=== PATIENT | male | born 1950 | race Caucasian/White ===

== ENCOUNTER 2020-08-15 11:15 | Inpatient (IN) | payer MEDICARE ==
[2020-08-15 12:15] LABS: Eosinophils % (A) 0 %; HCT 40.8 % (39.0-53.0); HGB 14.5 gm/dL (13.0-17.5); Lymphocytes % (A) 14 %; MCH 33.3 pg (25.0-35.0); MCHC 35.7 g/dL (31.0-37.0); MCV 93.4 fL (80.0-100.0); Mean Platelet Volume 8.7; Monocytes % (A) 6 %; Neutrophils % (A) 79 %; Platelet Count 117 k/uL (150-450); RBC 4.37 m/uL (4.30-5.90); RDW 11.5 % (11.5-15.5); WBC 2.6 k/uL (3.8-10.6)
[2020-08-15 12:16] LABS: Basophils % (A) 0 %; Lymphocytes # (A) 0.4 k/uL (1.0-4.8); Monocytes # (A) 0.2 k/uL (0-1.0)
[2020-08-15 12:26] LABS: Potassium 3.1 mmol/L (3.5-5.1)
--- NOTE | 2020-08-15 12:26 | XR ---
EXAMINATION TYPE: XR chest 1V portable DATE OF EXAM: 08/15/2020 COMPARISON: NONE HISTORY: Covid, shortness breath, cough TECHNIQUE: Single frontal view of the chest is obtained. FINDINGS: Some patchy airspace disease suspected on the right. Cardiac mediastinal silhouette within normal limits. Calcified granuloma suspected right lower lobe. No pneumothorax or pleural effusion. IMPRESSION: Correlate for pneumonia, probable old granulomatous disease.
[2020-08-15] MEDS ORDERED: SODIUM CHLORIDE 0.9% 1,000 ML IV STA (12:27)
[2020-08-15 12:29] LABS: ALT 37 U/L (4-49); AST 63 U/L (17-59); African American GFR (CKD) >90 (>60 ml/min/1.73 sqM); Albumin 3.3 g/dL (3.5-5.0); Alkaline Phosphatase 74 U/L (38-126); Anion Gap 9 mmol/L; Blood Urea Nitrogen 18 mg/dL (9-20); C Reactive Protein 7.1 mg/dL (<1.0); Calcium 7.7 mg/dL (8.4-10.2); Carbon Dioxide 23 mmol/L (22-30); Chloride 106 mmol/L (98-107); Glucose 127 mg/dL (74-99); LDH 1283 U/L (313-618); Non-African American GFR(CKD) >90 (>60 ml/min/1.73 sqM); Sodium 138 mmol/L (137-145); Total Bilirubin 0.8 mg/dL (0.2-1.3); Total Protein 6.6 g/dL (6.3-8.2)
[2020-08-15 12:30] LABS: Partial Thromboplastin Time 26.9 sec (22.0-30.0); Prothrombin Time 10.3 sec (9.0-12.0)
[2020-08-15 12:50] LABS: D-Dimer 0.95 mg/L FEU (<0.60)
--- NOTE | 2020-08-15 13:20 | ED ---
SOB HPI - General Chief Complaint: Shortness of Breath Stated Complaint: Covid+, SOB Time Seen by Provider: 08/15/20 11:28 Source: patient Mode of arrival: ambulatory Limitations: no limitations - History of Present Illness Initial Comments: Patient is a 70-year-old male presenting to the emergency department with complaints of increasing shortness of breath over the past few days. Patient was diagnosed foot Covid on 08/09/2020. His symptoms started about 8 days ago. He's been having cough, shortness of breath, fatigue as well as some diarrhea. He is having low appetite, has been trying to drink some water. Mild nausea no vomiting. He denies history of asthma but does have history of chronic bronchitis, granulomatosis disease. Patient does admit to some intermittent fevers over the past few days. Tylenol does take this away. He has no further complaints at this time. Upon arrival to the ER, he is afebrile, 86% on room air, rest of vitals normal. - Related Data Home Medications Medication Instructions Recorded Confirmed Multivitamins, Thera [Multivitamin 1 tab PO DAILY 08/15/20 08/15/20 (formulary)] Allergies Allergy/AdvReac Type Severity Reaction Status Date / Time Penicillins Allergy Swelling Verified 08/15/20 12:15 codeine AdvReac Nausea & Verified 08/15/20 12:15 Vomiting Review of Systems ROS Statement: Those systems with pertinent positive or pertinent negative responses have been documented in the HPI. ROS Other: All systems not noted in ROS Statement are negative. Past Medical History Additional Past Medical History / Comment(s): covid + History of Any Multi-Drug Resistant Organisms: None Reported Past Surgical History: Joint Replacement Additional Past Surgical History / Comment(s): rt knee Past Psychological History: No Psychological Hx Reported Smoking Status: Never smoker Past Alcohol Use History: Rare Past Drug Use History: None Reported General Exam - General Exam Comments Initial Comments: GENERAL: Patient is well-developed and well-nourished. Patient is nontoxic and in no acute distress. HEAD: Atraumatic, normocephalic. EYES: Pupils equal round and reactive to light, extraocular movements intact, sclera anicteric, conjunctiva are normal. Eyelids were unremarkable. ENT: TMs normal, nares patent, oropharynx clear without exudates. Moist mucous membranes. NECK: Normal range of motion, supple without lymphadenopathy or JVD. LUNGS: Unlabored respirations. Breath sounds clear to auscultation bilaterally and equal. No wheezes rales or rhonchi. HEART: Regular rate and rhythm without murmurs, rubs or gallops. ABDOMEN: Soft, nontender, normoactive bowel sounds. No guarding, no rebound. No masses appreciated. : Deferred MUSCULOSKELETAL: Normal extremities with adequate strength and normal range of motion, no pitting or edema. No clubbing or cyanosis. NEUROLOGICAL: Patient is alert and oriented x 3. Motor and sensory are also intact. Cranial nerves II through XII grossly intact. Symmetrical smile. Normal speech, normal gait. PSYCH: Normal mood, normal affect. SKIN: Warm, Dry, normal turgor, no rashes or lesions noted. Limitations: no limitations Course Vital Signs 08/15/20 08/15/20 11:19 11:58 Temperature 97.9 F Pulse Rate 80 75 Respiratory 22 20 Rate Blood Pressure 113/76 125/72 O2 Sat by Pulse 86 L 95 Oximetry Medical Decision Making - Medical Decision Making Patient is a 70-year-old male with history of chronic bronchitis, presenting with Covid, increased shortness of breath over the past few days. He's been having symptoms for 8 days, tested positive last week. He did arrive to the ER at 86% on room air. Labs show a white count of 2.6, dimer slightly elevated at 0.95, potassium is low at 3.1, lactic acid is normal at 1.1. Chest x-ray shows pneumonia, probable old granulomatous disease which he is aware of. Patient is currently on 3 L oxygen, O2 has remained around 94-95%. Patient will be admitted for covert pneumonia, hypoxia. We'll consult pulmonology. Patient accepted by Dr. Rosenberg, Case discussed with Dr. Lantigua. - Lab Data Result diagrams: 08/15/20 11:39 08/15/20 11:39 Lab Results 08/15/20 08/15/20 08/15/20 Range/Units 11:39 11:39 11:39 WBC 2.6 L (3.8-10.6) k/uL RBC 4.37 (4.30-5.90) m/uL Hgb 14.5 (13.0-17.5) gm/dL Hct 40.8 (39.0-53.0) % MCV 93.4 (80.0-100.0) fL MCH 33.3 (25.0-35.0) pg MCHC 35.7 (31.0-37.0) g/dL RDW 11.5 (11.5-15.5) % Plt Count 117 L (150-450) k/uL MPV 8.7 Neutrophils % 79 % Lymphocytes % 14 % Monocytes % 6 % Eosinophils % 0 % Basophils % 0 % Neutrophils # 2.0 (1.3-7.7) k/uL Lymphocytes # 0.4 L (1.0-4.8) k/uL Monocytes # 0.2 (0-1.0) k/uL Eosinophils # 0.0 (0-0.7) k/uL Basophils # 0.0 (0-0.2) k/uL PT 10.3 (9.0-12.0) sec INR 1.0 (<1.2) APTT 26.9 (22.0-30.0) sec D-Dimer 0.95 H (<0.60) mg/L FEU Sodium 138 (137-145) mmol/L Potassium 3.1 L (3.5-5.1) mmol/L Chloride 106 (98-107) mmol/L Carbon Dioxide 23 (22-30) mmol/L Anion Gap 9 mmol/L BUN 18 (9-20) mg/dL Creatinine 0.74 (0.66-1.25) mg/dL Est GFR (CKD-EPI)AfAm >90 (>60 ml/min/1.73 sqM) Est GFR (CKD-EPI)NonAf >90 (>60 ml/min/1.73 sqM) Glucose 127 H (74-99) mg/dL Plasma Lactic Acid Vivek (0.7-2.0) mmol/L Calcium 7.7 L (8.4-10.2) mg/dL Magnesium 2.0 (1.6-2.3) mg/dL Total Bilirubin 0.8 (0.2-1.3) mg/dL AST 63 H (17-59) U/L ALT 37 (4-49) U/L Alkaline Phosphatase 74 (38-126) U/L Lactate Dehydrogenase 1283 H (313-618) U/L C-Reactive Protein 7.1 H (<1.0) mg/dL Total Protein 6.6 (6.3-8.2) g/dL Albumin 3.3 L (3.5-5.0) g/dL 08/15/20 Range/Units 11:39 WBC (3.8-10.6) k/uL RBC (4.30-5.90) m/uL Hgb (13.0-17.5) gm/dL Hct (39.0-53.0) % MCV (80.0-100.0) fL MCH (25.0-35.0) pg MCHC (31.0-37.0) g/dL RDW (11.5-15.5) % Plt Count (150-450) k/uL MPV Neutrophils % % Lymphocytes % % Monocytes % % Eosinophils % % Basophils % % Neutrophils # (1.3-7.7) k/uL Lymphocytes # (1.0-4.8) k/uL Monocytes # (0-1.0) k/uL Eosinophils # (0-0.7) k/uL Basophils # (0-0.2) k/uL PT (9.0-12.0) sec INR (<1.2) APTT (22.0-30.0) sec D-Dimer (<0.60) mg/L FEU Sodium (137-145) mmol/L Potassium (3.5-5.1) mmol/L Chloride (98-107) mmol/L Carbon Dioxide (22-30) mmol/L Anion Gap mmol/L BUN (9-20) mg/dL Creatinine (0.66-1.25) mg/dL Est GFR (CKD-EPI)AfAm (>60 ml/min/1.73 sqM) Est GFR (CKD-EPI)NonAf (>60 ml/min/1.73 sqM) Glucose (74-99) mg/dL Plasma Lactic Acid Vivek 1.1 (0.7-2.0) mmol/L Calcium (8.4-10.2) mg/dL Magnesium (1.6-2.3) mg/dL Total Bilirubin (0.2-1.3) mg/dL AST (17-59) U/L ALT (4-49) U/L Alkaline Phosphatase (38-126) U/L Lactate Dehydrogenase (313-618) U/L C-Reactive Protein (<1.0) mg/dL Total Protein (6.3-8.2) g/dL Albumin (3.5-5.0) g/dL - EKG Data EKG Comments: Normal sinus rhythm, nonspecific intraventricular block, no signs of acute ischemia. Ventricular rate 72, P on arrival 184, QT 424. Disposition Clinical Impression: Pneumonia due to COVID-19 virus, Hypoxia Disposition: ADMITTED IP TO THIS HOSP Condition: Stable Is patient prescribed a controlled substance at d/c from ED?: No Referrals: Nonstaff,Physician [Primary Care Provider] - 1-2 days Decision Date: 08/15/20 Decision Time: 14:02
[2020-08-15] MEDS ORDERED: NALOXONE 0.4 MG/ML 1 ML VIAL IV PRN (13:57)
[2020-08-15] MEDS ORDERED: REMDESIVIR 200 MG in SODIUM CHLORIDE 0.9% 250 ML IVPB ONE (14:43)
[2020-08-15] MEDS ORDERED: BENZONATATE 100 MG CAP PO PRN (14:45)
--- NOTE | 2020-08-15 14:55 | P.HPIM ---
History of Present Illness H&P Date: 08/15/20 Chief Complaint: Shortness of breath This is a 70-year-old male with past medical history significant for underlying asthma that presented to the emergency room with worsening shortness of breath, nausea, and poor appetite. Patient said that his symptoms started originally last Saturday where he was not feeling very well and on Saturday he went to a local [facility] and underwent a rapid COVID-19 test that resulted positive on Saturday08/09/2020. Since then, patient said that her symptoms has been getting progressively worse. He is getting more short of breath and having cough that is generally nonproductive. For the last couple of days he was feeling more nauseated and had 2 episodes of diarrhea. This morning, his daughter checked his oxygen saturation at home using a finger pulse ox machine and was found to be 85% on room air. She then decided to bring him to the emergency room. In the ER, oxygen level improved quickly with 3 L of oxygen via nasal cannula. Chest x-ray showed scattered patchy airspace disease. Patient will be admitted to the hospital for further management. Review of Systems Review of system: 14 points review of systems were obtained and were negative except to what were mentioned in the HPI. Past Medical History Additional Past Medical History / Comment(s): covid + History of Any Multi-Drug Resistant Organisms: None Reported Past Surgical History: Joint Replacement Additional Past Surgical History / Comment(s): rt knee Past Psychological History: No Psychological Hx Reported Smoking Status: Never smoker Past Alcohol Use History: Rare Past Drug Use History: None Reported Medications and Allergies Home Medications Medication Instructions Recorded Confirmed Type Multivitamins, Thera [Multivitamin 1 tab PO DAILY 08/15/20 08/15/20 History (formulary)] Allergies Allergy/AdvReac Type Severity Reaction Status Date / Time Penicillins Allergy Swelling Verified 08/15/20 12:15 codeine AdvReac Nausea & Verified 08/15/20 12:15 Vomiting Physical Exam Vitals: Vital Signs Temp Pulse Resp BP Pulse Ox 08/15/20 11:58 75 20 125/72 95 08/15/20 11:19 97.9 F 80 22 113/76 86 L Intake and Output 08/14/20 08/15/20 08/15/20 22:59 06:59 14:59 Other: Weight 107.048 kg General: The patient is awake and alert, in no distress Eye: there is normal conjunctiva bilaterally. Neck: The neck is supple, there is no JVD. Cardiovascular: Normal S1-S2, no S3-S4, no murmurs. Respiratory: Lungs clear to auscultation bilaterally Gastrointestinal: Abdomen is soft, nontender Musculoskeletal: There is no pedal edema. Neurological:. Speech is normal. Skin: Skin is warm and dry Results CBC & Chem 7: 08/15/20 11:39 08/15/20 11:39 Labs: Abnormal Lab Results - Last 24 Hours (Table) 08/15/20 08/15/20 08/15/20 Range/Units 11:39 11:39 11:39 WBC 2.6 L (3.8-10.6) k/uL Plt Count 117 L (150-450) k/uL Lymphocytes # 0.4 L (1.0-4.8) k/uL D-Dimer 0.95 H (<0.60) mg/L FEU Potassium 3.1 L (3.5-5.1) mmol/L Glucose 127 H (74-99) mg/dL Calcium 7.7 L (8.4-10.2) mg/dL AST 63 H (17-59) U/L Lactate Dehydrogenase 1283 H (313-618) U/L C-Reactive Protein 7.1 H (<1.0) mg/dL Albumin 3.3 L (3.5-5.0) g/dL Assessment and Plan Assessment: This is a 70-year-old male with past medical history noted below who presented to the emergency room with worsening shortness of breath. Patient was evaluated in the ER and will be admitted to the hospital for further management of his me dical problems noted below. 1. COVID-19 pneumonia, patient symptoms started 9 days ago. He definitely qualify for Remdisivir. I will consult pulmonology for further evaluation. Start Decadron 6 mg IV daily day #1. Continue vitamin C, vitamin D, zinc, and melatonin 2. Underlying asthma with no evidence of exacerbation. Albuterol inhaler ordered every 6 hours 3. DVT prophylaxis with subcu Lovenox 4. CODE STATUS, patient is full code Today, I reviewed his medication list and lab work results including inflammatory markers. I would add [place] toenail to his lab work. Continue Mucinex twice daily and Tessalon Perles as needed. Incentive spirometer at bedside.
[2020-08-15] MEDS ORDERED: POTASSIUM CHLORIDE ER 20 MEQ TAB.ER PO STA (14:56)
[2020-08-15] MEDS: ACETAMINOPHEN TAB 325 MG TAB PO PRN (15:22)
[2020-08-15] MEDS: ASCORBIC ACID 500 MG TAB PO SCH (15:23)
[2020-08-15] MEDS: DEXAMETHASONE SOD PHOSPHATE 10 MG/ML 1 ML VIAL IV SCH (15:23)
[2020-08-15] MEDS: guaiFENesin 600 MG TABLET.ER PO SCH (15:24)
[2020-08-15] MEDS: SODIUM CHLORIDE 0.9% 1,000 ML IV SCH (15:25)
[2020-08-15] MEDS: ENOXAPARIN 40 MG/0.4 ML SYRINGE SQ SCH (15:25)
[2020-08-15] MEDS: ALBUTEROL HFA INHALER INHALATION SCH ×2 (16:51→20:27)
[2020-08-15] MEDS: IBUPROFEN 400 MG TAB PO PRN (17:38)
[2020-08-15] MEDS: MELATONIN 5 MG TABLET PO SCH (22:04)
[2020-08-16] MEDS: SODIUM CHLORIDE 0.9% 1,000 ML IV SCH (05:34)
[2020-08-16] MEDS: ALBUTEROL HFA INHALER INHALATION SCH ×4 (08:04→20:31)
[2020-08-16] MEDS: CHOLECALCIFEROL 25 MCG (1000 IU) TABLET PO SCH (08:16)
[2020-08-16] MEDS: ASCORBIC ACID 500 MG TAB PO SCH (08:16)
[2020-08-16] MEDS: guaiFENesin 600 MG TABLET.ER PO SCH ×2 (08:16→20:55)
[2020-08-16] MEDS: ENOXAPARIN 40 MG/0.4 ML SYRINGE SQ SCH (08:16)
[2020-08-16] MEDS: DEXAMETHASONE SOD PHOSPHATE 10 MG/ML 1 ML VIAL IV SCH (08:16)
[2020-08-16] MEDS: ZINC SULFATE 220 MG CAP PO SCH (08:16)
--- NOTE | 2020-08-16 10:45 | P.PN ---
Subjective Progress Note Date: 08/16/20 Patient is doing fairly well today. Shortness of breath is improving but is not back to baseline yet. He still requiring 2-3 L of oxygen. No acute events overnight reported by nursing staff. Objective - Vital Signs Vital signs: Vital Signs Temp 99 F 08/16/20 09:56 Pulse 76 08/16/20 09:56 Resp 19 08/16/20 09:56 BP 127/67 08/16/20 09:56 Pulse Ox 94 L 08/16/20 09:56 Intake & Output 08/15/20 08/16/20 08/16/20 18:59 06:59 18:59 Output Total 550 Balance -550 Weight 107.048 kg 107.048 kg Output: Urine 550 Other: Voiding Method Toilet - Exam General: The patient is awake and alert, in no distress Eye: there is normal conjunctiva bilaterally. Neck: The neck is supple, there is no JVD. Cardiovascular: Normal S1-S2, no S3-S4, no murmurs. Respiratory: Lungs clear to auscultation bilaterally Gastrointestinal: Abdomen is soft, nontender Musculoskeletal: There is no pedal edema. Neurological:. Speech is normal. Skin: Skin is warm and dry - Labs CBC & Chem 7: 08/15/20 11:39 08/15/20 11:39 Labs: Abnormal Lab Results - Last 24 Hours (Table) 08/15/20 08/15/20 08/15/20 Range/Units 11:39 11:39 11:39 WBC 2.6 L (3.8-10.6) k/uL Plt Count 117 L (150-450) k/uL Lymphocytes # 0.4 L (1.0-4.8) k/uL D-Dimer 0.95 H (<0.60) mg/L FEU Potassium 3.1 L (3.5-5.1) mmol/L Glucose 127 H (74-99) mg/dL Calcium 7.7 L (8.4-10.2) mg/dL AST 63 H (17-59) U/L Lactate Dehydrogenase 1283 H (313-618) U/L C-Reactive Protein 7.1 H (<1.0) mg/dL Albumin 3.3 L (3.5-5.0) g/dL Procalcitonin (0.02-0.09) ng/mL SARS-CoV-2 (PCR) (Not Detectd) 08/15/20 08/15/20 Range/Units 11:39 11:48 WBC (3.8-10.6) k/uL Plt Count (150-450) k/uL Lymphocytes # (1.0-4.8) k/uL D-Dimer (<0.60) mg/L FEU Potassium (3.5-5.1) mmol/L Glucose (74-99) mg/dL Calcium (8.4-10.2) mg/dL AST (17-59) U/L Lactate Dehydrogenase (313-618) U/L C-Reactive Protein (<1.0) mg/dL Albumin (3.5-5.0) g/dL Procalcitonin 0.10 H (0.02-0.09) ng/mL SARS-CoV-2 (PCR) Detected A (Not Detectd) Assessment and Plan Assessment: This is a 70-year-old male with past medical history noted below who presented to the emergency room with worsening shortness of breath. Patient was evaluated in the ER and will be admitted to the hospital for further management of his medical problems noted below. 1. COVID-19 pneumonia, patient symptoms started 9 days ago. I ordered Remdes ivir first dose yesterday the pharmacy called me saying that the guidelines has changed and now the window since onset of symptoms is 7 days instead of 10. I consulted pulmonology for further evaluation. Started Decadron 6 mg IV daily day #2. Continue vitamin C, vitamin D, zinc, and melatonin. Incentive spirometer at bedside. Mucinex and Tessalon Perles as needed. 2. Acute hypoxic respiratory failure currently on 3 L of oxygen via nasal cannula 3. Underlying asthma with no evidence of exacerbation. Albuterol inhaler ordered every 6 hours 4. DVT prophylaxis with subcu Lovenox 5. CODE STATUS, patient is full code Today, I reviewed his medication list and lab work results including inflammatory markers. Continue current management. Appreciate hadoop consultant's recommendations.
--- NOTE | 2020-08-16 13:35 | P.CNPUL ---
History of Present Illness Consult date: 08/16/20 Reason for consult: dyspnea, cough, hypoxemia, abnormal CXR/CT Chief complaint: COVID-19 pneumonia History of present illness: 70-year-old white male patient who presented to the hospital on 08/15/2020 with complaints of 10 day history of loss of taste, cough, shortness of breath, fever. Patient and his have been staying with her daughter who tested positive for COVID, patient had an outpatient test for COVID-19 on 08/09/2020 and was found to be positive. Last few days he's been having increased shortness of breath, cough. Past medical history is noncontributory, other than osteoarthritis with previous history of joint replacement surgery in the right knee, patient is lifetime nonsmoker, does have history of chronic bronchial asthma, not on any maintenance inhalers on a regular basis. Chest x-ray in the emergency department shows some patchy airspace disease on the right, calcified granuloma in the right lower lobe, no pneumothorax or pleural effusion. His repeat COVID-19 PCR in the emergency room was positive, RSV and influenza screen were negative. His admission blood work showed neutropenia, and lymphopenia, white blood cell count was 2.6, and leukocyte count was 0.4, d-dimer was 0.95, p otassium is 3.1, rest of the electrolytes and renal profile were unremarkable, lactic acid was 1.1, AST was 63, ALT and alk phos were within normal limits, LDH was 1283, CRP was 7.1, pro calcitonin level was negative at 0.10. Patient was satting 86% on room air, currently requiring 4 L of supplemental oxygen with a pulse ox of 91-94%, he is afebrile. Lung sounds reveal diffuse coarse crackles at bilateral bases. Patient was started on Decadron this milligram daily, and prophylactic Lovenox. he is outside the window for Remdesivir Review of Systems All systems: negative Constitutional: Denies chills, Denies fever Eyes: denies blurred vision, denies pain Ears, nose, mouth and throat: Denies headache, Denies sore throat Cardiovascular: Denies chest pain, Denies shortness of breath Respiratory: Reports cough, Reports dyspnea Gastrointestinal: Denies abdominal pain, Denies diarrhea, Denies nausea, Denies vomiting Musculoskeletal: Denies myalgias Integumentary: Denies pruritus, Denies rash Neurological: Denies numbness, Denies weakness Psychiatric: Denies anxiety, Denies depression Endocrine: Denies fatigue, Denies weight change Past Medical History Additional Past Medical History / Comment(s): covid + History of Any Multi-Drug Resistant Organisms: None Reported Past Surgical History: Back Surgery, Joint Replacement Additional Past Surgical History / Comment(s): rt knee Past Anesthesia/Blood Transfusion Reactions: No Reported Reaction Past Psychological History: No Psychological Hx Reported Smoking Status: Never smoker Past Alcohol Use History: Rare Past Drug Use History: None Reported - Past Family History Father History Unknown: Yes Medications and Allergies Home Medications Medication Instructions Recorded Confirmed Type Multivitamins, Thera [Multivitamin 1 tab PO DAILY 08/15/20 08/15/20 History (formulary)] Allergies Allergy/AdvReac Type Severity Reaction Status Date / Time Penicillins Allergy Swelling Verified 08/15/20 12:15 codeine AdvReac Nausea & Verified 08/15/20 12:15 Vomiting Physical Exam Vitals: Vital Signs Temp Pulse Pulse Resp BP BP Pulse Ox 08/16/20 09:56 99 F 76 19 127/67 94 L 08/16/20 06:23 98.6 F 69 18 144/82 91 L 08/16/20 02:11 98.0 F 66 18 117/67 90 L 08/15/20 22:05 17 08/15/20 21:20 97.9 F 84 19 116/68 92 L 08/15/20 19:59 98.6 F 75 18 118/63 94 L 08/15/20 17:38 100.4 F H 82 22 122/62 94 L 08/15/20 15:29 99.6 F 71 20 108/79 92 L Intake and Output 08/15/20 08/16/20 08/16/20 22:59 06:59 14:59 Intake Total 600 Output Total 550 Balance -550 600 Intake: Intake, IV Titration 600 Amount Sodium Chloride 0.9% 1, 600 000 ml @ 75 mls/hr IV . [id number] [facility] Rx#:[id number] Output: Urine 550 Other: Voiding Method Toilet Weight 107.048 kg GENERAL EXAM: Alert, very pleasant, 62-year-old white male, currently on 4 L of oxygen with pulse ox between 91-94% comfortable in no apparent distress. HEAD: Normocephalic/atraumatic. EYES: Normal reaction of pupils, equal size. Conjunctiva pink, sclera white. NOSE: Clear with pink turbinates. THROAT: No erythema or exudates. NECK: No masses, no JVD, no thyroid enlargement, no adenopathy. CHEST: No chest wall deformity. Symmetrical expansion. LUNGS: Equal air entry with coarse bibasilar crackles CVS: Regular rate and rhythm, normal S1 and S2, no gallops, no murmurs, no rubs ABDOMEN: Soft, nontender. No hepatosplenomegaly, normal bowel sounds, no guarding or rigidity. EXTREMITIES: No clubbing, no edema, no cyanosis, 2+ pulses and upper and lower extremities. MUSCULOSKELETAL: Muscle strength and tone normal. SPINE: No scoliosis or deformity SKIN: No rashes CENTRAL NERVOUS SYSTEM: Alert and oriented -3. No focal deficits, tone is normal in all 4 extremities. PSYCHIATRIC: Alert and oriented -3. Appropriate affect. Intact judgment and insight. Results - Laboratory Findings CBC and BMP: 08/15/20 11:39 08/15/20 11:39 PT/INR, D-dimer PT 10.3 sec (9.0-12.0) 08/15/20 11:39 INR 1.0 (<1.2) 08/15/20 11:39 D-Dimer 0.95 mg/L FEU (<0.60) H 08/15/20 11:39 Abnormal lab findings: Abnormal Labs 08/15/20 08/15/20 08/15/20 11:39 11:39 11:39 WBC 2.6 L Plt Count 117 L Lymphocytes # 0.4 L D-Dimer 0.95 H Potassium 3.1 L Glucose 127 H Calcium 7.7 L AST 63 H Lactate Dehydrogenase 1283 H C-Reactive Protein 7.1 H Albumin 3.3 L Procalcitonin SARS-CoV-2 (PCR) 08/15/20 08/15/20 11:39 11:48 WBC Plt Count Lymphocytes # D-Dimer Potassium Glucose Calcium AST Lactate Dehydrogenase C-Reactive Protein Albumin Procalcitonin 0.10 H SARS-CoV-2 (PCR) Detected A - Diagnostic Findings Chest x-ray: report reviewed, image reviewed Additional studies: EKG reviewed Assessment and Plan Plan: Assessment: #1. Acute hypoxic respiratory failure related to acute COVID-19 pneumonia, with onset of symptoms 10 days prior to presentation, patient had outpatient positive COVID-19 test on 08/09/2020, outside the window for Remdesivir #2. Increased d-dimer and inflammatory markers related to the above #3. Neutropenia, pro-calcitonin was negative, doubt bacterial infection #4. Lifetime nonsmoker #5. History of chronic bronchial asthma, mild intermittent, inactive at this time Plan: Continue Decadron Continue prophylactic anticoagulation Continue vitamins Outside the window for Remdesivir We'll follow clinical course and make further recommendations I performed a history & physical examination of the patient and discussed their management with my nurse practitioner, Magdalena Negrete. I reviewed the nurse practitioner's note and agree with the documented findings and plan of care. Lung sounds are positive for diminished breath sounds. The findings and the impression was discussed with the patient. I attest to the documentation by the nurse practitioner. Time with Patient: Greater than 30
[2020-08-16] MEDS: IBUPROFEN 400 MG TAB PO PRN (14:26)
[2020-08-16 16:53] LABS: HCT 39.7 % (39.6-50.0); HGB 13.8 g/dL (13.0-17.0); MCH 32.5 pg (27.0-32.0); MCHC 34.8 g/dL (32.0-37.0); MCV 93.4 fL (80.0-97.0); Mean Platelet Volume 11.5 fL (9.5-12.2); Platelet Count 140 X 10*3/uL (140-440); RBC 4.25 X 10*6/uL (4.40-5.60); RDW 11.9 % (11.5-14.5); WBC 2.98 X 10*3/uL (4.50-10.00)
[2020-08-16 17:45] LABS: Basophils # (A) 0 X 10*3/uL (0.00-0.10); Basophils % (A) 0 %; Eosinophils # (A) 0 X 10*3/uL (0.04-0.35); Eosinophils % (A) 0 %; Lymphocytes # (A) 0.37 X 10*3/uL (0.90-5.00); Lymphocytes % (A) 12.4 %; Monocytes # (A) 0.18 X 10*3/uL (0.20-1.00); Neutrophils # (A) 2.41 X 10*3/uL (1.80-7.70); Neutrophils % (A) 80.9 %
[2020-08-16 17:48] LABS: African American GFR (CKD) 112.4 (60.0-200.0); Anion Gap 10.8 mmol/L (4.00-12.00); BUN/Creat Ratio 17.14 Ratio (12.00-20.00); Calcium 7.6 mg/dL (8.7-10.3); Carbon Dioxide 20.2 mmol/L (21.6-31.8); Potassium 3.3 mmol/L (3.5-5.5)
[2020-08-16] MEDS: POTASSIUM CHLORIDE ER 20 MEQ TAB.ER PO SCH ×3 (19:25→23:05)
[2020-08-16] MEDS: MELATONIN 5 MG TABLET PO SCH (20:54)
[2020-08-17] MEDS: POTASSIUM CHLORIDE ER 20 MEQ TAB.ER PO SCH (00:05)
[2020-08-17] MEDS: IBUPROFEN 400 MG TAB PO PRN ×2 (01:26→20:13)
--- NOTE | 2020-08-17 07:29 | XR ---
EXAMINATION TYPE: XR chest 1V portable DATE OF EXAM: 08/17/2020 HISTORY: Shortness of breath. COMPARISON: 08/15/2020 TECHNIQUE: Single view of the chest is submitted. FINDINGS: Demonstrated are scattered senescent parenchymal change. Patchy airspace disease right lung bases quite subtle. Remote granulomatous disease noted with calcif ied granulomas identified. The heart is stable. Hilar and mediastinal structures are within normal limits. Degenerative changes are seen of the dorsal spine. IMPRESSION: 1. Stable chest.
[2020-08-17] MEDS: ALBUTEROL HFA INHALER INHALATION SCH ×4 (08:47→21:26)
[2020-08-17] MEDS: ASCORBIC ACID 500 MG TAB PO SCH (08:57)
[2020-08-17] MEDS: ZINC SULFATE 220 MG CAP PO SCH (08:57)
[2020-08-17] MEDS: guaiFENesin 600 MG TABLET.ER PO SCH ×2 (08:57→20:13)
[2020-08-17] MEDS: ENOXAPARIN 40 MG/0.4 ML SYRINGE SQ SCH (08:57)
[2020-08-17] MEDS: DEXAMETHASONE SOD PHOSPHATE 10 MG/ML 1 ML VIAL IV SCH (08:57)
[2020-08-17] MEDS: CHOLECALCIFEROL 25 MCG (1000 IU) TABLET PO SCH (08:57)
[2020-08-17 10:06] LABS: C Reactive Protein 3.6 mg/dL (0.0-0.8)
--- NOTE | 2020-08-17 12:58 | P.PN ---
Subjective Progress Note Date: 08/17/20 Patient reports feeling short of breath today. His oxygen requirement increased overnight and he is currently on 5 L of oxygen via nasal cannula. Objective - Vital Signs Vital signs: Vital Signs Temp 98.4 F 08/17/20 10:00 Pulse 74 08/17/20 10:00 Resp 18 08/17/20 10:00 BP 138/74 08/17/20 10:00 Pulse Ox 91 L 08/17/20 10:00 Intake & Output 08/16/20 08/17/20 08/17/20 18:59 06:59 18:59 Intake Total 600 Output Total 800 Balance 600 -800 Intake: Intake, IV Titration 600 Amount Sodium Chloride 0.9% 1, 600 000 ml @ 75 mls/hr IV . [id number] [facility] Rx#:[id number] Output: Urine 800 Other: Voiding Method Toilet # Bowel Movements 1 - Exam General: The patient is awake and alert, in no distress Eye: there is normal conjunctiva bilaterally. Neck: The neck is supple, there is no JVD. Cardiovascular: Normal S1-S2, no S3-S4, no murmurs. Respiratory: Lungs clear to auscultation bilaterally Gastrointestinal: Abdomen is soft, nontender Musculoskeletal: There is no pedal edema. Neurological:. Speech is normal. Skin: Skin is warm and dry - Labs CBC & Chem 7: 08/16/20 07:08 08/17/20 01:04 Labs: Abnormal Lab Results - Last 24 Hours (Table) 08/16/20 08/16/20 08/17/20 Range/Units 07:08 07:08 06:27 WBC 2.98 L (4.50-10.00) X 10*3/uL RBC 4.25 L (4.40-5.60) X 10*6/uL MCH 32.5 H (27.0-32.0) pg Lymphocytes # 0.37 L (0.90-5.00) X 10*3/uL Monocytes # 0.18 L (0.20-1.00) X 10*3/uL Eosinophils # 0 L (0.04-0.35) X 10*3/uL Potassium 3.3 L (3.5-5.5) mmol/L Chloride 110 H (96-109) mmol/L Carbon Dioxide 20.2 L (21.6-31.8) mmol/L Glucose 144 H (70-110) mg/dL Calcium 7.6 L (8.7-10.3) mg/dL Lactate Dehydrogenase 609 H (120-246) U/L C-Reactive Protein 3.6 H (0.0-0.8) mg/dL Assessment and Plan Assessment: This is a 70-year-old male with past medical history noted below who presented to the emergency room with worsening shortness of breath. Patient was evaluated in the ER and will be admitted to the hospital for further management of his medical problems noted below. 1. COVID-19 pneumonia, seen and evaluated by pulmonology. Not a candidate for Remdesivir. Started Decadron 6 mg IV daily day #3. Continue vitamin C, vitamin D, zinc, and melatonin. Incentive spirometer at bedside. Mucinex and Tessalon Perles as needed. 2. Acute hypoxic respiratory failure currently on 5 L of oxygen via nasal cannula 3. Underlying asthma with no evidence of exacerbation. Albuterol inhaler ordered every 6 hours 4. DVT prophylaxis with subcu Lovenox 5. CODE STATUS, patient is full code Today, I reviewed his medication list and lab work results including inflammatory markers. Continue current management. Appreciate decorator consultant's recommendations.
--- NOTE | 2020-08-17 15:22 | P.PN ---
Subjective Progress Note Date: 08/17/20 Principal diagnosis: COVID-19 pneumonia 70-year-old white male patient who presented to the hospital on 08/15/2020 with complaints of 10 day history of loss of taste, cough, shortness of breath, fever. Patient and his have been staying with her daughter who tested positive for COVID, patient had an outpatient test for COVID-19 on 08/09/2020 and was found to be positive. Last few days he's been having increased shortness of breath, cough. Past medical history is noncontributory, other than osteoarthritis with previous history of joint replacement surgery in the right knee, patient is lifetime nonsmoker, does have history of chronic bronchial asthma, not on any maintenance inhalers on a regular basis. Chest x-ray in the emergency department shows some patchy airspace disease on the right, calcified granuloma in the right lower lobe, no pneumothorax or pleural effusion. His repeat COVID-19 PCR in the emergency room was positive, RSV and influenza screen were negative. His admission blood work showed neutropenia, and lymphopenia, white blood cell count was 2.6, and leukocyte count was 0.4, d-dimer was 0.95, potassium is 3.1, rest of the electrolytes and renal profile were unremarkable, lactic acid was 1.1, AST was 63, ALT and alk phos were within normal limits, LDH was 1283, CRP was 7.1, pro calcitonin level was negative at 0.10. Patient was satting 86% on room air, currently requiring 4 L of supplemental oxygen with a pulse ox of 91-94%, he is afebrile. Lung sounds reveal diffuse coarse crackles at bilateral bases. Patient was started on Decadron this milligram daily, and prophylactic Lovenox. he is outside the window for Remdesivir On 08/17/2020 patient seen in follow-up on medical surgical floor, he is resting in bed, appears to be in no acute distress, he still on 5 L of oxygen has pulse ox of 90-91%, he is afebrile, hemodynamically stable, he states when he walks to the bathroom he gets very lightheaded and dizzy and sometimes feel like he is going to pass out. He does get short of breath, he was instructed to call for help when ambulating to the bathroom. Sounds reveal diffuse crackles bilaterally, today's follow-up chest x-ray showing patchy airspace disease lung bases. He is trying to work on incentive spirometer. Today's labs have been reviewed, his d-dimer today is 0.55, inflammatory markers are improving, and his LDH is 609, and CRP is 3.6. An patient remains on Decadron 6 mg daily, and prophylactic dose Lovenox in addition to vitamins Objective - Vital Signs Vital signs: Vital Signs Temp 98.4 F 08/17/20 14:00 Pulse 73 08/17/20 14:00 Resp 20 08/17/20 14:00 BP 139/73 08/17/20 14:00 Pulse Ox 90 L 08/17/20 14:00 Intake & Output 08/16/20 08/17/20 08/17/20 18:59 06:59 18:59 Intake Total 600 Output Total 800 Balance 600 -800 Intake: Intake, IV Titration 600 Amount Sodium Chloride 0.9% 1, 600 000 ml @ 75 mls/hr IV . [id number] [facility] Rx#:[id number] Output: Urine 800 Other: Voiding Method Toilet # Voids 3 # Bowel Movements 1 - Exam GENERAL EXAM: Alert, very pleasant, 62-year-old white male, currently on 5 L of oxygen with pulse ox between 90-91% comfortable in no apparent distress. HEAD: Normocephalic/atraumatic. EYES: Normal reaction of pupils, equal size. Conjunctiva pink, sclera white. NOSE: Clear with pink turbinates. THROAT: No erythema or exudates. NECK: No masses, no JVD, no thyroid enlargement, no adenopathy. CHEST: No chest wall deformity. Symmetrical expansion. LUNGS: Equal air entry with coarse bibasilar crackles CVS: Regular rate and rhythm, normal S1 and S2, no gallops, no murmurs, no rubs ABDOMEN: Soft, nontender. No hepatosplenomegaly, normal bowel sounds, no guarding or rigidity. EXTREMITIES: No clubbing, no edema, no cyanosis, 2+ pulses and upper and lower extremities. MUSCULOSKELETAL: Muscle strength and tone normal. SPINE: No scoliosis or deformity SKIN: No rashes CENTRAL NERVOUS SYSTEM: Alert and oriented -3. No focal deficits, tone is normal in all 4 extremities. PSYCHIATRIC: Alert and oriented -3. Appropriate affect. Intact judgment and insight. - Labs CBC & Chem 7: 08/16/20 07:08 08/17/20 01:04 Labs: Abnormal Lab Results - Last 24 Hours (Table) 08/16/20 08/16/20 08/17/20 Range/Units 07:08 07:08 06:27 WBC 2.98 L (4.50-10.00) X 10*3/uL RBC 4.25 L (4.40-5.60) X 10*6/uL MCH 32.5 H (27.0-32.0) pg Lymphocytes # 0.37 L (0.90-5.00) X 10*3/uL Monocytes # 0.18 L (0.20-1.00) X 10*3/uL Eosinophils # 0 L (0.04-0.35) X 10*3/uL Potassium 3.3 L (3.5-5.5) mmol/L Chloride 110 H (96-109) mmol/L Carbon Dioxide 20.2 L (21.6-31.8) mmol/L Glucose 144 H (70-110) mg/dL Calcium 7.6 L (8.7-10.3) mg/dL Lactate Dehydrogenase 609 H (120-246) U/L C-Reactive Protein 3.6 H (0.0-0.8) mg/dL Assessment and Plan Plan: Assessment: #1. Acute hypoxic respiratory failure related to acute COVID-19 pneumonia, with onset of symptoms 10 days prior to presentation, patient had outpatient positive COVID-19 test on 08/09/2020, outside the window for Remdesivir #2. Increased d-dimer and inflammatory markers related to the above #3. Neutropenia, pro-calcitonin was negative, doubt bacterial infection #4. Lifetime nonsmoker #5. History of chronic bronchial asthma, mild intermittent, inactive at this time Plan: Continue titrating FiO2 to keep O2 sats ration is at or above 90% Continue Decadron Continue prophylactic anticoagulation Today's labs have been reviewed, today's chest x-ray has been reviewed Continue vitamins Outside the window for Remdesivir If remains stable without signs of worsening dyspnea or hypoxia may be considered for discharge home in the next 24 hours, and patient will likely need home oxygen I performed a history & physical examination of the patient and discussed their management with my nurse practitioner, Magdalena Acden. I reviewed the nurse practitioner's note and agree with the documented findings and plan of care. Lung sounds are positive for diminished breath sounds. The findings and the impression was discussed with the patient. I attest to the documentation by the nurse practitioner. Time with Patient: Less than 30
[2020-08-17] MEDS ORDERED: ALPRAZolam 0.5 MG TAB PO STA (19:09)
[2020-08-17] MEDS: MELATONIN 5 MG TABLET PO SCH (20:13)
[2020-08-17] MEDS: ONDANSETRON 4 MG/2 ML VIAL IVP PRN (20:16)
[2020-08-18] MEDS: ALBUTEROL HFA INHALER INHALATION SCH ×4 (07:20→20:41)
[2020-08-18] MEDS: DEXAMETHASONE SOD PHOSPHATE 10 MG/ML 1 ML VIAL IV SCH (08:40)
[2020-08-18] MEDS: CHOLECALCIFEROL 25 MCG (1000 IU) TABLET PO SCH (08:40)
[2020-08-18] MEDS: ZINC SULFATE 220 MG CAP PO SCH (08:40)
[2020-08-18] MEDS: ENOXAPARIN 40 MG/0.4 ML SYRINGE SQ SCH (08:40)
[2020-08-18] MEDS: ASCORBIC ACID 500 MG TAB PO SCH (08:40)
[2020-08-18] MEDS: guaiFENesin 600 MG TABLET.ER PO SCH ×2 (08:40→20:55)
--- NOTE | 2020-08-18 11:09 | P.PN ---
Subjective Progress Note Date: 08/18/20 Patient reports feeling well. His oxygen was increased overnight to 6 L. He denies significant shortness of breath. Objective - Vital Signs Vital signs: Vital Signs Temp 97.8 F 08/18/20 05:50 Pulse 68 08/18/20 05:50 Resp 17 08/18/20 01:36 BP 133/57 08/18/20 05:50 Pulse Ox 93 L 08/18/20 05:55 Intake & Output 08/17/20 08/18/20 08/18/20 18:59 06:59 18:59 Output Total 700 Balance -700 Output: Urine 700 Other: Voiding Method Urinal # Voids 3 # Bowel Movements 0 - Exam General: The patient is awake and alert, in no distress Eye: there is normal conjunctiva bilaterally. Neck: The neck is supple, there is no JVD. Cardiovascular: Normal S1-S2, no S3-S4, no murmurs. Respiratory: Lungs clear to auscultation bilaterally Gastrointestinal: Abdomen is soft, nontender Musculoskeletal: There is no pedal edema. Neurological:. Speech is normal. Skin: Skin is warm and dry - Labs CBC & Chem 7: 08/16/20 07:08 08/17/20 01:04 Assessment and Plan Assessment: This is a 70-year-old male with past medical history noted below who presented to the emergency room with worsening shortness of breath. Patient was evaluated in the ER and will be admitted to the hospital for further management of his medical problems noted below. 1. COVID-19 pneumonia, seen and evaluated by pulmonology. Not a candidate for Remdesivir. Started Decadron 6 mg IV daily day #4. Continue vitamin C, vitamin D, zinc, and melatonin. Incentive spirometer at bedside. Mucinex and Tessalon Perles as needed. 2. Acute hypoxic respiratory failure currently on 6 L of oxygen via nasal cannula. I checked his O2 sat was around 95%. I lowered oxygen to 4 L and O2 sats remained around 91-92%. 3. Underlying asthma with no evidence of exacerbation. Albuterol inhaler ordered every 6 hours 4. DVT prophylaxis with subcu Lovenox 5. CODE STATUS, patient is full code Today, I reviewed his medication list and lab work results including inflammatory markers. Continue current management. Appreciate [employer] product consultant's recommendations.
[2020-08-18 12:43] LABS: Basophils # (A) 0.01 X 10*3/uL (0.00-0.10); Basophils % (A) 0.2 %; Eosinophils # (A) 0 X 10*3/uL (0.04-0.35); Eosinophils % (A) 0 %; HCT 39.5 % (39.6-50.0); HGB 13.5 g/dL (13.0-17.0); Lymphocytes # (A) 0.67 X 10*3/uL (0.90-5.00); Lymphocytes % (A) 11.2 %; MCH 32.3 pg (27.0-32.0); MCHC 34.2 g/dL (32.0-37.0); MCV 94.5 fL (80.0-97.0); Mean Platelet Volume 11.3 fL (9.5-12.2); Monocytes # (A) 0.39 X 10*3/uL (0.20-1.00); Monocytes % (A) 6.5 %; Neutrophils # (A) 4.87 X 10*3/uL (1.80-7.70); Neutrophils % (A) 81.1 %; Platelet Count 189 X 10*3/uL (140-440); RBC 4.18 X 10*6/uL (4.40-5.60); RDW 12.4 % (11.5-14.5)
--- NOTE | 2020-08-18 15:27 | P.PN ---
Subjective Progress Note Date: 08/18/20 Principal diagnosis: COVID-19 pneumonia 70-year-old white male patient who presented to the hospital on 08/15/2020 with complaints of 10 day history of loss of taste, cough, shortness of breath, fever. Patient and his have been staying with her daughter who tested positive for COVID, patient had an outpatient test for COVID-19 on 08/09/2020 and was found to be positive. Last few days he's been having increased shortness of breath, cough. Past medical history is noncontributory, other than osteoarthritis with previous history of joint replacement surgery in the right knee, patient is lifetime nonsmoker, does have history of chronic bronchial asthma, not on any maintenance inhalers on a regular basis. Chest x-ray in the emergency department shows some patchy airspace disease on the right, calcified granuloma in the right lower lobe, no pneumothorax or pleural effusion. His repeat COVID-19 PCR in the emergency room was positive, RSV and influenza screen were negative. His admission blood work showed neutropenia, and lymphopenia, white blood cell count was 2.6, and leukocyte count was 0.4, d-dimer was 0.95, potassium is 3.1, rest of the electrolytes and renal profile were unremarkable, lactic acid was 1.1, AST was 63, ALT and alk phos were within normal limits, LDH was 1283, CRP was 7.1, pro calcitonin level was negative at 0.10. Patient was satting 86% on room air, currently requiring 4 L of supplemental oxygen with a pulse ox of 91-94%, he is afebrile. Lung sounds reveal diffuse coarse crackles at bilateral bases. Patient was started on Decadron this milligram daily, and prophylactic Lovenox. he is outside the window for Remdesivir On 08/17/2020 patient seen in follow-up on medical surgical floor, he is resting in bed, appears to be in no acute distress, he still on 5 L of oxygen has pulse ox of 90-91%, he is afebrile, hemodynamically stable, he states when he walks to the bathroom he gets very lightheaded and dizzy and sometimes feel like he is going to pass out. He does get short of breath, he was instructed to call for help when ambulating to the bathroom. Sounds reveal diffuse crackles bilaterally, today's follow-up chest x-ray showing patchy airspace disease lung bases. He is trying to work on incentive spirometer. Today's labs have been reviewed, his d-dimer today is 0.55, inflammatory markers are improving, and his LDH is 609, and CRP is 3.6. An patient remains on Decadron 6 mg daily, and prophylactic dose Lovenox in addition to vitamins On 08/18/2020 patient seen in follow-up on medical surgical floor. He is currently down to 4 L of oxygen pulse ox is 93%, he states he still feels weak and wobbly when walking to the bathroom, at times he gets lightheaded, but no worsening dyspnea, no signs of any respiratory distress. Today's labs have been noted, d-dimer from yesterday is 0.55, inflammatory markers were improving, no cough, no complaints of chest discomfort, he remains on Decadron 6 blood gram d aily, and Lovenox 40 mg daily. Objective - Vital Signs Vital signs: Vital Signs Temp 98.5 F 08/18/20 14:14 Pulse 67 08/18/20 14:14 Resp 18 08/18/20 14:14 BP 137/72 08/18/20 14:14 Pulse Ox 88 L 08/18/20 14:14 Intake & Output 08/17/20 08/18/20 08/18/20 18:59 06:59 18:59 Intake Total 200 Output Total 700 Balance -700 200 Intake: Oral 200 Output: Urine 700 Other: Voiding Method Urinal # Voids 3 # Bowel Movements 0 - Exam GENERAL EXAM: Alert, very pleasant, 62-year-old white male, currently on 4 L of oxygen with pulse ox between 90-91% comfortable in no apparent distress. HEAD: Normocephalic/atraumatic. EYES: Normal reaction of pupils, equal size. Conjunctiva pink, sclera white. NOSE: Clear with pink turbinates. THROAT: No erythema or exudates. NECK: No masses, no JVD, no thyroid enlargement, no adenopathy. CHEST: No chest wall deformity. Symmetrical expansion. LUNGS: Equal air entry with coarse bibasilar crackles CVS: Regular rate and rhythm, normal S1 and S2, no gallops, no murmurs, no rubs ABDOMEN: Soft, nontender. No hepatosplenomegaly, normal bowel sounds, no guarding or rigidity. EXTREMITIES: No clubbing, no edema, no cyanosis, 2+ pulses and upper and lower extremities. MUSCULOSKELETAL: Muscle strength and tone normal. SPINE: No scoliosis or deformity SKIN: No rashes CENTRAL NERVOUS SYSTEM: Alert and oriented -3. No focal deficits, tone is normal in all 4 extremities. PSYCHIATRIC: Alert and oriented -3. Appropriate affect. Intact judgment and insight. - Labs CBC & Chem 7: 08/18/20 06:44 08/17/20 01:04 Labs: Abnormal Lab Results - Last 24 Hours (Table) 08/18/20 Range/Units 06:44 RBC 4.18 L (4.40-5.60) X 10*6/uL Hct 39.5 L (39.6-50.0) % MCH 32.3 H (27.0-32.0) pg Immature Gran # 0.06 H (0.00-0.04) X 10*3/uL Lymphocytes # 0.67 L (0.90-5.00) X 10*3/uL Eosinophils # 0 L (0.04-0.35) X 10*3/uL Assessment and Plan Plan: Assessment: #1. Acute hypoxic respiratory failure related to acute COVID-19 pneumonia, with onset of symptoms 10 days prior to presentation, patient had outpatient positive COVID-19 test on 08/09/2020, outside the window for Remdesivir #2. Increased d-dimer and inflammatory markers related to the above #3. Neutropenia, pro-calcitonin was negative, doubt bacterial infection #4. Lifetime nonsmoker #5. History of chronic bronchial asthma, mild intermittent, inactive at this time Plan: Patient has remained stable Currently down to 4 L of oxygen Decadron at 6 mg, and current dose Lovenox Continue weaning FiO2 to keep O2 sats ration at or above 90% Is complaining weakness and unsteady gait Obtain physical therapy evaluation From pulmonary perspective he could be considered for discharge in remained stable in the next 24 hours, obtain home oxygen assessment there is a possibility patient may need home oxygen I performed a history & physical examination of the patient and discussed their management with my nurse practitioner, Magdalena Negrete. I reviewed the nurse practitioner's note and agree with the documented findings and plan of care. Lung sounds are positive for diminished breath sounds. The findings and the impression was discussed with the patient. I attest to the documentation by the nurse practitioner. Time with Patient: Less than 30
[2020-08-18] MEDS ORDERED: MAG HYDROX/AL HYDROX/SIMETH 30 ML CUP PO PRN (20:11)
[2020-08-18] MEDS: FAMOTIDINE 20 MG TAB PO SCH (20:55)
[2020-08-18] MEDS: MELATONIN 5 MG TABLET PO SCH (20:55)
[2020-08-18 21:16] LABS: African American GFR (CKD) 112.4 (60.0-200.0); Anion Gap 12.9 mmol/L (4.00-12.00); BUN/Creat Ratio 21.43 Ratio (12.00-20.00); Calcium 7.7 mg/dL (8.7-10.3); Carbon Dioxide 22.1 mmol/L (21.6-31.8); Potassium 4.1 mmol/L (3.5-5.5)
[2020-08-19] MEDS: IBUPROFEN 400 MG TAB PO PRN (05:44)
[2020-08-19] MEDS: ALBUTEROL HFA INHALER INHALATION SCH ×4 (07:27→20:47)
[2020-08-19] MEDS: ENOXAPARIN 40 MG/0.4 ML SYRINGE SQ SCH (08:27)
[2020-08-19] MEDS: ZINC SULFATE 220 MG CAP PO SCH (08:27)
[2020-08-19] MEDS: ALPRAZolam 0.25 MG TAB PO PRN ×2 (08:27→17:30)
[2020-08-19] MEDS: guaiFENesin 600 MG TABLET.ER PO SCH ×2 (08:27→20:50)
[2020-08-19] MEDS: CHOLECALCIFEROL 25 MCG (1000 IU) TABLET PO SCH (08:27)
[2020-08-19] MEDS: ASCORBIC ACID 500 MG TAB PO SCH (08:27)
[2020-08-19] MEDS: DEXAMETHASONE SOD PHOSPHATE 10 MG/ML 1 ML VIAL IV SCH (08:28)
--- NOTE | 2020-08-19 10:39 | P.PN ---
Subjective Progress Note Date: 08/19/20 Patient is doing fairly well today. He is still having some shortness of breath when he get up and go to the bathroom. He feels comfortable when sitting in the chair. He is on 6 L of oxygen via nasal cannula. Objective - Vital Signs Vital signs: Vital Signs Temp 98.0 F 08/19/20 05:44 Pulse 71 08/19/20 05:44 Resp 21 08/19/20 05:44 BP 134/73 08/19/20 05:44 Pulse Ox 89 L 08/19/20 05:44 Intake & Output 08/18/20 08/19/20 08/19/20 18:59 06:59 18:59 Intake Total 200 Output Total 300 Balance 200 -300 Intake: Oral 200 Output: Urine 300 Other: Voiding Method Urinal # Voids 2 3 # Bowel Movements 1 - Exam General: The patient is awake and alert, in no distress Eye: there is normal conjunctiva bilaterally. Neck: The neck is supple, there is no JVD. Cardiovascular: Normal S1-S2, no S3-S4, no murmurs. Respiratory: Lungs clear to auscultation bilaterally Gastrointestinal: Abdomen is soft, nontender Musculoskeletal: There is no pedal edema. Neurological:. Speech is normal. Skin: Skin is warm and dry - Labs CBC & Chem 7: 08/18/20 06:44 08/18/20 06:44 Labs: Abnormal Lab Results - Last 24 Hours (Table) 08/18/20 08/18/20 Range/Units 06:44 06:44 RBC 4.18 L (4.40-5.60) X 10*6/uL Hct 39.5 L (39.6-50.0) % MCH 32.3 H (27.0-32.0) pg Immature Gran # 0.06 H (0.00-0.04) X 10*3/uL Lymphocytes # 0.67 L (0.90-5.00) X 10*3/uL Eosinophils # 0 L (0.04-0.35) X 10*3/uL Sodium 146 H (135-145) mmol/L Chloride 111 H (96-109) mmol/L Anion Gap 12.90 H (4.00-12.00) mmol/L BUN/Creatinine Ratio 21.43 H (12.00-20.00) Ratio Glucose 123 H (70-110) mg/dL Calcium 7.7 L (8.7-10.3) mg/dL Assessment and Plan Assessment: This is a 70-year-old male with past medical history noted below who presented t o the emergency room with worsening shortness of breath. Patient was evaluated in the ER and will be admitted to the hospital for further management of his medical problems noted below. 1. COVID-19 pneumonia, seen and evaluated by pulmonology. Not a candidate for Remdesivir. Started Decadron 6 mg IV daily day #5. Continue vitamin C, vitamin D, zinc, and melatonin. Incentive spirometer at bedside. Mucinex and Tessalon Perles as needed. 2. Acute hypoxic respiratory failure currently on 6 L of oxygen via nasal cannula. I advised nursing staff to wean off O2 as tolerated for O2 sats gre ater than 90% 3. Underlying asthma with no evidence of exacerbation. Albuterol inhaler ordered every 6 hours 4. DVT prophylaxis with subcu Lovenox 5. CODE STATUS, patient is full code Today, I reviewed his medication list and lab work results including inflammatory markers. Continue current management. Appreciate lead sales consultant's recommendations.
[2020-08-19] MEDS: ONDANSETRON 4 MG/2 ML VIAL IVP PRN (14:01)
--- NOTE | 2020-08-19 14:04 | P.PN ---
Subjective Progress Note Date: 08/19/20 Principal diagnosis: COVID-19 pneumonia 70-year-old white male patient who presented to the hospital on 08/15/2020 with complaints of 10 day history of loss of taste, cough, shortness of breath, fever. Patient and his have been staying with her daughter who tested positive for COVID, patient had an outpatient test for COVID-19 on 08/09/2020 and was found to be positive. Last few days he's been having increased shortness of breath, cough. Past medical history is noncontributory, other than osteoarthritis with previous history of joint replacement surgery in the right knee, patient is lifetime nonsmoker, does have history of chronic bronchial asthma, not on any maintenance inhalers on a regular basis. Chest x-ray in the emergency department shows some patchy airspace disease on the right, calcified granuloma in the right lower lobe, no pneumothorax or pleural effusion. His repeat COVID-19 PCR in the emergency room was positive, RSV and influenza screen were negative. His admission blood work showed neutropenia, and lymphopenia, white blood cell count was 2.6, and leukocyte count was 0.4, d-dimer was 0.95, potassium is 3.1, rest of the electrolytes and renal profile were unremarkable, lactic acid was 1.1, AST was 63, ALT and alk phos were within normal limits, LDH was 1283, CRP was 7.1, pro calcitonin level was negative at 0.10. Patient was satting 86% on room air, currently requiring 4 L of supplemental oxygen with a pulse ox of 91-94%, he is afebrile. Lung sounds reveal diffuse coarse crackles at bilateral bases. Patient was started on Decadron this milligram daily, and prophylactic Lovenox. he is outside the window for Remdesivir On 08/17/2020 patient seen in follow-up on medical surgical floor, he is resting in bed, appears to be in no acute distress, he still on 5 L of oxygen has pulse ox of 90-91%, he is afebrile, hemodynamically stable, he states when he walks to the bathroom he gets very lightheaded and dizzy and sometimes feel like he is going to pass out. He does get short of breath, he was instructed to call for help when ambulating to the bathroom. Sounds reveal diffuse crackles bilaterally, today's follow-up chest x-ray showing patchy airspace disease lung bases. He is trying to work on incentive spirometer. Today's labs have been reviewed, his d-dimer today is 0.55, inflammatory markers are improving, and his LDH is 609, and CRP is 3.6. An patient remains on Decadron 6 mg daily, and prophylactic dose Lovenox in addition to vitamins On 08/18/2020 patient seen in follow-up on medical surgical floor. He is currently down to 4 L of oxygen pulse ox is 93%, he states he still feels weak and wobbly when walking to the bathroom, at times he gets lightheaded, but no worsening dyspnea, no signs of any respiratory distress. Today's labs have been noted, d-dimer from yesterday is 0.55, inflammatory markers were improving, no cough, no complaints of chest discomfort, he remains on Decadron 6 blood gram d aily, and Lovenox 40 mg daily. On 08/19/2020 patient seen in follow-up on medical surgical floor, he is sitting up in the recliner, in no acute distress, is on 6 L of supplemental oxygen his pulse ox is 89-90%, no worsening dyspnea, although he does get short of breath and desat with exertion, consulted physical therapy and patient had ambulated with a walker. His ambulation ability slow shaky, no complaints of dizziness. Doing fairly well, no acute events overnight, and he is on Decadron, patient was not a candidate for Remdesivir, he is on prophylactic Lovenox, today's labs have been reviewed Objective - Vital Signs Vital signs: Vital Signs Temp 98.1 F 08/19/20 11:00 Pulse 67 08/19/20 11:00 Resp 16 08/19/20 11:00 BP 146/74 08/19/20 11:00 Pulse Ox 90 L 08/19/20 11:00 Intake & Output 08/18/20 08/19/20 08/19/20 18:59 06:59 18:59 Intake Total 200 Output Total 300 Balance 200 -300 Intake: Oral 200 Output: Urine 300 Other: Voiding Method Urinal # Voids 2 3 # Bowel Movements 1 - Exam GENERAL EXAM: Alert, very pleasant, 62-year-old white male, currently on 6 L of oxygen with pulse ox between 90-91% comfortable in no apparent distress. HEAD: Normocephalic/atraumatic. EYES: Normal reaction of pupils, equal size. Conjunctiva pink, sclera white. NOSE: Clear with pink turbinates. THROAT: No erythema or exudates. NECK: No masses, no JVD, no thyroid enlargement, no adenopathy. CHEST: No chest wall deformity. Symmetrical expansion. LUNGS: Equal air entry with coarse bibasilar crackles CVS: Regular rate and rhythm, normal S1 and S2, no gallops, no murmurs, no rubs ABDOMEN: Soft, nontender. No hepatosplenomegaly, normal bowel sounds, no guarding or rigidity. EXTREMITIES: No clubbing, no edema, no cyanosis, 2+ pulses and upper and lower extremities. MUSCULOSKELETAL: Muscle strength and tone normal. SPINE: No scoliosis or deformity SKIN: No rashes CENTRAL NERVOUS SYSTEM: Alert and oriented -3. No focal deficits, tone is normal in all 4 extremities. PSYCHIATRIC: Alert and oriented -3. Appropriate affect. Intact judgment and insight. - Labs CBC & Chem 7: 08/18/20 06:44 08/18/20 06:44 Labs: Abnormal Lab Results - Last 24 Hours (Table) 08/18/20 Range/Units 06:44 Sodium 146 H (135-145) mmol/L Chloride 111 H (96-109) mmol/L Anion Gap 12.90 H (4.00-12.00) mmol/L BUN/Creatinine Ratio 21.43 H (12.00-20.00) Ratio Glucose 123 H (70-110) mg/dL Calcium 7.7 L (8.7-10.3) mg/dL Assessment and Plan Plan: Assessment: #1. Acute hypoxic respiratory failure related to acute COVID-19 pneumonia, with onset of symptoms 10 days prior to presentation, patient had outpatient positive COVID-19 test on 08/09/2020, outside the window for Remdesivir #2. Increased d-dimer and inflammatory markers related to the above #3. Neutropenia, pro-calcitonin was negative, doubt bacterial infection #4. Lifetime nonsmoker #5. History of chronic bronchial asthma, mild intermittent, inactive at this time Plan: Continue current medical treatment Decadron at 6 mg, and current dose Lovenox Continue weaning FiO2 to keep O2 sats ration at or above 90% Patient was evaluated by physical therapy, and their notes were noted Continue to follow and monitor for any worsening in his dyspnea and hypoxia, Once down to 5 L and remained stable, may consider discharge home I performed a history & physical examination of the patient and discussed their management with my nurse practitioner, Magdalena Negrete. I reviewed the nurse practitioner's note and agree with the documented findings and plan of care. Lung sounds are positive for diminished breath sounds. The findings and the impression was discussed with the patient. I attest to the documentation by the nurse practitioner. Time with Patient: Less than 30
[2020-08-19] MEDS: MELATONIN 5 MG TABLET PO SCH (20:50)
[2020-08-19] MEDS: FAMOTIDINE 20 MG TAB PO SCH (20:50)
[2020-08-20] MEDS: ALPRAZolam 0.25 MG TAB PO PRN (05:13)
[2020-08-20] MEDS: ENOXAPARIN 40 MG/0.4 ML SYRINGE SQ SCH (08:08)
[2020-08-20] MEDS: CHOLECALCIFEROL 25 MCG (1000 IU) TABLET PO SCH (08:08)
[2020-08-20] MEDS: DEXAMETHASONE SOD PHOSPHATE 10 MG/ML 1 ML VIAL IV SCH (08:08)
[2020-08-20] MEDS: guaiFENesin 600 MG TABLET.ER PO SCH ×2 (08:08→19:46)
[2020-08-20] MEDS: ASCORBIC ACID 500 MG TAB PO SCH (08:08)
[2020-08-20] MEDS: ZINC SULFATE 220 MG CAP PO SCH (08:08)
[2020-08-20] MEDS: ALBUTEROL HFA INHALER INHALATION SCH ×4 (09:39→20:57)
[2020-08-20 11:45] LABS: ABG Base Excess 3.9 mmol/L; ABG HCO3 26 mmol/L (21-25); ABG Oxygen Saturation 88.8 % (94-97); ABG PCO2 30 mmHg (35-45); ABG PH 7.55 (7.35-7.45); ABG TCO2 27 mmol/L (19-24); Allen Test Performed? Yes
[2020-08-20 11:46] LABS: ABG PO2 52 mmHg (83-108)
[2020-08-20 11:47] LABS: Basophils # (A) 0.03 X 10*3/uL (0.00-0.10); Basophils % (A) 0.3 %; Eosinophils # (A) 0 X 10*3/uL (0.04-0.35); Eosinophils % (A) 0 %; HCT 38.3 % (39.6-50.0); HGB 13.4 g/dL (13.0-17.0); Lymphocytes # (A) 0.97 X 10*3/uL (0.90-5.00); Lymphocytes % (A) 10.1 %; MCH 32.6 pg (27.0-32.0); MCV 93.2 fL (80.0-97.0); Mean Platelet Volume 11.2 fL (9.5-12.2); Monocytes # (A) 0.38 X 10*3/uL (0.20-1.00); Neutrophils # (A) 7.97 X 10*3/uL (1.80-7.70); Neutrophils % (A) 83.1 %; Platelet Count 175 X 10*3/uL (140-440); RBC 4.11 X 10*6/uL (4.40-5.60); RDW 11.9 % (11.5-14.5); WBC 9.59 X 10*3/uL (4.50-10.00)
[2020-08-20] MEDS: ACETAMINOPHEN TAB 325 MG TAB PO PRN (11:54)
--- NOTE | 2020-08-20 11:57 | XR ---
EXAMINATION TYPE: XR chest 1V portable DATE OF EXAM: 08/20/2020 COMPARISON: 08/17/2020 HISTORY: Covid pneumonia TECHNIQUE: Single frontal view of the chest is obtained. FINDINGS: There is interval worsening in the partially consolidative opacities in the right lower dalila ng zone and left lung base consistent with pneumonic infiltrates. There is no pleural effusion or pneumothorax. There are persistent to calcified small pulmonary nodul e in the right. The mediastinum is normal. Heart size is prominent. The osseous structures are intact IMPRESSION: Interval worsening of the bilateral lung infiltrates right greater than left. The findin gs are consistent with acute pneumonia. Clinical correlation and short-term follow-up to resolution i s recommended.
[2020-08-20 13:30] LABS: African American GFR (CKD) 106.4 (60.0-200.0); C Reactive Protein 3.8 mg/dL (0.0-0.8); Calcium 7.5 mg/dL (8.7-10.3); Non-African American GFR(CKD) 91.8 (60.0-200.0); Potassium 3.3 mmol/L (3.5-5.5)
[2020-08-20] MEDS ORDERED: TOCILIZUMAB 800 MG in SODIUM CHLORIDE 0.9% 60 ML IV ONE (14:00)
--- NOTE | 2020-08-20 15:06 | P.PN ---
Subjective Progress Note Date: 08/20/20 Principal diagnosis: COVID-19 pneumonia 70-year-old white male patient who presented to the hospital on 08/15/2020 with complaints of 10 day history of loss of taste, cough, shortness of breath, fever. Patient and his have been staying with her daughter who tested positive for COVID, patient had an outpatient test for COVID-19 on 08/09/2020 and was found to be positive. Last few days he's been having increased shortness of breath, cough. Past medical history is noncontributory, other than osteoarthritis with previous history of joint replacement surgery in the right knee, patient is lifetime nonsmoker, does have history of chronic bronchial asthma, not on any maintenance inhalers on a regular basis. Chest x-ray in the emergency department shows some patchy airspace disease on the right, calcified granuloma in the right lower lobe, no pneumothorax or pleural effusion. His repeat COVID-19 PCR in the emergency room was positive, RSV and influenza screen were negative. His admission blood work showed neutropenia, and lymphopenia, white blood cell count was 2.6, and leukocyte count was 0.4, d-dimer was 0.95, potassium is 3.1, rest of the electrolytes and renal profile were unremarkable, lactic acid was 1.1, AST was 63, ALT and alk phos were within normal limits, LDH was 1283, CRP was 7.1, pro calcitonin level was negative at 0.10. Patient was satting 86% on room air, currently requiring 4 L of supplemental oxygen with a pulse ox of 91-94%, he is afebrile. Lung sounds reveal diffuse coarse crackles at bilateral bases. Patient was started on Decadron this milligram daily, and prophylactic Lovenox. he is outside the window for Remdesivir On 08/17/2020 patient seen in follow-up on medical surgical floor, he is resting in bed, appears to be in no acute distress, he still on 5 L of oxygen has pulse ox of 90-91%, he is afebrile, hemodynamically stable, he states when he walks to the bathroom he gets very lightheaded and dizzy and sometimes feel like he is going to pass out. He does get short of breath, he was instructed to call for help when ambulating to the bathroom. Sounds reveal diffuse crackles bilaterally, today's follow-up chest x-ray showing patchy airspace disease lung bases. He is trying to work on incentive spirometer. Today's labs have been reviewed, his d-dimer today is 0.55, inflammatory markers are improving, and his LDH is 609, and CRP is 3.6. An patient remains on Decadron 6 mg daily, and prophylactic dose Lovenox in addition to vitamins On 08/18/2020 patient seen in follow-up on medical surgical floor. He is currently down to 4 L of oxygen pulse ox is 93%, he states he still feels weak and wobbly when walking to the bathroom, at times he gets lightheaded, but no worsening dyspnea, no signs of any respiratory distress. Today's labs have been noted, d-dimer from yesterday is 0.55, inflammatory markers were improving, no cough, no complaints of chest discomfort, he remains on Decadron 6 blood gram d aily, and Lovenox 40 mg daily. On 08/19/2020 patient seen in follow-up on medical surgical floor, he is sitting up in the recliner, in no acute distress, is on 6 L of supplemental oxygen his pulse ox is 89-90%, no worsening dyspnea, although he does get short of breath and desat with exertion, consulted physical therapy and patient had ambulated with a walker. His ambulation ability slow shaky, no complaints of dizziness. Doing fairly well, no acute events overnight, and he is on Decadron, patient was not a candidate for Remdesivir, he is on prophylactic Lovenox, today's labs have been reviewed On 08/20/2020 patient seen in follow-up on medical surgical floor. In the last 24 hours his oxygenation has significantly deteriorated, he is currently on Airvo at 60 L and FiO2 of 92%, his pulse ox is 85-88%, his been afebrile, his temp of 101.7F, complaining of headache, he looks weak, he looks a lot more ill today, fatigued, short of breath with conversation, he has occasional cough, he was outside the window for Remdesivir, he has been on Decadron 6 mg daily, he is on prophylactic Lovenox, we'll give him a dose of Toci today Objective - Vital Signs Vital signs: Vital Signs Temp 99.1 F 08/20/20 12:57 Pulse 86 08/20/20 11:51 Resp 18 08/20/20 09:32 BP 129/65 08/20/20 09:32 Pulse Ox 88 L 08/20/20 11:51 Intake & Output 08/19/20 08/20/20 08/20/20 18:59 06:59 18:59 Intake Total 540 Balance 540 Intake: Oral 540 Other: Voiding Method Toilet Toilet Urinal Urinal # Voids 2 3 - Exam GENERAL EXAM: Weak, lethargic and more fatigued on today's exam, more short of breath 62-year-old white male, currently on Airvo at 60 l/min, Fio2 92% HEAD: Normocephalic/atraumatic. EYES: Normal reaction of pupils, equal size. Conjunctiva pink, sclera white. NOSE: Clear with pink turbinates. THROAT: No erythema or exudates. NECK: No masses, no JVD, no thyroid enlargement, no adenopathy. CHEST: No chest wall deformity. Symmetrical expansion. LUNGS: Equal air entry with coarse bibasilar crackles CVS: Regular rate and rhythm, normal S1 and S2, no gallops, no murmurs, no rubs ABDOMEN: Soft, nontender. No hepatosplenomegaly, normal bowel sounds, no guarding or rigidity. EXTREMITIES: No clubbing, no edema, no cyanosis, 2+ pulses and upper and lower extremities. MUSCULOSKELETAL: Muscle strength and tone normal. SPINE: No scoliosis or deformity SKIN: No rashes CENTRAL NERVOUS SYSTEM: Weak and lethargic, but arousable, and answers appropriately No focal deficits, tone is normal in all 4 extremities. - Labs CBC & Chem 7: 08/20/20 07:13 08/20/20 07:13 Labs: Abnormal Lab Results - Last 24 Hours (Table) 08/20/20 08/20/20 08/20/20 Range/Units 07:13 07:13 11:34 RBC 4.11 L (4.40-5.60) X 10*6/uL Hct 38.3 L (39.6-50.0) % MCH 32.6 H (27.0-32.0) pg Absolute Nucleated RBC 0.03 H (0.00-0.00) X 10*3/uL Immature Gran # 0.24 H (0.00-0.04) X 10*3/uL Neutrophils # 7.97 H (1.80-7.70) X 10*3/uL Eosinophils # 0 L (0.04-0.35) X 10*3/uL NRBC/100 WBC Diff 0.3 H (0.0-0.0) /100 WBCS D-Dimer (<0.60) mg/L FEU ABG pH 7.55 H (7.35-7.45) ABG pCO2 30 L (35-45) mmHg ABG pO2 52 L* (83-108) mmHg ABG HCO3 26 H (21-25) mmol/L ABG Total CO2 27 H (19-24) mmol/L ABG O2 Saturation 88.8 L (94-97) % Potassium 3.3 L (3.5-5.5) mmol/L Calcium 7.5 L (8.7-10.3) mg/dL Lactate Dehydrogenase 839 H (120-246) U/L C-Reactive Protein 3.8 H (0.0-0.8) mg/dL 08/20/20 08/20/20 Range/Units 13:14 13:14 RBC (4.40-5.60) X 10*6/uL Hct (39.6-50.0) % MCH (27.0-32.0) pg Absolute Nucleated RBC (0.00-0.00) X 10*3/uL Immature Gran # (0.00-0.04) X 10*3/uL Neutrophils # (1.80-7.70) X 10*3/uL Eosinophils # (0.04-0.35) X 10*3/uL NRBC/100 WBC Diff (0.0-0.0) /100 WBCS D-Dimer 10.10 H (<0.60) mg/L FEU ABG pH (7.35-7.45) ABG pCO2 (35-45) mmHg ABG pO2 (83-108) mmHg ABG HCO3 (21-25) mmol/L ABG Total CO2 (19-24) mmol/L ABG O2 Saturation (94-97) % Potassium (3.5-5.5) mmol/L Calcium (8.7-10.3) mg/dL Lactate Dehydrogenase 2013 H (120-246) U/L C-Reactive Protein (0.0-0.8) mg/dL Assessment and Plan Plan: Assessment: #1. Acute hypoxic respiratory failure related to acute COVID-19 pneumonia, with onset of symptoms 10 days prior to presentation, patient had outpatient positive COVID-19 test on 08/09/2020, outside the window for Remdesivir. Hypoxia progressed and patient received Toci on 08/20/2020 #2. Increased d-dimer and inflammatory markers related to the above #3. Neutropenia, pro-calcitonin was negative, doubt bacterial infection #4. Lifetime nonsmoker #5. History of chronic bronchial asthma, mild intermittent, inactive at this time Plan: Will give Tocilizumab 800 mg IVPB Decadron at 6 mg, and current dose Lovenox Oxygenation has worsened, currently on Airvo at 60 l, Fio2 90% A chest x-ray shows interval worsening of bilateral lung infiltrates right greater than left Patient is febrile Overall prognosis is guarded Continue supportive treatment If further worsening dyspnea with hypoxia may consider transfer to the intensive care unit I performed a history & physical examination of the patient and discussed their management with my nurse practitioner, Magdalena Negrete. I reviewed the nurse practitioner's note and agree with the documented findings and plan of care. Lung sounds are positive for diminished breath sounds. The findings and the impression was discussed with the patient. I attest to the documentation by the nurse practitioner. Time with Patient: Less than 30
--- NOTE | 2020-08-20 17:00 | P.PN ---
Subjective Progress Note Date: 08/20/20 (delayed charting seen at 1015) Principal diagnosis: shortness of breath Patient is a 70-year-old male with a history of asthma and obesity who initially presented to the ER with complaints of shortness of breath, nausea, and poor appetite. He had known positive cold intolerance on 08/09/20. In the ER he was found be hypoxic at 86% on room air. Labs were remarkable for LDH 1283, CRP 7.1, procalcitonin 0.1. He again was PCR positive. Chest x-ray demonstrated pneumonia. She was admitted and started on zinc, vitamin D, vitamin C, and Decadron. He was outside of the window for Remdesivir. Pulm was consulted who agreed with current plan of care. He was progressing well and then on 08/19 he oxygenation worsening ad he was placed on airvo. He was given toci on 08/20. Patient seen and examined at bedside. He is feeling tired, fooggy, having a VALE, + shortness of breath, No nausea or vomiting. General: Ill-appearing, moderate distress, appears at stated age Derm: warm, dry Head: atraumatic, normocephalic, symmetric Eyes: EOMI, no lid lag, anicteric sclera Mouth: no lip lesion, mucus membranes moist Cardiovascular: S1S2 reg, no murmur, positive posterior tibial pulse bilateral, Lungs: Course breath sounds bilateral, no rhonchi, no rales , + belly breathing, +3 word conversational dyspnea Abdominal: soft, nontender to palpation, no guarding, no appreciable organomegaly Ext: no gross muscle atrophy, no edema, no contractures Neuro: CN II-XI grossly intact, no focal neuro deficits Psych: Alert, oriented, appropriate affect COVID-19 pneumonitis, acute hypoxic respiratory failure -Continue with Decadron -Continue with vitamins -Discussed with pulmonary patient given a dose of TOCI - Lovenox - Wean O2 as able - STAT CXR: worsening of interstitial infiltrates - ABG: Hypoxia Asthma without exacerbation - albuterol Obesity with BMI 35.9 - structure weight loss once COVID resolved. Prognosis guarded. Daughter updated over the phone, all questions answered. DVT prophylaxis: Lovenox Discussed with: Patient, nursing Anticipated discharge: unknown Anticipated discharge place: pending course A total of 35 minutes was spent on the care of this complex patient more than 50% of the time was spent in counseling and care coordination. Objective - Vital Signs Vital signs: Vital Signs Temp 99.3 F 08/20/20 13:55 Pulse 81 08/20/20 13:55 Resp 18 08/20/20 13:55 BP 100/66 08/20/20 13:55 Pulse Ox 91 L 08/20/20 13:55 Intake & Output 08/19/20 08/20/20 08/20/20 18:59 06:59 18:59 Intake Total 540 Balance 540 Intake: Oral 540 Other: Voiding Method Toilet Toilet Urinal Urinal # Voids 2 3 - Labs CBC & Chem 7: 08/20/20 07:13 08/20/20 07:13 Labs: Abnormal Lab Results - Last 24 Hours (Table) 08/20/20 08/20/20 08/20/20 Range/Units 07:13 07:13 11:34 RBC 4.11 L (4.40-5.60) X 10*6/uL Hct 38.3 L (39.6-50.0) % MCH 32.6 H (27.0-32.0) pg Absolute Nucleated RBC 0.03 H (0.00-0.00) X 10*3/uL Immature Gran # 0.24 H (0.00-0.04) X 10*3/uL Neutrophils # 7.97 H (1.80-7.70) X 10*3/uL Eosinophils # 0 L (0.04-0.35) X 10*3/uL NRBC/100 WBC Diff 0.3 H (0.0-0.0) /100 WBCS D-Dimer (<0.60) mg/L FEU ABG pH 7.55 H (7.35-7.45) ABG pCO2 30 L (35-45) mmHg ABG pO2 52 L* (83-108) mmHg ABG HCO3 26 H (21-25) mmol/L ABG Total CO2 27 H (19-24) mmol/L ABG O2 Saturation 88.8 L (94-97) % Potassium 3.3 L (3.5-5.5) mmol/L Calcium 7.5 L (8.7-10.3) mg/dL Lactate Dehydrogenase 839 H (120-246) U/L C-Reactive Protein 3.8 H (0.0-0.8) mg/dL 08/20/20 08/20/20 Range/Units 13:14 13:14 RBC (4.40-5.60) X 10*6/uL Hct (39.6-50.0) % MCH (27.0-32.0) pg Absolute Nucleated RBC (0.00-0.00) X 10*3/uL Immature Gran # (0.00-0.04) X 10*3/uL Neutrophils # (1.80-7.70) X 10*3/uL Eosinophils # (0.04-0.35) X 10*3/uL NRBC/100 WBC Diff (0.0-0.0) /100 WBCS D-Dimer 10.10 H (<0.60) mg/L FEU ABG pH (7.35-7.45) ABG pCO2 (35-45) mmHg ABG pO2 (83-108) mmHg ABG HCO3 (21-25) mmol/L ABG Total CO2 (19-24) mmol/L ABG O2 Saturation (94-97) % Potassium (3.5-5.5) mmol/L Calcium (8.7-10.3) mg/dL Lactate Dehydrogenase 2013 H (120-246) U/L C-Reactive Protein (0.0-0.8) mg/dL
[2020-08-20] MEDS ORDERED: POTASSIUM BICARBONATE/CIT AC 20 MEQ TABLET.EFF PO ONE (17:30)
[2020-08-20] MEDS: FAMOTIDINE 20 MG TAB PO SCH (19:47)
[2020-08-20] MEDS: MELATONIN 5 MG TABLET PO SCH (19:47)
[2020-08-20] MEDS: ENOXAPARIN 60 MG/0.6 ML SYRINGE SQ SCH (19:47)
[2020-08-21] MEDS: ALBUTEROL HFA INHALER INHALATION SCH ×4 (07:38→20:22)
[2020-08-21] MEDS: CHOLECALCIFEROL 25 MCG (1000 IU) TABLET PO SCH (07:44)
[2020-08-21] MEDS: ASCORBIC ACID 500 MG TAB PO SCH (07:44)
[2020-08-21] MEDS: guaiFENesin 600 MG TABLET.ER PO SCH ×2 (07:44→21:14)
[2020-08-21] MEDS: ZINC SULFATE 220 MG CAP PO SCH (07:44)
[2020-08-21] MEDS: DEXAMETHASONE SOD PHOSPHATE 10 MG/ML 1 ML VIAL IV SCH ×2 (08:05→21:13)
[2020-08-21] MEDS: ENOXAPARIN 60 MG/0.6 ML SYRINGE SQ SCH ×2 (08:05→21:13)
--- NOTE | 2020-08-21 08:16 | XR ---
EXAMINATION TYPE: XR chest 1V portable DATE OF EXAM: 08/21/2020 COMPARISON: 08/20/2020 HISTORY: Shortness of breath TECHNIQUE: Single frontal view of the chest is obtained. FINDINGS: Bilateral lower lobe infiltrate and small effusion. Diffuse interstitial pattern with car diomegaly. No pneumothorax. Biapical pleural thickening. Arthropathy of the shoulders. IMPRESSION: Of pleural-parenchymal disease greater on the right stable correlate for pneumonia versu s CHF
[2020-08-21 08:17] LABS: Basophils % (A) 1 %; Eosinophils # (A) 0.1 k/uL (0-0.7); Eosinophils % (A) 1 %; HCT 41.9 % (39.0-53.0); Lymphocytes # (A) 0.9 k/uL (1.0-4.8); Lymphocytes % (A) 16 %; MCH 32.1 pg (25.0-35.0); MCHC 33.4 g/dL (31.0-37.0); MCV 96.1 fL (80.0-100.0); Mean Platelet Volume 8.3; Monocytes # (A) 0.2 k/uL (0-1.0); Monocytes % (A) 3 %; Neutrophils # (A) 4.3 k/uL (1.3-7.7); Neutrophils % (A) 79 %; RBC 4.36 m/uL (4.30-5.90); RDW 12.5 % (11.5-15.5); WBC 5.5 k/uL (3.8-10.6)
[2020-08-21 08:19] LABS: ALT 182 U/L (4-49); AST 69 U/L (17-59); African American GFR (CKD) >90 (>60 ml/min/1.73 sqM); Albumin 2.8 g/dL (3.5-5.0); Albumin/Globulin Ratio 0.8; Alkaline Phosphatase 99 U/L (38-126); Anion Gap 5 mmol/L; Blood Urea Nitrogen 16 mg/dL (9-20); Calcium 7.7 mg/dL (8.4-10.2); Carbon Dioxide 29 mmol/L (22-30); Chloride 104 mmol/L (98-107); Globulin 3.4 g/dL; Glucose 92 mg/dL (74-99); LDH 1935 U/L (313-618); Magnesium 2.3 mg/dL (1.6-2.3); Non-African American GFR(CKD) >90 (>60 ml/min/1.73 sqM); Phosphorus 3.3 mg/dL (2.5-4.5); Potassium 3.5 mmol/L (3.5-5.1); Sodium 138 mmol/L (137-145); Total Bilirubin 1.4 mg/dL (0.2-1.3); Total Protein 6.2 g/dL (6.3-8.2)
[2020-08-21 08:20] LABS: D-Dimer 10.19 mg/L FEU (<0.60); INR 1.1 (<1.2); Platelet Count 200 k/uL (150-450); Prothrombin Time 11.4 sec (9.0-12.0)
[2020-08-21 08:23] LABS: Glucose,Whole Blood 98 mg/dL (75-99)
[2020-08-21 08:51] LABS: C Reactive Protein 19.1 mg/dL (<1.0)
[2020-08-21] MEDS: SODIUM CHLORIDE 0.9% 1,000 ML IV SCH (09:30)
--- NOTE | 2020-08-21 09:53 | P.PN ---
Subjective Progress Note Date: 08/21/20 Principal diagnosis: COVID-19 pneumonia 70-year-old white male patient who presented to the hospital on 08/15/2020 with complaints of 10 day history of loss of taste, cough, shortness of breath, fever. Patient and his have been staying with her daughter who tested positive for COVID, patient had an outpatient test for COVID-19 on 08/09/2020 and was found to be positive. Last few days he's been having increased shortness of breath, cough. Past medical history is noncontributory, other than osteoarthritis with previous history of joint replacement surgery in the right knee, patient is lifetime nonsmoker, does have history of chronic bronchial asthma, not on any maintenance inhalers on a regular basis. Chest x-ray in the emergency department shows some patchy airspace disease on the right, calcified granuloma in the right lower lobe, no pneumothorax or pleural effusion. His repeat COVID-19 PCR in the emergency room was positive, RSV and influenza screen were negative. His admission blood work showed neutropenia, and lymphopenia, white blood cell count was 2.6, and leukocyte count was 0.4, d-dimer was 0.95, potassium is 3.1, rest of the electrolytes and renal profile were unremarkable, lactic acid was 1.1, AST was 63, ALT and alk phos were within normal limits, LDH was 1283, CRP was 7.1, pro calcitonin level was negative at 0.10. Patient was satting 86% on room air, currently requiring 4 L of supplemental oxygen with a pulse ox of 91-94%, he is afebrile. Lung sounds reveal diffuse coarse crackles at bilateral bases. Patient was started on Decadron this milligram daily, and prophylactic Lovenox. he is outside the window for Remdesivir On 08/17/2020 patient seen in follow-up on medical surgical floor, he is resting in bed, appears to be in no acute distress, he still on 5 L of oxygen has pulse ox of 90-91%, he is afebrile, hemodynamically stable, he states when he walks to the bathroom he gets very lightheaded and dizzy and sometimes feel like he is going to pass out. He does get short of breath, he was instructed to call for help when ambulating to the bathroom. Sounds reveal diffuse crackles bilaterally, today's follow-up chest x-ray showing patchy airspace disease lung bases. He is trying to work on incentive spirometer. Today's labs have been reviewed, his d-dimer today is 0.55, inflammatory markers are improving, and his LDH is 609, and CRP is 3.6. An patient remains on Decadron 6 mg daily, and prophylactic dose Lovenox in addition to vitamins On 08/18/2020 patient seen in follow-up on medical surgical floor. He is currently down to 4 L of oxygen pulse ox is 93%, he states he still feels weak and wobbly when walking to the bathroom, at times he gets lightheaded, but no worsening dyspnea, no signs of any respiratory distress. Today's labs have been noted, d-dimer from yesterday is 0.55, inflammatory markers were improving, no cough, no complaints of chest discomfort, he remains on Decadron 6 blood gram d aily, and Lovenox 40 mg daily. On 08/19/2020 patient seen in follow-up on medical surgical floor, he is sitting up in the recliner, in no acute distress, is on 6 L of supplemental oxygen his pulse ox is 89-90%, no worsening dyspnea, although he does get short of breath and desat with exertion, consulted physical therapy and patient had ambulated with a walker. His ambulation ability slow shaky, no complaints of dizziness. Doing fairly well, no acute events overnight, and he is on Decadron, patient was not a candidate for Remdesivir, he is on prophylactic Lovenox, today's labs have been reviewed On 08/20/2020 patient seen in follow-up on medical surgical floor. In the last 24 hours his oxygenation has significantly deteriorated, he is currently on Airvo at 60 L and FiO2 of 92%, his pulse ox is 85-88%, his been afebrile, his temp of 101.7F, complaining of headache, he looks weak, he looks a lot more ill today, fatigued, short of breath with conversation, he has occasional cough, he was outside the window for Remdesivir, he has been on Decadron 6 mg daily, he is on prophylactic Lovenox, we'll give him a dose of Toci today On 08/21/2020 patient continued to worsen through the night, with increased work of breathing, and increased oxygenation needs, he was placed on Airvo yesterday, at 60 L in FiO2 of 93%, and he is requiring 100% nonrebreather mask on top of it, his pulse ox is only 80%, he is very tachypneic with respiratory rate in the 30s, diaphoretic, and looking fatigued. He was transferred to the intensive care unit this morning and placed on BiPAP support with pressures of 14/6 and FiO2 100%, he is actually tolerating that quite well, and seems more comfortable on it, lung sounds reveal diffuse coarse crackles at bilateral posterior bases, he is afebrile this morning, his chest x-ray today showing bilateral lower lobe infiltrates and small effusion., Yesterday his d-dimer with up to 10.10, and if it remains elevated again today at 10.19, his Lovenox dose was adjusted and he is currently on 60 mg of Lovenox every 12 hours. He remains on IV dexamethasone 6 mg daily, was given a dose of Actemra yesterday Objective - Vital Signs Vital signs: Vital Signs Temp 98 F 08/21/20 08:30 Pulse 64 08/21/20 09:00 Resp 34 H 08/21/20 09:00 BP 134/68 08/21/20 09:00 Pulse Ox 90 L 08/21/20 09:00 Intake & Output 08/20/20 08/21/20 08/21/20 18:59 06:59 18:59 Output Total 600 425 290 Balance -600 -425 -290 Output: Urine 600 425 290 Other: Voiding Method Toilet Urinal # Voids 1 - Exam GENERAL EXAM: Weak, fatigued, tachypneic, on today's exam, more short of breath 62-year-old white male, was switched from Airvo and nonrebreather mask to BiPAP support, looking a bit more comfortable HEAD: Normocephalic/atraumatic. EYES: Normal reaction of pupils, equal size. Conjunctiva pink, sclera white. NOSE: Clear with pink turbinates. THROAT: No erythema or exudates. NECK: No masses, no JVD, no thyroid enlargement, no adenopathy. CHEST: No chest wall deformity. Symmetrical expansion. LUNGS: Equal air entry with coarse bibasilar crackles CVS: Regular rate and rhythm, normal S1 and S2, no gallops, no murmurs, no rubs ABDOMEN: Soft, nontender. No hepatosplenomegaly, normal bowel sounds, no guarding or rigidity. EXTREMITIES: No clubbing, no edema, no cyanosis, 2+ pulses and upper and lower extremities. MUSCULOSKELETAL: Muscle strength and tone normal. SPINE: No scoliosis or deformity SKIN: No rashes CENTRAL NERVOUS SYSTEM: Weak and lethargic, but arousable, and answers appropriately No focal deficits, tone is normal in all 4 extremities. - Labs CBC & Chem 7: 08/21/20 07:16 08/21/20 07:16 Labs: Abnormal Lab Results - Last 24 Hours (Table) 08/20/20 08/20/20 08/20/20 Range/Units 07:13 07:13 11:34 RBC 4.11 L (4.40-5.60) X 10*6/uL Hct 38.3 L (39.6-50.0) % MCH 32.6 H (27.0-32.0) pg Absolute Nucleated RBC 0.03 H (0.00-0.00) X 10*3/uL Immature Gran # 0.24 H (0.00-0.04) X 10*3/uL Neutrophils # 7.97 H (1.80-7.70) X 10*3/uL Lymphocytes # (1.0-4.8) k/uL Eosinophils # 0 L (0.04-0.35) X 10*3/uL NRBC/100 WBC Diff 0.3 H (0.0-0.0) /100 WBCS D-Dimer (<0.60) mg/L FEU ABG pH 7.55 H (7.35-7.45) ABG pCO2 30 L (35-45) mmHg ABG pO2 52 L* (83-108) mmHg ABG HCO3 26 H (21-25) mmol/L ABG Total CO2 27 H (19-24) mmol/L ABG O2 Saturation 88.8 L (94-97) % Potassium 3.3 L (3.5-5.5) mmol/L Calcium 7.5 L (8.7-10.3) mg/dL Total Bilirubin (0.2-1.3) mg/dL AST (17-59) U/L ALT (4-49) U/L Lactate Dehydrogenase 839 H (120-246) U/L C-Reactive Protein 3.8 H (0.0-0.8) mg/dL Total Protein (6.3-8.2) g/dL Albumin (3.5-5.0) g/dL 08/20/20 08/20/20 08/21/20 Range/Units 13:14 13:14 07:16 RBC (4.40-5.60) X 10*6/uL Hct (39.6-50.0) % MCH (27.0-32.0) pg Absolute Nucleated RBC (0.00-0.00) X 10*3/uL Immature Gran # (0.00-0.04) X 10*3/uL Neutrophils # (1.80-7.70) X 10*3/uL Lymphocytes # (1.0-4.8) k/uL Eosinophils # (0.04-0.35) X 10*3/uL NRBC/100 WBC Diff (0.0-0.0) /100 WBCS D-Dimer 10.10 H 10.19 H (<0.60) mg/L FEU ABG pH (7.35-7.45) ABG pCO2 (35-45) mmHg ABG pO2 (83-108) mmHg ABG HCO3 (21-25) mmol/L ABG Total CO2 (19-24) mmol/L ABG O2 Saturation (94-97) % Potassium (3.5-5.5) mmol/L Calcium (8.7-10.3) mg/dL Total Bilirubin (0.2-1.3) mg/dL AST (17-59) U/L ALT (4-49) U/L Lactate Dehydrogenase 2013 H (120-246) U/L C-Reactive Protein (0.0-0.8) mg/dL Total Protein (6.3-8.2) g/dL Albumin (3.5-5.0) g/dL 08/21/20 08/21/20 Range/Units 07:16 07:16 RBC (4.40-5.60) X 10*6/uL Hct (39.6-50.0) % MCH (27.0-32.0) pg Absolute Nucleated RBC (0.00-0.00) X 10*3/uL Immature Gran # (0.00-0.04) X 10*3/uL Neutrophils # (1.80-7.70) X 10*3/uL Lymphocytes # 0.9 L (1.0-4.8) k/uL Eosinophils # (0.04-0.35) X 10*3/uL NRBC/100 WBC Diff (0.0-0.0) /100 WBCS D-Dimer (<0.60) mg/L FEU ABG pH (7.35-7.45) ABG pCO2 (35-45) mmHg ABG pO2 (83-108) mmHg ABG HCO3 (21-25) mmol/L ABG Total CO2 (19-24) mmol/L ABG O2 Saturation (94-97) % Potassium (3.5-5.5) mmol/L Calcium 7.7 L (8.7-10.3) mg/dL Total Bilirubin 1.4 H (0.2-1.3) mg/dL AST 69 H (17-59) U/L ALT 182 H (4-49) U/L Lactate Dehydrogenase 1935 H (120-246) U/L C-Reactive Protein 19.1 H (0.0-0.8) mg/dL Total Protein 6.2 L (6.3-8.2) g/dL Albumin 2.8 L (3.5-5.0) g/dL Assessment and Plan Plan: Assessment: #1. Acute hypoxic respiratory failure related to acute COVID-19 pneumonia, with onset of symptoms 10 days prior to presentation, patient had outpatient positive COVID-19 test on 08/09/2020, outside the window for Remdesivir. Hypoxia progress ed and patient received Toci on 08/20/2020. Patient was transferred to the intensive care unit on 08/21/2020 and placed on BiPAP support #2. Increased d-dimer related to COVID-19 infection, currently at 10.19, rule out possibility of a VTE, we will obtain lower extremity Dopplers today, will consider CTA chest when patient is able to travel to [place] department #3. Neutropenia, pro-calcitonin was negative, improved #4. Elevated liver enzymes related to viral pneumonia #5. Lifetime nonsmoker #6. History of chronic bronchial asthma, mild intermittent, inactive at this time Plan: Patient has been transferred to the intensive care unit Some BiPAP support with pressures of 14/6 and FiO2 of 100% Increased Decadron 6 mg twice daily Continue with current dose Lovenox, today's d-dimer noted We'll obtain lower extremity Dopplers, will consider CTA chest once the patient is stable and able to travel down to the [place] department We'll monitor for worsening dyspnea and hypoxia, so far tolerating BiPAP support well Overall prognosis is guarded Continue supportive treatment I performed a history & physical examination of the patient and discussed their management with my nurse practitioner, Magdalena Negrete. I reviewed the nurse practitioner's note and agree with the documented findings and plan of care. Lung sounds are positive for diminished breath sounds. The findings and the impression was discussed with the patient. I attest to the documentation by the nurse practitioner. Time with Patient: Greater than 30
[2020-08-21 10:13] LABS: ABG Base Excess 3.3 mmol/L; ABG HCO3 27 mmol/L (21-25); ABG Oxygen Saturation 98.1 % (94-97); ABG PCO2 36 mmHg (35-45); ABG PH 7.48 (7.35-7.45); ABG PO2 116 mmHg (83-108); ABG TCO2 28 mmol/L (19-24); Allen Test Performed? Yes
--- NOTE | 2020-08-21 14:30 | P.PN ---
Subjective Progress Note Date: 08/21/20 (delayed charting seen at 0740) Principal diagnosis: shortness of breath Patient is a 70-year-old male with a history of asthma and obesity who initially presented to the ER with complaints of shortness of breath, nausea, and poor appetite. He had known positive COVID testing on 08/09/20. In the ER he was found be hypoxic at 86% on room air. Labs were remarkable for LDH 1283, CRP 7.1, procalcitonin 0.1. He again was PCR positive. Chest x-ray demonstrated pneumonia. He was admitted and started on zinc, vitamin D, vitamin C, and Decadron. He was outside of the window for Remdesivir. Pulm was consulted who agreed with current plan of care. He was progressing well and then on 08/19 he oxygenation worsening ad he was placed on airvo. He was given toci on 08/20. On the morning of 08/21 he was requiring Airvo and 100% non rebreather and was transferred to the ICU and placed on BiPap. Called by nursing regarding patient satting 85% on air follow at 92% with 60 L flow and 100% nonrebreather mask area arrived at bedside. Patient appears dyspneic, respiratory rate in the 40s with belly breathing and sternal retractions. He reports that he feels more short of breath than yesterday. He continues to have a headache, a foggy feeling, and difficulty concentrating. He reports pain across his lower rib cage especially when coughing. He denies any nausea, vomiting, or diarrhea. He does not feel hungry. Patient was being transitioned to BiPAP per pulmonary recommendations. Stat repeat chest x-ray was ordered. Discussed with CAROL from pulmonary patient transitioned to the ICU. General: Ill-appearing, moderate distress, appears at stated age Derm: warm, dry Head: atraumatic, normocephalic, symmetric Eyes: EOMI, no lid lag, anicteric sclera Mouth: no lip lesion, mucus membranes dry Cardiovascular: S1S2 reg, no murmur, positive posterior tibial pulse bilateral, Lungs: Course breath sounds bilateral, , + belly breathing, +3 word conversational dyspnea Abdominal: soft, nontender to palpation, no guarding, no appreciable organomegaly Ext: no gross muscle atrophy, no edema, no contractures Neuro: CN II-XI grossly intact, no focal neuro deficits Psych: Alert, oriented, appropriate affect COVID-19 pneumonitis, acute hypoxic respiratory failure -Continue with Decadron D# 7 -Continue with vitamins - TOCI 08/20 - Lovenox increased due to D-dimer > 3, consider CTA chest with PE protocol if D-Dime continues to uptrend - Wean O2 as able Transaminitis - likely related to COVID vs ETOH use - follow liver enzymes Asthma without exacerbation - albuterol Obesity with BMI 35.9 - structure weight loss once COVID resolved. Prognosis guarded. Daughter updated over phone of patient's transfer to the ICU and possible need for intubation if unable to tolerate BiPAP. DVT prophylaxis: Lovenox Discussed with: Patient, nursing Anticipated discharge: unknown Anticipated discharge place: pending course A total of 35 minutes was spent on the care of this complex patient more than 50% of the time was spent in counseling and care coordination. Objective - Vital Signs Vital signs: Vital Signs Temp 97.8 F 08/21/20 12:00 Pulse 52 L 08/21/20 13:00 Resp 23 08/21/20 13:00 BP 146/78 08/21/20 13:00 Pulse Ox 95 08/21/20 13:00 Intake & Output 08/20/20 08/21/20 08/21/20 18:59 06:59 18:59 Intake Total 150 Output Total 600 425 425 Balance -600 -425 -275 Intake: Intake, IV Titration 150 Amount Sodium Chloride 0.9% 1, 150 000 ml @ 50 mls/hr IV . Q20H [facility] Rx#:[id number] Output: Urine 600 425 425 Other: Voiding Method Toilet Indwelling Catheter Urinal # Voids 1 - Labs CBC & Chem 7: 08/21/20 07:16 08/21/20 07:16 Labs: Abnormal Lab Results - Last 24 Hours (Table) 08/21/20 08/21/20 08/21/20 Range/Units 07:16 07:16 07:16 Lymphocytes # 0.9 L (1.0-4.8) k/uL D-Dimer 10.19 H (<0.60) mg/L FEU ABG pH (7.35-7.45) ABG pO2 (83-108) mmHg ABG HCO3 (21-25) mmol/L ABG Total CO2 (19-24) mmol/L ABG O2 Saturation (94-97) % Calcium 7.7 L (8.4-10.2) mg/dL Total Bilirubin 1.4 H (0.2-1.3) mg/dL AST 69 H (17-59) U/L ALT 182 H (4-49) U/L Lactate Dehydrogenase 1935 H (313-618) U/L C-Reactive Protein 19.1 H (<1.0) mg/dL Total Protein 6.2 L (6.3-8.2) g/dL Albumin 2.8 L (3.5-5.0) g/dL 08/21/20 Range/Units 10:11 Lymphocytes # (1.0-4.8) k/uL D-Dimer (<0.60) mg/L FEU ABG pH 7.48 H (7.35-7.45) ABG pO2 116 H (83-108) mmHg ABG HCO3 27 H (21-25) mmol/L ABG Total CO2 28 H (19-24) mmol/L ABG O2 Saturation 98.1 H (94-97) % Calcium (8.4-10.2) mg/dL Total Bilirubin (0.2-1.3) mg/dL AST (17-59) U/L ALT (4-49) U/L Lactate Dehydrogenase (313-618) U/L C-Reactive Protein (<1.0) mg/dL Total Protein (6.3-8.2) g/dL Albumin (3.5-5.0) g/dL
--- NOTE | 2020-08-21 16:46 | US ---
EXAMINATION TYPE: US venous doppler duplex LE BI DATE OF EXAM: 08/21/2020 2:17 PM COMPARISON: NONE CLINICAL HISTORY: rule out DVt. covid SIDE PERFORMED: Bilateral TECHNIQUE: The lower extremity deep venous system is examined utilizing real time linear array sonog miranda with graded compression, doppler sonography and color-flow sonography. VESSELS IMAGED: Common Femoral Vein Deep Femoral Vein Greater Saphenous Vein * Femoral Vein Popliteal Vein Small Saphenous Vein * Proximal Calf Veins (* superficial vessels) Right Leg: Negative for DVT Left Leg: Negative for DVT IMPRESSION: No evidence of deep vein thrombosis in the left and right leg.
[2020-08-21] MEDS ORDERED: POTASSIUM BICARBONATE/CIT AC 20 MEQ TABLET.EFF PO ONE (20:48)
[2020-08-21] MEDS: MELATONIN 5 MG TABLET PO SCH (21:13)
[2020-08-22] MEDS: ALPRAZolam 0.25 MG TAB PO PRN ×3 (00:31→21:04)
[2020-08-22] MEDS: SODIUM CHLORIDE 0.9% 1,000 ML IV SCH ×2 (02:12→21:03)
[2020-08-22 04:25] LABS: Basophils % (A) 0 %; Eosinophils % (A) 0 %; Lymphocytes # (A) 0.4 k/uL (1.0-4.8); Lymphocytes % (A) 6 %; MCH 33.2 pg (25.0-35.0); MCHC 34.9 g/dL (31.0-37.0); Mean Platelet Volume 8.5; Monocytes # (A) 0.2 k/uL (0-1.0); Monocytes % (A) 3 %; Neutrophils # (A) 5.5 k/uL (1.3-7.7); Neutrophils % (A) 90 %; Platelet Count 182 k/uL (150-450); RBC 4.21 m/uL (4.30-5.90); RDW 11.8 % (11.5-15.5); WBC 6.1 k/uL (3.8-10.6)
[2020-08-22 04:37] LABS: ALT 128 U/L (4-49); Potassium 4.1 mmol/L (3.5-5.1)
[2020-08-22 04:38] LABS: AST 43 U/L (17-59); African American GFR (CKD) >90 (>60 ml/min/1.73 sqM); Albumin 2.5 g/dL (3.5-5.0); Alkaline Phosphatase 101 U/L (38-126); Anion Gap 3 mmol/L; Blood Urea Nitrogen 19 mg/dL (9-20); C Reactive Protein 7.8 mg/dL (<1.0); Calcium 7.6 mg/dL (8.4-10.2); Carbon Dioxide 29 mmol/L (22-30); Chloride 105 mmol/L (98-107); Glucose 127 mg/dL (74-99); LDH 1668 U/L (313-618); Non-African American GFR(CKD) >90 (>60 ml/min/1.73 sqM); Sodium 137 mmol/L (137-145); Total Bilirubin 1.1 mg/dL (0.2-1.3); Total Protein 5.9 g/dL (6.3-8.2)
--- NOTE | 2020-08-22 07:13 | XR ---
EXAMINATION TYPE: XR chest 1V DATE OF EXAM: 08/22/2020 COMPARISON: 08/21/2020 HISTORY: Shortness of breath TECHNIQUE: Single frontal view of the chest is obtained. FINDINGS: Bilateral lower lobe infiltrate and small effusion. Diffuse interstitial pattern with card iomegaly. No pneumothorax. Biapical pleural thickening. Arthropathy of the shoulders. IMPRESSION: Stable bilateral infiltrate and pleural effusion.
--- NOTE | 2020-08-22 07:34 | P.PN ---
Subjective Progress Note Date: 08/22/20 On 08/22/2020, the patient is being seen in follow-up. The patient is a case of a 70-year-old male patient with hypoxic respiratory failure secondary to call with pneumonia. The patient was checked positive for COVID-19 on 08/09/2020. During the course of the treatment, the patient required extensive oxygen supplementation. He was treated with a combination of steroids and Tocilizumab. He was transferred to the ICU for respiratory support with BiPAP and the patient was placed on a BiPAP pressure of 14/7cm of water and FiO2 80%. The patient's CRP level was 19 and LDH level was 1935 from yesterday. D-dimer from yesterday was 10.1. Chest x-ray is showing diffuse bilateral pulmonary infiltrate. More so on the right in the right lower lobe. The patient is on Decadron 6 mg IV every 12 hours. The patient is also on Lovenox 60 mg subcu every 12 hours. The Doppler of the lower extremities of been negative. Note that the patient oxygenation gradually gotten worse since 08/16/2020. Lisa le was on few liters of oxygen by nasal cannula subsequently transferred to the intensive care unit yesterday when he required high flow currently on and up on a BiPAP for respiratory support. This morning, the patient is on a BiPAP at a pressure of 14/7 with an FiO2 of 80%. He is generating tidal volumes around 450 with a respiratory rate in the mid 30s. His pulse ox is currently at 93%. His blood work from today shows a LDH of 1668 and a CRP of 7.8. D-dimer is at 7.96. Electrolytes are all within normal limits. He is awake and alert and following commands and answering questions appropriately. Objective - Vital Signs Vital signs: Vital Signs Temp 98 F 08/22/20 04:00 Pulse 60 08/22/20 07:00 Resp 28 H 08/22/20 07:00 BP 138/78 08/22/20 07:00 Pulse Ox 94 L 08/22/20 07:00 Intake & Output 08/21/20 08/22/20 08/22/20 18:59 06:59 18:59 Intake Total 650 625 50 Output Total 735 555 75 Balance -85 70 -25 Weight 108.3 kg Intake: IV 575 50 Sodium Chloride 0.9% 1, 575 50 000 ml @ 50 mls/hr IV . Q20H [facility] Rx#:[id number] Intake, IV Titration 450 50 Amount Sodium Chloride 0.9% 1, 450 50 000 ml @ 50 mls/hr IV . Q20H [facility] Rx#:[id number] Oral 100 Tube Feeding 100 Output: Urine 735 555 75 Other: Voiding Method Indwelling Catheter Indwelling Catheter - Exam GENERAL EXAM: Weak, fatigued, tachypneic, on today's exam, more short of breath 62-year-old white male, on BiPAP support HEAD: Normocephalic/atraumatic. EYES: Normal reaction of pupils, equal size. Conjunctiva pink, sclera white. NOSE: Clear with pink turbinates. THROAT: No erythema or exudates. NECK: No masses, no JVD, no thyroid enlargement, no adenopathy. CHEST: No chest wall deformity. Symmetrical expansion. LUNGS: Equal air entry with coarse bibasilar crackles CVS: Regular rate and rhythm, normal S1 and S2, no gallops, no murmurs, no rubs ABDOMEN: Soft, nontender. No hepatosplenomegaly, normal bowel sounds, no guarding or rigidity. EXTREMITIES: No clubbing, no edema, no cyanosis, 2+ pulses and upper and lower extremities. MUSCULOSKELETAL: Muscle strength and tone normal. SPINE: No scoliosis or deformity SKIN: No rashes CENTRAL NERVOUS SYSTEM: Weak and lethargic, but arousable, and answers appropriately No focal deficits, tone is normal in all 4 extremities. - Labs CBC & Chem 7: 08/22/20 03:40 08/22/20 03:40 Labs: Abnormal Lab Results - Last 24 Hours (Table) 08/21/20 08/21/20 08/21/20 Range/Units 07:16 07:16 07:16 RBC (4.30-5.90) m/uL Lymphocytes # 0.9 L (1.0-4.8) k/uL D-Dimer 10.19 H (<0.60) mg/L FEU ABG pH (7.35-7.45) ABG pO2 (83-108) mmHg ABG HCO3 (21-25) mmol/L ABG Total CO2 (19-24) mmol/L ABG O2 Saturation (94-97) % Glucose (74-99) mg/dL Calcium 7.7 L (8.4-10.2) mg/dL Total Bilirubin 1.4 H (0.2-1.3) mg/dL AST 69 H (17-59) U/L ALT 182 H (4-49) U/L Lactate Dehydrogenase 1935 H (313-618) U/L C-Reactive Protein 19.1 H (<1.0) mg/dL Total Protein 6.2 L (6.3-8.2) g/dL Albumin 2.8 L (3.5-5.0) g/dL 08/21/20 08/22/20 08/22/20 Range/Units 10:11 03:40 03:40 RBC 4.21 L (4.30-5.90) m/uL Lymphocytes # 0.4 L (1.0-4.8) k/uL D-Dimer 7.96 H (<0.60) mg/L FEU ABG pH 7.48 H (7.35-7.45) ABG pO2 116 H (83-108) mmHg ABG HCO3 27 H (21-25) mmol/L ABG Total CO2 28 H (19-24) mmol/L ABG O2 Saturation 98.1 H (94-97) % Glucose (74-99) mg/dL Calcium (8.4-10.2) mg/dL Total Bilirubin (0.2-1.3) mg/dL AST (17-59) U/L ALT (4-49) U/L Lactate Dehydrogenase (313-618) U/L C-Reactive Protein (<1.0) mg/dL Total Protein (6.3-8.2) g/dL Albumin (3.5-5.0) g/dL 08/22/20 Range/Units 03:40 RBC (4.30-5.90) m/uL Lymphocytes # (1.0-4.8) k/uL D-Dimer (<0.60) mg/L FEU ABG pH (7.35-7.45) ABG pO2 (83-108) mmHg ABG HCO3 (21-25) mmol/L ABG Total CO2 (19-24) mmol/L ABG O2 Saturation (94-97) % Glucose 127 H (74-99) mg/dL Calcium 7.6 L (8.4-10.2) mg/dL Total Bilirubin (0.2-1.3) mg/dL AST (17-59) U/L ALT 128 H (4-49) U/L Lactate Dehydrogenase 1668 H (313-618) U/L C-Reactive Protein 7.8 H (<1.0) mg/dL Total Protein 5.9 L (6.3-8.2) g/dL Albumin 2.5 L (3.5-5.0) g/dL Assessment and Plan Plan: #1. Acute hypoxic respiratory failure related to acute COVID-19 pneumonia, with onset of symptoms 10 days prior to presentation, patient had outpatient positive COVID-19 test on 08/09/2020, outside the window for Remdesivir. Hypoxia progressed and patient received Toci on 08/20/2020. Patient was transferred to the intensive care unit on 08/21/2020 and placed on BiPAP support. The patient recevied Decadron and Tocilizumab and Lovenox here this morning, he remains quite comfortable on a BiPAP at a pressure of 14/7 with an FiO2 of 80%. #2. Increased d-dimer related to COVID-19 infection, currently is improving is down to 7.19 and the patient's Doppler of the lower extremities were negative. He remains on Lovenox. #3. Neutropenia, recovered pro-calcitonin was negative, improved #4. Elevated liver enzymes related to viral pneumonia #5. Lifetime nonsmoker #6. History of chronic bronchial asthma, mild intermittent, inactive at this time Plan: Patient has been transferred to the intensive care unit Some BiPAP support with pressures of 14/7 and FiO2 of 80% We will try high flow oxygen again during the day as long as the patient's is quite comfortable. IV Decadron 6 mg twice daily Continue with current dose Lovenox, today's d-dimer noted We'll monitor for worsening dyspnea and hypoxia, so far tolerating BiPAP support well Overall prognosis is guarded Continue supportive treatment High risk for intubation mechanical ventilation Critically care evaluation, more than 30 minutes. Time with Patient: Greater than 30
[2020-08-22] MEDS: ALBUTEROL HFA INHALER INHALATION SCH ×4 (07:46→20:20)
[2020-08-22] MEDS: ENOXAPARIN 60 MG/0.6 ML SYRINGE SQ SCH ×2 (09:28→21:04)
[2020-08-22] MEDS: ASCORBIC ACID 500 MG TAB PO SCH (09:28)
[2020-08-22] MEDS: DEXAMETHASONE SOD PHOSPHATE 10 MG/ML 1 ML VIAL IV SCH ×2 (09:28→21:04)
[2020-08-22] MEDS: guaiFENesin 600 MG TABLET.ER PO SCH ×2 (09:28→21:04)
[2020-08-22] MEDS: CHOLECALCIFEROL 25 MCG (1000 IU) TABLET PO SCH (09:28)
[2020-08-22] MEDS: PANTOPRAZOLE 40 MG/10 ML VIAL IVP SCH (09:29)
[2020-08-22] MEDS: ZINC SULFATE 220 MG CAP PO SCH (09:29)
--- NOTE | 2020-08-22 13:53 | P.PN ---
Subjective Progress Note Date: 08/22/20 Principal diagnosis: shortness of breath Patient is a 70-year-old male with a history of asthma and obesity who initially presented to the ER with complaints of shortness of breath, nausea, and poor appetite. He had known positive COVID testing on 08/09/20. In the ER he was found be hypoxic at 86% on room air. Labs were remarkable for LDH 1283, CRP 7.1, procalcitonin 0.1. He again was PCR positive. Chest x-ray demonstrated pneumonia. He was admitted and started on zinc, vitamin D, vitamin C, and Decadron. He was outside of the window for Remdesivir. Pulm was consulted who agreed with current plan of care. He was progressing well and then on 08/19 he oxygenation worsening ad he was placed on airvo. He was given toci on 08/20. On the morning of 08/21 he was requiring Airvo and 100% non rebreather and was transferred to the ICU and placed on BiPap. Patient seen and examined at bedside. He if feeling better today, VALE is resolved, Foggy feeling has cleared, Fatigue is better than yesterday, still short of breath. General: Ill-appearing, moderate distress, appears at stated age Derm: warm, dry Head: atraumatic, normocephalic, symmetric Eyes: EOMI, no lid lag, anicteric sclera Mouth: no lip lesion, mucus membranes dry Cardiovascular: S1S2 reg, no murmur, positive posterior tibial pulse bilateral, Lungs: Course breath sounds bilateral, , no accessory muscle use, +3 word conversational dyspnea Abdominal: soft, nontender to palpation, no guarding, no appreciable organomegaly Ext: no gross muscle atrophy, no edema, no contractures Neuro: CN II-XI grossly intact, no focal neuro deficits Psych: Alert, oriented, appropriate affect COVID-19 pneumonitis, acute hypoxic respiratory failure -Continue with Decadron D# 8 -Continue with vitamins - TOCI 08/20 - Lovenox increased due to D-dimer > 3, consider CTA chest with PE protocol if D-Dime continues to uptrend - Wean O2 as able - Trial of full liquids with AirVo this afternoon, BiPap again overnight. Transaminitis - likely related to COVID vs ETOH use - follow liver enzymes Asthma without exacerbation - albuterol Obesity with BMI 35.9 - structure weight loss once COVID resolved. Prognosis guarded. Daughter updated over phone. DVT prophylaxis: Lovenox Discussed with: Patient, nursing Anticipated discharge: unknown Anticipated discharge place: pending course A total of 35 minutes was spent on the care of this complex patient more than 50% of the time was spent in counseling and care coordination. Objective - Vital Signs Vital signs: Vital Signs Temp 97.2 F L 08/22/20 12:00 Pulse 45 L 08/22/20 12:00 Resp 32 H 08/22/20 12:00 BP 111/62 08/22/20 12:00 Pulse Ox 93 L 08/22/20 12:00 Intake & Output 08/21/20 08/22/20 08/22/20 18:59 06:59 18:59 Intake Total 650 625 350 Output Total 735 555 395 Balance -85 70 -45 Weight 108.3 kg 108.3 kg Intake: IV 575 350 Sodium Chloride 0.9% 1, 575 350 000 ml @ 50 mls/hr IV . Q20H [facility] Rx#:[id number] Intake, IV Titration 450 50 Amount Sodium Chloride 0.9% 1, 450 50 000 ml @ 50 mls/hr IV . Q20H [facility] Rx#:[id number] Oral 100 Tube Feeding 100 Output: Urine 735 555 395 Other: Voiding Method Indwelling Catheter Indwelling Catheter Indwelling Catheter - Labs CBC & Chem 7: 08/22/20 03:40 08/22/20 03:40 Labs: Abnormal Lab Results - Last 24 Hours (Table) 08/22/20 08/22/20 08/22/20 Range/Units 03:40 03:40 03:40 RBC 4.21 L (4.30-5.90) m/uL Lymphocytes # 0.4 L (1.0-4.8) k/uL D-Dimer 7.96 H (<0.60) mg/L FEU Glucose 127 H (74-99) mg/dL Calcium 7.6 L (8.4-10.2) mg/dL ALT 128 H (4-49) U/L Lactate Dehydrogenase 1668 H (313-618) U/L C-Reactive Protein 7.8 H (<1.0) mg/dL Total Protein 5.9 L (6.3-8.2) g/dL Albumin 2.5 L (3.5-5.0) g/dL
[2020-08-22] MEDS: MELATONIN 5 MG TABLET PO SCH (21:04)
[2020-08-23 04:30] LABS: HCT 38.9 % (39.0-53.0); HGB 13.7 gm/dL (13.0-17.5); MCH 33.4 pg (25.0-35.0); MCHC 35.3 g/dL (31.0-37.0); MCV 94.7 fL (80.0-100.0); Mean Platelet Volume 8.7; Platelet Count 185 k/uL (150-450); RBC 4.11 m/uL (4.30-5.90); RDW 11.8 % (11.5-15.5); WBC 7.1 k/uL (3.8-10.6)
[2020-08-23 04:51] LABS: ALT 116 U/L (4-49); AST 43 U/L (17-59); African American GFR (CKD) >90 (>60 ml/min/1.73 sqM); Albumin 2.5 g/dL (3.5-5.0); Alkaline Phosphatase 92 U/L (38-126); Anion Gap 3 mmol/L; Blood Urea Nitrogen 16 mg/dL (9-20); C Reactive Protein 4.5 mg/dL (<1.0); Calcium 7.6 mg/dL (8.4-10.2); Carbon Dioxide 26 mmol/L (22-30); Chloride 106 mmol/L (98-107); Glucose 131 mg/dL (74-99); LDH 1409 U/L (313-618); Non-African American GFR(CKD) >90 (>60 ml/min/1.73 sqM); Potassium 4.3 mmol/L (3.5-5.1); Sodium 135 mmol/L (137-145); Total Bilirubin 0.9 mg/dL (0.2-1.3); Total Protein 5.7 g/dL (6.3-8.2)
[2020-08-23] MEDS: ALBUTEROL HFA INHALER INHALATION SCH ×4 (07:23→19:42)
--- NOTE | 2020-08-23 08:11 | XR ---
EXAMINATION TYPE: XR chest 1V DATE OF EXAM: 08/23/2020 COMPARISON: 08/22/2020 INDICATION: Short of breath TECHNIQUE: Single frontal view of the chest is obtained. FINDINGS: The heart size is enlarged. The pulmonary vasculature is normal. There is consolidation with air bronchograms left lower lobe. Mild infiltrate at the right base which is improving. IMPRESSION: 1. Left lower lobe consolidation with air bronchograms. Correlate for pneumonia. Consider atypical pn eumonia. 2. Improving right lower lobe infiltrate
--- NOTE | 2020-08-23 08:21 | P.PN ---
Subjective Progress Note Date: 08/23/20 On 08/22/2020, the patient is being seen in follow-up. The patient is a case of a 70-year-old male patient with hypoxic respiratory failure secondary to call with pneumonia. The patient was checked positive for COVID-19 on 08/09/2020. During the course of the treatment, the patient required extensive oxygen supplementation. He was treated with a combination of steroids and Tocilizumab. He was transferred to the ICU for respiratory support with BiPAP and the patient was placed on a BiPAP pressure of 14/7cm of water and FiO2 80%. The patient's CRP level was 19 and LDH level was 1935 from yesterday. D-dimer from yesterday was 10.1. Chest x-ray is showing diffuse bilateral pulmonary infiltra te. More so on the right in the right lower lobe. The patient is on Decadron 6 mg IV every 12 hours. The patient is also on Lovenox 60 mg subcu every 12 hours. The Doppler of the lower extremities of been negative. Note that the patient oxygenation gradually gotten worse since 08/16/2020. Initially was on few liters of oxygen by nasal cannula subsequently transferred to the intensive care unit yesterday when he required high flow currently on and up on a BiPAP for respiratory support. This morning, the patient is on a BiPAP at a pressure of 14/7 with an FiO2 of 80%. He is generating tidal volumes around 450 with a respiratory rate in the mid 30s. His pulse ox is currently at 93%. His blood work from today shows a LDH of 1668 and a CRP of 7.8. D-dimer is at 7.96. Electrolytes are all within normal limits. He is awake and alert and following commands and answering questions appropriately. On 08/23/2020 I'm seeing the patient for a follow-up in the intensive care unit. This morning the patient is on high flow oxygen at 55 L with an FiO2 of 94%. He was taken off the BiPAP yesterday and he was able to tolerate that reasonably well without any major difficulties. She has no major tachypnea. She seems to be resting comfortably. He is also utilizing 100% nonrebreather facemask along with his high flow oxygen. Chest x-ray is essentially stable with lower lobe active pulmonary infiltrates. He does have an incentive spirometer at the bedside. His white cell count is at 7.1. His platelet count stable at 185, his d-dimer is at 7.46 and the patient is on Lovenox at a dose of 60 mg subcu every 12 hours. The patient remains on Decadron 6 mg every 12 hours. The patient's LDH level is at 04/25/2008 and a CRP level is at 4.5. No other major electrode disturbances at this point in time. His IV fluids currently running at 50 mL an hour. The patient has taken oral intake now that he is on high flow oxygen and he is on full liquid diet at this point in time which can be potentially advanced to in some soft diet. Objective - Vital Signs Vital signs: Vital Signs Temp 97.8 F 08/23/20 04:00 Pulse 49 L 08/23/20 07:00 Resp 18 08/23/20 07:00 BP 151/78 08/23/20 07:00 Pulse Ox 91 L 08/23/20 07:00 Intake & Output 08/22/20 08/23/20 08/23/20 18:59 06:59 18:59 Intake Total 600 600 50 Output Total 685 870 65 Balance -85 -270 -15 Weight 108.3 kg 109.6 kg Intake: IV 600 600 50 Sodium Chloride 0.9% 1, 600 600 50 000 ml @ 50 mls/hr IV . Q20H [facility] Rx#:[id number] Output: Urine 685 870 65 Other: Voiding Method Indwelling Catheter Indwelling Catheter # Bowel Movements 1 - Exam GENERAL EXAM: Weak, fatigued, tachypneic, on today's exam, more short of breath 62-year-old white male, on high flow oxygen at 55 L with an FiO2 of 94% HEAD: Normocephalic/atraumatic. EYES: Normal reaction of pupils, equal size. Conjunctiva pink, sclera white. NOSE: Clear with pink turbinates. THROAT: No erythema or exudates. NECK: No masses, no JVD, no thyroid enlargement, no adenopathy. CHEST: No chest wall deformity. Symmetrical expansion. LUNGS: Equal air entry with coarse bibasilar crackles CVS: Regular rate and rhythm, normal S1 and S2, no gallops, no murmurs, no rubs ABDOMEN: Soft, nontender. No hepatosplenomegaly, normal bowel sounds, no guarding or rigidity. EXTREMITIES: No clubbing, no edema, no cyanosis, 2+ pulses and upper and lower extremities. MUSCULOSKELETAL: Muscle strength and tone normal. SPINE: No scoliosis or deformity SKIN: No rashes CENTRAL NERVOUS SYSTEM: Weak and lethargic, but arousable, and answers appropriately No focal deficits, tone is normal in all 4 extremities. - Labs CBC & Chem 7: 08/23/20 03:25 08/23/20 03:25 Labs: Abnormal Lab Results - Last 24 Hours (Table) 08/23/20 08/23/20 08/23/20 Range/Units 03:25 03:25 03:25 RBC 4.11 L (4.30-5.90) m/uL Hct 38.9 L (39.0-53.0) % D-Dimer 7.46 H (<0.60) mg/L FEU Sodium 135 L (137-145) mmol/L Glucose 131 H (74-99) mg/dL Calcium 7.6 L (8.4-10.2) mg/dL ALT 116 H (4-49) U/L Lactate Dehydrogenase 1409 H (313-618) U/L C-Reactive Protein 4.5 H (<1.0) mg/dL Total Protein 5.7 L (6.3-8.2) g/dL Albumin 2.5 L (3.5-5.0) g/dL Assessment and Plan Plan: #1. Acute hypoxic respiratory failure related to acute COVID-19 pneumonia, with onset of symptoms 10 days prior to presentation, patient had outpatient positive COVID-19 test on 08/09/2020, outside the window for Remdesivir. Hypoxia progressed and patient received Toci on 08/20/2020. Patient was transferred to the intensive care unit on 08/21/2020 and placed on BiPAP support. The patient recevied Decadron grams IV every 12 hours and Lovenox here this morning, he remains quite comfortable on a BiPAP at a pressure of 14/7 with an FiO2 of 80%. I think this patient off the BiPAP and currently he is on high flow oxygen at 55 L with an FiO2 of 94%. Chest x-ray findings are stable. We still have interest in obtaining a CT angiogram of his chest to evaluate his hypoxemia and extent of pneumonia rule out any other causes contributing to his hypercapnic respiratory failure. On today's evaluation, he is on high flow oxygen and he is also on 100% nonrebreather facemask. He should be able to undergo a CT angiogram. #2. Increased d-dimer related to COVID-19 infection, currently is improving is down to 7.19 and the patient's Doppler of the lower extremities were negative. He remains on Lovenox. #3. Neutropenia, recovered pro-calcitonin was negative, improved #4. Elevated liver enzymes related to viral pneumonia #5. Lifetime nonsmoker #6. History of chronic bronchial asthma, mild intermittent, inactive at this time Plan: Keep the patient on high flow oxygen Monitoring telemetry markers and currently the LDH level is still elevated although improved Monitor d-dimer CT angiogram Continue high flow oxygen BiPAP treatment is needed Advance diet as tolerated Overall prognosis is guarded Continue supportive treatment High risk for intubation mechanical ventilation Critically care evaluation, more than 30 minutes. Time with Patient: Greater than 30
[2020-08-23] MEDS ORDERED: LORazepam 2 MG/ML INJ IV STA (08:59)
[2020-08-23] MEDS ORDERED: HEPARIN SODIUM 1,000 UN/ML (10ML VL) IV PRN (09:03)
[2020-08-23] MEDS ORDERED: HEPARIN SODIUM 1,000 UN/ML (10ML VL) IV ONE (09:03)
--- NOTE | 2020-08-23 09:13 | P.PN ---
Subjective Progress Note Date: 08/23/20 Principal diagnosis: shortness of breath Patient is a 70-year-old male with a history of asthma and obesity who initially presented to the ER with complaints of shortness of breath, nausea, and poor appetite. He had known positive COVID testing on 08/09/20. In the ER he was found be hypoxic at 86% on room air. Labs were remarkable for LDH 1283, CRP 7.1, procalcitonin 0.1. He again was PCR positive. Chest x-ray demonstrated pneumonia. He was admitted and started on zinc, vitamin D, vitamin C, and Decadron. He was outside of the window for Remdesivir. Pulm was consulted who agreed with current plan of care. He was progressing well and then on 08/19 he oxygenation worsening ad he was placed on airvo. He was given toci on 08/20. On the morning of 08/21 he was requiring Airvo and 100% non rebreather and was transferred to the ICU and placed on BiPap. Patient seen and examined at bedside. Suddenly desatted this morning and had to be transitioned from AIRVO to BiPap, He was having acute chest pain, left sided without radiation. EKG did not show any signs of acute ischemia. General: Ill-appearing, moderate distress, appears at stated age Derm: warm, dry Head: atraumatic, normocephalic, symmetric Eyes: EOMI, no lid lag, anicteric sclera Mouth: no lip lesion, mucus membranes dry Cardiovascular: S1S2 reg, no murmur, positive posterior tibial pulse bilateral, Lungs: Course breath sounds bilateral, , no accessory muscle use, +3 word conversational dyspnea Abdominal: soft, nontender to palpation, no guarding, no appreciable organomegaly Ext: no gross muscle atrophy, no edema, no contractures Neuro: CN II-XI grossly intact, no focal neuro deficits Psych: Alert, oriented, appropriate affect COVID-19 pneumonitis, acute hypoxic respiratory failure -Continue with Decadron D# 9 -Continue with vitamins - TOCI 08/20 - Lovenox increased due to D-dimer > 3, consider CTA chest with PE protocol if D-Dime continues to uptrend - Wean O2 as able - Trial of full liquids with AirVo this afternoon, BiPap again overnight. Chest pain - EKG without significant ST segment elevation - Stat CXR without PTX - Check troponin now and in 3 hours - D/W pulm heparin gtt as unable to go down for CT PE protocol. Will also check echo for signs of RV strain. Transaminitis, improving - likely related to COVID vs ETOH use - follow liver enzymes Asthma without exacerbation - albuterol Obesity with BMI 35.9 - structure weight loss once COVID resolved. Prognosis guarded. DVT prophylaxis: Lovenox Discussed with: Patient, nursing Anticipated discharge: unknown Anticipated discharge place: pending course A total of 35 minutes was spent on the care of this complex patient more than 50% of the time was spent in counseling and care coordination. Objective - Vital Signs Vital signs: Vital Signs Temp 97.8 F 08/23/20 04:00 Pulse 49 L 08/23/20 07:00 Resp 18 08/23/20 07:00 BP 151/78 08/23/20 07:00 Pulse Ox 91 L 08/23/20 07:00 Intake & Output 08/22/20 08/23/20 08/23/20 18:59 06:59 18:59 Intake Total 600 600 50 Output Total 685 870 65 Balance -85 -270 -15 Weight 108.3 kg 109.6 kg Intake: IV 600 600 50 Sodium Chloride 0.9% 1, 600 600 50 000 ml @ 50 mls/hr IV . Q20H [facility] Rx#:[id number] Output: Urine 685 870 65 Other: Voiding Method Indwelling Catheter Indwelling Catheter # Bowel Movements 1 - Labs CBC & Chem 7: 08/23/20 03:25 08/23/20 03:25 Labs: Abnormal Lab Results - Last 24 Hours (Table) 08/23/20 08/23/20 08/23/20 Range/Units 03:25 03:25 03:25 RBC 4.11 L (4.30-5.90) m/uL Hct 38.9 L (39.0-53.0) % D-Dimer 7.46 H (<0.60) mg/L FEU Sodium 135 L (137-145) mmol/L Glucose 131 H (74-99) mg/dL Calcium 7.6 L (8.4-10.2) mg/dL ALT 116 H (4-49) U/L Lactate Dehydrogenase 1409 H (313-618) U/L C-Reactive Protein 4.5 H (<1.0) mg/dL Total Protein 5.7 L (6.3-8.2) g/dL Albumin 2.5 L (3.5-5.0) g/dL
[2020-08-23] MEDS: HEPARIN SOD,PORK IN 0.45% NACL 25,000 UNIT in 0.45% NACL 1 250ML.BAG IV SCH (09:20)
--- NOTE | 2020-08-23 09:25 | XR ---
EXAMINATION TYPE: XR chest 1V portable DATE OF EXAM: 08/23/2020 COMPARISON: 08/23/2020 INDICATION: Chest pain and increasing shortness of breath TECHNIQUE: Single frontal view of the chest is obtained. FINDINGS: The heart size is now a prominent. The pulmonary vasculature is normal. Right basilar infiltrates are present. This is nonspecific. Right lower lobe infiltrate is increasing over the interval. Left lower lobe consolidation appear similar. IMPRESSION: 1. Bibasilar infiltrates, worsening on the right. Findings are nonspecific. Consider atypical pneumo tiera within the differential.
[2020-08-23 09:55] LABS: Basophils % (A) 0 %; Eosinophils % (A) 0 %; HCT 44.2 % (39.0-53.0); HGB 15.4 gm/dL (13.0-17.5); Lymphocytes # (A) 0.6 k/uL (1.0-4.8); Lymphocytes % (A) 7 %; MCH 33.1 pg (25.0-35.0); MCHC 34.7 g/dL (31.0-37.0); MCV 95.4 fL (80.0-100.0); Mean Platelet Volume 8.2; Monocytes # (A) 0.4 k/uL (0-1.0); Monocytes % (A) 4 %; Neutrophils # (A) 7.4 k/uL (1.3-7.7); Neutrophils % (A) 87 %; Platelet Count 233 k/uL (150-450); RBC 4.64 m/uL (4.30-5.90); RDW 11.9 % (11.5-15.5); WBC 8.4 k/uL (3.8-10.6)
[2020-08-23 10:09] LABS: INR 1.1 (<1.2); Prothrombin Time 11.2 sec (9.0-12.0)
[2020-08-23 10:17] LABS: Partial Thromboplastin Time 21.3 sec (22.0-30.0)
[2020-08-23] MEDS: guaiFENesin 600 MG TABLET.ER PO SCH ×2 (10:23→20:08)
[2020-08-23] MEDS: ZINC SULFATE 220 MG CAP PO SCH (10:23)
[2020-08-23] MEDS: CHOLECALCIFEROL 25 MCG (1000 IU) TABLET PO SCH (10:24)
[2020-08-23] MEDS: ASCORBIC ACID 500 MG TAB PO SCH (10:24)
[2020-08-23] MEDS: PANTOPRAZOLE 40 MG/10 ML VIAL IVP SCH (10:25)
[2020-08-23] MEDS: DEXAMETHASONE SOD PHOSPHATE 10 MG/ML 1 ML VIAL IV SCH ×2 (10:25→20:08)
--- NOTE | 2020-08-23 11:24 | ECHOF ---
Referral Reason: MEASUREMENTS -------- HEIGHT: 172.7 cm WEIGHT: 109.3 kg BP: FINDINGS -------- Sinus rhythm. This was a technically difficult study with suboptimal views. Limited Study. Pt on bipap and has co vid. Suboptimal test with Lumason. Unable to calculate EF. The RV was not well visualized. The left atrium was not well visualized. The right atrium was not well visualized. The aortic valve was not well visualized. The mitral valve was not well visualized. The tricuspid valve was not well visualized. The pulmonic valve was not well visualized. There is no pericardial effusion. CONCLUSIONS -------- 1. This was a technically difficult study with suboptimal views. 2. Limited Study. Pt on bipap and has covid. 3. Suboptimal test with Lumason. Unable to calculate EF. 4. The aortic valve was not well visualized. 5. The mitral valve was not well visualized. [employer] DIRECTOR: Chanelle Cordoba RDCS
[2020-08-23] MEDS: MELATONIN 5 MG TABLET PO SCH (20:08)
[2020-08-23] MEDS: ALPRAZolam 0.25 MG TAB PO PRN (20:08)
[2020-08-23] MEDS: SODIUM CHLORIDE 0.9% 1,000 ML IV SCH (21:14)
[2020-08-24 03:38] LABS: Basophils % (A) 0 %; Eosinophils # (A) 0.1 k/uL (0-0.7); Eosinophils % (A) 1 %; HCT 43.4 % (39.0-53.0); HGB 14.5 gm/dL (13.0-17.5); Lymphocytes # (A) 0.5 k/uL (1.0-4.8); Lymphocytes % (A) 5 %; MCH 31.9 pg (25.0-35.0); MCHC 33.3 g/dL (31.0-37.0); MCV 95.8 fL (80.0-100.0); Monocytes # (A) 0.3 k/uL (0-1.0); Monocytes % (A) 3 %; Neutrophils # (A) 9.6 k/uL (1.3-7.7); Neutrophils % (A) 91 %; Platelet Count 185 k/uL (150-450); RBC 4.52 m/uL (4.30-5.90); RDW 12.6 % (11.5-15.5); WBC 10.5 k/uL (3.8-10.6)
[2020-08-24 03:53] LABS: ALT 165 U/L (4-49); AST 77 U/L (17-59); African American GFR (CKD) >90 (>60 ml/min/1.73 sqM); Albumin 2.7 g/dL (3.5-5.0); Alkaline Phosphatase 92 U/L (38-126); Anion Gap 3 mmol/L; Blood Urea Nitrogen 18 mg/dL (9-20); C Reactive Protein 2.8 mg/dL (<1.0); Carbon Dioxide 26 mmol/L (22-30); Chloride 106 mmol/L (98-107); Glucose 123 mg/dL (74-99); LDH 1658 U/L (313-618); Magnesium 2.1 mg/dL (1.6-2.3); Non-African American GFR(CKD) >90 (>60 ml/min/1.73 sqM); Phosphorus 3.9 mg/dL (2.5-4.5); Sodium 135 mmol/L (137-145); Total Bilirubin 1.1 mg/dL (0.2-1.3)
[2020-08-24 03:55] LABS: D-Dimer 7.66 mg/L FEU (<0.60); INR 1.1 (<1.2)
[2020-08-24 04:06] LABS: Potassium 4.3 mmol/L (3.5-5.1)
[2020-08-24] MEDS: HEPARIN SOD,PORK IN 0.45% NACL 25,000 UNIT in 0.45% NACL 1 250ML.BAG IV SCH (06:24)
[2020-08-24] MEDS: ASCORBIC ACID 500 MG TAB PO SCH (09:00)
[2020-08-24] MEDS: guaiFENesin 600 MG TABLET.ER PO SCH ×2 (09:00→21:51)
[2020-08-24] MEDS: PANTOPRAZOLE 40 MG/10 ML VIAL IVP SCH (09:00)
[2020-08-24] MEDS: CHOLECALCIFEROL 25 MCG (1000 IU) TABLET PO SCH (09:00)
[2020-08-24] MEDS: DEXAMETHASONE SOD PHOSPHATE 10 MG/ML 1 ML VIAL IV SCH ×2 (09:00→21:51)
[2020-08-24] MEDS: ZINC SULFATE 220 MG CAP PO SCH (09:01)
[2020-08-24] MEDS: ENOXAPARIN 60 MG/0.6 ML SYRINGE SQ SCH ×2 (09:17→21:50)
--- NOTE | 2020-08-24 09:18 | P.PN ---
Subjective Progress Note Date: 08/24/20 Principal diagnosis: COVID-19 pneumonia 70-year-old white male patient who presented to the hospital on 08/15/2020 with complaints of 10 day history of loss of taste, cough, shortness of breath, fever. Patient and his have been staying with her daughter who tested positive for COVID, patient had an outpatient test for COVID-19 on 08/09/2020 and was found to be positive. Last few days he's been having increased shortness of breath, cough. Past medical history is noncontributory, other than osteoarthritis with previous history of joint replacement surgery in the right knee, patient is lifetime nonsmoker, does have history of chronic bronchial asthma, not on any maintenance inhalers on a regular basis. Chest x-ray in the emergency department shows some patchy airspace disease on the right, calcified granuloma in the right lower lobe, no pneumothorax or pleural effusion. His repeat COVID-19 PCR in the emergency room was positive, RSV and influenza screen were negative. His admission blood work showed neutropenia, and lymphopenia, white blood cell count was 2.6, and leukocyte count was 0.4, d-dimer was 0.95, potassium is 3.1, rest of the electrolytes and renal profile were unremarkable, lactic acid was 1.1, AST was 63, ALT and alk phos were within normal limits, LDH was 1283, CRP was 7.1, pro calcitonin level was negative at 0.10. Patient was satting 86% on room air, currently requiring 4 L of supplemental oxygen with a pulse ox of 91-94%, he is afebrile. Lung sounds reveal diffuse coarse crackles at bilateral bases. Patient was started on Decadron this milligram daily, and prophylactic Lovenox. he is outside the window for Remdesivir On 08/17/2020 patient seen in follow-up on medical surgical floor, he is resting in bed, appears to be in no acute distress, he still on 5 L of oxygen has pulse ox of 90-91%, he is afebrile, hemodynamically stable, he states when he walks to the bathroom he gets very lightheaded and dizzy and sometimes feel like he is going to pass out. He does get short of breath, he was instructed to call for help when ambulating to the bathroom. Sounds reveal diffuse crackles bilaterally, today's follow-up chest x-ray showing patchy airspace disease lung bases. He is trying to work on incentive spirometer. Today's labs have been reviewed, his d-dimer today is 0.55, inflammatory markers are improving, and his LDH is 609, and CRP is 3.6. An patient remains on Decadron 6 mg daily, and prophylactic dose Lovenox in addition to vitamins On 08/18/2020 patient seen in follow-up on medical surgical floor. He is currently down to 4 L of oxygen pulse ox is 93%, he states he still feels weak and wobbly when walking to the bathroom, at times he gets lightheaded, but no worsening dyspnea, no signs of any respiratory distress. Today's labs have been noted, d-dimer from yesterday is 0.55, inflammatory markers were improving, no cough, no complaints of chest discomfort, he remains on Decadron 6 blood gram d aily, and Lovenox 40 mg daily. On 08/19/2020 patient seen in follow-up on medical surgical floor, he is sitting up in the recliner, in no acute distress, is on 6 L of supplemental oxygen his pulse ox is 89-90%, no worsening dyspnea, although he does get short of breath and desat with exertion, consulted physical therapy and patient had ambulated with a walker. His ambulation ability slow shaky, no complaints of dizziness. Doing fairly well, no acute events overnight, and he is on Decadron, patient was not a candidate for Remdesivir, he is on prophylactic Lovenox, today's labs have been reviewed On 08/20/2020 patient seen in follow-up on medical surgical floor. In the last 24 hours his oxygenation has significantly deteriorated, he is currently on Airvo at 60 L and FiO2 of 92%, his pulse ox is 85-88%, his been afebrile, his temp of 101.7F, complaining of headache, he looks weak, he looks a lot more ill today, fatigued, short of breath with conversation, he has occasional cough, he was outside the window for Remdesivir, he has been on Decadron 6 mg daily, he is on prophylactic Lovenox, we'll give him a dose of Toci today On 08/21/2020 patient continued to worsen through the night, with increased work of breathing, and increased oxygenation needs, he was placed on Airvo yesterday, at 60 L in FiO2 of 93%, and he is requiring 100% nonrebreather mask on top of it, his pulse ox is only 80%, he is very tachypneic with respiratory rate in the 30s, diaphoretic, and looking fatigued. He was transferred to the intensive care unit this morning and placed on BiPAP support with pressures of 14/6 and FiO2 100%, he is actually tolerating that quite well, and seems more comfortable on it, lung sounds reveal diffuse coarse crackles at bilateral posterior bases, he is afebrile this morning, his chest x-ray today showing bilateral lower lobe infiltrates and small effusion., Yesterday his d-dimer with up to 10.10, and if it remains elevated again today at 10.19, his Lovenox dose was adjusted and he is currently on 60 mg of Lovenox every 12 hours. He remains on IV dexamethasone 6 mg daily, was given a dose of Actemra yesterday On 08/24/2020 patient seen in follow-up in the intensive care unit, he remains on BiPAP its at pressures of 14/7 and FiO2 of 90%. He seems to be tolerating BiPAP support quite well, seems to be very comfortable on that. He has remained on BiPAP continuously for 24 hours, try Airvo on him again today. Appears to be in no acute distress, on those above-mentioned settings his pulse ox is ranging between 86-91%, respiratory rate is in the mid 20s, blood pressure stable, he has been afebrile. Lung sounds reveal diminished breath sounds with some bibasilar crackles. No complaints of chest pain overnight, 2 sets of troponins were less than 0.012. Echocardiogram was a technically difficult study with suboptimal views, and the EF was not calculated, RV was not visualized, left atrium, right atrium, and all the valves were not well visualized. And as such this was a suboptimal study. No complaints of chest pain overnight, no complaints of chest pain this morning. This morning's labs have been reviewed, his d-dimer is 7.66 on today's labs, white blood cell count is 10.5, hemoglobin of 14.5, sodium is 135, the rest of electrolytes and renal profile were unremarkable, LDH is 1658, CRP is 2.8. No nausea vomiting or diarrhea, abdomen is soft, no worsening dyspnea Objective - Vital Signs Vital signs: Vital Signs Temp 97.8 F 08/24/20 04:00 Pulse 74 08/24/20 07:00 Resp 28 H 08/24/20 07:00 BP 128/69 08/24/20 07:00 Pulse Ox 86 L 08/24/20 07:00 Intake & Output 08/23/20 08/24/20 08/24/20 18:59 06:59 18:59 Intake Total 781.707 818.293 38.871 Output Total 605 540 Balance 176.707 278.293 38.871 Weight 108.7 kg Intake: IV 600 650 Sodium Chloride 0.9% 1, 600 650 000 ml @ 50 mls/hr IV . Q20H [facility] Rx#:[id number] Intake, IV Titration 81.707 168.293 38.871 Amount Heparin Sod,Pork in 0.45% 81.707 168.293 38.871 NaCl 25,000 unit In 0.45 % NaCl 1 250ml.bag @ 9 UNITS/KG/HR 9.864 mls/hr IV .Q24H [facility] Rx#: [id number] Oral 100 Output: Urine 605 540 Other: Voiding Method Indwelling Catheter Indwelling Catheter - Exam GENERAL EXAM: Weak, fatigued, 70-year-old white male, on BiPAP support pressures of 14/7 and FiO2 of 90%, looking a bit more comfortable HEAD: Normocephalic/atraumatic. EYES: Normal reaction of pupils, equal size. Conjunctiva pink, sclera white. NOSE: Clear with pink turbinates. THROAT: No erythema or exudates. NECK: No masses, no JVD, no thyroid enlargement, no adenopathy. CHEST: No chest wall deformity. Symmetrical expansion. LUNGS: Equal air entry with coarse bibasilar crackles CVS: Regular rate and rhythm, normal S1 and S2, no gallops, no murmurs, no rubs ABDOMEN: Soft, nontender. No hepatosplenomegaly, normal bowel sounds, no guarding or rigidity. EXTREMITIES: No clubbing, no edema, no cyanosis, 2+ pulses and upper and lower extremities. MUSCULOSKELETAL: Muscle strength and tone normal. SPINE: No scoliosis or deformity SKIN: No rashes CENTRAL NERVOUS SYSTEM: Weak and lethargic, but arousable, and answers appropriately No focal deficits, tone is normal in all 4 extremities. - Labs CBC & Chem 7: 08/24/20 02:57 08/24/20 02:57 Labs: Abnormal Lab Results - Last 24 Hours (Table) 08/23/20 08/23/20 08/23/20 Range/Units 09:19 09:19 23:43 Neutrophils # (1.3-7.7) k/uL Lymphocytes # 0.6 L (1.0-4.8) k/uL APTT 21.3 L 39.7 H (22.0-30.0) sec D-Dimer (<0.60) mg/L FEU Sodium (137-145) mmol/L Glucose (74-99) mg/dL Calcium (8.4-10.2) mg/dL AST (17-59) U/L ALT (4-49) U/L Lactate Dehydrogenase (313-618) U/L C-Reactive Protein (<1.0) mg/dL Total Protein (6.3-8.2) g/dL Albumin (3.5-5.0) g/dL 08/24/20 08/24/20 08/24/20 Range/Units 02:57 02:57 02:57 Neutrophils # 9.6 H (1.3-7.7) k/uL Lymphocytes # 0.5 L (1.0-4.8) k/uL APTT (22.0-30.0) sec D-Dimer 7.66 H (<0.60) mg/L FEU Sodium 135 L (137-145) mmol/L Glucose 123 H (74-99) mg/dL Calcium 8.0 L (8.4-10.2) mg/dL AST 77 H (17-59) U/L ALT 165 H (4-49) U/L Lactate Dehydrogenase 1658 H (313-618) U/L C-Reactive Protein 2.8 H (<1.0) mg/dL Total Protein 6.0 L (6.3-8.2) g/dL Albumin 2.7 L (3.5-5.0) g/dL 08/24/20 Range/Units 07:07 Neutrophils # (1.3-7.7) k/uL Lymphocytes # (1.0-4.8) k/uL APTT 40.7 H (22.0-30.0) sec D-Dimer (<0.60) mg/L FEU Sodium (137-145) mmol/L Glucose (74-99) mg/dL Calcium (8.4-10.2) mg/dL AST (17-59) U/L ALT (4-49) U/L Lactate Dehydrogenase (313-618) U/L C-Reactive Protein (<1.0) mg/dL Total Protein (6.3-8.2) g/dL Albumin (3.5-5.0) g/dL Assessment and Plan Plan: Assessment: #1. Acute hypoxic respiratory failure related to acute COVID-19 pneumonia, with onset of symptoms 10 days prior to presentation, patient had outpatient positive COVID-19 test on 08/09/2020, outside the window for Remdesivir. Hypoxia progressed and patient received Toci on 08/20/2020. Patient was transferred to the intensive care unit on 08/21/2020 and placed on BiPAP support #2. Increased d-dimer related to COVID-19 infection, currently at 10.19, rule out possibility of a VTE, we will obtain lower extremity Dopplers today, will consider CTA chest when patient is able to travel to [place] department #3. Neutropenia, pro-calcitonin was negative, improved #4. Elevated liver enzymes related to viral pneumonia #5. Lifetime nonsmoker #6. History of chronic bronchial asthma, mild intermittent, inactive at this time #7. Episode of chest pain on 08/23/2020, EKG without significant ST segment elevation, 2 sets of negative troponins. Echocardiogram was a suboptimal study, unable to calculate EF, calculate chamber sizes or valves Plan: We'll give another trial on Airvo May return to BiPAP if develops tachypnea, respiratory fatigue Continue Decadron 6 mg twice daily No other episodes of chest pain overnight, 2 sets of troponins were negative, alcohol was suboptimal Discontinue heparin infusion and we'll start Lovenox 50 mg twice daily Encourage oral intake if able to tolerate Airvo Incentive spirometry Overall prognosis is guarded Continue supportive treatment I performed a history & physical examination of the patient and discussed their management with my nurse practitioner, Magdalena Negrete. I reviewed the nurse practitioner's note and agree with the documented findings and plan of care. Lung sounds are positive for diminished breath sounds. The findings and the impression was discussed with the patient. I attest to the documentation by the nurse practitioner. Time with Patient: Greater than 30
[2020-08-24] MEDS: ALBUTEROL HFA INHALER INHALATION SCH ×4 (10:13→21:27)
--- NOTE | 2020-08-24 17:16 | P.PN ---
Subjective Progress Note Date: 08/24/20 (delayed charting seen at 1445) Principal diagnosis: shortness of breath Patient is a 70-year-old male with a history of asthma and obesity who initially presented to the ER with complaints of shortness of breath, nausea, and poor appetite. He had known positive COVID testing on 08/09/20. In the ER he was found be hypoxic at 86% on room air. Labs were remarkable for LDH 1283, CRP 7.1, procalcitonin 0.1. He again was PCR positive. Chest x-ray demonstrated pneumonia. He was admitted and started on zinc, vitamin D, vitamin C, and Decadron. He was outside of the window for Remdesivir. Pulm was consulted who agreed with current plan of care. He was progressing well and then on 08/19 he oxygenation worsening ad he was placed on airvo. He was given toci on 08/20. On the morning of 08/21 he was requiring Airvo and 100% non rebreather and was transferred to the ICU and placed on BiPap. He Suddenly desatted on the morning of 08/23 and had to be transitioned from AIRVO to BiPap, He was having acute chest pain, left sided without radiation. EKG did not show any signs of acute ischemia. He was able to be weaned back to airflow by the morning of 08/24. General: Ill-appearing, no distress, appears at stated age Derm: warm, dry Head: atraumatic, normocephalic, symmetric Eyes: EOMI, no lid lag, anicteric sclera Mouth: no lip lesion, mucus membranes dry Cardiovascular: S1S2 reg, no murmur, positive posterior tibial pulse bilateral, Lungs: Course breath sounds bilateral, , no accessory muscle use, +3 word conversational dyspnea Abdominal: soft, nontender to palpation, no guarding, no appreciable organomegaly Ext: no gross muscle atrophy, no edema, no contractures Neuro: CN II-XI grossly intact, no focal neuro deficits Psych: Alert, oriented, appropriate affect COVID-19 pneumonitis, acute hypoxic respiratory failure - Continue with Decadron D#10 - Continue with vitamins - TOCI 08/20 - Lovenox increased due to D-dimer > 3 - Wean O2 as able Transaminitis, improving - likely related to COVID vs ETOH use - follow liver enzymes Asthma without exacerbation - albuterol Obesity with BMI 35.9 - structure weight loss once COVID resolved. Chest pain, resolved Prognosis guarded. DVT prophylaxis: Lovenox Discussed with: Patient, nursing Anticipated discharge: unknown Anticipated discharge place: pending course A total of 35 minutes was spent on the care of this complex patient more than 50% of the time was spent in counseling and care coordination. Objective - Vital Signs Vital signs: Vital Signs Temp 97.1 F L 08/24/20 16:00 Pulse 78 08/24/20 16:00 Resp 20 08/24/20 16:00 BP 106/56 08/24/20 16:00 Pulse Ox 90 L 08/24/20 16:14 Intake & Output 08/23/20 08/24/20 08/24/20 18:59 06:59 18:59 Intake Total 781.707 818.293 488.871 Output Total 605 540 490 Balance 176.707 278.293 -1.129 Weight 108.7 kg Intake: IV 600 650 450 Sodium Chloride 0.9% 1, 600 650 450 000 ml @ 50 mls/hr IV . Q20H [facility] Rx#:[id number] Intake, IV Titration 81.707 168.293 38.871 Amount Heparin Sod,Pork in 0.45% 81.707 168.293 38.871 NaCl 25,000 unit In 0.45 % NaCl 1 250ml.bag @ 9 UNITS/KG/HR 9.864 mls/hr IV .Q24H [facility] Rx#: [id number] Oral 100 Output: Urine 605 540 490 Other: Voiding Method Indwelling Catheter Indwelling Catheter Indwelling Catheter - Labs CBC & Chem 7: 08/24/20 02:57 08/24/20 02:57 Labs: Abnormal Lab Results - Last 24 Hours (Table) 08/23/20 08/24/20 08/24/20 Range/Units 23:43 02:57 02:57 Neutrophils # 9.6 H (1.3-7.7) k/uL Lymphocytes # 0.5 L (1.0-4.8) k/uL APTT 39.7 H (22.0-30.0) sec D-Dimer 7.66 H (<0.60) mg/L FEU Sodium (137-145) mmol/L Glucose (74-99) mg/dL Calcium (8.4-10.2) mg/dL AST (17-59) U/L ALT (4-49) U/L Lactate Dehydrogenase (313-618) U/L C-Reactive Protein (<1.0) mg/dL Total Protein (6.3-8.2) g/dL Albumin (3.5-5.0) g/dL 08/24/20 08/24/20 Range/Units 02:57 07:07 Neutrophils # (1.3-7.7) k/uL Lymphocytes # (1.0-4.8) k/uL APTT 40.7 H (22.0-30.0) sec D-Dimer (<0.60) mg/L FEU Sodium 135 L (137-145) mmol/L Glucose 123 H (74-99) mg/dL Calcium 8.0 L (8.4-10.2) mg/dL AST 77 H (17-59) U/L ALT 165 H (4-49) U/L Lactate Dehydrogenase 1658 H (313-618) U/L C-Reactive Protein 2.8 H (<1.0) mg/dL Total Protein 6.0 L (6.3-8.2) g/dL Albumin 2.7 L (3.5-5.0) g/dL
[2020-08-24] MEDS: SODIUM CHLORIDE 0.9% 1,000 ML IV SCH (18:41)
[2020-08-24] MEDS: MELATONIN 5 MG TABLET PO SCH (21:51)
[2020-08-24] MEDS: ALPRAZolam 0.25 MG TAB PO PRN (21:51)
[2020-08-25 04:43] LABS: Basophils % (A) 0 %; Eosinophils % (A) 0 %; HCT 41.2 % (39.0-53.0); HGB 14.6 gm/dL (13.0-17.5); Lymphocytes # (A) 0.5 k/uL (1.0-4.8); Lymphocytes % (A) 4 %; MCH 33.3 pg (25.0-35.0); MCHC 35.4 g/dL (31.0-37.0); MCV 94.2 fL (80.0-100.0); Mean Platelet Volume 8.7; Monocytes # (A) 0.3 k/uL (0-1.0); Monocytes % (A) 3 %; Neutrophils # (A) 11.5 k/uL (1.3-7.7); Neutrophils % (A) 93 %; Platelet Count 184 k/uL (150-450); RBC 4.37 m/uL (4.30-5.90); WBC 12.4 k/uL (3.8-10.6)
[2020-08-25 04:55] LABS: African American GFR (CKD) >90 (>60 ml/min/1.73 sqM); Anion Gap 4 mmol/L; Blood Urea Nitrogen 18 mg/dL (9-20); C Reactive Protein 1.7 mg/dL (<1.0); Calcium 7.9 mg/dL (8.4-10.2); Carbon Dioxide 24 mmol/L (22-30); Chloride 107 mmol/L (98-107); Glucose 121 mg/dL (74-99); LDH 2065 U/L (313-618); Non-African American GFR(CKD) >90 (>60 ml/min/1.73 sqM); Potassium 4.2 mmol/L (3.5-5.1); Sodium 135 mmol/L (137-145)
[2020-08-25] MEDS: ALBUTEROL HFA INHALER INHALATION SCH ×4 (07:13→21:09)
[2020-08-25] MEDS ORDERED: FUROSEMIDE 10 MG/ML 4 ML VIAL IV STA (07:57)
--- NOTE | 2020-08-25 08:04 | P.PN ---
Subjective Progress Note Date: 08/25/20 Principal diagnosis: COVID-19 pneumonia 70-year-old white male patient who presented to the hospital on 08/15/2020 with complaints of 10 day history of loss of taste, cough, shortness of breath, fever. Patient and his have been staying with her daughter who tested positive for COVID, patient had an outpatient test for COVID-19 on 08/09/2020 and was found to be positive. Last few days he's been having increased shortness of breath, cough. Past medical history is noncontributory, other than osteoarthritis with previous history of joint replacement surgery in the right knee, patient is lifetime nonsmoker, does have history of chronic bronchial asthma, not on any maintenance inhalers on a regular basis. Chest x-ray in the emergency department shows some patchy airspace disease on the right, calcified granuloma in the right lower lobe, no pneumothorax or pleural effusion. His repeat COVID-19 PCR in the emergency room was positive, RSV and influenza screen were negative. His admission blood work showed neutropenia, and lymphopenia, white blood cell count was 2.6, and leukocyte count was 0.4, d-dimer was 0.95, potassium is 3.1, rest of the electrolytes and renal profile were unremarkable, lactic acid was 1.1, AST was 63, ALT and alk phos were within normal limits, LDH was 1283, CRP was 7.1, pro calcitonin level was negative at 0.10. Patient was satting 86% on room air, currently requiring 4 L of supplemental oxygen with a pulse ox of 91-94%, he is afebrile. Lung sounds reveal diffuse coarse crackles at bilateral bases. Patient was started on Decadron this milligram daily, and prophylactic Lovenox. he is outside the window for Remdesivir On 08/17/2020 patient seen in follow-up on medical surgical floor, he is resting in bed, appears to be in no acute distress, he still on 5 L of oxygen has pulse ox of 90-91%, he is afebrile, hemodynamically stable, he states when he walks to the bathroom he gets very lightheaded and dizzy and sometimes feel like he is going to pass out. He does get short of breath, he was instructed to call for help when ambulating to the bathroom. Sounds reveal diffuse crackles bilaterally, today's follow-up chest x-ray showing patchy airspace disease lung bases. He is trying to work on incentive spirometer. Today's labs have been reviewed, his d-dimer today is 0.55, inflammatory markers are improving, and his LDH is 609, and CRP is 3.6. An patient remains on Decadron 6 mg daily, and prophylactic dose Lovenox in addition to vitamins On 08/18/2020 patient seen in follow-up on medical surgical floor. He is currently down to 4 L of oxygen pulse ox is 93%, he states he still feels weak and wobbly when walking to the bathroom, at times he gets lightheaded, but no worsening dyspnea, no signs of any respiratory distress. Today's labs have been noted, d-dimer from yesterday is 0.55, inflammatory markers were improving, no cough, no complaints of chest discomfort, he remains on Decadron 6 blood gram d aily, and Lovenox 40 mg daily. On 08/19/2020 patient seen in follow-up on medical surgical floor, he is sitting up in the recliner, in no acute distress, is on 6 L of supplemental oxygen his pulse ox is 89-90%, no worsening dyspnea, although he does get short of breath and desat with exertion, consulted physical therapy and patient had ambulated with a walker. His ambulation ability slow shaky, no complaints of dizziness. Doing fairly well, no acute events overnight, and he is on Decadron, patient was not a candidate for Remdesivir, he is on prophylactic Lovenox, today's labs have been reviewed On 08/20/2020 patient seen in follow-up on medical surgical floor. In the last 24 hours his oxygenation has significantly deteriorated, he is currently on Airvo at 60 L and FiO2 of 92%, his pulse ox is 85-88%, his been afebrile, his temp of 101.7F, complaining of headache, he looks weak, he looks a lot more ill today, fatigued, short of breath with conversation, he has occasional cough, he was outside the window for Remdesivir, he has been on Decadron 6 mg daily, he is on prophylactic Lovenox, we'll give him a dose of Toci today On 08/21/2020 patient continued to worsen through the night, with increased work of breathing, and increased oxygenation needs, he was placed on Airvo yesterday, at 60 L in FiO2 of 93%, and he is requiring 100% nonrebreather mask on top of it, his pulse ox is only 80%, he is very tachypneic with respiratory rate in the 30s, diaphoretic, and looking fatigued. He was transferred to the intensive care unit this morning and placed on BiPAP support with pressures of 14/6 and FiO2 100%, he is actually tolerating that quite well, and seems more comfortable on it, lung sounds reveal diffuse coarse crackles at bilateral posterior bases, he is afebrile this morning, his chest x-ray today showing bilateral lower lobe infiltrates and small effusion., Yesterday his d-dimer with up to 10.10, and if it remains elevated again today at 10.19, his Lovenox dose was adjusted and he is currently on 60 mg of Lovenox every 12 hours. He remains on IV dexamethasone 6 mg daily, was given a dose of Actemra yesterday On 08/24/2020 patient seen in follow-up in the intensive care unit, he remains on BiPAP its at pressures of 14/7 and FiO2 of 90%. He seems to be tolerating BiPAP support quite well, seems to be very comfortable on that. He has remained on BiPAP continuously for 24 hours, try Airvo on him again today. Appears to be in no acute distress, on those above-mentioned settings his pulse ox is ranging between 86-91%, respiratory rate is in the mid 20s, blood pressure stable, he has been afebrile. Lung sounds reveal diminished breath sounds with some bibasilar crackles. No complaints of chest pain overnight, 2 sets of troponins were less than 0.012. Echocardiogram was a technically difficult study with suboptimal views, and the EF was not calculated, RV was not visualized, left atrium, right atrium, and all the valves were not well visualized. And as such this was a suboptimal study. No complaints of chest pain overnight, no complaints of chest pain this morning. This morning's labs have been reviewed, his d-dimer is 7.66 on today's labs, white blood cell count is 10.5, hemoglobin of 14.5, sodium is 135, the rest of electrolytes and renal profile were unremarkable, LDH is 1658, CRP is 2.8. No nausea vomiting or diarrhea, abdomen is soft, no worsening dyspnea On 08/25/2020 patient seen in follow-up in intensive care unit, yesterday he tolerated Airvo at 60 L and FiO2 of 90% in addition to 100% nonrebreather mask all day, and he was placed back on BiPAP support with pressures of 14/7 and FiO2 of 90% overnight, this morning she seen in the intensive care unit, he is resting comfortably in bed, he remains on BiPAP support and his pulse ox on above-mentioned settings is 92-95%. He denies any worsening dyspnea, he is easi ly arousable to voice, and answering simple questions, lung sounds reveal diminished breath sounds at the bases, with minimal crackles. Today's chest x- ray is pending, today's labs have been reviewed during white blood cell count of 12.4, hemoglobin of 14.6, d-dimer remains elevated at 7.86, and patient's on Lovenox at 50 mg twice daily. No complaints of chest pain. No cough, no congestion, yesterday while he was on Airvo he was able to take in some oral feedings, and had a fair appetite. She is in sinus mechanism, hemodynamically she is stable, he is on plane, sitting at a rate of 50 ML per hour. He remains on Decadron at 6 mg twice daily. His renal function is within normal limits to day with B1 of 18 creatinine 0.71, sodium was 135, and her serum electrolytes were within normal limits, 2 sets of troponins were less than 0.012, limited echocardiogram was a suboptimal study, however there was no recurrence of chest discomfort from 2 days ago, and heparin drip was discontinued, no acute ST wave changes. Vomiting or diarrhea, abdomen is soft, no complaints of abdominal pain. Objective - Vital Signs Vital signs: Vital Signs Temp 98.9 F 08/25/20 04:00 Pulse 54 L 08/25/20 07:00 Resp 20 08/25/20 07:00 BP 112/70 08/25/20 07:00 Pulse Ox 89 L 08/25/20 07:00 Intake & Output 08/24/20 08/25/20 08/25/20 18:59 06:59 18:59 Intake Total 588.871 600 50 Output Total 590 510 30 Balance -1.129 90 20 Weight 108.3 kg Intake: IV 550 600 50 Sodium Chloride 0.9% 1, 550 600 50 000 ml @ 50 mls/hr IV . Q20H [facility] Rx#:[id number] Intake, IV Titration 38.871 Amount Heparin Sod,Pork in 0.45% 38.871 NaCl 25,000 unit In 0.45 % NaCl 1 250ml.bag @ 9 UNITS/KG/HR 9.864 mls/hr IV .Q24H [facility] Rx#: [id number] Output: Urine 590 510 30 Other: Voiding Method Indwelling Catheter Indwelling Catheter - Exam GENERAL EXAM: Weak, fatigued, 70-year-old white male, on BiPAP support pressures of 14/7 and FiO2 of 90%, looking a bit more comfortable HEAD: Normocephalic/atraumatic. EYES: Normal reaction of pupils, equal size. Conjunctiva pink, sclera white. NOSE: Clear with pink turbinates. THROAT: No erythema or exudates. NECK: No masses, no JVD, no thyroid enlargement, no adenopathy. CHEST: No chest wall deformity. Symmetrical expansion. LUNGS: Equal air entry with coarse bibasilar crackles CVS: Regular rate and rhythm, normal S1 and S2, no gallops, no murmurs, no rubs ABDOMEN: Soft, nontender. No hepatosplenomegaly, normal bowel sounds, no guarding or rigidity. EXTREMITIES: No clubbing, no edema, no cyanosis, 2+ pulses and upper and lower extremities. MUSCULOSKELETAL: Muscle strength and tone normal. SPINE: No scoliosis or deformity SKIN: No rashes CENTRAL NERVOUS SYSTEM: Weak and lethargic, but arousable, and answers appropriately No focal deficits, tone is normal in all 4 extremities. - Labs CBC & Chem 7: 08/25/20 03:29 08/25/20 03:29 Labs: Abnormal Lab Results - Last 24 Hours (Table) 08/24/20 08/25/20 08/25/20 Range/Units 07:07 03:29 03:29 WBC 12.4 H (3.8-10.6) k/uL Neutrophils # 11.5 H (1.3-7.7) k/uL Lymphocytes # 0.5 L (1.0-4.8) k/uL APTT 40.7 H (22.0-30.0) sec D-Dimer 7.86 H (<0.60) mg/L FEU Sodium (137-145) mmol/L Glucose (74-99) mg/dL Calcium (8.4-10.2) mg/dL Lactate Dehydrogenase (313-618) U/L C-Reactive Protein (<1.0) mg/dL 08/25/20 Range/Units 03:29 WBC (3.8-10.6) k/uL Neutrophils # (1.3-7.7) k/uL Lymphocytes # (1.0-4.8) k/uL APTT (22.0-30.0) sec D-Dimer (<0.60) mg/L FEU Sodium 135 L (137-145) mmol/L Glucose 121 H (74-99) mg/dL Calcium 7.9 L (8.4-10.2) mg/dL Lactate Dehydrogenase 2065 H (313-618) U/L C-Reactive Protein 1.7 H (<1.0) mg/dL Assessment and Plan Plan: Assessment: #1. Acute hypoxic respiratory failure related to acute COVID-19 pneumonia, with onset of symptoms 10 days prior to presentation, patient had outpatient positive COVID-19 test on 08/09/2020, outside the window for Remdesivir. Hypoxia progressed and patient received Toci on 08/20/2020. Patient was transferred to the intensive care unit on 08/21/2020 and placed on BiPAP support #2. Increased d-dimer related to COVID-19 infection, currently at 10.19, rule out possibility of a VTE, we will obtain lower extremity Dopplers today, will consider CTA chest when patient is able to travel to [place] department #3. Neutropenia, pro-calcitonin was negative, improved #4. Elevated liver enzymes related to viral pneumonia #5. Lifetime nonsmoker #6. History of chronic bronchial asthma, mild intermittent, inactive at this time #7. Episode of chest pain on 08/23/2020, EKG without significant ST segment elevation, 2 sets of negative troponins. Echocardiogram was a suboptimal study, unable to calculate EF, calculate chamber sizes or valves Plan: May switch back to Airvo this morning May return to BiPAP if comes dyspneic, current settings of 14/7 and FiO2 of 90%, FiO2 will be dropped to 80% Decadron 6 more gram twice daily Continue current dose Lovenox Give 1 dose of Lasix 40 mg IV push IV fluids to KVO Follow-up basic labs including CBC BMP, and daily d-dimer Continue to closely monitor in the intensive care unit I performed a history & physical examination of the patient and discussed their management with my nurse practitioner, Magdalena Negrete. I reviewed the nurse practitioner's note and agree with the documented findings and plan of care. Lung sounds are positive for diminished breath sounds. The findings and the impression was discussed with the patient. I attest to the documentation by the nurse practitioner. Time with Patient: Greater than 30
--- NOTE | 2020-08-25 08:26 | XR ---
EXAMINATION TYPE: XR chest 1V portable DATE OF EXAM: 08/25/2020 CLINICAL HISTORY: Difficulty breathing and covid progress study. TECHNIQUE: Single AP portable upright view of the chest is obtained. COMPARISON: Chest x-ray from 2 days earlier and older studies. FINDINGS: Stable cardiomegaly. Persistent bibasilar and right mid lung peripheral opacities. Osseous structures are intact. IMPRESSION: Persistent bibasilar and right midlung peripheral acute opacities consistent with covid- 19 infection.
[2020-08-25] MEDS: DEXAMETHASONE SOD PHOSPHATE 10 MG/ML 1 ML VIAL IV SCH ×2 (09:41→22:41)
[2020-08-25] MEDS: CHOLECALCIFEROL 25 MCG (1000 IU) TABLET PO SCH (09:41)
[2020-08-25] MEDS: PANTOPRAZOLE 40 MG/10 ML VIAL IVP SCH (09:41)
[2020-08-25] MEDS: ENOXAPARIN 60 MG/0.6 ML SYRINGE SQ SCH ×2 (09:42→22:43)
[2020-08-25] MEDS: ZINC SULFATE 220 MG CAP PO SCH (09:42)
[2020-08-25] MEDS: guaiFENesin 600 MG TABLET.ER PO SCH ×2 (09:42→22:41)
[2020-08-25] MEDS: ASCORBIC ACID 500 MG TAB PO SCH (09:42)
[2020-08-25] MEDS: SODIUM CHLORIDE 0.9% 1,000 ML IV SCH (13:25)
--- NOTE | 2020-08-25 14:09 | P.PN ---
Subjective Progress Note Date: 08/25/20 (delayed charting seen at 1145) Principal diagnosis: shortness of breath Patient is a 70-year-old male with a history of asthma and obesity who initially presented to the ER with complaints of shortness of breath, nausea, and poor appetite. He had known positive COVID testing on 08/09/20. In the ER he was found be hypoxic at 86% on room air. Labs were remarkable for LDH 1283, CRP 7.1, procalcitonin 0.1. He again was PCR positive. Chest x-ray demonstrated pneumonia. He was admitted and started on zinc, vitamin D, vitamin C, and Decadron. He was outside of the window for Remdesivir. Pulm was consulted who agreed with current plan of care. He was progressing well and then on 08/19 he oxygenation worsening ad he was placed on airvo. He was given toci on 08/20. On the morning of 08/21 he was requiring Airvo and 100% non rebreather and was transferred to the ICU and placed on BiPap. He Suddenly desatted on the morning of 08/23 and had to be transitioned from AIRVO to BiPap, He was having acute chest pain, left sided without radiation. EKG did not show any signs of acute ischemia. He was able to be weaned back to airflow by the morning of 08/24. Seen and examined at bedside. He states that his breathing is the same as yesterday, no nausea, no vomiting, he was able to eat some breakfast. No other complaints currently. General: Ill-appearing, no distress, appears at stated age Derm: warm, dry Head: atraumatic, normocephalic, symmetric Eyes: EOMI, no lid lag, anicteric sclera Mouth: no lip lesion, mucus membranes dry Cardiovascular: S1S2 reg, no murmur, positive posterior tibial pulse bilateral, Lungs: Course breath sounds bilateral, , no accessory muscle use, +3 word conversational dyspnea Abdominal: soft, nontender to palpation, no guarding, no appreciable organomegaly Ext: no gross muscle atrophy, no edema, no contractures Neuro: CN II-XI grossly intact, no focal neuro deficits Psych: Alert, oriented, appropriate affect COVID-19 pneumonitis, acute hypoxic respiratory failure - Continue with Decadron D#11 - Continue with vitamins - TOCI 08/20 - Lovenox increased due to D-dimer > 3 - Wean O2 as able Transaminitis, improving - likely related to COVID vs ETOH use - follow liver enzymes Asthma without exacerbation - albuterol Obesity with BMI 35.9 - structure weight loss once COVID resolved. Leukocytosis - suspect reactive Chest pain, resolved Prognosis guarded. Daughter updated over phone. DVT prophylaxis: Lovenox Discussed with: Patient, nursing Anticipated discharge: unknown Anticipated discharge place: pending course A total of 35 minutes was spent on the care of this complex patient more than 50% of the time was spent in counseling and care coordination. Objective - Vital Signs Vital signs: Vital Signs Temp 97.1 F L 08/25/20 08:00 Pulse 75 08/25/20 13:00 Resp 36 H 08/25/20 13:00 BP 111/68 08/25/20 13:00 Pulse Ox 83 L 08/25/20 13:00 Intake & Output 08/24/20 08/25/20 08/25/20 18:59 06:59 18:59 Intake Total 588.871 600 110 Output Total 645 855 1751 Balance -1.129 90 -2595 Weight 108.3 kg Intake: IV 550 600 110 Sodium Chloride 0.9% 1, 550 600 110 000 ml @ 20 mls/hr IV . Q24H [facility] Rx#:[id number] Intake, IV Titration 38.871 Amount Heparin Sod,Pork in 0.45% 38.871 NaCl 25,000 unit In 0.45 % NaCl 1 250ml.bag @ 9 UNITS/KG/HR 9.864 mls/hr IV .Q24H [facility] Rx#: [id number] Output: Urine 064 066 4651 Other: Voiding Method Indwelling Catheter Indwelling Catheter Indwelling Catheter - Labs CBC & Chem 7: 08/25/20 03:29 08/25/20 03:29 Labs: Abnormal Lab Results - Last 24 Hours (Table) 08/25/20 08/25/20 08/25/20 Range/Units 03:29 03:29 03:29 WBC 12.4 H (3.8-10.6) k/uL Neutrophils # 11.5 H (1.3-7.7) k/uL Lymphocytes # 0.5 L (1.0-4.8) k/uL D-Dimer 7.86 H (<0.60) mg/L FEU Sodium 135 L (137-145) mmol/L Glucose 121 H (74-99) mg/dL Calcium 7.9 L (8.4-10.2) mg/dL Lactate Dehydrogenase 2065 H (313-618) U/L C-Reactive Protein 1.7 H (<1.0) mg/dL
[2020-08-25] MEDS: MELATONIN 5 MG TABLET PO SCH (22:41)
[2020-08-25] MEDS: ALPRAZolam 0.25 MG TAB PO PRN (22:41)
[2020-08-26 03:50] LABS: Glucose,Whole Blood 125 mg/dL (75-99)
[2020-08-26 04:35] LABS: Basophils % (A) 0 %; Eosinophils # (A) 0.1 k/uL (0-0.7); Eosinophils % (A) 0 %; HCT 44.3 % (39.0-53.0); HGB 15.7 gm/dL (13.0-17.5); Lymphocytes # (A) 0.5 k/uL (1.0-4.8); Lymphocytes % (A) 3 %; MCH 33.1 pg (25.0-35.0); MCHC 35.3 g/dL (31.0-37.0); MCV 93.8 fL (80.0-100.0); Monocytes # (A) 0.4 k/uL (0-1.0); Monocytes % (A) 2 %; Neutrophils # (A) 15.8 k/uL (1.3-7.7); Neutrophils % (A) 94 %; Platelet Count 165 k/uL (150-450); RBC 4.73 m/uL (4.30-5.90); RDW 12.1 % (11.5-15.5); WBC 16.8 k/uL (3.8-10.6)
[2020-08-26 04:53] LABS: African American GFR (CKD) >90 (>60 ml/min/1.73 sqM); Anion Gap 7 mmol/L; Blood Urea Nitrogen 22 mg/dL (9-20); C Reactive Protein 1.2 mg/dL (<1.0); Calcium 8.3 mg/dL (8.4-10.2); Carbon Dioxide 26 mmol/L (22-30); Chloride 103 mmol/L (98-107); Glucose 119 mg/dL (74-99); Non-African American GFR(CKD) >90 (>60 ml/min/1.73 sqM); Phosphorus 4.1 mg/dL (2.5-4.5); Potassium 4.1 mmol/L (3.5-5.1); Sodium 136 mmol/L (137-145)
[2020-08-26 04:57] LABS: LDH 2202 U/L (313-618)
[2020-08-26] MEDS: ALBUTEROL HFA INHALER INHALATION SCH ×4 (07:49→19:34)
[2020-08-26] MEDS: DEXAMETHASONE SOD PHOSPHATE 10 MG/ML 1 ML VIAL IV SCH ×2 (08:17→21:00)
[2020-08-26] MEDS: PANTOPRAZOLE 40 MG/10 ML VIAL IVP SCH (08:17)
[2020-08-26] MEDS: guaiFENesin 600 MG TABLET.ER PO SCH ×2 (08:18→21:01)
[2020-08-26] MEDS: ALPRAZolam 0.25 MG TAB PO PRN ×2 (08:18→21:00)
[2020-08-26] MEDS: ZINC SULFATE 220 MG CAP PO SCH (08:18)
[2020-08-26] MEDS: CHOLECALCIFEROL 25 MCG (1000 IU) TABLET PO SCH (08:18)
[2020-08-26] MEDS: ENOXAPARIN 60 MG/0.6 ML SYRINGE SQ SCH ×2 (08:18→21:02)
[2020-08-26] MEDS: ASCORBIC ACID 500 MG TAB PO SCH (08:18)
--- NOTE | 2020-08-26 08:57 | P.PN ---
<Magdalena Negrete M - Last Filed: 08/26/20 08:52> Subjective Progress Note Date: 08/26/20 Principal diagnosis: COVID-19 pneumonia 70-year-old white male patient who presented to the hospital on 08/15/2020 with complaints of 10 day history of loss of taste, cough, shortness of breath, fever. Patient and his have been staying with her daughter who tested positive for COVID, patient had an outpatient test for COVID-19 on 08/09/2020 and was found to be positive. Last few days he's been having increased shortness of breath, cough. Past medical history is noncontributory, other than osteoarthritis with previous history of joint replacement surgery in the right knee, patient is lifetime nonsmoker, does have history of chronic bronchial asthma, not on any maintenance inhalers on a regular basis. Chest x-ray in the emergency department shows some patchy airspace disease on the right, calcified granuloma in the right lower lobe, no pneumothorax or pleural effusion. His repeat COVID-19 PCR in the emergency room was positive, RSV and influenza screen were negative. His admission blood work showed neutropenia, and lymphopenia, white blood cell count was 2.6, and leukocyte count was 0.4, d-dimer was 0.95, potassium is 3.1, rest of the electrolytes and renal profile were unremarkable, lactic acid was 1.1, AST was 63, ALT and alk phos were within normal limits, LDH was 1283, CRP was 7.1, pro calcitonin level was negative at 0.10. Patient was satting 86% on room air, currently requiring 4 L of supplemental oxygen with a pulse ox of 91-94%, he is afebrile. Lung sounds reveal diffuse coarse crackles at bilateral bases. Patient was started on Decadron this milligram daily, and prophylactic Lovenox. he is outside the window for Remdesivir On 08/17/2020 patient seen in follow-up on medical surgical floor, he is resting in bed, appears to be in no acute distress, he still on 5 L of oxygen has pulse ox of 90-91%, he is afebrile, hemodynamically stable, he states when he walks to the bathroom he gets very lightheaded and dizzy and sometimes feel like he is going to pass out. He does get short of breath, he was instructed to call for help when ambulating to the bathroom. Sounds reveal diffuse crackles bilaterally, today's follow-up chest x-ray showing patchy airspace disease lung bases. He is trying to work on incentive spirometer. Today's labs have been reviewed, his d-dimer today is 0.55, inflammatory markers are improving, and his LDH is 609, and CRP is 3.6. An patient remains on Decadron 6 mg daily, and prophylactic dose Lovenox in addition to vitamins On 08/18/2020 patient seen in follow-up on medical surgical floor. He is currently down to 4 L of oxygen pulse ox is 93%, he states he still feels weak and wobbly when walking to the bathroom, at times he gets lightheaded, but no worsening dyspnea, no signs of any respiratory distress. Today's labs have been noted, d-dimer from yesterday is 0.55, inflammatory markers were improving, no cough, no complaints of chest discomfort, he remains on Decadron 6 blood gram daily, and Lovenox 40 mg daily. On 08/19/2020 patient seen in follow-up on medical surgical floor, he is sitting up in the recliner, in no acute distress, is on 6 L of supplemental oxygen his pulse ox is 89-90%, no worsening dyspnea, although he does get short of breath and desat with exertion, consulted physical therapy and patient had ambulated with a walker. His ambulation ability slow shaky, no complaints of dizziness. Doing fairly well, no acute events overnight, and he is on Decadron, patient was not a candidate for Remdesivir, he is on prophylactic Lovenox, today's labs have been reviewed On 08/20/2020 patient seen in follow-up on medical surgical floor. In the last 24 hours his oxygenation has significantly deteriorated, he is currently on Airvo at 60 L and FiO2 of 92%, his pulse ox is 85-88%, his been afebrile, his temp of 101.7F, complaining of headache, he looks weak, he looks a lot more ill today, fatigued, short of breath with conversation, he has occasional cough, he was outside the window for Remdesivir, he has been on Decadron 6 mg daily, he is on prophylactic Lovenox, we'll give him a dose of Toci today On 08/21/2020 patient continued to worsen through the night, with increased work of breathing, and increased oxygenation needs, he was placed on Airvo yesterday, at 60 L in FiO2 of 93%, and he is requiring 100% nonrebreather mask on top of it, his pulse ox is only 80%, he is very tachypneic with respiratory rate in the 30s, diaphoretic, and looking fatigued. He was transferred to the intensive care unit this morning and placed on BiPAP support with pressures of 14/6 and FiO2 100%, he is actually tolerating that quite well, and seems more comfortable on it, lung sounds reveal diffuse coarse crackles at bilateral posterior bases, he is afebrile this morning, his chest x-ray today showing bilateral lower lobe infiltrates and small effusion., Yesterday his d-dimer with up to 10.10, and if it remains elevated again today at 10.19, his Lovenox dose was adjusted and he is currently on 60 mg of Lovenox every 12 hours. He remains on IV dexamethasone 6 mg daily, was given a dose of Actemra yesterday On 08/24/2020 patient seen in follow-up in the intensive care unit, he remains on BiPAP its at pressures of 14/7 and FiO2 of 90%. He seems to be tolerating BiPAP support quite well, seems to be very comfortable on that. He has remained on BiPAP continuously for 24 hours, try Airvo on him again today. Appears to be in no acute distress, on those above-mentioned settings his pulse ox is ranging between 86-91%, respiratory rate is in the mid 20s, blood pressure stable, he has been afebrile. Lung sounds reveal diminished breath sounds with some bibasilar crackles. No complaints of chest pain overnight, 2 sets of troponins were less than 0.012. Echocardiogram was a technically difficult study with suboptimal views, and the EF was not calculated, RV was not visualized, left atrium, right atrium, and all the valves were not well visualized. And as such this was a suboptimal study. No complaints of chest pain overnight, no complaints of chest pain this morning. This morning's labs have been reviewed, his d-dimer is 7.66 on today's labs, white blood cell count is 10.5, hemoglobin of 14.5, sodium is 135, the rest of electrolytes and renal profile were unre markable, LDH is 1658, CRP is 2.8. No nausea vomiting or diarrhea, abdomen is soft, no worsening dyspnea On 08/25/2020 patient seen in follow-up in intensive care unit, yesterday he tolerated Airvo at 60 L and FiO2 of 90% in addition to 100% nonrebreather mask all day, and he was placed back on BiPAP support with pressures of 14/7 and FiO2 of 90% overnight, this morning she seen in the intensive care unit, he is resting comfortably in bed, he remains on BiPAP support and his pulse ox on above-mentioned settings is 92-95%. He denies any worsening dyspnea, he is easily arousable to voice, and answering simple questions, lung sounds reveal diminished breath sounds at the bases, with minimal crackles. Today's chest x- ray is pending, today's labs have been reviewed during white blood cell count of 12.4, hemoglobin of 14.6, d-dimer remains elevated at 7.86, and patient's on Lovenox at 50 mg twice daily. No complaints of chest pain. No cough, no congestion, yesterday while he was on Airvo he was able to take in some oral feedings, and had a fair appetite. She is in sinus mechanism, hemodynamically she is stable, he is on plane, sitting at a rate of 50 ML per hour. He remains on Decadron at 6 mg twice daily. His renal function is within normal limits today with B1 of 18 creatinine 0.71, sodium was 135, and her serum electrolytes were within normal limits, 2 sets of troponins were less than 0.012, limited echocardiogram was a suboptimal study, however there was no recurrence of chest discomfort from 2 days ago, and heparin drip was discontinued, no acute ST wave changes. No vomiting or diarrhea, abdomen is soft, no complaints of abdominal pain. On 08/26/2020 patient seen in follow-up in intensive care unit, currently on BiPAP with pressures of 14/7 and FiO2 100%, and his pulse ox is 88%, yesterday he was able to tolerate Airvo and nonrebreather and come off the BiPAP for short periods of time. Today he seems more lethargic compared to yesterday, he is tachypneic, but he is achieving over 1 L and tidal volumes on the BiPAP, his respiratory rate is in the mid 30s. He opens eyes to voice, he lightly groans in response to questions, but not really providing full sentence responses. Yesterday we gave him a dose of IV Lasix, he diuresed quite well, and he is in - 3.1 L over the last 24 hours. Despite the diuresis, the patient failed to improve, today's chest x-ray still showed persistent bibasilar and right midlung peripheral opacities consistent with COVID-19. Oral intake has been poor, and at this time we are considering low rate IV fluids. Labs have been reviewed, his white blood cell count is 16.8, hemoglobin is 15.7, he is a d-dimer is 9.28, sodium is 136, the rest of electrolytes are within normal limits, his BUN is 22, creatinine is 0.82, his LDH has actually trended up, and is at 2202, and CRP 1.2. Objective - Vital Signs Vital signs: Vital Signs Temp 99.2 F 08/26/20 04:00 Pulse 78 08/26/20 08:00 Resp 35 H 08/26/20 08:00 BP 119/59 08/26/20 08:00 Pulse Ox 86 L 08/26/20 08:00 Intake & Output 08/25/20 08/26/20 08/26/20 18:59 06:59 18:59 Intake Total 110 270 20 Output Total 3030 515 50 Balance -2920 -245 -30 Weight 105.2 kg Intake: IV 110 220 20 Sodium Chloride 0.9% 1, 110 220 20 000 ml @ 20 mls/hr IV . Q24H [facility] Rx#:[id number] Oral 50 Output: Urine 3030 515 50 Other: Voiding Method Indwelling Catheter Indwelling Catheter Indwelling Catheter - Exam GENERAL EXAM: Weak, fatigued, lethargic 70-year-old white male, on BiPAP support pressures of 14/7 and FiO2 of 100%, tachypneic with resp rate of 30 breaths per minute, looking a bit more lethargic on today's exam HEAD: Normocephalic/atraumatic. EYES: Normal reaction of pupils, equal size. Conjunctiva pink, sclera white. NOSE: Clear with pink turbinates. THROAT: No erythema or exudates. NECK: No masses, no JVD, no thyroid enlargement, no adenopathy. CHEST: No chest wall deformity. Symmetrical expansion. LUNGS: Equal air entry with coarse bibasilar crackles CVS: Regular rate and rhythm, normal S1 and S2, no gallops, no murmurs, no rubs ABDOMEN: Soft, nontender. No hepatosplenomegaly, normal bowel sounds, no guarding or rigidity. EXTREMITIES: No clubbing, no edema, no cyanosis, 2+ pulses and upper and lower extremities. MUSCULOSKELETAL: Muscle strength and tone normal. SPINE: No scoliosis or deformity SKIN: No rashes CENTRAL NERVOUS SYSTEM: Weak and lethargic, but arousable, and answers appropriately No focal deficits, tone is normal in all 4 extremities. - Labs CBC & Chem 7: 08/26/20 03:57 08/26/20 03:57 Labs: Abnormal Lab Results - Last 24 Hours (Table) 08/26/20 08/26/20 08/26/20 Range/Units 03:48 03:57 03:57 WBC 16.8 H (3.8-10.6) k/uL Neutrophils # 15.8 H (1.3-7.7) k/uL Lymphocytes # 0.5 L (1.0-4.8) k/uL D-Dimer 9.28 H (<0.60) mg/L FEU Sodium (137-145) mmol/L BUN (9-20) mg/dL Glucose (74-99) mg/dL POC Glucose (mg/dL) 125 H (75-99) mg/dL Calcium (8.4-10.2) mg/dL Lactate Dehydrogenase (313-618) U/L C-Reactive Protein (<1.0) mg/dL 08/26/20 Range/Units 03:57 WBC (3.8-10.6) k/uL Neutrophils # (1.3-7.7) k/uL Lymphocytes # (1.0-4.8) k/uL D-Dimer (<0.60) mg/L FEU Sodium 136 L (137-145) mmol/L BUN 22 H (9-20) mg/dL Glucose 119 H (74-99) mg/dL POC Glucose (mg/dL) (75-99) mg/dL Calcium 8.3 L (8.4-10.2) mg/dL Lactate Dehydrogenase 2202 H (313-618) U/L C-Reactive Protein 1.2 H (<1.0) mg/dL Assessment and Plan Plan: Assessment: #1. Acute hypoxic respiratory failure related to acute COVID-19 pneumonia, with onset of symptoms 10 days prior to presentation, patient had outpatient positive COVID-19 test on 08/09/2020, outside the window for Remdesivir. Hypoxia progressed and patient received Toci on 08/20/2020. Patient was transferred to the intensive care unit on 08/21/2020 and placed on BiPAP support #2. Increased d-dimer related to COVID-19 infection, currently at 10.19, rule out possibility of a VTE, we will obtain lower extremity Dopplers today, will consider CTA chest when patient is able to travel to [place] department #3. Neutropenia, pro-calcitonin was negative, improved #4. Elevated liver enzymes related to viral pneumonia #5. Lifetime nonsmoker #6. History of chronic bronchial asthma, mild intermittent, inactive at this time #7. Episode of chest pain on 08/23/2020, EKG without significant ST segment elevation, 2 sets of negative troponins. Echocardiogram was a suboptimal study, unable to calculate EF, calculate chamber sizes or valves Plan: continue BiPAP support, 14 and 7 and FiO2 100%, patient is more lethargic today, tachypneic, we continue on BiPAP support most of the day Continue current dose Decadron 6 mg twice daily Continue current dose of Lovenox, today's d-dimer has been noted, inflammatory markers have been noted Hold diuretics We will restart IV fluids a point normal saline at 50 ML per hour We'll provide Airvo trials as tolerated. Oral intake remains poor, we will consider insertion of PICC line today and initiation of TPN Follow-up basic labs including CBC BMP, and daily d-dimer Continue to closely monitor in the intensive care unit I performed a history & physical examination of the patient and discussed their management with my nurse practitioner, Magdalena Negrete. I reviewed the nurse practitioner's note and agree with the documented findings and plan of care. Lung sounds are positive for diminished breath sounds. The findings and the impression was discussed with the patient. I attest to the documentation by the nurse practitioner. Time with Patient: Greater than 30 <Ese Reyes - Last Filed: 08/26/20 11:06> Objective - Vital Signs Vital signs: Vital Signs Temp 99.2 F 08/26/20 04:00 Pulse 76 08/26/20 09:00 Resp 32 H 08/26/20 09:00 BP 108/58 08/26/20 09:00 Pulse Ox 89 L 08/26/20 09:00 Intake & Output 08/25/20 08/26/20 08/26/20 18:59 06:59 18:59 Intake Total 110 270 60 Output Total 3030 515 130 Balance -2920 -245 -70 Weight 105.2 kg Intake: IV 110 220 60 Sodium Chloride 0.9% 1, 110 220 60 000 ml @ 50 mls/hr IV . Q20H [facility] Rx#:[id number] Oral 50 Output: Urine 3030 515 130 Other: Voiding Method Indwelling Catheter Indwelling Catheter Indwelling Catheter - Labs CBC & Chem 7: 08/26/20 03:57 08/26/20 03:57 Labs: Abnormal Lab Results - Last 24 Hours (Table) 08/26/20 08/26/20 08/26/20 Range/Units 03:48 03:57 03:57 WBC 16.8 H (3.8-10.6) k/uL Neutrophils # 15.8 H (1.3-7.7) k/uL Lymphocytes # 0.5 L (1.0-4.8) k/uL D-Dimer 9.28 H (<0.60) mg/L FEU Sodium (137-145) mmol/L BUN (9-20) mg/dL Glucose (74-99) mg/dL POC Glucose (mg/dL) 125 H (75-99) mg/dL Calcium (8.4-10.2) mg/dL Lactate Dehydrogenase (313-618) U/L C-Reactive Protein (<1.0) mg/dL 08/26/20 Range/Units 03:57 WBC (3.8-10.6) k/uL Neutrophils # (1.3-7.7) k/uL Lymphocytes # (1.0-4.8) k/uL D-Dimer (<0.60) mg/L FEU Sodium 136 L (137-145) mmol/L BUN 22 H (9-20) mg/dL Glucose 119 H (74-99) mg/dL POC Glucose (mg/dL) (75-99) mg/dL Calcium 8.3 L (8.4-10.2) mg/dL Lactate Dehydrogenase 2202 H (313-618) U/L C-Reactive Protein 1.2 H (<1.0) mg/dL Assessment and Plan Assessment: Case seen in conjunction with nurse practitioner. On today's evaluation, the patient is overall more lethargic and sleepy. Still hypoxic even while in the BiPAP and the pulse ox in the mid 80s. As stated earlier, this patient is a high risk of developing further respiratory insufficiency and respiratory failure requiring intubation mechanical ventilation. He'll be monitored very closely in the intensive care unit. Family will be informed. High-risk for intubation mechanical ventilation. Poor prognosis and poor outcome based on the above-mentioned.
--- NOTE | 2020-08-26 15:29 | P.PN ---
Subjective Progress Note Date: 08/26/20 Principal diagnosis: shortness of breath Patient is a 70-year-old male with a history of asthma and obesity who initially presented to the ER with complaints of shortness of breath, nausea, and poor appetite. He had known positive COVID testing on 08/09/20. In the ER he was found be hypoxic at 86% on room air. Labs were remarkable for LDH 1283, CRP 7.1, procalcitonin 0.1. He again was PCR positive. Chest x-ray demonstrated pneumonia. He was admitted and started on zinc, vitamin D, vitamin C, and Decadron. He was outside of the window for Remdesivir. Pulm was consulted who agreed with current plan of care. He was progressing well and then on 08/19 he oxygenation worsening ad he was placed on airvo. He was given toci on 08/20. On the morning of 08/21 he was requiring Airvo and 100% non rebreather and was transferred to the ICU and placed on BiPap. He Suddenly desatted on the morning of 08/23 and had to be transitioned from AIRVO to BiPap, He was having acute chest pain, left sided without radiation. EKG did not show any signs of acute ischemia. He was able to be weaned back to airflow by the morning of 08/24, but required being replace on BiPap on 08/25. Seen and examined at bedside. Continues to have some confusion. + SOB, no chest pain, no nausea, no vomiting. General: Ill-appearing, no distress, appears at stated age Derm: warm, dry Head: atraumatic, normocephalic, symmetric Eyes: EOMI, no lid lag, anicteric sclera Mouth: no lip lesion, mucus membranes dry Cardiovascular: S1S2 reg, no murmur, positive posterior tibial pulse bilateral, Lungs: Course breath sounds bilateral, no accessory muscle use, +3 word conversational dyspnea Abdominal: soft, nontender to palpation, no guarding, no appreciable organomegaly Ext: no gross muscle atrophy, no edema, no contractures Neuro: CN II-XI grossly intact, no focal neuro deficits Psych: Alert, episode of confusion COVID-19 pneumonitis, acute hypoxic respiratory failure - Continue with Decadron D#12 - Continue with vitamins - TOCI 08/20 - Lovenox increased due to D-dimer > 3 - Wean O2 as able Toxic metabolic encephalopathy due to above - treatment as above Transaminitis, improving - likely related to COVID vs ETOH use - follow liver enzymes Asthma without exacerbation - albuterol Obesity with BMI 35.9 - structure weight loss once COVID resolved. Leukocytosis - suspect reactive Chest pain, resolved Prognosis guarded. DVT prophylaxis: Lovenox Discussed with: Patient, nursing Anticipated discharge: unknown Anticipated discharge place: pending course A total of 35 minutes was spent on the care of this complex patient more than 50% of the time was spent in counseling and care coordination. Objective - Vital Signs Vital signs: Vital Signs Temp 99 F 08/26/20 12:00 Pulse 87 08/26/20 12:00 Resp 24 08/26/20 12:00 BP 109/72 08/26/20 12:00 Pulse Ox 91 L 08/26/20 13:10 Intake & Output 08/25/20 08/26/20 08/26/20 18:59 06:59 18:59 Intake Total 110 270 120 Output Total 3030 515 265 Balance -2920 -245 -145 Weight 105.2 kg 105.2 kg Intake: IV 110 220 120 Sodium Chloride 0.9% 1, 110 220 120 000 ml @ 50 mls/hr IV . Q20H [facility] Rx#:[id number] Oral 50 Output: Urine 3030 515 265 Other: Voiding Method Indwelling Catheter Indwelling Catheter Indwelling Catheter - Labs CBC & Chem 7: 08/26/20 03:57 08/26/20 03:57 Labs: Abnormal Lab Results - Last 24 Hours (Table) 08/26/20 08/26/20 08/26/20 Range/Units 03:48 03:57 03:57 WBC 16.8 H (3.8-10.6) k/uL Neutrophils # 15.8 H (1.3-7.7) k/uL Lymphocytes # 0.5 L (1.0-4.8) k/uL D-Dimer 9.28 H (<0.60) mg/L FEU Sodium (137-145) mmol/L BUN (9-20) mg/dL Glucose (74-99) mg/dL POC Glucose (mg/dL) 125 H (75-99) mg/dL Calcium (8.4-10.2) mg/dL Lactate Dehydrogenase (313-618) U/L C-Reactive Protein (<1.0) mg/dL 08/26/20 Range/Units 03:57 WBC (3.8-10.6) k/uL Neutrophils # (1.3-7.7) k/uL Lymphocytes # (1.0-4.8) k/uL D-Dimer (<0.60) mg/L FEU Sodium 136 L (137-145) mmol/L BUN 22 H (9-20) mg/dL Glucose 119 H (74-99) mg/dL POC Glucose (mg/dL) (75-99) mg/dL Calcium 8.3 L (8.4-10.2) mg/dL Lactate Dehydrogenase 2202 H (313-618) U/L C-Reactive Protein 1.2 H (<1.0) mg/dL
[2020-08-26] MEDS ORDERED: LIDOCAINE 1% INJ 10MG/ML (20 ML MDV) SQ ONE (16:48)
--- NOTE | 2020-08-26 17:17 | XR ---
EXAMINATION TYPE: XR chest 1V portable DATE OF EXAM: 08/26/2020 COMPARISON: 08/25/2020 HISTORY: PICC line placement TECHNIQUE: Single view FINDINGS: There is left side PICC line catheter. The tip is not well visualized but appears to be in the left subclavian vein over the superior mediastinum. Additional view of the left shoulder shows th e catheter tip in the axilla. This was obtained 2 minutes previous to the chest x-ray. There is some infiltrate and atelectasis in both lower lobes. IMPRESSION: Catheter tip is probably in the proximal left subclavian vein close to the superior vena cava. There are lower lobe bilateral pulmonary infiltrates and atelectasis unchanged.
--- NOTE | 2020-08-26 17:55 | IR ---
EXAMINATION TYPE: IR cvc insert >=5 years DATE OF EXAM: 08/26/2020 COMPARISON: 08/26/2020 intraprocedural portable radiograph obtained at 4:58 PM and 5:00 PM CLINICAL HISTORY: Covid 19. TPN, long-term antibiotics and IV fluids TELECOMMUNICATOR: Dr. Kandis Acevedo PROCEDURE: Maximal barrier technique was utilized. Hand hygiene obtained with soap and water and alcohol-based hand rub. The skin overlying the left brachial vein was localized with ultrasound and noted to be com pressible and patent by ultrasound. An ultrasound image was obtained and submitted on patient's lexus t. Sterile technique utilized with the ultrasound machine. The skin overlying was prepped and draped and 1% Lidocaine used for local anesthesia. A skin mia was made with a scalpel. Access was gained to the vein under direct ultrasound guidance with a 21-gauge needle and a 0.018 inch wire was advance d. Access site was dilated with a peel-away sheath and the catheter tailored to length. Catheter ad vanced centrally, with persistent midway through advancing the catheter. An intraprocedural chest x-r ay at 4:58 PM demonstrated the distal tip over the left axilla. The patient's arm was repositioned, and the catheter advanced centrally with ease. A second intraprocedural x-rays at 5:00 PM demonstrate d the distal tip over the brachiocephalic vein. The peel-away sheath was removed, and the catheter wa s completely advanced, approximately another 3 to 4 cm. Catheter was fixed to the skin with suture an d a sterile dressing placed. Hemostasis achieved and the catheter was aspirated and flushed with tato rile saline. The patient remained in stable condition. IMPRESSION: STATUS POST ULTRASOUND GUIDED LEFT PICC LINE PLACEMENT, READY FOR USE. THIS PROCEDURE WAS PERFORMED BY THE UNDERSIGNED.
[2020-08-26] MEDS ORDERED: MVI, ADULT NO.4 WITH VIT K 10 ML, TRACE (CONC-1ML/DOSE) 1 ML in AMINO ACID 5%-D15W+LYTE... IV ONE ×3 (20:00)
[2020-08-26] MEDS ORDERED: FAT EMULSION 20% 250 ML IV SCH (20:00)
[2020-08-26] MEDS: MELATONIN 5 MG TABLET PO SCH (21:02)
[2020-08-26] MEDS: SODIUM CHLORIDE 0.9% 1,000 ML IV SCH (21:08)
[2020-08-27 04:49] LABS: Ionized Calcium 4.7 mg/dL (4.5-5.3)
[2020-08-27] MEDS: SODIUM CHLORIDE 0.9% 1,000 ML IV SCH (04:49)
[2020-08-27 05:01] LABS: ALT 358 U/L (4-49); AST 135 U/L (17-59); African American GFR (CKD) >90 (>60 ml/min/1.73 sqM); Albumin 2.7 g/dL (3.5-5.0); Alkaline Phosphatase 78 U/L (38-126); Anion Gap 3 mmol/L; Blood Urea Nitrogen 24 mg/dL (9-20); Calcium 7.9 mg/dL (8.4-10.2); Carbon Dioxide 27 mmol/L (22-30); Chloride 108 mmol/L (98-107); Glucose 158 mg/dL (74-99); Magnesium 2.3 mg/dL (1.6-2.3); Non-African American GFR(CKD) >90 (>60 ml/min/1.73 sqM); Phosphorus 3.1 mg/dL (2.5-4.5); Potassium 3.8 mmol/L (3.5-5.1); Sodium 138 mmol/L (137-145); Total Bilirubin 1.4 mg/dL (0.2-1.3); Total Protein 5.8 g/dL (6.3-8.2); Triglycerides 125 mg/dL (<150)
--- NOTE | 2020-08-27 06:04 | XR ---
EXAM: XR Chest, 1 View CLINICAL HISTORY: ITS.REASON XR Reason: Covid TECHNIQUE: Frontal view of the chest. COMPARISON: August 26, 2020 FINDINGS: Lungs: Mild to moderate streaky bibasilar infiltrates are present, Little change since previous. Pleural space: Unremarkable. No pneumothorax. Heart: Unremarkable. No cardiomegaly. Mediastinum: Pneumomediastinum is seen, unchanged since previous. Bones/joints: Mild osteophytosis in the lower thoracic spine. Tubes, lines and devices: There is a left-sided PICC line placed with the tip in the superior vena cava. IMPRESSION: 1. Pneumomediastinum is seen, unchanged since previous. 2. Mild to moderate streaky bibasilar infiltrates are present, Little change since previous. 3. There is a left-sided PICC line placed with the tip in the superior vena cava.
[2020-08-27] MEDS ORDERED: Potassium Replacement Protocol 1 EACH MISC MISCELLANE PRN (07:29)
[2020-08-27] MEDS: ALBUTEROL HFA INHALER INHALATION SCH ×4 (08:01→21:14)
[2020-08-27 08:41] LABS: HCT 40.2 % (39.0-53.0); HGB 14.5 gm/dL (13.0-17.5); MCH 34.5 pg (25.0-35.0); Mean Platelet Volume 9.9; Platelet Count 142 k/uL (150-450); RBC 4.19 m/uL (4.30-5.90); RDW 12.4 % (11.5-15.5); WBC 15.5 k/uL (3.8-10.6)
--- NOTE | 2020-08-27 09:14 | P.PN ---
Subjective Progress Note Date: 08/27/20 70-year-old white male patient who presented to the hospital on 08/15/2020 with complaints of 10 day history of loss of taste, cough, shortness of breath, fever. Patient and his have been staying with her daughter who tested positive for COVID, patient had an outpatient test for COVID-19 on 08/09/2020 and was found to be positive. Last few days he's been having increased shortness of breath, cough. Past medical history is noncontributory, other than osteoarthritis with previous history of joint replacement surgery in the right knee, patient is lifetime nonsmoker, does have history of chronic bronchial asthma, not on any maintenance inhalers on a regular basis. Chest x-ray in the emergency department shows some patchy airspace disease on the right, calcified granuloma in the right lower lobe, no pneumothorax or pleural effusion. His repeat COVID-19 PCR in the emergency room was positive, RSV and influenza screen were negative. His admission blood work showed neutropenia, and lymphopenia, white blood cell count was 2.6, and leukocyte count was 0.4, d-dimer was 0.95, potassium is 3.1, rest of the electrolytes and renal profile were unremarkable, lactic acid was 1.1, AST was 63, ALT and alk phos were within normal limits, LDH was 1283, CRP was 7.1, pro calcitonin level was negative at 0.10. Patient was satting 86% on room air, currently requiring 4 L of supplemental oxygen with a pulse ox of 91-94%, he is afebrile. Lung sounds reveal diffuse coarse crackles at bilateral bases. Patient was started on Decadron this milligram daily, and prophylactic Lovenox. he is outside the window for Remdesivir On 08/17/2020 patient seen in follow-up on medical surgical floor, he is resting in bed, appears to be in no acute distress, he still on 5 L of oxygen has pulse ox of 90-91%, he is afebrile, hemodynamically stable, he states when he walks to the bathroom he gets very lightheaded and dizzy and sometimes feel like he is going to pass out. He does get short of breath, he was instructed to call for help when ambulating to the bathroom. Sounds reveal diffuse crackles bi laterally, today's follow-up chest x-ray showing patchy airspace disease lung bases. He is trying to work on incentive spirometer. Today's labs have been reviewed, his d-dimer today is 0.55, inflammatory markers are improving, and his LDH is 609, and CRP is 3.6. An patient remains on Decadron 6 mg daily, and prophylactic dose Lovenox in addition to vitamins On 08/18/2020 patient seen in follow-up on medical surgical floor. He is currently down to 4 L of oxygen pulse ox is 93%, he states he still feels weak and wobbly when walking to the bathroom, at times he gets lightheaded, but no worsening dyspnea, no signs of any respiratory distress. Today's labs have been noted, d-dimer from yesterday is 0.55, inflammatory markers were improving, no cough, no complaints of chest discomfort, he remains on Decadron 6 blood gram daily, and Lovenox 40 mg daily. On 08/19/2020 patient seen in follow-up on medical surgical floor, he is sitting up in the recliner, in no acute distress, is on 6 L of supplemental oxygen his pulse ox is 89-90%, no worsening dyspnea, although he does get short of breath and desat with exertion, consulted physical therapy and patient had ambulated with a walker. His ambulation ability slow shaky, no complaints of dizziness. Doing fairly well, no acute events overnight, and he is on Decadron, patient was not a candidate for Remdesivir, he is on prophylactic Lovenox, today's labs have been reviewed On 08/20/2020 patient seen in follow-up on medical surgical floor. In the last 24 hours his oxygenation has significantly deteriorated, he is currently on Airv o at 60 L and FiO2 of 92%, his pulse ox is 85-88%, his been afebrile, his temp of 101.7F, complaining of headache, he looks weak, he looks a lot more ill today, fatigued, short of breath with conversation, he has occasional cough, he was outside the window for Remdesivir, he has been on Decadron 6 mg daily, he is on prophylactic Lovenox, we'll give him a dose of Toci today On 08/21/2020 patient continued to worsen through the night, with increased work of breathing, and increased oxygenation needs, he was placed on Airvo yesterday, at 60 L in FiO2 of 93%, and he is requiring 100% nonrebreather mask on top of it, his pulse ox is only 80%, he is very tachypneic with respiratory rate in the 30s, diaphoretic, and looking fatigued. He was transferred to the intensive care unit this morning and placed on BiPAP support with pressures of 14/6 and FiO2 100%, he is actually tolerating that quite well, and seems more comfortable on it, lung sounds reveal diffuse coarse crackles at bilateral posterior bases, he is afebrile this morning, his chest x-ray today showing bilateral lower lobe infiltrates and small effusion., Yesterday his d-dimer with up to 10.10, and if it remains elevated again today at 10.19, his Lovenox dose was adjusted and he is currently on 60 mg of Lovenox every 12 hours. He remains on IV dexamethasone 6 mg daily, was given a dose of Actemra yesterday On 08/24/2020 patient seen in follow-up in the intensive care unit, he remains on BiPAP its at pressures of 14/7 and FiO2 of 90%. He seems to be tolerating BiPAP support quite well, seems to be very comfortable on that. He has remained on BiPAP continuously for 24 hours, try Airvo on him again today. Appears to be in no acute distress, on those above-mentioned settings his pulse ox is ranging between 86-91%, respiratory rate is in the mid 20s, blood pressure stable, he has been afebrile. Lung sounds reveal diminished breath sounds with some bibasilar crackles. No complaints of chest pain overnight, 2 sets of troponins were less than 0.012. Echocardiogram was a technically difficult study with suboptimal views, and the EF was not calculated, RV was not visualized, left atrium, right atrium, and all the valves were not well visualized. And as such this was a suboptimal study. No complaints of chest pain overnight, no complaints of chest pain this morning. This morning's labs have been reviewed, his d-dimer is 7.66 on today's labs, white blood cell count is 10.5, hemoglobin of 14.5, sodium is 135, the rest of electrolytes and renal profile were unremarkable, LDH is 1658, CRP is 2.8. No nausea vomiting or diarrhea, abdomen is soft, no worsening dyspnea On 08/25/2020 patient seen in follow-up in intensive care unit, yesterday he tolerated Airvo at 60 L and FiO2 of 90% in addition to 100% nonrebreather mask all day, and he was placed back on BiPAP support with pressures of 14/7 and FiO2 of 90% overnight, this morning she seen in the intensive care unit, he is resting comfortably in bed, he remains on BiPAP support and his pulse ox on above-mentioned settings is 92-95%. He denies any worsening dyspnea, he is easily arousable to voice, and answering simple questions, lung sounds reveal diminished breath sounds at the bases, with minimal crackles. Today's chest x- ray is pending, today's labs have been reviewed during white blood cell count of 12.4, hemoglobin of 14.6, d-dimer remains elevated at 7.86, and patient's on Lovenox at 50 mg twice daily. No complaints of chest pain. No cough, no congestion, yesterday while he was on Airvo he was able to take in some oral feedings, and had a fair appetite. She is in sinus mechanism, hemodynamically she is stable, he is on plane, sitting at a rate of 50 ML per hour. He remains on Decadron at 6 mg twice daily. His renal function is within normal limits today with B1 of 18 creatinine 0.71, sodium was 135, and her serum electrolytes were within normal limits, 2 sets of troponins were less than 0.012, limited echocardiogram was a suboptimal study, however there was no recurrence of chest discomfort from 2 days ago, and heparin drip was discontinued, no acute ST wave changes. No vomiting or diarrhea, abdomen is soft, no complaints of abdominal pain. On 08/26/2020 patient seen in follow-up in intensive care unit, currently on BiPAP with pressures of 14/7 and FiO2 100%, and his pulse ox is 88%, yesterday he was able to tolerate Airvo and nonrebreather and come off the BiPAP for short periods of time. Today he seems more lethargic compared to yesterday, he is tachypneic, but he is achieving over 1 L and tidal volumes on the BiPAP, his respiratory rate is in the mid 30s. He opens eyes to voice, he lightly groans in response to questions, but not really providing full sentence responses. Yesterday we gave him a dose of IV Lasix, he diuresed quite well, and he is in - 3.1 L over the last 24 hours. Despite the diuresis, the patient failed to improve, today's chest x-ray still showed persistent bibasilar and right midlung peripheral opacities consistent with COVID-19. Oral intake has been poor, and at this time we are considering low rate IV fluids. Labs have been reviewed, his white blood cell count is 16.8, hemoglobin is 15.7, he is a d-dimer is 9.28, sodium is 136, the rest of electrolytes are within normal limits, his BUN is 22, creatinine is 0.82, his LDH has actually trended up, and is at 2202, and CRP 1.2. IV 2020, the patient's is being seen in the follow-up in the intensive care [facility]. He is currently on a BiPAP pressure of 10/7 with FiO2 of 80%. His current pulse ox in the order of 90%. There is an improvement compared to yesterday. He stayed on BiPAP throughout the day yesterday. No high flow oxygen trial was given to him yesterday. Remains tachypneic and is scheduled for rate is in the low 30s. He is weak. His oral intake was quite minimal and the patient was suspected BiPAP dependent and for that reason a PICC line was inserted and the patient was started on TPN for nutritional support. He was also diuresed adequately with Lasix. On today's evaluation, the patient's chest x-ray showing persistent bilateral lower lobe pulmonary infiltrates and the patient remains on Decadron 6 mg IV every 12 hours. LDH level from yesterday was elevated and the repeat levels are pending from today. Renal function is stable. Creatinine is normal. D-dimer from yesterday was 9.28. The patient remains on Lovenox 50 mg subcu every 12 hours. His blood sugars under adequate control. No significant hypoglycemia. The overall fluid balance for yesterday was -3.1 L. Objective - Vital Signs Vital signs: Vital Signs Temp 97.4 F L 08/27/20 04:00 Pulse 70 08/27/20 07:00 Resp 31 H 08/27/20 07:00 BP 121/67 08/27/20 07:00 Pulse Ox 93 L 08/27/20 07:00 Intake & Output 08/26/20 08/27/20 08/27/20 18:59 06:59 18:59 Intake Total 530 550 50 Output Total 590 535 35 Balance -60 15 15 Weight 105.2 kg 105.6 kg Intake: IV 530 550 50 Sodium Chloride 0.9% 1, 530 550 50 000 ml @ 50 mls/hr IV . Q20H [facility] Rx#:[id number] Output: Urine 590 535 35 Other: Voiding Method Indwelling Catheter Indwelling Catheter - Exam GENERAL EXAM: Weak, fatigued, tachypneic, on today's exam, more short of breath 62-year-old white male, on BiPAP, quite synchronous, able to tolerate pr essures of 14/7 cm of water with an FiO2 of 80%. HEAD: Normocephalic/atraumatic. EYES: Normal reaction of pupils, equal size. Conjunctiva pink, sclera white. NOSE: Clear with pink turbinates. THROAT: No erythema or exudates. NECK: No masses, no JVD, no thyroid enlargement, no adenopathy. CHEST: No chest wall deformity. Symmetrical expansion. LUNGS: Equal air entry with coarse bibasilar crackles CVS: Regular rate and rhythm, normal S1 and S2, no gallops, no murmurs, no rubs ABDOMEN: Soft, nontender. No hepatosplenomegaly, normal bowel sounds, no guarding or rigidity. EXTREMITIES: No clubbing, no edema, no cyanosis, 2+ pulses and upper and lower extremities. MUSCULOSKELETAL: Muscle strength and tone normal. SPINE: No scoliosis or deformity SKIN: No rashes CENTRAL NERVOUS SYSTEM: Weak and lethargic, but arousable, and answers appropriately No focal deficits, tone is normal in all 4 extremities. - Labs CBC & Chem 7: 08/27/20 03:50 08/27/20 03:50 Labs: Abnormal Lab Results - Last 24 Hours (Table) 08/27/20 08/27/20 Range/Units 03:50 03:50 WBC 15.5 H (3.8-10.6) k/uL RBC 4.19 L (4.30-5.90) m/uL Plt Count 142 L (150-450) k/uL Chloride 108 H (98-107) mmol/L BUN 24 H (9-20) mg/dL Creatinine 0.65 L (0.66-1.25) mg/dL Glucose 158 H (74-99) mg/dL Calcium 7.9 L (8.4-10.2) mg/dL Total Bilirubin 1.4 H (0.2-1.3) mg/dL AST 135 H (17-59) U/L ALT 358 H (4-49) U/L Total Protein 5.8 L (6.3-8.2) g/dL Albumin 2.7 L (3.5-5.0) g/dL Assessment and Plan Plan: #1. Acute hypoxic respiratory failure related to acute COVID-19 pneumonia, with onset of symptoms 10 days prior to presentation, patient had outpatient positive COVID-19 test on 08/09/2020, outside the window for Remdesivir. Hypoxia pr ogressed and patient received Toci on 08/20/2020. Patient was transferred to the intensive care unit on 08/21/2020 and placed on BiPAP support. The patient recevied Decadron grams IV every 12 hours and Lovenox here this morning, he remains quite comfortable on a BiPAP at a pressure of 14/7 with an FiO2 of 80%. D-dimer is elevated and the patient is on Lovenox 50 mg subcu every 12 hours. His current pulse ox is in the low 90s. He is still tachypneic breathing in the 30s. Seems to be quite stable since yesterday. #2. Increased d-dimer related to COVID-19 infection, currently on Lovenox 50 mg subcu every 12 hours. Based on his elevation in the d-dimer, the patient was given Doppler of the lower extremity that do not to be negative. #3. TPN for nutritional support. Unable to take any oral intake as the patient instructed BiPAP dependent. He has a PICC line in his left upper extremity. #4. Elevated liver enzymes related to viral pneumonia #5. Lifetime nonsmoker #6. History of chronic bronchial asthma, mild intermittent, inactive at this time Plan: Patient is very stable for now. He is on BiPAP. He'll be given a trial of high flow oxygen along with 100% on a beta facemasks. Continue Decadron 6 mg IV every 12 hours 50 on Lovenox 50 mg subcu every 12 hours Monitor d-dimer TPN for nutritional support and allow some oral intake as the patient is able to tolerate some oral diet once off the BiPAP Overall prognosis is guarded Continue supportive treatment I will still consider this patient is still a High risk for intubation mechanical ventilation Critically care evaluation, more than 30 minutes. Time with Patient: Greater than 30
[2020-08-27] MEDS: 1: MVI, ADULT NO.4 WITH VIT K 10 ML, TRACE (CONC-1ML/DOSE) 1 ML in AMINO ACID 5%-D15W+LY IV SCH ×3 (09:42)
[2020-08-27] MEDS: DEXAMETHASONE SOD PHOSPHATE 10 MG/ML 1 ML VIAL IV SCH ×2 (09:44→20:30)
[2020-08-27] MEDS: POTASSIUM CHLORIDE 10 MEQ in WATER FOR INJECTION 1 100ML.BAG IVPB SCH ×2 (09:45→11:43)
[2020-08-27] MEDS: ENOXAPARIN 60 MG/0.6 ML SYRINGE SQ SCH ×2 (09:48→20:30)
--- NOTE | 2020-08-27 11:04 | P.PN ---
Subjective Progress Note Date: 08/27/20 Patient is doing fairly well today. He was on BiPAP when I saw him. He does not have any complaint this morning. No acute events overnight reported by nursing staff. Objective - Vital Signs Vital signs: Vital Signs Temp 97.5 F L 08/27/20 08:00 Pulse 75 08/27/20 09:00 Resp 32 H 08/27/20 09:00 BP 107/75 08/27/20 09:00 Pulse Ox 91 L 08/27/20 09:00 Intake & Output 08/26/20 08/27/20 08/27/20 18:59 06:59 18:59 Intake Total 530 550 330 Output Total 590 535 185 Balance -60 15 145 Weight 105.2 kg 105.6 kg Intake: IV 530 550 330 Amino Acid 5%-D15w+Lytes* 180 E* 1,000 ml @ 90 mls/hr IV .[facility] Rx#: [id number] Sodium Chloride 0.9% 1, 530 550 150 000 ml @ 50 mls/hr IV . Q20H [facility] Rx#:[id number] Output: Urine 590 535 185 Other: Voiding Method Indwelling Catheter Indwelling Catheter Indwelling Catheter - Exam General: The patient is awake and alert, in no distress Eye: there is normal conjunctiva bilaterally. Neck: The neck is supple, there is no JVD. Cardiovascular: Normal S1-S2, no S3-S4, no murmurs. Respiratory: Lungs with BiPAP sounds Gastrointestinal: Abdomen is soft, nontender Musculoskeletal: There is no pedal edema. Neurological:. Speech is normal. Skin: Skin is warm and dry - Labs CBC & Chem 7: 08/27/20 03:50 08/27/20 03:50 Labs: Abnormal Lab Results - Last 24 Hours (Table) 08/27/20 08/27/20 Range/Units 03:50 03:50 WBC 15.5 H (3.8-10.6) k/uL RBC 4.19 L (4.30-5.90) m/uL Plt Count 142 L (150-450) k/uL Chloride 108 H (98-107) mmol/L BUN 24 H (9-20) mg/dL Creatinine 0.65 L (0.66-1.25) mg/dL Glucose 158 H (74-99) mg/dL Calcium 7.9 L (8.4-10.2) mg/dL Total Bilirubin 1.4 H (0.2-1.3) mg/dL AST 135 H (17-59) U/L ALT 358 H (4-49) U/L Total Protein 5.8 L (6.3-8.2) g/dL Albumin 2.7 L (3.5-5.0) g/dL Assessment and Plan Assessment: Patient is a 70-year-old male with a history of asthma and obesity who initially presented to the ER with complaints of shortness of breath, nausea, and poor appetite. He had known positive COVID testing on 08/09/20. In the ER he was found be hypoxic at 86% on room air. He again was COVID-19 PCR positive. Chest x-ray demonstrated pneumonia. He was outside of the window for Remdesivir. His oxygen requirement increased throughout his hospital stay. Patient is currently admitted to the ICU for further management of his medical problems noted below COVID-19 pneumonitis, acute hypoxic respiratory failure, currently on BiPAP - Continue with Decadron D#13 managed by pulmonology - Continue with vitamins - TOCI / - Lovenox increased due to D-dimer > 3 - Wean O2 as able Toxic metabolic encephalopathy due to above -Now resolved Transaminitis, mild, improving - likely related to COVID vs ETOH use - follow liver enzymes Asthma without exacerbation - albuterol Obesity with BMI 35.9 - structure weight loss once COVID resolved. DVT prophylaxis with subcu Lovenox CODE STATUS, patient is full code Prognosis guarded. DVT prophylaxis: Lovenox Discussed with: Patient, nursing Anticipated discharge: unknown Anticipated discharge place: pending course A total of 35 minutes was spent on the care of this complex patient more than 50% of the time was spent in counseling and care coordination.
[2020-08-27 11:32] LABS: Glucose,Whole Blood 125 mg/dL (75-99)
[2020-08-27] MEDS: ASCORBIC ACID 500 MG TAB PO SCH (11:40)
[2020-08-27] MEDS: CHOLECALCIFEROL 25 MCG (1000 IU) TABLET PO SCH (11:40)
[2020-08-27] MEDS: guaiFENesin 600 MG TABLET.ER PO SCH ×2 (11:40→19:48)
[2020-08-27] MEDS: ZINC SULFATE 220 MG CAP PO SCH (11:40)
[2020-08-27] MEDS: PANTOPRAZOLE 40 MG TABLET PO SCH (11:41)
[2020-08-27 14:38] LABS: African American GFR (CKD) >90 (>60 ml/min/1.73 sqM); Anion Gap 2 mmol/L; Blood Urea Nitrogen 22 mg/dL (9-20); Calcium 7.9 mg/dL (8.4-10.2); Carbon Dioxide 27 mmol/L (22-30); Chloride 108 mmol/L (98-107); Glucose 132 mg/dL (74-99); Non-African American GFR(CKD) >90 (>60 ml/min/1.73 sqM); Phosphorus 2.8 mg/dL (2.5-4.5); Potassium 4.4 mmol/L (3.5-5.1); Sodium 137 mmol/L (137-145)
[2020-08-27] MEDS: MELATONIN 5 MG TABLET PO SCH (19:48)
[2020-08-28] MEDS ORDERED: DEXMEDETOMIDINE/0.9% NACL(PMX) 400 MCG in EMPTY BAG 1 BAG IV SCH (02:00)
[2020-08-28] MEDS: 1: MVI, ADULT NO.4 WITH VIT K 10 ML, TRACE (CONC-1ML/DOSE) 1 ML in AMINO ACID 5%-D15W+LY IV SCH ×6 (02:01→08:56)
[2020-08-28 03:10] LABS: ABG Base Excess -4.8 mmol/L; ABG HCO3 20 mmol/L (21-25); ABG Oxygen Saturation 74.1 % (94-97); ABG PCO2 31 mmHg (35-45); ABG PH 7.42 (7.35-7.45); ABG TCO2 21 mmol/L (19-24); Allen Test Performed? Yes
[2020-08-28 03:14] LABS: ABG PO2 42 mmHg (83-108)
[2020-08-28] MEDS ORDERED: ROCURONIUM 10 MG/ML (5 ML VIAL) IV ONE (03:40)
[2020-08-28] MEDS ORDERED: PROPOFOL 10 MG/ML 20 ML VIAL IV ONE (03:40)
--- NOTE | 2020-08-28 04:10 | XR ---
EXAM: XR Chest, 1 View CLINICAL HISTORY: ITS.REASON XR Reason: Tube placement TECHNIQUE: Frontal view of the chest. COMPARISON: 08/27/2020 at 5:39am FINDINGS: Interval placement of endotracheal tube and enteric tube with endotracheal tube terminating 3.3 cm above the level of the right and nasogastric tube terminating in the body of the stomach. Unchanged left upper extremity PICC with catheter tip terminating in the left innominate vein. Unchanged bibasilar patchy opacities. No pleural effusions or pneumothorax. IMPRESSION: Interval placement of endotracheal tube and enteric tube with endotracheal tube terminating 3.3 cm above the level of the right and nasogastric tube terminating in the body of the stomach.
[2020-08-28 05:47] LABS: ABG Base Excess -2.9 mmol/L; ABG HCO3 26 mmol/L (21-25); ABG Oxygen Saturation 67.8 % (94-97); ABG TCO2 29 mmol/L (19-24); Allen Test Performed? Yes
[2020-08-28 05:50] LABS: ABG PCO2 80 mmHg (35-45); ABG PH 7.13 (7.35-7.45); ABG PO2 50 mmHg (83-108)
[2020-08-28] MEDS ORDERED: fentaNYL (PF). 1,000 MCG in SODIUM CHLORIDE 0.9% 80 ML IV SCH (06:00)
--- NOTE | 2020-08-28 07:50 | P.PN ---
Subjective Progress Note Date: 08/28/20 70-year-old white male patient who presented to the hospital on 08/15/2020 with complaints of 10 day history of loss of taste, cough, shortness of breath, fever. Patient and his have been staying with her daughter who tested positive for COVID, patient had an outpatient test for COVID-19 on 08/09/2020 and was found to be positive. Last few days he's been having increased shortness of breath, cough. Past medical history is noncontributory, other than osteoarthritis with previous history of joint replacement surgery in the right knee, patient is lifetime nonsmoker, does have history of chronic bronchial asthma, not on any maintenance inhalers on a regular basis. Chest x-ray in the emergency department shows some patchy airspace disease on the right, calcified granuloma in the right lower lobe, no pneumothorax or pleural effusion. His repeat COVID-19 PCR in the emergency room was positive, RSV and influenza screen were negative. His admission blood work showed neutropenia, and lymphopenia, white blood cell count was 2.6, and leukocyte count was 0.4, d-dimer was 0.95, potassium is 3.1, rest of the electrolytes and renal profile were unremarkable, lactic acid was 1.1, AST was 63, ALT and alk phos were within normal limits, LDH was 1283, CRP was 7.1, pro calcitonin level was negative at 0.10. Patient was satting 86% on room air, currently requiring 4 L of supplemental oxygen with a pulse ox of 91-94%, he is afebrile. Lung sounds reveal diffuse coarse crackles at bilateral bases. Patient was started on Decadron this milligram daily, and prophylactic Lovenox. he is outside the window for Remdesivir On 08/17/2020 patient seen in follow-up on medical surgical floor, he is resting in bed, appears to be in no acute distress, he still on 5 L of oxygen has pulse ox of 90-91%, he is afebrile, hemodynamically stable, he states when he walks to the bathroom he gets very lightheaded and dizzy and sometimes feel like he is going to pass out. He does get short of breath, he was instructed to call for help when ambulating to the bathroom. Sounds reveal diffuse crackles bi laterally, today's follow-up chest x-ray showing patchy airspace disease lung bases. He is trying to work on incentive spirometer. Today's labs have been reviewed, his d-dimer today is 0.55, inflammatory markers are improving, and his LDH is 609, and CRP is 3.6. An patient remains on Decadron 6 mg daily, and prophylactic dose Lovenox in addition to vitamins On 08/18/2020 patient seen in follow-up on medical surgical floor. He is currently down to 4 L of oxygen pulse ox is 93%, he states he still feels weak and wobbly when walking to the bathroom, at times he gets lightheaded, but no worsening dyspnea, no signs of any respiratory distress. Today's labs have been noted, d-dimer from yesterday is 0.55, inflammatory markers were improving, no cough, no complaints of chest discomfort, he remains on Decadron 6 blood gram daily, and Lovenox 40 mg daily. On 08/19/2020 patient seen in follow-up on medical surgical floor, he is sitting up in the recliner, in no acute distress, is on 6 L of supplemental oxygen his pulse ox is 89-90%, no worsening dyspnea, although he does get short of breath and desat with exertion, consulted physical therapy and patient had ambulated with a walker. His ambulation ability slow shaky, no complaints of dizziness. Doing fairly well, no acute events overnight, and he is on Decadron, patient was not a candidate for Remdesivir, he is on prophylactic Lovenox, today's labs have been reviewed On 08/20/2020 patient seen in follow-up on medical surgical floor. In the last 24 hours his oxygenation has significantly deteriorated, he is currently on Airv o at 60 L and FiO2 of 92%, his pulse ox is 85-88%, his been afebrile, his temp of 101.7F, complaining of headache, he looks weak, he looks a lot more ill today, fatigued, short of breath with conversation, he has occasional cough, he was outside the window for Remdesivir, he has been on Decadron 6 mg daily, he is on prophylactic Lovenox, we'll give him a dose of Toci today On 08/21/2020 patient continued to worsen through the night, with increased work of breathing, and increased oxygenation needs, he was placed on Airvo yesterday, at 60 L in FiO2 of 93%, and he is requiring 100% nonrebreather mask on top of it, his pulse ox is only 80%, he is very tachypneic with respiratory rate in the 30s, diaphoretic, and looking fatigued. He was transferred to the intensive care unit this morning and placed on BiPAP support with pressures of 14/6 and FiO2 100%, he is actually tolerating that quite well, and seems more comfortable on it, lung sounds reveal diffuse coarse crackles at bilateral posterior bases, he is afebrile this morning, his chest x-ray today showing bilateral lower lobe infiltrates and small effusion., Yesterday his d-dimer with up to 10.10, and if it remains elevated again today at 10.19, his Lovenox dose was adjusted and he is currently on 60 mg of Lovenox every 12 hours. He remains on IV dexamethasone 6 mg daily, was given a dose of Actemra yesterday On 08/24/2020 patient seen in follow-up in the intensive care unit, he remains on BiPAP its at pressures of 14/7 and FiO2 of 90%. He seems to be tolerating BiPAP support quite well, seems to be very comfortable on that. He has remained on BiPAP continuously for 24 hours, try Airvo on him again today. Appears to be in no acute distress, on those above-mentioned settings his pulse ox is ranging between 86-91%, respiratory rate is in the mid 20s, blood pressure stable, he has been afebrile. Lung sounds reveal diminished breath sounds with some bibasilar crackles. No complaints of chest pain overnight, 2 sets of troponins were less than 0.012. Echocardiogram was a technically difficult study with suboptimal views, and the EF was not calculated, RV was not visualized, left atrium, right atrium, and all the valves were not well visualized. And as such this was a suboptimal study. No complaints of chest pain overnight, no complaints of chest pain this morning. This morning's labs have been reviewed, his d-dimer is 7.66 on today's labs, white blood cell count is 10.5, hemoglobin of 14.5, sodium is 135, the rest of electrolytes and renal profile were unremarkable, LDH is 1658, CRP is 2.8. No nausea vomiting or diarrhea, abdomen is soft, no worsening dyspnea On 08/25/2020 patient seen in follow-up in intensive care unit, yesterday he tolerated Airvo at 60 L and FiO2 of 90% in addition to 100% nonrebreather mask all day, and he was placed back on BiPAP support with pressures of 14/7 and FiO2 of 90% overnight, this morning she seen in the intensive care unit, he is resting comfortably in bed, he remains on BiPAP support and his pulse ox on above-mentioned settings is 92-95%. He denies any worsening dyspnea, he is easily arousable to voice, and answering simple questions, lung sounds reveal diminished breath sounds at the bases, with minimal crackles. Today's chest x- ray is pending, today's labs have been reviewed during white blood cell count of 12.4, hemoglobin of 14.6, d-dimer remains elevated at 7.86, and patient's on Lovenox at 50 mg twice daily. No complaints of chest pain. No cough, no congestion, yesterday while he was on Airvo he was able to take in some oral feedings, and had a fair appetite. She is in sinus mechanism, hemodynamically she is stable, he is on plane, sitting at a rate of 50 ML per hour. He remains on Decadron at 6 mg twice daily. His renal function is within normal limits today with B1 of 18 creatinine 0.71, sodium was 135, and her serum electrolytes were within normal limits, 2 sets of troponins were less than 0.012, limited echocardiogram was a suboptimal study, however there was no recurrence of chest discomfort from 2 days ago, and heparin drip was discontinued, no acute ST wave changes. No vomiting or diarrhea, abdomen is soft, no complaints of abdominal pain. On 08/26/2020 patient seen in follow-up in intensive care unit, currently on BiPAP with pressures of 14/7 and FiO2 100%, and his pulse ox is 88%, yesterday he was able to tolerate Airvo and nonrebreather and come off the BiPAP for short periods of time. Today he seems more lethargic compared to yesterday, he is tachypneic, but he is achieving over 1 L and tidal volumes on the BiPAP, his respiratory rate is in the mid 30s. He opens eyes to voice, he lightly groans in response to questions, but not really providing full sentence responses. Yesterday we gave him a dose of IV Lasix, he diuresed quite well, and he is in - 3.1 L over the last 24 hours. Despite the diuresis, the patient failed to improve, today's chest x-ray still showed persistent bibasilar and right midlung peripheral opacities consistent with COVID-19. Oral intake has been poor, and at this time we are considering low rate IV fluids. Labs have been reviewed, his white blood cell count is 16.8, hemoglobin is 15.7, he is a d-dimer is 9.28, sodium is 136, the rest of electrolytes are within normal limits, his BUN is 22, creatinine is 0.82, his LDH has actually trended up, and is at 2202, and CRP 1.2. IV 2020, the patient's is being seen in the follow-up in the intensive care [facility]. He is currently on a BiPAP pressure of 10/7 with FiO2 of 80%. His current pulse ox in the order of 90%. There is an improvement compared to yesterday. He stayed on BiPAP throughout the day yesterday. No high flow oxygen trial was given to him yesterday. Remains tachypneic and is scheduled for rate is in the low 30s. He is weak. His oral intake was quite minimal and the patient was suspected BiPAP dependent and for that reason a PICC line was inserted and the patient was started on TPN for nutritional support. He was also diuresed adequately with Lasix. On today's evaluation, the patient's chest x-ray showing persistent bilateral lower lobe pulmonary infiltrates and the patient remains on Decadron 6 mg IV every 12 hours. LDH level from yesterday was elevated and the repeat levels are pending from today. Renal function is stable. Creatinine is normal. D-dimer from yesterday was 9.28. The patient remains on Lovenox 50 mg subcu every 12 hours. His blood sugars under adequate control. No significant hypoglycemia. The overall fluid balance for yesterday was -3.1 L. 08/28/2020, the patient is being seen for a follow-up. The patient overnight progressively became more agitated, hypoxic, restless, and he got 2.30 was unable to tolerate the BiPAP and he was constantly pulling on the mask. Obvious he was in no respiratory distress. At that point, he was started on Precedex which did not help him a whole lot and following that the decision was to intubate the patient with him on a mechanical ventilator. Prior to intubation, blood gases was done and the patient was significantly hypoxic with a pO2 of 41 and a pCO2 was 30 and the pH was 7.4. Accordingly, the patient was intubated. Currently the patient is sedated, paralyzed and currently is on propofol running at 15 mcg/kg per minute and he is on Nimbex at 2 mcg/kg per minute. His adequately sedated and secondary to the mechanical ventilator. I have been on assist control mode at the rate of 36 with a tidal volume of 375. The initial PEEP was at 5 and FiO2 is at 100%. Accordingly, a blood gas showed a pH of 7.12 with a pCO2 of 80 and pO2 of 49. Increase the PEEP up to 14. Current peak air pressures around 42. Static pressure is 41. Pulse ox improved and is up to 80%. We are the process of pro-morning this patient. Meanwhile, he remained hemodynamically stable throughout the process. He has adequate blood pressure and adequate urine output. No fever. He has a PICC line in his left upper extremity and he also got an arterial line in his left radial. Blood work from today is still pending. Meanwhile, the patient remains on Decadron at a dose of 6 mg IV every 24 hours. D-dimer was elevated and based on that the patient was kept on Lovenox 50 mg subcu to 12 hours. No pressors for now. IV fluids are running in the form of normal saline at 50 mL an hour. Note that the patient was also started on TPN yesterday and that'll be discontinued and he will be switched to enteral feeding for nutritional support through an OG 2. Post intubation chest x-ray showed diffuse breath and pulmonary infiltrates consistent with ARDS and oral tracheal tube is in good location, 2 cm above the ben. No other complications. No pneumothorax. Orogastric tube also is and the stomach. Family will be informed of the setback in a decompensated occurred overnight. Objective - Vital Signs Vital signs: Vital Signs Temp 98 F 08/28/20 00:00 Pulse 88 08/28/20 06:00 Resp 36 H 08/28/20 06:00 BP 170/74 08/28/20 03:00 Pulse Ox 75 L 08/28/20 06:00 Intake & Output 08/27/20 08/28/20 08/28/20 18:59 06:59 18:59 Intake Total 1550 1290 140 Output Total 720 659 100 Balance 830 631 40 Weight 102.5 kg Intake: IV 1550 1290 140 Amino Acid 5%-D15w+Lytes* 1080 990 90 E* 1,000 ml @ 90 mls/hr IV .BY DURATION ISH Rx#: [id number] Sodium Chloride 0.9% 1, 470 300 50 000 ml @ 50 mls/hr IV . Q20H IS[facility] Rx#:[id number] Output: Urine 720 659 100 Other: Voiding Method Indwelling Catheter Indwelling Catheter ABP, PAP, CO, CI - Last Documented Arterial Blood Pressure 140/66 - Exam GENERAL EXAM: Is currently intubated on mechanical ventilator. Sedated, paralyzed, orogastric and orotracheal tube are both in place. HEAD: Normocephalic/atraumatic. EYES: Normal reaction of pupils, equal size. Conjunctiva pink, sclera white. NOSE: Clear with pink turbinates. THROAT: No erythema or exudates. NECK: No masses, no JVD, no thyroid enlargement, no adenopathy. CHEST: No chest wall deformity. Symmetrical expansion. LUNGS: Equal air entry with coarse bibasilar crackles CVS: Regular rate and rhythm, normal S1 and S2, no gallops, no murmurs, no rubs ABDOMEN: Soft, nontender. No hepatosplenomegaly, normal bowel sounds, no guarding or rigidity. EXTREMITIES: No clubbing, no edema, no cyanosis, 2+ pulses and upper and lower extremities. MUSCULOSKELETAL: Muscle strength and tone normal. SPINE: No scoliosis or deformity Examination of the skin revealed no evidence of significant rashes, suspicious appearing nevi or other concerning lesions. CENTRAL NERVOUS SYSTEM: Sedated and paralyzed, pupils are equal and reactive to light - Labs CBC & Chem 7: 08/27/20 03:50 08/27/20 14:07 Labs: Abnormal Lab Results - Last 24 Hours (Table) 08/27/20 08/27/20 08/27/20 Range/Units 03:50 11:31 14:07 WBC 15.5 H (3.8-10.6) k/uL RBC 4.19 L (4.30-5.90) m/uL Plt Count 142 L (150-450) k/uL ABG pH (7.35-7.45) ABG pCO2 (35-45) mmHg ABG pO2 (83-108) mmHg ABG HCO3 (21-25) mmol/L ABG Total CO2 (19-24) mmol/L ABG O2 Saturation (94-97) % Chloride 108 H (98-107) mmol/L BUN 22 H (9-20) mg/dL Creatinine 0.60 L (0.66-1.25) mg/dL Glucose 132 H (74-99) mg/dL POC Glucose (mg/dL) 125 H (75-99) mg/dL Calcium 7.9 L (8.4-10.2) mg/dL 08/28/20 08/28/20 Range/Units 03:04 05:41 WBC (3.8-10.6) k/uL RBC (4.30-5.90) m/uL Plt Count (150-450) k/uL ABG pH 7.13 L* (7.35-7.45) ABG pCO2 31 L 80 H* (35-45) mmHg ABG pO2 42 L* 50 L* (83-108) mmHg ABG HCO3 20 L 26 H (21-25) mmol/L ABG Total CO2 29 H (19-24) mmol/L ABG O2 Saturation 74.1 L 67.8 L (94-97) % Chloride (98-107) mmol/L BUN (9-20) mg/dL Creatinine (0.66-1.25) mg/dL Glucose (74-99) mg/dL POC Glucose (mg/dL) (75-99) mg/dL Calcium (8.4-10.2) mg/dL Assessment and Plan Plan: 1. ARDS secondary acute COVID-19 pneumonia, with onset of symptoms 10 days prior to presentation, patient had outpatient positive COVID-19 test on 08/09/2020, outside the window for Remdesivir. Hypoxia progressed and patient received Toci on 08/20/2020. Patient was transferred to the intensive care unit on 08/21/2020 and placed on BiPAP support. The patient recevied Decadron grams IV every 12 hours and Lovenox 50 mg subcu every 12 hours. Lungs respiratory decompensation and failure and progressive hypoxemia, the patient had to be intubated yesterday and the patient was intubated on 08/28/2020. Currently we are utilizing low tidal volume ventilation and allowing permissive hypercapnia. The patient's current PEEP is at 14. Peak airway pressures around 40 to anesthetic pressure is 41. Chest x-ray is consistent with ARDS and she is by the pulmonary infiltrates. Chest x-ray was noted. Blood Was noted. 2. Acute hypoxic respiratory failure secondary to above 3 Increased d-dimer related to COVID-19 infection, currently on Lovenox 50 mg subcu every 12 hours. Based on his elevation in the d-dimer, the patient was given Doppler of the lower extremity that do not to be negative. 4. Elevated liver enzymes related to viral pneumonia 5. Lifetime nonsmoker 6. History of chronic bronchial asthma, mild intermittent, inactive at this time Plan: Continue sedation and paralysis. The patient is currently on a combination of propofol and Nimbex. Continue vent support and the PEEP was increased up to 14. Unable to raise the PEEP further because of the high peak static pressures and the patient will be prone to accordingly and the blood gases will be repeated. He does ask that better on his left lateral side for now. He'll be prone within the next few minutes. Start enteral feeding for nutritional support This continue TPN. Continue Decadron 6 mg IV every 12 hours 50 on Lovenox 50 mg subcu every 12 hours Monitor d-dimer Monitor the rest of the inflammatory markers Overall prognosis is guarded Continue supportive treatment Awaiting labs from today With a prolonged and oxygenation be monitored closely no make further recommendations based on her progress. Awaiting morning labs. Family will be informed of the above-mentioned changes. Critically care evaluation, more than 30 minutes. Time with Patient: Greater than 30
[2020-08-28] MEDS: ALBUTEROL HFA INHALER INHALATION SCH ×4 (08:23→20:42)
[2020-08-28] MEDS: CISATRACURIUM 200 MG in SODIUM CHLORIDE 0.9% 180 ML IV SCH ×3 (08:44→22:34)
[2020-08-28] MEDS: guaiFENesin 600 MG TABLET.ER PO SCH ×2 (08:58→21:23)
[2020-08-28] MEDS: ASCORBIC ACID 500 MG TAB PO SCH (09:03)
[2020-08-28] MEDS: CHLORHEXIDINE GLUCONATE 15 ML CUP MUCOUS MEM SCH ×2 (09:03→21:38)
[2020-08-28] MEDS: DEXAMETHASONE SOD PHOSPHATE 10 MG/ML 1 ML VIAL IV SCH ×2 (09:03→21:38)
[2020-08-28] MEDS: CHOLECALCIFEROL 25 MCG (1000 IU) TABLET PO SCH (09:03)
[2020-08-28] MEDS: SODIUM CHLORIDE 0.9% 1,000 ML IV SCH ×2 (09:03→18:08)
[2020-08-28] MEDS: PANTOPRAZOLE 40 MG TABLET PO SCH (09:04)
[2020-08-28] MEDS: ZINC SULFATE 220 MG CAP PO SCH (09:04)
[2020-08-28 09:08] LABS: Basophils # (A) 0.4 k/uL (0-0.2); Basophils % (A) 1 %; Eosinophils % (A) 0 %; Lymphocytes # (A) 0.4 k/uL (1.0-4.8); Lymphocytes % (A) 1 %; MCHC 32.8 g/dL (31.0-37.0); MCV 100.7 fL (80.0-100.0); Mean Platelet Volume 9.5; Monocytes # (A) 1.4 k/uL (0-1.0); Monocytes % (A) 3 %; Neutrophils # (A) 43.3 k/uL (1.3-7.7); Neutrophils % (A) 95 %; Platelet Count 181 k/uL (150-450); RBC 5.56 m/uL (4.30-5.90); RDW 12.8 % (11.5-15.5); WBC 45.6 k/uL (3.8-10.6)
[2020-08-28] MEDS: ENOXAPARIN 60 MG/0.6 ML SYRINGE SQ SCH ×2 (09:09→21:38)
[2020-08-28 09:11] LABS: HGB 18.4 gm/dL (13.0-17.5)
[2020-08-28 09:45] LABS: Albumin 3.5 g/dL (3.5-5.0); C Reactive Protein 0.9 mg/dL (<1.0); Calcium 8.3 mg/dL (8.4-10.2); Magnesium 2.2 mg/dL (1.6-2.3); Potassium 4.4 mmol/L (3.5-5.1); Total Bilirubin 1.5 mg/dL (0.2-1.3); Total Protein 7.1 g/dL (6.3-8.2)
[2020-08-28 10:12] LABS: Phosphorus 10.1 mg/dL (2.5-4.5)
[2020-08-28] MEDS ORDERED: SODIUM CHLORIDE 0.9% 1,000 ML IV ONE ×2 (10:30→23:27)
[2020-08-28 10:35] LABS: ABG Base Excess -7.1 mmol/L; ABG HCO3 24 mmol/L (21-25); ABG Oxygen Saturation 87.9 % (94-97); ABG PO2 77 mmHg (83-108); ABG TCO2 27 mmol/L (19-24)
[2020-08-28 10:38] LABS: ABG PCO2 99 mmHg (35-45)
[2020-08-28] MEDS ORDERED: SODIUM BICARB 8.4% 50 ML SYR (1 MEQ/ML) IV STA ×2 (10:41→13:48)
[2020-08-28] MEDS: PANTOPRAZOLE 40 MG/10 ML VIAL IVP SCH (10:49)
--- NOTE | 2020-08-28 10:59 | P.PN ---
Subjective Progress Note Date: 08/28/20 Patient's overall condition deteriorated overnight with worsening episode of hypoxemia requiring intubation and mechanical ventilation. He is currently in the prone position when I saw him this morning. Objective - Vital Signs Vital signs: Vital Signs Temp 98 F 08/28/20 00:00 Pulse 116 H 08/28/20 10:00 Resp 36 H 08/28/20 10:00 BP 92/50 08/28/20 10:00 Pulse Ox 85 L 08/28/20 10:00 Intake & Output 08/27/20 08/28/20 08/28/20 18:59 06:59 18:59 Intake Total 1550 1290 342.780 Output Total 720 659 180 Balance 830 631 162.780 Weight 102.5 kg Intake: IV 1550 1290 290 Amino Acid 5%-D15w+Lytes* 1080 990 90 E* 1,000 ml @ 90 mls/hr IV .BY DURATION ISH Rx#: [id number] Sodium Chloride 0.9% 1, 470 300 200 000 ml @ 50 mls/hr IV . Q20H IS[facility] Rx#:[id number] Intake, IV Titration 52.780 Amount Cisatracurium 200 mg In 15.418 Sodium Chloride 0.9% 180 ml @ 2 MCG/KG/MIN 12.672 mls/hr IV .[id number] IS[facility] Rx #:[id number] fentaNYL (PF). 1,000 mcg 10.25 In Sodium Chloride 0.9% 80 ml @ Per Protocol IV . Q0M IS[facility] Rx#:[id number] propofoL 1,000 mg In 27.112 Empty Bag 1 bag @ Titrate IV .Q0M ISH Rx#: [id number] Output: Urine 720 659 180 Other: Voiding Method Indwelling Catheter Indwelling Catheter ABP, PAP, CO, CI - Last Documented Arterial Blood Pressure 88/65 - Exam General: The patient is in the prone position. He is sedated and intubated Eye: there is normal conjunctiva bilaterally. Neck: The neck is supple, there is no JVD. Cardiovascular: Normal S1-S2, no S3-S4, no murmurs. Respiratory: Lungs with mechanical ventilator sounds Gastrointestinal: Abdomen is soft, nontender Musculoskeletal: There is no pedal edema. Skin: Skin is warm and dry - Labs CBC & Chem 7: 08/28/20 07:45 08/28/20 08:50 Labs: Abnormal Lab Results - Last 24 Hours (Table) 08/27/20 08/27/20 08/28/20 Range/Units 11:31 14:07 03:04 WBC (3.8-10.6) k/uL Hgb (13.0-17.5) gm/dL Hct (39.0-53.0) % MCV (80.0-100.0) fL Neutrophils # (1.3-7.7) k/uL Lymphocytes # (1.0-4.8) k/uL Monocytes # (0-1.0) k/uL Basophils # (0-0.2) k/uL D-Dimer (<0.60) mg/L FEU ABG pH (7.35-7.45) ABG pCO2 31 L (35-45) mmHg ABG pO2 42 L* (83-108) mmHg ABG HCO3 20 L (21-25) mmol/L ABG Total CO2 (19-24) mmol/L ABG O2 Saturation 74.1 L (94-97) % Chloride 108 H (98-107) mmol/L BUN 22 H (9-20) mg/dL Creatinine 0.60 L (0.66-1.25) mg/dL Glucose 132 H (74-99) mg/dL POC Glucose (mg/dL) 125 H (75-99) mg/dL Calcium 7.9 L (8.4-10.2) mg/dL Phosphorus (2.5-4.5) mg/dL Total Bilirubin (0.2-1.3) mg/dL AST (17-59) U/L ALT (4-49) U/L Alkaline Phosphatase (38-126) U/L Lactate Dehydrogenase (313-618) U/L 08/28/20 08/28/20 08/28/20 Range/Units 05:41 07:45 07:45 WBC 45.6 H (3.8-10.6) k/uL Hgb 18.4 H D (13.0-17.5) gm/dL Hct 56.0 H (39.0-53.0) % MCV 100.7 H (80.0-100.0) fL Neutrophils # 43.3 H (1.3-7.7) k/uL Lymphocytes # 0.4 L (1.0-4.8) k/uL Monocytes # 1.4 H (0-1.0) k/uL Basophils # 0.4 H (0-0.2) k/uL D-Dimer 17.93 H (<0.60) mg/L FEU ABG pH 7.13 L* (7.35-7.45) ABG pCO2 80 H* (35-45) mmHg ABG pO2 50 L* (83-108) mmHg ABG HCO3 26 H (21-25) mmol/L ABG Total CO2 29 H (19-24) mmol/L ABG O2 Saturation 67.8 L (94-97) % Chloride (98-107) mmol/L BUN (9-20) mg/dL Creatinine (0.66-1.25) mg/dL Glucose (74-99) mg/dL POC Glucose (mg/dL) (75-99) mg/dL Calcium (8.4-10.2) mg/dL Phosphorus (2.5-4.5) mg/dL Total Bilirubin (0.2-1.3) mg/dL AST (17-59) U/L ALT (4-49) U/L Alkaline Phosphatase (38-126) U/L Lactate Dehydrogenase (313-618) U/L 08/28/20 08/28/20 Range/Units 08:50 10:28 WBC (3.8-10.6) k/uL Hgb (13.0-17.5) gm/dL Hct (39.0-53.0) % MCV (80.0-100.0) fL Neutrophils # (1.3-7.7) k/uL Lymphocytes # (1.0-4.8) k/uL Monocytes # (0-1.0) k/uL Basophils # (0-0.2) k/uL D-Dimer (<0.60) mg/L FEU ABG pH 7.00 L* (7.35-7.45) ABG pCO2 99 H* (35-45) mmHg ABG pO2 77 L (83-108) mmHg ABG HCO3 (21-25) mmol/L ABG Total CO2 27 H (19-24) mmol/L ABG O2 Saturation 87.9 L (94-97) % Chloride (98-107) mmol/L BUN 27 H (9-20) mg/dL Creatinine (0.66-1.25) mg/dL Glucose 242 H (74-99) mg/dL POC Glucose (mg/dL) (75-99) mg/dL Calcium 8.3 L (8.4-10.2) mg/dL Phosphorus 10.1 H* (2.5-4.5) mg/dL Total Bilirubin 1.5 H (0.2-1.3) mg/dL AST 143 H (17-59) U/L ALT 388 H (4-49) U/L Alkaline Phosphatase 171 H (38-126) U/L Lactate Dehydrogenase 3870 H (313-618) U/L Assessment and Plan Assessment: Patient is a 70-year-old male with a history of asthma and obesity who initially presented to the ER with complaints of shortness of breath, nausea, and poor appetite. He had known positive COVID testing on 08/09/20. In the ER he was found be hypoxic at 86% on room air. He again was COVID-19 PCR positive. Chest x-ray demonstrated pneumonia. He was outside of the window for Remdesivir. His oxygen requirement increased throughout his hospital stay. Patient is currently admitted to the ICU for further management of his medical problems noted below COVID-19 pneumonitis, acute hypoxic respiratory failure Acute hypoxic and hypercapnic respiratory failure requiring intubation and mechanical ventilation on 08/28 -Ventilatory managed by claims service adjustor - On Decadron D#14 managed by pulmonology - Continue with vitamins - TOCI 08/20 - Lovenox increased due to D-dimer > 3 Transaminitis, mild, improving - likely related to COVID vs history of ETOH use - follow liver enzymes Asthma without exacerbation - albuterol Obesity with BMI 35.9 - structure weight loss once COVID resolved. DVT prophylaxis with subcu Lovenox CODE STATUS, patient is full code Prognosis guarded. DVT prophylaxis: Lovenox Discussed with: Patient, nursing Anticipated discharge: unknown Anticipated discharge place: pending course A total of 35 minutes was spent on the care of this complex patient more than 50% of the time was spent in counseling and care coordination.
[2020-08-28] MEDS: fentaNYL (PF). 1,000 MCG in SODIUM CHLORIDE 0.9% 80 ML IV SCH (11:30)
[2020-08-28 11:58] LABS: Glucose,Whole Blood 103 mg/dL (75-99)
[2020-08-28 12:21] LABS: ABG Base Excess -0.9 mmol/L; ABG HCO3 29 mmol/L (21-25); ABG Oxygen Saturation 86.3 % (94-97); ABG PO2 64 mmHg (83-108); ABG TCO2 32 mmol/L (19-24)
[2020-08-28 12:24] LABS: ABG PCO2 92 mmHg (35-45)
[2020-08-28] MEDS: NOREPINEPHRINE 8 MG in SODIUM CHLORIDE 0.9% 250 ML IV SCH (13:07)
[2020-08-28 15:41] LABS: ABG Base Excess 3.8 mmol/L; ABG HCO3 32 mmol/L (21-25); ABG Oxygen Saturation 92.5 % (94-97); ABG PH 7.21 (7.35-7.45); ABG PO2 69 mmHg (83-108); ABG TCO2 34 mmol/L (19-24); Allen Test Performed? Yes
[2020-08-28 15:43] LABS: ABG PCO2 80 mmHg (35-45)
[2020-08-28 17:35] LABS: Glucose,Whole Blood 143 mg/dL (75-99)
[2020-08-28] MEDS: MELATONIN 5 MG TABLET PO SCH (21:23)
[2020-08-28 23:50] LABS: Glucose,Whole Blood 122 mg/dL (75-99)
[2020-08-29] MEDS: SODIUM CHLORIDE 0.9% 1,000 ML IV SCH ×2 (01:17→12:01)
[2020-08-29] MEDS: fentaNYL (PF). 1,000 MCG in SODIUM CHLORIDE 0.9% 80 ML IV SCH ×2 (01:31→11:22)
[2020-08-29 04:55] LABS: ABG Base Excess 2.9 mmol/L; ABG HCO3 31 mmol/L (21-25); ABG Oxygen Saturation 95.3 % (94-97); ABG PH 7.22 (7.35-7.45); ABG PO2 80 mmHg (83-108); ABG TCO2 33 mmol/L (19-24)
[2020-08-29 05:14] LABS: Basophils % (A) 0 %; Eosinophils # (A) 0.1 k/uL (0-0.7); Eosinophils % (A) 0 %; HCT 47.5 % (39.0-53.0); HGB 15.9 gm/dL (13.0-17.5); Lymphocytes # (A) 0.5 k/uL (1.0-4.8); Lymphocytes % (A) 2 %; MCH 33.1 pg (25.0-35.0); MCHC 33.4 g/dL (31.0-37.0); MCV 99.2 fL (80.0-100.0); Mean Platelet Volume 9.2; Monocytes # (A) 0.7 k/uL (0-1.0); Monocytes % (A) 3 %; Neutrophils # (A) 22.8 k/uL (1.3-7.7); Neutrophils % (A) 94 %; RBC 4.78 m/uL (4.30-5.90); RDW 13.2 % (11.5-15.5); WBC 24.2 k/uL (3.8-10.6)
[2020-08-29 05:20] LABS: Platelet Count 69 k/uL (150-450)
[2020-08-29 05:32] LABS: Albumin 2.7 g/dL (3.5-5.0); Calcium 6.7 mg/dL (8.4-10.2); Magnesium 2.2 mg/dL (1.6-2.3); Total Bilirubin 1.3 mg/dL (0.2-1.3); Total Protein 5.7 g/dL (6.3-8.2)
[2020-08-29 05:40] LABS: ABG PCO2 75 mmHg (35-45)
[2020-08-29 05:41] LABS: Allen Test Performed? no
[2020-08-29 05:54] LABS: Glucose,Whole Blood 122 mg/dL (75-99)
--- NOTE | 2020-08-29 07:15 | XR ---
EXAMINATION TYPE: XR chest 1V portable DATE OF EXAM: 08/29/2020 COMPARISON: 08/28/2020 HISTORY: Tube placement TECHNIQUE: Single frontal view of the chest is obtained. FINDINGS: ET and NG tube seen and there is a left-sided central line. Bilateral lower lobe infiltrat e and interstitial pattern noted. Calcified granuloma right lower lobe. Biapical pleural thickening. Could not exclude pneumomediastinum. IMPRESSION: 1. Diffuse bilateral infiltrate stable. 2. Could not exclude pneumomediastinum correlate clinically.
[2020-08-29] MEDS: ALBUTEROL HFA INHALER INHALATION SCH ×4 (07:37→19:12)
[2020-08-29] MEDS: guaiFENesin 600 MG TABLET.ER PO SCH ×2 (08:39→21:33)
[2020-08-29] MEDS: CHOLECALCIFEROL 25 MCG (1000 IU) TABLET PO SCH (08:49)
[2020-08-29] MEDS: ZINC SULFATE 220 MG CAP PO SCH (08:49)
[2020-08-29] MEDS: ASCORBIC ACID 500 MG TAB PO SCH (08:49)
[2020-08-29] MEDS: CHLORHEXIDINE GLUCONATE 15 ML CUP MUCOUS MEM SCH ×2 (08:49→21:29)
[2020-08-29] MEDS: DEXAMETHASONE SOD PHOSPHATE 10 MG/ML 1 ML VIAL IV SCH ×2 (08:50→21:29)
[2020-08-29] MEDS: PANTOPRAZOLE 40 MG/10 ML VIAL IVP SCH (08:50)
[2020-08-29] MEDS: ENOXAPARIN 60 MG/0.6 ML SYRINGE SQ SCH ×2 (08:50→21:32)
[2020-08-29] MEDS: NOREPINEPHRINE 8 MG in SODIUM CHLORIDE 0.9% 250 ML IV SCH ×2 (11:22→23:42)
[2020-08-29 11:52] LABS: Glucose,Whole Blood 147 mg/dL (75-99)
--- NOTE | 2020-08-29 11:59 | P.PN ---
Subjective Progress Note Date: 08/29/20 Principal diagnosis: COVID-19 pneumonia 70-year-old white male patient who presented to the hospital on 08/15/2020 with complaints of 10 day history of loss of taste, cough, shortness of breath, fever. Patient and his have been staying with her daughter who tested positive for COVID, patient had an outpatient test for COVID-19 on 08/09/2020 and was found to be positive. Last few days he's been having increased shortness of breath, cough. Past medical history is noncontributory, other than osteoarthritis with previous history of joint replacement surgery in the right knee, patient is lifetime nonsmoker, does have history of chronic bronchial asthma, not on any maintenance inhalers on a regular basis. Chest x-ray in the emergency department shows some patchy airspace disease on the right, calcified granuloma in the right lower lobe, no pneumothorax or pleural effusion. His repeat COVID-19 PCR in the emergency room was positive, RSV and influenza screen were negative. His admission blood work showed neutropenia, and lymphopenia, white blood cell count was 2.6, and leukocyte count was 0.4, d-dimer was 0.95, potassium is 3.1, rest of the electrolytes and renal profile were unremarkable, lactic acid was 1.1, AST was 63, ALT and alk phos were within normal limits, LDH was 1283, CRP was 7.1, pro calcitonin level was negative at 0.10. Patient was satting 86% on room air, currently requiring 4 L of supplemental oxygen with a pulse ox of 91-94%, he is afebrile. Lung sounds reveal diffuse coarse crackles at bilateral bases. Patient was started on Decadron this milligram daily, and prophylactic Lovenox. he is outside the window for Remdesivir On 08/17/2020 patient seen in follow-up on medical surgical floor, he is resting in bed, appears to be in no acute distress, he still on 5 L of oxygen has pulse ox of 90-91%, he is afebrile, hemodynamically stable, he states when he walks to the bathroom he gets very lightheaded and dizzy and sometimes feel like he is going to pass out. He does get short of breath, he was instructed to call for help when ambulating to the bathroom. Sounds reveal diffuse crackles bilaterally, today's follow-up chest x-ray showing patchy airspace disease lung bases. He is trying to work on incentive spirometer. Today's labs have been reviewed, his d-dimer today is 0.55, inflammatory markers are improving, and his LDH is 609, and CRP is 3.6. An patient remains on Decadron 6 mg daily, and prophylactic dose Lovenox in addition to vitamins On 08/18/2020 patient seen in follow-up on medical surgical floor. He is currently down to 4 L of oxygen pulse ox is 93%, he states he still feels weak and wobbly when walking to the bathroom, at times he gets lightheaded, but no worsening dyspnea, no signs of any respiratory distress. Today's labs have been noted, d-dimer from yesterday is 0.55, inflammatory markers were improving, no cough, no complaints of chest discomfort, he remains on Decadron 6 blood gram d aily, and Lovenox 40 mg daily. On 08/19/2020 patient seen in follow-up on medical surgical floor, he is sitting up in the recliner, in no acute distress, is on 6 L of supplemental oxygen his pulse ox is 89-90%, no worsening dyspnea, although he does get short of breath and desat with exertion, consulted physical therapy and patient had ambulated with a walker. His ambulation ability slow shaky, no complaints of dizziness. Doing fairly well, no acute events overnight, and he is on Decadron, patient was not a candidate for Remdesivir, he is on prophylactic Lovenox, today's labs have been reviewed On 08/20/2020 patient seen in follow-up on medical surgical floor. In the last 24 hours his oxygenation has significantly deteriorated, he is currently on Airvo at 60 L and FiO2 of 92%, his pulse ox is 85-88%, his been afebrile, his temp of 101.7F, complaining of headache, he looks weak, he looks a lot more ill today, fatigued, short of breath with conversation, he has occasional cough, he was outside the window for Remdesivir, he has been on Decadron 6 mg daily, he is on prophylactic Lovenox, we'll give him a dose of Toci today On 08/21/2020 patient continued to worsen through the night, with increased work of breathing, and increased oxygenation needs, he was placed on Airvo yesterday, at 60 L in FiO2 of 93%, and he is requiring 100% nonrebreather mask on top of it, his pulse ox is only 80%, he is very tachypneic with respiratory rate in the 30s, diaphoretic, and looking fatigued. He was transferred to the intensive care unit this morning and placed on BiPAP support with pressures of 14/6 and FiO2 100%, he is actually tolerating that quite well, and seems more comfortable on it, lung sounds reveal diffuse coarse crackles at bilateral posterior bases, he is afebrile this morning, his chest x-ray today showing bilateral lower lobe infiltrates and small effusion., Yesterday his d-dimer with up to 10.10, and if it remains elevated again today at 10.19, his Lovenox dose was adjusted and he is currently on 60 mg of Lovenox every 12 hours. He remains on IV dexamethasone 6 mg daily, was given a dose of Actemra yesterday On 08/24/2020 patient seen in follow-up in the intensive care unit, he remains on BiPAP its at pressures of 14/7 and FiO2 of 90%. He seems to be tolerating BiPAP support quite well, seems to be very comfortable on that. He has remained on BiPAP continuously for 24 hours, try Airvo on him again today. Appears to be in no acute distress, on those above-mentioned settings his pulse ox is ranging between 86-91%, respiratory rate is in the mid 20s, blood pressure stable, he has been afebrile. Lung sounds reveal diminished breath sounds with some bibasilar crackles. No complaints of chest pain overnight, 2 sets of troponins were less than 0.012. Echocardiogram was a technically difficult study with suboptimal views, and the EF was not calculated, RV was not visualized, left atrium, right atrium, and all the valves were not well visualized. And as such this was a suboptimal study. No complaints of chest pain overnight, no complaints of chest pain this morning. This morning's labs have been reviewed, his d-dimer is 7.66 on today's labs, white blood cell count is 10.5, hemoglobin of 14.5, sodium is 135, the rest of electrolytes and renal profile were unremarkable, LDH is 1658, CRP is 2.8. No nausea vomiting or diarrhea, abdomen is soft, no worsening dyspnea On 08/25/2020 patient seen in follow-up in intensive care unit, yesterday he tolerated Airvo at 60 L and FiO2 of 90% in addition to 100% nonrebreather mask all day, and he was placed back on BiPAP support with pressures of 14/7 and FiO2 of 90% overnight, this morning she seen in the intensive care unit, he is resting comfortably in bed, he remains on BiPAP support and his pulse ox on above-mentioned settings is 92-95%. He denies any worsening dyspnea, he is easi ly arousable to voice, and answering simple questions, lung sounds reveal diminished breath sounds at the bases, with minimal crackles. Today's chest x- ray is pending, today's labs have been reviewed during white blood cell count of 12.4, hemoglobin of 14.6, d-dimer remains elevated at 7.86, and patient's on Lovenox at 50 mg twice daily. No complaints of chest pain. No cough, no congestion, yesterday while he was on Airvo he was able to take in some oral feedings, and had a fair appetite. She is in sinus mechanism, hemodynamically she is stable, he is on plane, sitting at a rate of 50 ML per hour. He remains on Decadron at 6 mg twice daily. His renal function is within normal limits to day with B1 of 18 creatinine 0.71, sodium was 135, and her serum electrolytes were within normal limits, 2 sets of troponins were less than 0.012, limited echocardiogram was a suboptimal study, however there was no recurrence of chest discomfort from 2 days ago, and heparin drip was discontinued, no acute ST wave changes. No vomiting or diarrhea, abdomen is soft, no complaints of abdominal pain. On 08/26/2020 patient seen in follow-up in intensive care unit, currently on BiPAP with pressures of 14/7 and FiO2 100%, and his pulse ox is 88%, yesterday he was able to tolerate Airvo and nonrebreather and come off the BiPAP for short periods of time. Today he seems more lethargic compared to yesterday, he is tachypneic, but he is achieving over 1 L and tidal volumes on the BiPAP, his respiratory rate is in the mid 30s. He opens eyes to voice, he lightly groans in response to questions, but not really providing full sentence responses. Yesterday we gave him a dose of IV Lasix, he diuresed quite well, and he is in - 3.1 L over the last 24 hours. Despite the diuresis, the patient failed to improve, today's chest x-ray still showed persistent bibasilar and right midlung peripheral opacities consistent with COVID-19. Oral intake has been poor, and at this time we are considering low rate IV fluids. Labs have been reviewed, his white blood cell count is 16.8, hemoglobin is 15.7, he is a d-dimer is 9.28, sodium is 136, the rest of electrolytes are within normal limits, his BUN is 22, creatinine is 0.82, his LDH has actually trended up, and is at 2202, and CRP 1.2. On 08/29/2020 patient seen in follow-up in the intensive care unit, he was intubated over the weekend, he is currently remains sedated and paralyzed on mechanical ventilation, on assist-control mode of ventilation with a rate of 30, tidal vital 390, FiO2 100% and PEEP of 18. This morning his blood gases showed pO2 of 80, pCO2 75, and pH of 7.22. This was done 100% FiO2. His peak pressures are 45, plateau pressure is 42. Is currently on 0.9 at 1:30 ML per hour, Levothroid is at 11 mics per minute, fentanyl drip is at 0.5 mics per kilo per hour, Diprivan and is at 50 mics per kilo per minute, and index is at 1 jacob per kilo per minute, he is receiving tube feedings in the form of vital high- protein at 10 ML per hour. He is in sinus mechanism, slightly tachycardic with a rate of 109 BPM. Patient was proned last night, he is currently supine. His chest x-ray today shows diffuse bilateral infiltrates that are stable in appearance, and possibility of pneumomediastinum could not be excluded. Today's labs have been reviewed showing white blood cell count of 24.2, hemoglobin of 15.8, sodium is 142, potassium is 5.0, chloride is 110, CO2 is 30, BUN of 38, and creatinine of 1.35. AST was 92, ALT is 290, alkaline phosphatase is 110. CRP is 1.4 Objective - Vital Signs Vital signs: Vital Signs Temp 98.3 F 08/29/20 08:00 Pulse 91 08/29/20 09:00 Resp 26 H 08/29/20 09:00 BP 107/57 08/29/20 09:00 Pulse Ox 93 L 08/29/20 09:00 Intake & Output 08/28/20 08/29/20 08/29/20 18:59 06:59 18:59 Intake Total 7330.470 5522.232 716.484 Output Total 395 378 95 Balance 3713.007 4978.232 621.484 Weight 105 kg Intake: IV 1720 1560 390 Amino Acid 5%-D15w+Lytes* 90 E* 1,000 ml @ 90 mls/hr IV .BY DURATION [facility] Rx#: [id number] Sodium Chloride 0.9% 1, 130 1560 390 000 ml @ 130 mls/hr IV . Q7H42M [facility] Rx#:[id number] Sodium Chloride 0.9% 1, 500 000 ml @ 50 mls/hr IV . Q20H [facility] Rx#:[id number] Sodium Chloride 0.9% 1, 1000 000 ml @ 999 mls/hr IV . Q1H1M ONE Rx#:[id number] Intake, IV Titration 235.465 557.232 236.484 Amount Cisatracurium 200 mg In 98.103 265.267 38.438 Sodium Chloride 0.9% 180 ml @ 2 MCG/KG/MIN 12.672 mls/hr IV .[id number] [facility] Rx #:[id number] Norepinephrine 8 mg In 94.300 79.076 Sodium Chloride 0.9% 250 ml @ 0.05 MCG/KG/MIN 10. 217 mls/hr IV .Q24H [facility] Rx#:[id number] fentaNYL (PF). 1,000 mcg 10.25 In Sodium Chloride 0.9% 80 ml @ Per Protocol IV . Q0M [facility] Rx#:[id number] fentaNYL (PF). 1,000 mcg 71.835 51.507 In Sodium Chloride 0.9% 80 ml @ Per Protocol IV . Q0M [facility] Rx#:[id number] propofoL 1,000 mg In 127.112 125.83 67.463 Empty Bag 1 bag @ Titrate IV .Q0M [facility] Rx#: [id number] Tube Feeding 40 60 Other 30 Output: Urine 395 378 95 Other: Voiding Method Indwelling Catheter Indwelling Catheter Indwelling Catheter ABP, PAP, CO, CI - Last Documented Arterial Blood Pressure 114/60 - Exam GENERAL EXAM: 70-year-old white male, assist control mode of ventilation, with FiO2 of 100% and PEEP of 18, sedated, and paralyzed. Patient appears to be generally swollen on today's exam including his face and upper arms HEAD: Normocephalic/atraumatic. EYES: Normal reaction of pupils, equal size. Conjunctiva pink, sclera white. NOSE: Clear with pink turbinates. THROAT: No erythema or exudates. NECK: No masses, no JVD, no thyroid enlargement, no adenopathy. CHEST: No chest wall deformity. Symmetrical expansion. LUNGS: Equal air entry with coarse bibasilar crackles CVS: Regular rate and rhythm, normal S1 and S2, no gallops, no murmurs, no rubs ABDOMEN: Soft, nontender. No hepatosplenomegaly, normal bowel sounds, no guarding or rigidity. EXTREMITIES: No clubbing, generalized nonpitting edema no cyanosis, 2+ pulses and upper and lower extremities. MUSCULOSKELETAL: Muscle strength and tone normal. SPINE: No scoliosis or deformity SKIN: No rashes CENTRAL NERVOUS SYSTEM: Intubated, sedated and paralyzed No focal deficits, tone is normal in all 4 extremities. - Labs CBC & Chem 7: 08/29/20 04:55 08/29/20 04:55 Labs: Abnormal Lab Results - Last 24 Hours (Table) 08/28/20 08/28/20 08/28/20 Range/Units 11:56 12:15 15:22 WBC (3.8-10.6) k/uL Plt Count (150-450) k/uL Neutrophils # (1.3-7.7) k/uL Lymphocytes # (1.0-4.8) k/uL D-Dimer (<0.60) mg/L FEU ABG pH 7.10 L* (7.35-7.45) ABG pCO2 92 H* (35-45) mmHg ABG pO2 64 L (83-108) mmHg ABG HCO3 29 H (21-25) mmol/L ABG Total CO2 32 H (19-24) mmol/L ABG O2 Saturation 86.3 L (94-97) % Chloride (98-107) mmol/L BUN (9-20) mg/dL Creatinine (0.66-1.25) mg/dL Glucose (74-99) mg/dL POC Glucose (mg/dL) 103 H (75-99) mg/dL Calcium (8.4-10.2) mg/dL Phosphorus 8.8 H (2.5-4.5) mg/dL AST (17-59) U/L ALT (4-49) U/L C-Reactive Protein (<1.0) mg/dL Total Protein (6.3-8.2) g/dL Albumin (3.5-5.0) g/dL 08/28/20 08/28/20 08/28/20 Range/Units 15:37 17:33 23:48 WBC (3.8-10.6) k/uL Plt Count (150-450) k/uL Neutrophils # (1.3-7.7) k/uL Lymphocytes # (1.0-4.8) k/uL D-Dimer (<0.60) mg/L FEU ABG pH 7.21 L (7.35-7.45) ABG pCO2 80 H* (35-45) mmHg ABG pO2 69 L (83-108) mmHg ABG HCO3 32 H (21-25) mmol/L ABG Total CO2 34 H (19-24) mmol/L ABG O2 Saturation 92.5 L (94-97) % Chloride (98-107) mmol/L BUN (9-20) mg/dL Creatinine (0.66-1.25) mg/dL Glucose (74-99) mg/dL POC Glucose (mg/dL) 143 H 122 H (75-99) mg/dL Calcium (8.4-10.2) mg/dL Phosphorus (2.5-4.5) mg/dL AST (17-59) U/L ALT (4-49) U/L C-Reactive Protein (<1.0) mg/dL Total Protein (6.3-8.2) g/dL Albumin (3.5-5.0) g/dL 08/29/20 08/29/20 08/29/20 Range/Units 04:52 04:55 04:55 WBC 24.2 H (3.8-10.6) k/uL Plt Count 69 L D (150-450) k/uL Neutrophils # 22.8 H (1.3-7.7) k/uL Lymphocytes # 0.5 L (1.0-4.8) k/uL D-Dimer (<0.60) mg/L FEU ABG pH 7.22 L (7.35-7.45) ABG pCO2 75 H* (35-45) mmHg ABG pO2 80 L (83-108) mmHg ABG HCO3 31 H (21-25) mmol/L ABG Total CO2 33 H (19-24) mmol/L ABG O2 Saturation (94-97) % Chloride 110 H (98-107) mmol/L BUN 38 H (9-20) mg/dL Creatinine 1.35 H (0.66-1.25) mg/dL Glucose 148 H (74-99) mg/dL POC Glucose (mg/dL) (75-99) mg/dL Calcium 6.7 L (8.4-10.2) mg/dL Phosphorus 6.0 H (2.5-4.5) mg/dL AST 92 H (17-59) U/L ALT 290 H (4-49) U/L C-Reactive Protein (<1.0) mg/dL Total Protein 5.7 L (6.3-8.2) g/dL Albumin 2.7 L (3.5-5.0) g/dL 08/29/20 08/29/20 08/29/20 Range/Units 05:52 06:05 06:05 WBC (3.8-10.6) k/uL Plt Count (150-450) k/uL Neutrophils # (1.3-7.7) k/uL Lymphocytes # (1.0-4.8) k/uL D-Dimer 10.13 H (<0.60) mg/L FEU ABG pH (7.35-7.45) ABG pCO2 (35-45) mmHg ABG pO2 (83-108) mmHg ABG HCO3 (21-25) mmol/L ABG Total CO2 (19-24) mmol/L ABG O2 Saturation (94-97) % Chloride (98-107) mmol/L BUN (9-20) mg/dL Creatinine (0.66-1.25) mg/dL Glucose (74-99) mg/dL POC Glucose (mg/dL) 122 H (75-99) mg/dL Calcium (8.4-10.2) mg/dL Phosphorus (2.5-4.5) mg/dL AST (17-59) U/L ALT (4-49) U/L C-Reactive Protein 1.4 H (<1.0) mg/dL Total Protein (6.3-8.2) g/dL Albumin (3.5-5.0) g/dL Assessment and Plan Plan: Assessment: #1. Acute hypoxic respiratory failure related to acute COVID-19 pneumonia, with onset of symptoms 10 days prior to presentation, patient had outpatient positive COVID-19 test on 08/09/2020, outside the window for Remdesivir. Hypoxia progressed and patient received Toci on 08/20/2020. Patient was transferred to the intensive care unit on 08/21/2020 and placed on BiPAP support #2. Increased d-dimer related to COVID-19 infection, lower extremity Dopplers were negative for DVT. Patient's currently on Lovenox 50 mg twice daily #3. Neutropenia, pro-calcitonin was negative, improved #4. Elevated liver enzymes related to viral pneumonia #5. Lifetime nonsmoker #6. History of chronic bronchial asthma, mild intermittent, inactive at this time #7. Episode of chest pain on 08/23/2020, EKG without significant ST segment elevation, 2 sets of negative troponins. Echocardiogram was a suboptimal study, unable to calculate EF, calculate chamber sizes or valves Plan: FiO2 down to 90, and PEEP up to 20 No paralytic or sedation holiday Still requiring high PEEP and high FiO2 Today's chest x-ray and labs reviewed Continue current dose Decadron Continue current dose Lovenox We will attempt pronating again if patient tolerates it Nutritional support in the form of tube feedings Daily blood gases, labs and chest x-ray Prognosis is guarded I performed a history & physical examination of the patient and discussed their management with my nurse practitioner, Magdalena Negrete. I reviewed the nurse practitioner's note and agree with the documented findings and plan of care. Lung sounds are positive for diminished breath sounds. The findings and the impression was discussed with the patient. I attest to the documentation by the nurse practitioner. Time with Patient: Greater than 30
[2020-08-29] MEDS: INSULIN ASPART (NovoLOG) 100 UNIT/ML VIAL SQ SCH ×2 (12:01→18:18)
--- NOTE | 2020-08-29 15:08 | P.PN ---
Subjective Progress Note Date: 08/29/20 Patient was seen and evaluated by me today. His overall condition is deteriorating. He is now requiring vasopressors. His mean arterial pressure at the time of my evaluation was 75. He is currently on propofol, Nimbex, and fentanyl. 2 feeding is running at 20 mL per hour. Awaiting dietitian evaluati on. Objective - Vital Signs Vital signs: Vital Signs Temp 98.1 F 08/29/20 12:00 Pulse 118 H 08/29/20 14:00 Resp 4 L 08/29/20 14:00 BP 117/61 08/29/20 14:00 Pulse Ox 92 L 08/29/20 14:00 Intake & Output 08/28/20 08/29/20 08/29/20 18:59 06:59 18:59 Intake Total 8175.144 9985.232 1286.484 Output Total 395 378 268 Balance 0329.591 3584.232 1018.484 Weight 105 kg 105 kg Intake: IV 1720 1560 820 Amino Acid 5%-D15w+Lytes* 90 E* 1,000 ml @ 90 mls/hr IV .BY DURATION [facility] Rx#: [id number] Sodium Chloride 0.9% 1, 130 1560 670 000 ml @ 130 mls/hr IV . Q7H42M [facility] Rx#:[id number] Sodium Chloride 0.9% 1, 500 000 ml @ 50 mls/hr IV . Q20H [facility] Rx#:[id number] Sodium Chloride 0.9% 1, 150 000 ml @ 75 mls/hr IV . [id number] [facility] Rx#:[id number] Sodium Chloride 0.9% 1, 1000 000 ml @ 999 mls/hr IV . Q1H1M [facility] Rx#:[id number] Intake, IV Titration 235.465 557.232 236.484 Amount Cisatracurium 200 mg In 98.103 265.267 38.438 Sodium Chloride 0.9% 180 ml @ 2 MCG/KG/MIN 12.672 mls/hr IV .[id number] [facility] Rx #:[id number] Norepinephrine 8 mg In 94.300 79.076 Sodium Chloride 0.9% 250 ml @ 0.05 MCG/KG/MIN 10. 217 mls/hr IV .Q24H [facility] Rx#:[id number] fentaNYL (PF). 1,000 mcg 10.25 In Sodium Chloride 0.9% 80 ml @ Per Protocol IV . Q0M [facility] Rx#:[id number] fentaNYL (PF). 1,000 mcg 71.835 51.507 In Sodium Chloride 0.9% 80 ml @ Per Protocol IV . Q0M [facility] Rx#:[id number] propofoL 1,000 mg In 127.112 125.83 67.463 Empty Bag 1 bag @ Titrate IV .Q0M [facility] Rx#: [id number] Tube Feeding 40 170 Other 60 Output: Urine 395 378 268 Other: Voiding Method Indwelling Catheter Indwelling Catheter Indwelling Catheter ABP, PAP, CO, CI - Last Documented Arterial Blood Pressure 94/59 - Exam General: The patient is sedated and intubated Eye: there is normal conjunctiva bilaterally. Neck: The neck is supple, there is no JVD. Cardiovascular: Normal S1-S2, no S3-S4, no murmurs. Respiratory: Lungs with mechanical ventilator sounds Gastrointestinal: Abdomen is soft, nontender Musculoskeletal: There is no pedal edema. Skin: Skin is warm and dry - Labs CBC & Chem 7: 08/29/20 04:55 08/29/20 04:55 Labs: Abnormal Lab Results - Last 24 Hours (Table) 08/28/20 08/28/20 08/28/20 Range/Units 15:22 15:37 17:33 WBC (3.8-10.6) k/uL Plt Count (150-450) k/uL Neutrophils # (1.3-7.7) k/uL Lymphocytes # (1.0-4.8) k/uL D-Dimer (<0.60) mg/L FEU ABG pH 7.21 L (7.35-7.45) ABG pCO2 80 H* (35-45) mmHg ABG pO2 69 L (83-108) mmHg ABG HCO3 32 H (21-25) mmol/L ABG Total CO2 34 H (19-24) mmol/L ABG O2 Saturation 92.5 L (94-97) % Chloride (98-107) mmol/L BUN (9-20) mg/dL Creatinine (0.66-1.25) mg/dL Glucose (74-99) mg/dL POC Glucose (mg/dL) 143 H (75-99) mg/dL Calcium (8.4-10.2) mg/dL Phosphorus 8.8 H (2.5-4.5) mg/dL AST (17-59) U/L ALT (4-49) U/L C-Reactive Protein (<1.0) mg/dL Total Protein (6.3-8.2) g/dL Albumin (3.5-5.0) g/dL 08/28/20 08/29/20 08/29/20 Range/Units 23:48 04:52 04:55 WBC (3.8-10.6) k/uL Plt Count (150-450) k/uL Neutrophils # (1.3-7.7) k/uL Lymphocytes # (1.0-4.8) k/uL D-Dimer (<0.60) mg/L FEU ABG pH 7.22 L (7.35-7.45) ABG pCO2 75 H* (35-45) mmHg ABG pO2 80 L (83-108) mmHg ABG HCO3 31 H (21-25) mmol/L ABG Total CO2 33 H (19-24) mmol/L ABG O2 Saturation (94-97) % Chloride 110 H (98-107) mmol/L BUN 38 H (9-20) mg/dL Creatinine 1.35 H (0.66-1.25) mg/dL Glucose 148 H (74-99) mg/dL POC Glucose (mg/dL) 122 H (75-99) mg/dL Calcium 6.7 L (8.4-10.2) mg/dL Phosphorus 6.0 H (2.5-4.5) mg/dL AST 92 H (17-59) U/L ALT 290 H (4-49) U/L C-Reactive Protein (<1.0) mg/dL Total Protein 5.7 L (6.3-8.2) g/dL Albumin 2.7 L (3.5-5.0) g/dL 08/29/20 08/29/20 08/29/20 Range/Units 04:55 05:52 06:05 WBC 24.2 H (3.8-10.6) k/uL Plt Count 69 L D (150-450) k/uL Neutrophils # 22.8 H (1.3-7.7) k/uL Lymphocytes # 0.5 L (1.0-4.8) k/uL D-Dimer 10.13 H (<0.60) mg/L FEU ABG pH (7.35-7.45) ABG pCO2 (35-45) mmHg ABG pO2 (83-108) mmHg ABG HCO3 (21-25) mmol/L ABG Total CO2 (19-24) mmol/L ABG O2 Saturation (94-97) % Chloride (98-107) mmol/L BUN (9-20) mg/dL Creatinine (0.66-1.25) mg/dL Glucose (74-99) mg/dL POC Glucose (mg/dL) 122 H (75-99) mg/dL Calcium (8.4-10.2) mg/dL Phosphorus (2.5-4.5) mg/dL AST (17-59) U/L ALT (4-49) U/L C-Reactive Protein (<1.0) mg/dL Total Protein (6.3-8.2) g/dL Albumin (3.5-5.0) g/dL 08/29/20 08/29/20 Range/Units 06:05 11:40 WBC (3.8-10.6) k/uL Plt Count (150-450) k/uL Neutrophils # (1.3-7.7) k/uL Lymphocytes # (1.0-4.8) k/uL D-Dimer (<0.60) mg/L FEU ABG pH (7.35-7.45) ABG pCO2 (35-45) mmHg ABG pO2 (83-108) mmHg ABG HCO3 (21-25) mmol/L ABG Total CO2 (19-24) mmol/L ABG O2 Saturation (94-97) % Chloride (98-107) mmol/L BUN (9-20) mg/dL Creatinine (0.66-1.25) mg/dL Glucose (74-99) mg/dL POC Glucose (mg/dL) 147 H (75-99) mg/dL Calcium (8.4-10.2) mg/dL Phosphorus (2.5-4.5) mg/dL AST (17-59) U/L ALT (4-49) U/L C-Reactive Protein 1.4 H (<1.0) mg/dL Total Protein (6.3-8.2) g/dL Albumin (3.5-5.0) g/dL Assessment and Plan Assessment: Patient is a 70-year-old male with a history of asthma and obesity who initially presented to the ER with complaints of shortness of breath, nausea, and poor appetite. He had known positive COVID testing on 08/09/20. In the ER he was found be hypoxic at 86% on room air. He again was COVID-19 PCR positive. Chest x-ray demonstrated pneumonia. He was outside of the window for Remdesivir. His oxygen requirement increased throughout his hospital stay. Patient is currently admitted to the ICU for further management of his medical problems noted below COVID-19 pneumonitis, acute hypoxic respiratory failure Acute hypoxic and hypercapnic respiratory failure requiring intubation and mechanical ventilation on 08/28 -Ventilatory managed by data mining analyst - On Decadron D#15 managed by pulmonology - Continue with vitamins - TOCI 08/20 - Lovenox increased due to D-dimer > 3 Transaminitis, mild, improving - likely related to COVID vs history of ETOH use - follow liver enzymes Asthma without exacerbation - albuterol Obesity with BMI 35.9 - structure weight loss once COVID resolved. DVT prophylaxis with subcu Lovenox CODE STATUS, patient is full code Today, I reviewed his medication list and lab work results Continue IV fluid with normal saline at 75 mL per hour To feed currently running a 20 mL per hour awaiting a registered dietitian evaluation and adjustment Overall prognosis is guarded Sedation and vent are managed by data mining analyst Prognosis guarded. DVT prophylaxis: Lovenox Discussed with: Patient, nursing Anticipated discharge: unknown Anticipated discharge place: pending course A total of 35 minutes was spent on the care of this complex patient more than 50% of the time was spent in counseling and care coordination.
[2020-08-29 18:15] LABS: Glucose,Whole Blood 122 mg/dL (75-99)
[2020-08-29] MEDS: MELATONIN 5 MG TABLET PO SCH (21:33)
--- NOTE | 2020-08-29 22:30 | XR ---
EXAMINATION TYPE: XR chest 1V portable DATE OF EXAM: 08/29/2020 COMPARISON: Today HISTORY: Subcutaneous emphysema. TECHNIQUE: Single view FINDINGS: Endotracheal tube is 6 cm from the ben. There is nasogastric tube in the stomach. There is subcutaneous emphysema over the upper chest bilaterally. There is coarse pulmonary interstitial an d airspace edema in the mid and lower lung malik. There is no definite heart failure. Heart size is fairly normal. There are chest leads. There is blunting right costophrenic angle. There is left subcl renato catheter with tip in the superior vena cava unchanged. IMPRESSION: Pulmonary edema is slightly worse than exam this morning. This could relate to RDS. Tubin g in fairly good position.
[2020-08-29 23:45] LABS: Glucose,Whole Blood 142 mg/dL (75-99)
[2020-08-30] MEDS: INSULIN ASPART (NovoLOG) 100 UNIT/ML VIAL SQ SCH ×5 (00:53→23:33)
[2020-08-30] MEDS: fentaNYL (PF). 1,000 MCG in SODIUM CHLORIDE 0.9% 80 ML IV SCH ×2 (01:35→16:47)
[2020-08-30 05:08] LABS: Basophils # (A) 0.1 k/uL (0-0.2); Basophils % (A) 0 %; Eosinophils # (A) 0.1 k/uL (0-0.7); Eosinophils % (A) 0 %; HCT 47.5 % (39.0-53.0); HGB 15.4 gm/dL (13.0-17.5); Lymphocytes # (A) 0.5 k/uL (1.0-4.8); Lymphocytes % (A) 2 %; MCH 32.7 pg (25.0-35.0); MCHC 32.4 g/dL (31.0-37.0); MCV 100.9 fL (80.0-100.0); Macrocytosis Slight; Mean Platelet Volume 8.3; Monocytes # (A) 0.8 k/uL (0-1.0); Monocytes % (A) 3 %; Neutrophils # (A) 21.6 k/uL (1.3-7.7); Neutrophils % (A) 94 %; RBC 4.71 m/uL (4.30-5.90); RDW 13.4 % (11.5-15.5); WBC 23.1 k/uL (3.8-10.6)
[2020-08-30 05:12] LABS: Platelet Count 92 k/uL (150-450)
[2020-08-30 05:24] LABS: Albumin 2.8 g/dL (3.5-5.0); Calcium 7.5 mg/dL (8.4-10.2); Magnesium 2.6 mg/dL (1.6-2.3); Phosphorus 4.4 mg/dL (2.5-4.5); Potassium 5.5 mmol/L (3.5-5.1); Total Bilirubin 1.1 mg/dL (0.2-1.3); Total Protein 5.7 g/dL (6.3-8.2)
[2020-08-30 05:44] LABS: Glucose,Whole Blood 136 mg/dL (75-99)
[2020-08-30 05:51] LABS: ABG Base Excess 2.8 mmol/L; ABG HCO3 31 mmol/L (21-25); ABG Oxygen Saturation 97.1 % (94-97); ABG PO2 98 mmHg (83-108); ABG TCO2 34 mmol/L (19-24); Allen Test Performed? Yes
[2020-08-30 06:03] LABS: ABG PCO2 82 mmHg (35-45); ABG PH 7.19 (7.35-7.45)
[2020-08-30] MEDS: SODIUM CHLORIDE 0.9% 1,000 ML IV SCH ×2 (06:31→16:28)
[2020-08-30] MEDS ORDERED: DEXTROSE 50% SYRINGE 50 ML IVP STA (06:34)
[2020-08-30] MEDS ORDERED: SODIUM BICARB 8.4% 50 ML SYR (1 MEQ/ML) IV STA (06:34)
[2020-08-30] MEDS ORDERED: SODIUM CHLORIDE 0.9% 1,000 ML IV ONE (06:37)
[2020-08-30] MEDS ORDERED: INSULIN REGULAR 100 UNIT/ML VIAL IV ONE (06:59)
[2020-08-30] MEDS ORDERED: CALCIUM GLUCONATE 1 GM in SODIUM CHLORIDE 0.9% 100 ML IVPB ONE (07:00)
--- NOTE | 2020-08-30 07:08 | XR ---
EXAMINATION TYPE: XR chest 1V portable DATE OF EXAM: 08/30/2020 COMPARISON: 08/29/2020 HISTORY: Abnormal x-ray TECHNIQUE: Single frontal view of the chest is obtained. FINDINGS: Bilateral infiltrates are stable. ET tube and NG tube stable. Calcified granuloma right dalila ng. Heart size stable. There is diffuse subcutaneous emphysema slightly improved compared to prior ex am. IMPRESSION: 1. Diffuse airspace disease stable.
[2020-08-30] MEDS: ALBUTEROL HFA INHALER INHALATION SCH ×4 (08:34→20:09)
[2020-08-30] MEDS: guaiFENesin 600 MG TABLET.ER PO SCH (08:51)
[2020-08-30] MEDS: ZINC SULFATE 220 MG CAP PO SCH (08:54)
[2020-08-30] MEDS: CHOLECALCIFEROL 25 MCG (1000 IU) TABLET PO SCH (08:54)
[2020-08-30] MEDS: DEXAMETHASONE SOD PHOSPHATE 10 MG/ML 1 ML VIAL IV SCH ×2 (08:54→20:19)
[2020-08-30] MEDS: CHLORHEXIDINE GLUCONATE 15 ML CUP MUCOUS MEM SCH ×2 (08:54→20:18)
[2020-08-30] MEDS: ASCORBIC ACID 500 MG TAB PO SCH (08:54)
[2020-08-30] MEDS: ENOXAPARIN 60 MG/0.6 ML SYRINGE SQ SCH ×2 (08:54→20:19)
[2020-08-30] MEDS: PANTOPRAZOLE 40 MG/10 ML VIAL IVP SCH (08:54)
--- NOTE | 2020-08-30 10:26 | P.PN ---
Subjective Progress Note Date: 08/30/20 Patient's overall condition is not improving. Blood gas was no significant improvement. He is still on high vent settings with a PEEP of 20 and FiO2 of 80%. There is diffuse subcutaneous emphysema in the upper chest noted on chest x-ray and clinically. Also diffuse infiltrates in both lungs noted. Patient is still requiring low dose of vasopressors. He is getting tube feeds. Objective - Vital Signs Vital signs: Vital Signs Temp 98.1 F 08/30/20 04:00 Pulse 110 H 08/30/20 10:00 Resp 37 H 08/30/20 10:00 BP 119/63 08/30/20 10:00 Pulse Ox 92 L 08/30/20 10:00 Intake & Output 08/29/20 08/30/20 08/30/20 18:59 06:59 18:59 Intake Total 2015.941 1703.658 602.195 Output Total 438 700 185 Balance 0847.437 9532.658 417.195 Weight 105 kg 104.5 kg Intake: IV 1120 900 410 Calcium Gluconate 1 gm In 110 Sodium Chloride 0.9% 100 ml @ 100 mls/hr IVPB ONCE ONE Rx#:[id number] Sodium Chloride 0.9% 1, 670 000 ml @ 130 mls/hr IV . Q7H42M [facility] Rx#:[id number] Sodium Chloride 0.9% 1, 450 900 300 000 ml @ 75 mls/hr IV . [id number] [facility] Rx#:[id number] Intake, IV Titration 575.941 413.658 2.195 Amount Cisatracurium 200 mg In 38.438 Sodium Chloride 0.9% 180 ml @ 2 MCG/KG/MIN 12.672 mls/hr IV .[id number] [facility] Rx #:[id number] Norepinephrine 8 mg In 249.490 87.586 Sodium Chloride 0.9% 250 ml @ 0.05 MCG/KG/MIN 10. 217 mls/hr IV .Q24H [facility] Rx#:[id number] fentaNYL (PF). 1,000 mcg 120.695 29.787 In Sodium Chloride 0.9% 80 ml @ Per Protocol IV . Q0M [facility] Rx#:[id number] propofoL 1,000 mg In 167.318 296.285 2.195 Empty Bag 1 bag @ Titrate IV .Q0M [facility] Rx#: [id number] Tube Feeding 230 300 160 Other 90 90 30 Output: Urine 438 700 185 Other: Voiding Method Indwelling Catheter Indwelling Catheter Indwelling Catheter ABP, PAP, CO, CI - Last Documented Arterial Blood Pressure 107/58 - Exam General: The patient is sedated and intubated Eye: there is normal conjunctiva bilaterally. Neck: The neck is supple, there is no JVD. Cardiovascular: Normal S1-S2, no S3-S4, no murmurs. Respiratory: Lungs with mechanical ventilator sounds Gastrointestinal: Abdomen is soft, nontender Musculoskeletal: There is +1 pedal edema. Skin: Skin is warm and dry - Labs CBC & Chem 7: 08/30/20 04:51 08/30/20 04:51 Labs: Abnormal Lab Results - Last 24 Hours (Table) 08/29/20 08/29/20 08/29/20 Range/Units 11:40 18:14 23:43 WBC (3.8-10.6) k/uL MCV (80.0-100.0) fL Plt Count (150-450) k/uL Neutrophils # (1.3-7.7) k/uL Lymphocytes # (1.0-4.8) k/uL ABG pH (7.35-7.45) ABG pCO2 (35-45) mmHg ABG HCO3 (21-25) mmol/L ABG Total CO2 (19-24) mmol/L ABG O2 Saturation (94-97) % Potassium (3.5-5.1) mmol/L Chloride (98-107) mmol/L Carbon Dioxide (22-30) mmol/L BUN (9-20) mg/dL Creatinine (0.66-1.25) mg/dL Glucose (74-99) mg/dL POC Glucose (mg/dL) 147 H 122 H 142 H (75-99) mg/dL Calcium (8.4-10.2) mg/dL Magnesium (1.6-2.3) mg/dL AST (17-59) U/L ALT (4-49) U/L Total Protein (6.3-8.2) g/dL Albumin (3.5-5.0) g/dL 08/30/20 08/30/20 08/30/20 Range/Units 04:51 04:51 05:43 WBC 23.1 H (3.8-10.6) k/uL MCV 100.9 H (80.0-100.0) fL Plt Count 92 L (150-450) k/uL Neutrophils # 21.6 H (1.3-7.7) k/uL Lymphocytes # 0.5 L (1.0-4.8) k/uL ABG pH (7.35-7.45) ABG pCO2 (35-45) mmHg ABG HCO3 (21-25) mmol/L ABG Total CO2 (19-24) mmol/L ABG O2 Saturation (94-97) % Potassium 5.5 H (3.5-5.1) mmol/L Chloride 111 H (98-107) mmol/L Carbon Dioxide 31 H (22-30) mmol/L BUN 48 H (9-20) mg/dL Creatinine 1.45 H (0.66-1.25) mg/dL Glucose 164 H (74-99) mg/dL POC Glucose (mg/dL) 136 H (75-99) mg/dL Calcium 7.5 L (8.4-10.2) mg/dL Magnesium 2.6 H (1.6-2.3) mg/dL AST 90 H (17-59) U/L ALT 315 H (4-49) U/L Total Protein 5.7 L (6.3-8.2) g/dL Albumin 2.8 L (3.5-5.0) g/dL 08/30/20 Range/Units 05:46 WBC (3.8-10.6) k/uL MCV (80.0-100.0) fL Plt Count (150-450) k/uL Neutrophils # (1.3-7.7) k/uL Lymphocytes # (1.0-4.8) k/uL ABG pH 7.19 L* (7.35-7.45) ABG pCO2 82 H* (35-45) mmHg ABG HCO3 31 H (21-25) mmol/L ABG Total CO2 34 H (19-24) mmol/L ABG O2 Saturation 97.1 H (94-97) % Potassium (3.5-5.1) mmol/L Chloride (98-107) mmol/L Carbon Dioxide (22-30) mmol/L BUN (9-20) mg/dL Creatinine (0.66-1.25) mg/dL Glucose (74-99) mg/dL POC Glucose (mg/dL) (75-99) mg/dL Calcium (8.4-10.2) mg/dL Magnesium (1.6-2.3) mg/dL AST (17-59) U/L ALT (4-49) U/L Total Protein (6.3-8.2) g/dL Albumin (3.5-5.0) g/dL Assessment and Plan Assessment: Patient is a 70-year-old male with a history of asthma and obesity who initially presented to the ER with complaints of shortness of breath, nausea, and poor appetite. He had known positive COVID testing on 08/09/20. In the ER he was found be hypoxic at 86% on room air. He again was COVID-19 PCR positive. Chest x-ray demonstrated pneumonia. He was outside of the window for Remdesivir. His oxygen requirement increased throughout his hospital stay. Patient is currently admitted to the ICU for further management of his medical problems noted below COVID-19 pneumonitis Acute hypoxic and hypercapnic respiratory failure requiring intubation and me chanical ventilation on 08/28 Sepsis with septic shock requiring vasopressors and aggressive IV fluid hydration -Ventilatory managed by tank crewmember - On Decadron D#16 managed by pulmonology -Normal pro calcitonin - I would obtain a BNP to rule out CHF - Continue with vitamins - TOCI 08/20 - Lovenox increased due to D-dimer > 3 Transaminitis, mild, improving - likely related to COVID vs history of ETOH use - follow liver enzymes Asthma without exacerbation - albuterol Obesity with BMI 35.9 - structure weight loss once COVID resolved. DVT prophylaxis with subcu Lovenox CODE STATUS, patient is DO NOT RESUSCITATE. discussed by tank crewmember with family members. Today, I reviewed his medication list and lab work results Continue tube feeding as directed by day patient Overall prognosis is guarded Sedation and vent are managed by tank crewmember Prognosis guarded. DVT prophylaxis: Lovenox Discussed with: Patient, nursing Anticipated discharge: unknown Anticipated discharge place: pending course A total of 35 minutes was spent on the care of this complex patient more than 50% of the time was spent in counseling and care coordination.
[2020-08-30] MEDS: NOREPINEPHRINE 8 MG in SODIUM CHLORIDE 0.9% 250 ML IV SCH (10:45)
[2020-08-30 12:06] LABS: Glucose,Whole Blood 142 mg/dL (75-99)
--- NOTE | 2020-08-30 12:37 | P.PN ---
Subjective Progress Note Date: 08/30/20 Principal diagnosis: COVID-19 pneumonia 70-year-old white male patient who presented to the hospital on 08/15/2020 with complaints of 10 day history of loss of taste, cough, shortness of breath, fever. Patient and his have been staying with her daughter who tested positive for COVID, patient had an outpatient test for COVID-19 on 08/09/2020 and was found to be positive. Last few days he's been having increased shortness of breath, cough. Past medical history is noncontributory, other than osteoarthritis with previous history of joint replacement surgery in the right knee, patient is lifetime nonsmoker, does have history of chronic bronchial asthma, not on any maintenance inhalers on a regular basis. Chest x-ray in the emergency department shows some patchy airspace disease on the right, calcified granuloma in the right lower lobe, no pneumothorax or pleural effusion. His repeat COVID-19 PCR in the emergency room was positive, RSV and influenza screen were negative. His admission blood work showed neutropenia, and lymphopenia, white blood cell count was 2.6, and leukocyte count was 0.4, d-dimer was 0.95, potassium is 3.1, rest of the electrolytes and renal profile were unremarkable, lactic acid was 1.1, AST was 63, ALT and alk phos were within normal limits, LDH was 1283, CRP was 7.1, pro calcitonin level was negative at 0.10. Patient was satting 86% on room air, currently requiring 4 L of supplemental oxygen with a pulse ox of 91-94%, he is afebrile. Lung sounds reveal diffuse coarse crackles at bilateral bases. Patient was started on Decadron this milligram daily, and prophylactic Lovenox. he is outside the window for Remdesivir On 08/17/2020 patient seen in follow-up on medical surgical floor, he is resting in bed, appears to be in no acute distress, he still on 5 L of oxygen has pulse ox of 90-91%, he is afebrile, hemodynamically stable, he states when he walks to the bathroom he gets very lightheaded and dizzy and sometimes feel like he is going to pass out. He does get short of breath, he was instructed to call for help when ambulating to the bathroom. Sounds reveal diffuse crackles bilaterally, today's follow-up chest x-ray showing patchy airspace disease lung bases. He is trying to work on incentive spirometer. Today's labs have been reviewed, his d-dimer today is 0.55, inflammatory markers are improving, and his LDH is 609, and CRP is 3.6. An patient remains on Decadron 6 mg daily, and prophylactic dose Lovenox in addition to vitamins On 08/18/2020 patient seen in follow-up on medical surgical floor. He is currently down to 4 L of oxygen pulse ox is 93%, he states he still feels weak and wobbly when walking to the bathroom, at times he gets lightheaded, but no worsening dyspnea, no signs of any respiratory distress. Today's labs have been noted, d-dimer from yesterday is 0.55, inflammatory markers were improving, no cough, no complaints of chest discomfort, he remains on Decadron 6 blood gram d aily, and Lovenox 40 mg daily. On 08/19/2020 patient seen in follow-up on medical surgical floor, he is sitting up in the recliner, in no acute distress, is on 6 L of supplemental oxygen his pulse ox is 89-90%, no worsening dyspnea, although he does get short of breath and desat with exertion, consulted physical therapy and patient had ambulated with a walker. His ambulation ability slow shaky, no complaints of dizziness. Doing fairly well, no acute events overnight, and he is on Decadron, patient was not a candidate for Remdesivir, he is on prophylactic Lovenox, today's labs have been reviewed On 08/20/2020 patient seen in follow-up on medical surgical floor. In the last 24 hours his oxygenation has significantly deteriorated, he is currently on Airvo at 60 L and FiO2 of 92%, his pulse ox is 85-88%, his been afebrile, his temp of 101.7F, complaining of headache, he looks weak, he looks a lot more ill today, fatigued, short of breath with conversation, he has occasional cough, he was outside the window for Remdesivir, he has been on Decadron 6 mg daily, he is on prophylactic Lovenox, we'll give him a dose of Toci today On 08/21/2020 patient continued to worsen through the night, with increased work of breathing, and increased oxygenation needs, he was placed on Airvo yesterday, at 60 L in FiO2 of 93%, and he is requiring 100% nonrebreather mask on top of it, his pulse ox is only 80%, he is very tachypneic with respiratory rate in the 30s, diaphoretic, and looking fatigued. He was transferred to the intensive care unit this morning and placed on BiPAP support with pressures of 14/6 and FiO2 100%, he is actually tolerating that quite well, and seems more comfortable on it, lung sounds reveal diffuse coarse crackles at bilateral posterior bases, he is afebrile this morning, his chest x-ray today showing bilateral lower lobe infiltrates and small effusion., Yesterday his d-dimer with up to 10.10, and if it remains elevated again today at 10.19, his Lovenox dose was adjusted and he is currently on 60 mg of Lovenox every 12 hours. He remains on IV dexamethasone 6 mg daily, was given a dose of Actemra yesterday On 08/24/2020 patient seen in follow-up in the intensive care unit, he remains on BiPAP its at pressures of 14/7 and FiO2 of 90%. He seems to be tolerating BiPAP support quite well, seems to be very comfortable on that. He has remained on BiPAP continuously for 24 hours, try Airvo on him again today. Appears to be in no acute distress, on those above-mentioned settings his pulse ox is ranging between 86-91%, respiratory rate is in the mid 20s, blood pressure stable, he has been afebrile. Lung sounds reveal diminished breath sounds with some bibasilar crackles. No complaints of chest pain overnight, 2 sets of troponins were less than 0.012. Echocardiogram was a technically difficult study with suboptimal views, and the EF was not calculated, RV was not visualized, left atrium, right atrium, and all the valves were not well visualized. And as such this was a suboptimal study. No complaints of chest pain overnight, no complaints of chest pain this morning. This morning's labs have been reviewed, his d-dimer is 7.66 on today's labs, white blood cell count is 10.5, hemoglobin of 14.5, sodium is 135, the rest of electrolytes and renal profile were unremarkable, LDH is 1658, CRP is 2.8. No nausea vomiting or diarrhea, abdomen is soft, no worsening dyspnea On 08/25/2020 patient seen in follow-up in intensive care unit, yesterday he tolerated Airvo at 60 L and FiO2 of 90% in addition to 100% nonrebreather mask all day, and he was placed back on BiPAP support with pressures of 14/7 and FiO2 of 90% overnight, this morning she seen in the intensive care unit, he is resting comfortably in bed, he remains on BiPAP support and his pulse ox on above-mentioned settings is 92-95%. He denies any worsening dyspnea, he is easi ly arousable to voice, and answering simple questions, lung sounds reveal diminished breath sounds at the bases, with minimal crackles. Today's chest x- ray is pending, today's labs have been reviewed during white blood cell count of 12.4, hemoglobin of 14.6, d-dimer remains elevated at 7.86, and patient's on Lovenox at 50 mg twice daily. No complaints of chest pain. No cough, no congestion, yesterday while he was on Airvo he was able to take in some oral feedings, and had a fair appetite. She is in sinus mechanism, hemodynamically she is stable, he is on plane, sitting at a rate of 50 ML per hour. He remains on Decadron at 6 mg twice daily. His renal function is within normal limits to day with B1 of 18 creatinine 0.71, sodium was 135, and her serum electrolytes were within normal limits, 2 sets of troponins were less than 0.012, limited echocardiogram was a suboptimal study, however there was no recurrence of chest discomfort from 2 days ago, and heparin drip was discontinued, no acute ST wave changes. No vomiting or diarrhea, abdomen is soft, no complaints of abdominal pain. On 08/26/2020 patient seen in follow-up in intensive care unit, currently on BiPAP with pressures of 14/7 and FiO2 100%, and his pulse ox is 88%, yesterday he was able to tolerate Airvo and nonrebreather and come off the BiPAP for short periods of time. Today he seems more lethargic compared to yesterday, he is tachypneic, but he is achieving over 1 L and tidal volumes on the BiPAP, his respiratory rate is in the mid 30s. He opens eyes to voice, he lightly groans in response to questions, but not really providing full sentence responses. Yesterday we gave him a dose of IV Lasix, he diuresed quite well, and he is in - 3.1 L over the last 24 hours. Despite the diuresis, the patient failed to improve, today's chest x-ray still showed persistent bibasilar and right midlung peripheral opacities consistent with COVID-19. Oral intake has been poor, and at this time we are considering low rate IV fluids. Labs have been reviewed, his white blood cell count is 16.8, hemoglobin is 15.7, he is a d-dimer is 9.28, sodium is 136, the rest of electrolytes are within normal limits, his BUN is 22, creatinine is 0.82, his LDH has actually trended up, and is at 2202, and CRP 1.2. On 08/29/2020 patient seen in follow-up in the intensive care unit, he was intubated over the weekend, he is currently remains sedated and paralyzed on mechanical ventilation, on assist-control mode of ventilation with a rate of 30, tidal vital 390, FiO2 100% and PEEP of 18. This morning his blood gases showed pO2 of 80, pCO2 75, and pH of 7.22. This was done 100% FiO2. His peak pressures are 45, plateau pressure is 42. Is currently on 0.9 at 1:30 ML per hour, Levothroid is at 11 mics per minute, fentanyl drip is at 0.5 mics per kilo per hour, Diprivan and is at 50 mics per kilo per minute, and index is at 1 jacob per kilo per minute, he is receiving tube feedings in the form of vital high- protein at 10 ML per hour. He is in sinus mechanism, slightly tachycardic with a rate of 109 BPM. Patient was proned last night, he is currently supine. His chest x-ray today shows diffuse bilateral infiltrates that are stable in appearance, and possibility of pneumomediastinum could not be excluded. Today's labs have been reviewed showing white blood cell count of 24.2, hemoglobin of 15.8, sodium is 142, potassium is 5.0, chloride is 110, CO2 is 30, BUN of 38, and creatinine of 1.35. AST was 92, ALT is 290, alkaline phosphatase is 110. CRP is 1.4 On 08/30/2020 patient seen in follow-up in the intensive care unit, he remains intubated, sedated and paralyzed on mechanical ventilator, currently on assist- control mode of ventilation with a rate of 36, tidal volume is 390, FiO2 100% and PEEP of 18, this morning his blood gases were reviewed showing pO2 of 98, pCO2 of 82, pH is 7.19. His peak airway pressure is 40, his plateau is 34, this chest x-ray today has been reviewed showing diffuse airspace disease that is stable in appearance, he is currently on 0.9 normal saline at a rate of 75 ML pe r hour, Levophed is at 8 mics per minute, fentanyl drip is at 0.75, and Diprivan is at 30 mics per kilo per minute, Nimbex is at 2 mics per kilo per minute. Patient is receiving tube feedings with vital high-protein at 48 with a goal of 48 and standard water flushes with 30 ML every 4 hours, he is in sinus mechanism, tachycardic with a rate of 112 BPM, he seems to have developed subcutaneous emphysema involving his anterior chest. He also developed a pressure injury from the Stefano ET tube Guardado on his right cheek. [place] 's been removed and cough type is being used for ET tube Guardado. Today's labs have been reviewed, white blood cell count is 23.1, hemoglobin is 15.4, platelet count is 92, potassium is 5.5, and this was treated with combination of 1 amp of bicarbonate, 50% dextrose and regular insulin. Recheck labs are pending, his BUN is 48 creatinine is 1.45, LDH from a couple days ago was trending up and was up to 3870, and CRP was 1.4. His last pro-calcitonin from and weight 2020 was negative at 0.07. Objective - Vital Signs Vital signs: Vital Signs Temp 98.1 F 08/30/20 04:00 Pulse 110 H 08/30/20 10:00 Resp 37 H 08/30/20 10:00 BP 119/63 08/30/20 10:00 Pulse Ox 92 L 08/30/20 10:00 Intake & Output 08/29/20 08/30/20 08/30/20 18:59 06:59 18:59 Intake Total 5799.941 1703.658 913.623 Output Total 438 700 185 Balance 0200.146 2754.658 728.623 Weight 105 kg 104.5 kg Intake: IV 1120 900 410 Calcium Gluconate 1 gm In 110 Sodium Chloride 0.9% 100 ml @ 100 mls/hr IVPB ONCE ONE Rx#:[id number] Sodium Chloride 0.9% 1, 670 000 ml @ 130 mls/hr IV . [id number] [facility] Rx#:[id number] Sodium Chloride 0.9% 1, 450 900 300 000 ml @ 75 mls/hr IV . [id number] [facility] Rx#:[id number] Intake, IV Titration 575.941 413.658 313.623 Amount Cisatracurium 200 mg In 38.438 53.428 Sodium Chloride 0.9% 180 ml @ 2 MCG/KG/MIN 12.672 mls/hr IV .[id number] [facility] Rx #:[id number] Norepinephrine 8 mg In 249.490 87.586 258 Sodium Chloride 0.9% 250 ml @ 0.05 MCG/KG/MIN 10. 217 mls/hr IV .Q24H [facility] Rx#:[id number] fentaNYL (PF). 1,000 mcg 120.695 29.787 In Sodium Chloride 0.9% 80 ml @ Per Protocol IV . Q0M [facility] Rx#:[id number] propofoL 1,000 mg In 167.318 296.285 2.195 Empty Bag 1 bag @ Titrate IV .Q0M [facility] Rx#: [id number] Tube Feeding 230 300 160 Other 90 90 30 Output: Urine 438 700 185 Other: Voiding Method Indwelling Catheter Indwelling Catheter Indwelling Catheter ABP, PAP, CO, CI - Last Documented Arterial Blood Pressure 107/58 - Exam GENERAL EXAM: 70-year-old white male, assist control mode of ventilation, with FiO2 of 80% and PEEP of 18, sedated, and paralyzed. Patient appears to be generally swollen on today's exam including his face and upper arms HEAD: Normocephalic/atraumatic. EYES: Normal reaction of pupils, equal size. Conjunctiva pink, sclera white. NOSE: Clear with pink turbinates. THROAT: No erythema or exudates. NECK: No masses, no JVD, no thyroid enlargement, no adenopathy. CHEST: No chest wall deformity. Symmetrical expansion. Acute emphysema involving his anterior chest. LUNGS: Equal air entry with coarse bibasilar crackles CVS: Regular rate and rhythm, normal S1 and S2, no gallops, no murmurs, no rubs ABDOMEN: Soft, nontender. No hepatosplenomegaly, normal bowel sounds, no guarding or rigidity. EXTREMITIES: No clubbing, generalized nonpitting edema no cyanosis, 2+ pulses and upper and lower extremities. MUSCULOSKELETAL: Muscle strength and tone normal. SPINE: No scoliosis or deformity SKIN: No rashes CENTRAL NERVOUS SYSTEM: Intubated, sedated and paralyzed No focal deficits, tone is normal in all 4 extremities. - Labs CBC & Chem 7: 08/30/20 04:51 08/30/20 04:51 Labs: Abnormal Lab Results - Last 24 Hours (Table) 08/29/20 08/29/20 08/30/20 Range/Units 18:14 23:43 04:51 WBC 23.1 H (3.8-10.6) k/uL MCV 100.9 H (80.0-100.0) fL Plt Count 92 L (150-450) k/uL Neutrophils # 21.6 H (1.3-7.7) k/uL Lymphocytes # 0.5 L (1.0-4.8) k/uL ABG pH (7.35-7.45) ABG pCO2 (35-45) mmHg ABG HCO3 (21-25) mmol/L ABG Total CO2 (19-24) mmol/L ABG O2 Saturation (94-97) % Potassium (3.5-5.1) mmol/L Chloride (98-107) mmol/L Carbon Dioxide (22-30) mmol/L BUN (9-20) mg/dL Creatinine (0.66-1.25) mg/dL Glucose (74-99) mg/dL POC Glucose (mg/dL) 122 H 142 H (75-99) mg/dL Calcium (8.4-10.2) mg/dL Magnesium (1.6-2.3) mg/dL AST (17-59) U/L ALT (4-49) U/L Total Protein (6.3-8.2) g/dL Albumin (3.5-5.0) g/dL 08/30/20 08/30/20 08/30/20 Range/Units 04:51 05:43 05:46 WBC (3.8-10.6) k/uL MCV (80.0-100.0) fL Plt Count (150-450) k/uL Neutrophils # (1.3-7.7) k/uL Lymphocytes # (1.0-4.8) k/uL ABG pH 7.19 L* (7.35-7.45) ABG pCO2 82 H* (35-45) mmHg ABG HCO3 31 H (21-25) mmol/L ABG Total CO2 34 H (19-24) mmol/L ABG O2 Saturation 97.1 H (94-97) % Potassium 5.5 H (3.5-5.1) mmol/L Chloride 111 H (98-107) mmol/L Carbon Dioxide 31 H (22-30) mmol/L BUN 48 H (9-20) mg/dL Creatinine 1.45 H (0.66-1.25) mg/dL Glucose 164 H (74-99) mg/dL POC Glucose (mg/dL) 136 H (75-99) mg/dL Calcium 7.5 L (8.4-10.2) mg/dL Magnesium 2.6 H (1.6-2.3) mg/dL AST 90 H (17-59) U/L ALT 315 H (4-49) U/L Total Protein 5.7 L (6.3-8.2) g/dL Albumin 2.8 L (3.5-5.0) g/dL 08/30/20 Range/Units 12:05 WBC (3.8-10.6) k/uL MCV (80.0-100.0) fL Plt Count (150-450) k/uL Neutrophils # (1.3-7.7) k/uL Lymphocytes # (1.0-4.8) k/uL ABG pH (7.35-7.45) ABG pCO2 (35-45) mmHg ABG HCO3 (21-25) mmol/L ABG Total CO2 (19-24) mmol/L ABG O2 Saturation (94-97) % Potassium (3.5-5.1) mmol/L Chloride (98-107) mmol/L Carbon Dioxide (22-30) mmol/L BUN (9-20) mg/dL Creatinine (0.66-1.25) mg/dL Glucose (74-99) mg/dL POC Glucose (mg/dL) 142 H (75-99) mg/dL Calcium (8.4-10.2) mg/dL Magnesium (1.6-2.3) mg/dL AST (17-59) U/L ALT (4-49) U/L Total Protein (6.3-8.2) g/dL Albumin (3.5-5.0) g/dL Assessment and Plan Plan: Assessment: #1. Acute hypoxic respiratory failure related to acute COVID-19 pneumonia, with onset of symptoms 10 days prior to presentation, patient had outpatient positive COVID-19 test on 08/09/2020, outside the window for Remdesivir. Hypoxia progressed and patient received Toci on 08/20/2020. Patient was transferred to the intensive care unit on 08/21/2020 and placed on BiPAP support. Patient was intubated on 08/28/2020. On 08/30/2020 patient remains sedated, paralyzed and intubated on FiO2 of 80% and PEEP of 18 #2. Increased d-dimer related to COVID-19 infection, lower extremity Dopplers were negative for DVT. Patient's currently on Lovenox 50 mg twice daily #3. Neutropenia, pro-calcitonin was negative, resolved and patient now has leukocytosis and currently his white blood cell count is 23.1 #4. Elevated liver enzymes related to viral pneumonia #5. Lifetime nonsmoker #6. History of chronic bronchial asthma, mild intermittent, inactive at this time #7. Episode of chest pain on 08/23/2020, EKG without significant ST segment elevation, 2 sets of negative troponins. Echocardiogram was a suboptimal study, unable to calculate EF, calculate chamber sizes or valves Plan: FiO2 down to 80, and PEEP up to 18 No paralytic or sedation holiday Still requiring high PEEP and high FiO2 Today's chest x-ray and labs reviewed Continue current dose Decadron Continue current dose Lovenox We will attempt pronating again if patient tolerates it Nutritional support in the form of tube feedings Daily blood gases, labs and chest x-ray Prognosis is guarded Patient's family decided on DO NOT RESUSCITATE CODE STATUS Continue supportive treatment Given 1 dose of Kayexalate Recheck labs Prognosis is extremely guarded I performed a history & physical examination of the patient and discussed their management with my nurse practitioner, Magdalena Negrete. I reviewed the nurse practitioner's note and agree with the documented findings and plan of care. Lung sounds are positive for diminished breath sounds. The findings and the impression was discussed with the patient. I attest to the documentation by the nurse practitioner. Time with Patient: Greater than 30
[2020-08-30] MEDS: CISATRACURIUM 200 MG in SODIUM CHLORIDE 0.9% 180 ML IV SCH ×2 (13:38→18:56)
[2020-08-30 17:41] LABS: Glucose,Whole Blood 174 mg/dL (75-99)
[2020-08-30 23:29] LABS: Glucose,Whole Blood 151 mg/dL (75-99)
[2020-08-31] MEDS: fentaNYL (PF). 1,000 MCG in SODIUM CHLORIDE 0.9% 80 ML IV SCH ×2 (00:40→14:37)
[2020-08-31] MEDS: NOREPINEPHRINE 8 MG in SODIUM CHLORIDE 0.9% 250 ML IV SCH (00:41)
[2020-08-31] MEDS: SODIUM CHLORIDE 0.9% 1,000 ML IV SCH ×2 (03:05→18:21)
[2020-08-31 04:35] LABS: Basophils % (A) 0 %; Eosinophils % (A) 0 %; HCT 43.2 % (39.0-53.0); HGB 14.2 gm/dL (13.0-17.5); Hypochromasia Slight; Lymphocytes # (A) 0.4 k/uL (1.0-4.8); Lymphocytes % (A) 3 %; MCH 33.5 pg (25.0-35.0); MCHC 32.8 g/dL (31.0-37.0); MCV 102.2 fL (80.0-100.0); Macrocytosis Slight; Mean Platelet Volume 8.7; Monocytes # (A) 0.5 k/uL (0-1.0); Monocytes % (A) 3 %; Neutrophils # (A) 14.7 k/uL (1.3-7.7); Neutrophils % (A) 94 %; Platelet Count 66 k/uL (150-450); RBC 4.22 m/uL (4.30-5.90); RDW 13.4 % (11.5-15.5); WBC 15.7 k/uL (3.8-10.6)
[2020-08-31 04:52] LABS: Albumin 2.6 g/dL (3.5-5.0); C Reactive Protein 0.8 mg/dL (<1.0); Calcium 7.8 mg/dL (8.4-10.2); Potassium 5.3 mmol/L (3.5-5.1); Total Bilirubin 0.9 mg/dL (0.2-1.3); Total Protein 5.2 g/dL (6.3-8.2)
[2020-08-31 05:18] LABS: ABG Base Excess 6.5 mmol/L; ABG HCO3 34 mmol/L (21-25); ABG Oxygen Saturation 92.3 % (94-97); ABG PH 7.23 (7.35-7.45); ABG PO2 65 mmHg (83-108); ABG TCO2 37 mmol/L (19-24); Allen Test Performed? Yes
[2020-08-31 05:20] LABS: ABG PCO2 81 mmHg (35-45)
[2020-08-31] MEDS: INSULIN ASPART (NovoLOG) 100 UNIT/ML VIAL SQ SCH ×4 (05:40→23:52)
[2020-08-31] MEDS: CISATRACURIUM 200 MG in SODIUM CHLORIDE 0.9% 180 ML IV SCH (06:52)
--- NOTE | 2020-08-31 07:18 | XR ---
EXAMINATION TYPE: XR chest 1V portable DATE OF EXAM: 08/31/2020 COMPARISON: 08/30/2020 HISTORY: SOB, Follow Up FINDINGS: Indwelling tubes and catheters are unchanged. Scattered airspace infiltrates persist greatest at the lung bases without significant change. Stable appearance of the cardio-mediastinal structures at this time. Pleural effusion unchanged. IMPRESSION: 1. Stable portable chest. Clinical correlation and follow up until resolution is recommended.
[2020-08-31] MEDS: ALBUTEROL HFA INHALER INHALATION SCH ×4 (07:37→20:18)
[2020-08-31] MEDS: ASCORBIC ACID 500 MG TAB PO SCH (07:59)
[2020-08-31] MEDS: PANTOPRAZOLE 40 MG/10 ML VIAL IVP SCH (07:59)
[2020-08-31] MEDS: ZINC SULFATE 220 MG CAP PO SCH (07:59)
[2020-08-31] MEDS: CHLORHEXIDINE GLUCONATE 15 ML CUP MUCOUS MEM SCH ×2 (07:59→20:35)
[2020-08-31] MEDS: CHOLECALCIFEROL 25 MCG (1000 IU) TABLET PO SCH (07:59)
[2020-08-31] MEDS: ENOXAPARIN 60 MG/0.6 ML SYRINGE SQ SCH ×2 (08:00→20:35)
[2020-08-31] MEDS: DEXAMETHASONE SOD PHOSPHATE 10 MG/ML 1 ML VIAL IV SCH ×2 (08:00→20:35)
--- NOTE | 2020-08-31 09:08 | P.PN ---
Subjective Progress Note Date: 08/31/20 Patient remained sedated and intubated. Blood gas slightly better compared to yesterday. He is currently on a 70% FiO2 and PEEP of 18. Ventilator management by skiver operator. No acute events overnight reported by nursing staff. Objective - Vital Signs Vital signs: Vital Signs Temp 98 F 08/31/20 08:00 Pulse 96 08/31/20 09:00 Resp 36 H 08/31/20 09:00 BP 115/65 08/31/20 07:00 Pulse Ox 90 L 08/31/20 09:00 Intake & Output 08/30/20 08/31/20 08/31/20 18:59 06:59 18:59 Intake Total 2145.428 2200.018 339 Output Total 695 770 160 Balance 8154.615 4872.018 179 Weight 104.5 kg 108.2 kg Intake: IV 1010 936 156 Calcium Gluconate 1 gm In 110 Sodium Chloride 0.9% 100 ml @ 100 mls/hr IVPB ONCE ONE Rx#:[id number] Sodium Chloride 0.9% 1, 900 900 150 000 ml @ 75 mls/hr IV . [id number] Rx#:[id number] pressure BAG 36 6 Intake, IV Titration 511.428 682.018 Amount Cisatracurium 200 mg In 53.428 163.786 Sodium Chloride 0.9% 180 ml @ 2 MCG/KG/MIN 12.672 mls/hr IV .[id number] [facility] Rx #:[id number] Norepinephrine 8 mg In 258 291.790 Sodium Chloride 0.9% 250 ml @ 0.05 MCG/KG/MIN 10. 217 mls/hr IV .Q24H [facility] Rx#:[id number] fentaNYL (PF). 1,000 mcg 100 60.607 In Sodium Chloride 0.9% 80 ml @ Per Protocol IV . Q0M [facility] Rx#:[id number] propofoL 1,000 mg In 100.000 165.835 Empty Bag 1 bag @ Titrate IV .Q0M [facility] Rx#: [id number] Tube Feeding 564 492 123 Other 60 90 60 Output: Urine 695 770 160 Other: Voiding Method Indwelling Catheter Indwelling Catheter Indwelling Catheter ABP, PAP, CO, CI - Last Documented Arterial Blood Pressure 103/59 - Exam General: The patient is sedated and intubated Eye: there is normal conjunctiva bilaterally. Neck: The neck is supple, there is no JVD. Cardiovascular: Normal S1-S2, no S3-S4, no murmurs. Respiratory: Lungs with mechanical ventilator sounds Gastrointestinal: Abdomen is soft, nontender Musculoskeletal: There is +1 pedal edema. Skin: Skin is warm and dry - Labs CBC & Chem 7: 08/31/20 03:50 08/31/20 03:50 Labs: Abnormal Lab Results - Last 24 Hours (Table) 08/30/20 08/30/20 08/30/20 Range/Units 12:05 17:40 23:27 WBC (3.8-10.6) k/uL RBC (4.30-5.90) m/uL MCV (80.0-100.0) fL Plt Count (150-450) k/uL Neutrophils # (1.3-7.7) k/uL Lymphocytes # (1.0-4.8) k/uL D-Dimer (<0.60) mg/L FEU ABG pH (7.35-7.45) ABG pCO2 (35-45) mmHg ABG pO2 (83-108) mmHg ABG HCO3 (21-25) mmol/L ABG Total CO2 (19-24) mmol/L ABG O2 Saturation (94-97) % Potassium (3.5-5.1) mmol/L Chloride (98-107) mmol/L Carbon Dioxide (22-30) mmol/L BUN (9-20) mg/dL Glucose (74-99) mg/dL POC Glucose (mg/dL) 142 H 174 H 151 H (75-99) mg/dL Calcium (8.4-10.2) mg/dL AST (17-59) U/L ALT (4-49) U/L Lactate Dehydrogenase (313-618) U/L Total Protein (6.3-8.2) g/dL Albumin (3.5-5.0) g/dL 08/31/20 08/31/20 08/31/20 Range/Units 03:50 03:50 03:50 WBC 15.7 H (3.8-10.6) k/uL RBC 4.22 L (4.30-5.90) m/uL MCV 102.2 H (80.0-100.0) fL Plt Count 66 L (150-450) k/uL Neutrophils # 14.7 H (1.3-7.7) k/uL Lymphocytes # 0.4 L (1.0-4.8) k/uL D-Dimer 6.17 H (<0.60) mg/L FEU ABG pH (7.35-7.45) ABG pCO2 (35-45) mmHg ABG pO2 (83-108) mmHg ABG HCO3 (21-25) mmol/L ABG Total CO2 (19-24) mmol/L ABG O2 Saturation (94-97) % Potassium 5.3 H (3.5-5.1) mmol/L Chloride 111 H (98-107) mmol/L Carbon Dioxide 35 H (22-30) mmol/L BUN 54 H (9-20) mg/dL Glucose 161 H (74-99) mg/dL POC Glucose (mg/dL) (75-99) mg/dL Calcium 7.8 L (8.4-10.2) mg/dL AST 61 H (17-59) U/L ALT 251 H (4-49) U/L Lactate Dehydrogenase 1763 H (313-618) U/L Total Protein 5.2 L (6.3-8.2) g/dL Albumin 2.6 L (3.5-5.0) g/dL 08/31/20 Range/Units 05:15 WBC (3.8-10.6) k/uL RBC (4.30-5.90) m/uL MCV (80.0-100.0) fL Plt Count (150-450) k/uL Neutrophils # (1.3-7.7) k/uL Lymphocytes # (1.0-4.8) k/uL D-Dimer (<0.60) mg/L FEU ABG pH 7.23 L (7.35-7.45) ABG pCO2 81 H* (35-45) mmHg ABG pO2 65 L (83-108) mmHg ABG HCO3 34 H (21-25) mmol/L ABG Total CO2 37 H (19-24) mmol/L ABG O2 Saturation 92.3 L (94-97) % Potassium (3.5-5.1) mmol/L Chloride (98-107) mmol/L Carbon Dioxide (22-30) mmol/L BUN (9-20) mg/dL Glucose (74-99) mg/dL POC Glucose (mg/dL) (75-99) mg/dL Calcium (8.4-10.2) mg/dL AST (17-59) U/L ALT (4-49) U/L Lactate Dehydrogenase (313-618) U/L Total Protein (6.3-8.2) g/dL Albumin (3.5-5.0) g/dL Assessment and Plan Assessment: Patient is a 70-year-old male with a history of asthma and obesity who initially presented to the ER with complaints of shortness of breath, nausea, and poor appetite. He had known positive COVID testing on 08/09/20. In the ER he was found be hypoxic at 86% on room air. He again was COVID-19 PCR positive. Chest x-ray demonstrated pneumonia. He was outside of the window for Remdesivir. His oxygen requirement increased throughout his hospital stay. Patient is currently admitted to the ICU for further management of his medical problems noted below COVID-19 pneumonitis Acute hypoxic and hypercapnic respiratory failure requiring intubation and mechanical ventilation on 08/28 Sepsis with septic shock requiring vasopressors and aggressive IV fluid hydration -Ventilatory managed by skiver operator - On Decadron D#17 managed by pulmonology -Normal pro calcitonin - BNP slightly elevated - Continue with vitamins - TOCI 08/20 - Lovenox increased due to D-dimer > 3 Transaminitis, mild, improving - likely related to COVID vs history of ETOH use - follow liver enzymes Asthma without exacerbation - albuterol Obesity with BMI 35.9 - structure weight loss once COVID resolved. DVT prophylaxis with subcu Lovenox CODE STATUS, patient is DO NOT RESUSCITATE. discussed by skiver operator with family members. Today, I reviewed his medication list and lab work results I would order one time IV Lasix 40 mg Continue tube feeding as directed by day patient Overall prognosis is guarded Sedation and vent are managed by skiver operator Prognosis guarded. DVT prophylaxis: Lovenox Discussed with: Patient, nursing Anticipated discharge: unknown Anticipated discharge place: pending course A total of 35 minutes was spent on the care of this complex patient more than 50% of the time was spent in counseling and care coordination.
[2020-08-31] MEDS ORDERED: FUROSEMIDE 10 MG/ML 4 ML VIAL IV STA (09:09)
[2020-08-31 11:30] LABS: ABG Base Excess 6.1 mmol/L; ABG HCO3 33 mmol/L (21-25); ABG Oxygen Saturation 94.3 % (94-97); ABG PH 7.27 (7.35-7.45); ABG PO2 68 mmHg (83-108); ABG TCO2 35 mmol/L (19-24)
[2020-08-31 11:31] LABS: ABG PCO2 73 mmHg (35-45); Allen Test Performed? no
[2020-08-31 11:55] LABS: Glucose,Whole Blood 142 mg/dL (75-99)
--- NOTE | 2020-08-31 14:03 | P.PN ---
Subjective Progress Note Date: 08/31/20 Principal diagnosis: COVID-19 pneumonia 70-year-old white male patient who presented to the hospital on 08/15/2020 with complaints of 10 day history of loss of taste, cough, shortness of breath, fever. Patient and his have been staying with her daughter who tested positive for COVID, patient had an outpatient test for COVID-19 on 08/09/2020 and was found to be positive. Last few days he's been having increased shortness of breath, cough. Past medical history is noncontributory, other than osteoarthritis with previous history of joint replacement surgery in the right knee, patient is lifetime nonsmoker, does have history of chronic bronchial asthma, not on any maintenance inhalers on a regular basis. Chest x-ray in the emergency department shows some patchy airspace disease on the right, calcified granuloma in the right lower lobe, no pneumothorax or pleural effusion. His repeat COVID-19 PCR in the emergency room was positive, RSV and influenza screen were negative. His admission blood work showed neutropenia, and lymphopenia, white blood cell count was 2.6, and leukocyte count was 0.4, d-dimer was 0.95, potassium is 3.1, rest of the electrolytes and renal profile were unremarkable, lactic acid was 1.1, AST was 63, ALT and alk phos were within normal limits, LDH was 1283, CRP was 7.1, pro calcitonin level was negative at 0.10. Patient was satting 86% on room air, currently requiring 4 L of supplemental oxygen with a pulse ox of 91-94%, he is afebrile. Lung sounds reveal diffuse coarse crackles at bilateral bases. Patient was started on Decadron this milligram daily, and prophylactic Lovenox. he is outside the window for Remdesivir On 08/17/2020 patient seen in follow-up on medical surgical floor, he is resting in bed, appears to be in no acute distress, he still on 5 L of oxygen has pulse ox of 90-91%, he is afebrile, hemodynamically stable, he states when he walks to the bathroom he gets very lightheaded and dizzy and sometimes feel like he is going to pass out. He does get short of breath, he was instructed to call for help when ambulating to the bathroom. Sounds reveal diffuse crackles bilaterally, today's follow-up chest x-ray showing patchy airspace disease lung bases. He is trying to work on incentive spirometer. Today's labs have been reviewed, his d-dimer today is 0.55, inflammatory markers are improving, and his LDH is 609, and CRP is 3.6. An patient remains on Decadron 6 mg daily, and prophylactic dose Lovenox in addition to vitamins On 08/18/2020 patient seen in follow-up on medical surgical floor. He is currently down to 4 L of oxygen pulse ox is 93%, he states he still feels weak and wobbly when walking to the bathroom, at times he gets lightheaded, but no worsening dyspnea, no signs of any respiratory distress. Today's labs have been noted, d-dimer from yesterday is 0.55, inflammatory markers were improving, no cough, no complaints of chest discomfort, he remains on Decadron 6 blood gram d aily, and Lovenox 40 mg daily. On 08/19/2020 patient seen in follow-up on medical surgical floor, he is sitting up in the recliner, in no acute distress, is on 6 L of supplemental oxygen his pulse ox is 89-90%, no worsening dyspnea, although he does get short of breath and desat with exertion, consulted physical therapy and patient had ambulated with a walker. His ambulation ability slow shaky, no complaints of dizziness. Doing fairly well, no acute events overnight, and he is on Decadron, patient was not a candidate for Remdesivir, he is on prophylactic Lovenox, today's labs have been reviewed On 08/20/2020 patient seen in follow-up on medical surgical floor. In the last 24 hours his oxygenation has significantly deteriorated, he is currently on Airvo at 60 L and FiO2 of 92%, his pulse ox is 85-88%, his been afebrile, his temp of 101.7F, complaining of headache, he looks weak, he looks a lot more ill today, fatigued, short of breath with conversation, he has occasional cough, he was outside the window for Remdesivir, he has been on Decadron 6 mg daily, he is on prophylactic Lovenox, we'll give him a dose of Toci today On 08/21/2020 patient continued to worsen through the night, with increased work of breathing, and increased oxygenation needs, he was placed on Airvo yesterday, at 60 L in FiO2 of 93%, and he is requiring 100% nonrebreather mask on top of it, his pulse ox is only 80%, he is very tachypneic with respiratory rate in the 30s, diaphoretic, and looking fatigued. He was transferred to the intensive care unit this morning and placed on BiPAP support with pressures of 14/6 and FiO2 100%, he is actually tolerating that quite well, and seems more comfortable on it, lung sounds reveal diffuse coarse crackles at bilateral posterior bases, he is afebrile this morning, his chest x-ray today showing bilateral lower lobe infiltrates and small effusion., Yesterday his d-dimer with up to 10.10, and if it remains elevated again today at 10.19, his Lovenox dose was adjusted and he is currently on 60 mg of Lovenox every 12 hours. He remains on IV dexamethasone 6 mg daily, was given a dose of Actemra yesterday On 08/24/2020 patient seen in follow-up in the intensive care unit, he remains on BiPAP its at pressures of 14/7 and FiO2 of 90%. He seems to be tolerating BiPAP support quite well, seems to be very comfortable on that. He has remained on BiPAP continuously for 24 hours, try Airvo on him again today. Appears to be in no acute distress, on those above-mentioned settings his pulse ox is ranging between 86-91%, respiratory rate is in the mid 20s, blood pressure stable, he has been afebrile. Lung sounds reveal diminished breath sounds with some bibasilar crackles. No complaints of chest pain overnight, 2 sets of troponins were less than 0.012. Echocardiogram was a technically difficult study with suboptimal views, and the EF was not calculated, RV was not visualized, left atrium, right atrium, and all the valves were not well visualized. And as such this was a suboptimal study. No complaints of chest pain overnight, no complaints of chest pain this morning. This morning's labs have been reviewed, his d-dimer is 7.66 on today's labs, white blood cell count is 10.5, hemoglobin of 14.5, sodium is 135, the rest of electrolytes and renal profile were unremarkable, LDH is 1658, CRP is 2.8. No nausea vomiting or diarrhea, abdomen is soft, no worsening dyspnea On 08/25/2020 patient seen in follow-up in intensive care unit, yesterday he tolerated Airvo at 60 L and FiO2 of 90% in addition to 100% nonrebreather mask all day, and he was placed back on BiPAP support with pressures of 14/7 and FiO2 of 90% overnight, this morning she seen in the intensive care unit, he is resting comfortably in bed, he remains on BiPAP support and his pulse ox on above-mentioned settings is 92-95%. He denies any worsening dyspnea, he is easi ly arousable to voice, and answering simple questions, lung sounds reveal diminished breath sounds at the bases, with minimal crackles. Today's chest x- ray is pending, today's labs have been reviewed during white blood cell count of 12.4, hemoglobin of 14.6, d-dimer remains elevated at 7.86, and patient's on Lovenox at 50 mg twice daily. No complaints of chest pain. No cough, no congestion, yesterday while he was on Airvo he was able to take in some oral feedings, and had a fair appetite. She is in sinus mechanism, hemodynamically she is stable, he is on plane, sitting at a rate of 50 ML per hour. He remains on Decadron at 6 mg twice daily. His renal function is within normal limits to day with B1 of 18 creatinine 0.71, sodium was 135, and her serum electrolytes were within normal limits, 2 sets of troponins were less than 0.012, limited echocardiogram was a suboptimal study, however there was no recurrence of chest discomfort from 2 days ago, and heparin drip was discontinued, no acute ST wave changes. No vomiting or diarrhea, abdomen is soft, no complaints of abdominal pain. On 08/26/2020 patient seen in follow-up in intensive care unit, currently on BiPAP with pressures of 14/7 and FiO2 100%, and his pulse ox is 88%, yesterday he was able to tolerate Airvo and nonrebreather and come off the BiPAP for short periods of time. Today he seems more lethargic compared to yesterday, he is tachypneic, but he is achieving over 1 L and tidal volumes on the BiPAP, his respiratory rate is in the mid 30s. He opens eyes to voice, he lightly groans in response to questions, but not really providing full sentence responses. Yesterday we gave him a dose of IV Lasix, he diuresed quite well, and he is in - 3.1 L over the last 24 hours. Despite the diuresis, the patient failed to improve, today's chest x-ray still showed persistent bibasilar and right midlung peripheral opacities consistent with COVID-19. Oral intake has been poor, and at this time we are considering low rate IV fluids. Labs have been reviewed, his white blood cell count is 16.8, hemoglobin is 15.7, he is a d-dimer is 9.28, sodium is 136, the rest of electrolytes are within normal limits, his BUN is 22, creatinine is 0.82, his LDH has actually trended up, and is at 2202, and CRP 1.2. On 08/29/2020 patient seen in follow-up in the intensive care unit, he was intubated over the weekend, he is currently remains sedated and paralyzed on mechanical ventilation, on assist-control mode of ventilation with a rate of 30, tidal vital 390, FiO2 100% and PEEP of 18. This morning his blood gases showed pO2 of 80, pCO2 75, and pH of 7.22. This was done 100% FiO2. His peak pressures are 45, plateau pressure is 42. Is currently on 0.9 at 1:30 ML per hour, Levothroid is at 11 mics per minute, fentanyl drip is at 0.5 mics per kilo per hour, Diprivan and is at 50 mics per kilo per minute, and index is at 1 jacob per kilo per minute, he is receiving tube feedings in the form of vital high- protein at 10 ML per hour. He is in sinus mechanism, slightly tachycardic with a rate of 109 BPM. Patient was proned last night, he is currently supine. His chest x-ray today shows diffuse bilateral infiltrates that are stable in appearance, and possibility of pneumomediastinum could not be excluded. Today's labs have been reviewed showing white blood cell count of 24.2, hemoglobin of 15.8, sodium is 142, potassium is 5.0, chloride is 110, CO2 is 30, BUN of 38, and creatinine of 1.35. AST was 92, ALT is 290, alkaline phosphatase is 110. CRP is 1.4 On 08/30/2020 patient seen in follow-up in the intensive care unit, he remains intubated, sedated and paralyzed on mechanical ventilator, currently on assist- control mode of ventilation with a rate of 36, tidal volume is 390, FiO2 100% and PEEP of 18, this morning his blood gases were reviewed showing pO2 of 98, pCO2 of 82, pH is 7.19. His peak airway pressure is 40, his plateau is 34, this chest x-ray today has been reviewed showing diffuse airspace disease that is stable in appearance, he is currently on 0.9 normal saline at a rate of 75 ML pe r hour, Levophed is at 8 mics per minute, fentanyl drip is at 0.75, and Diprivan is at 30 mics per kilo per minute, Nimbex is at 2 mics per kilo per minute. Patient is receiving tube feedings with vital high-protein at 48 with a goal of 48 and standard water flushes with 30 ML every 4 hours, he is in sinus mechanism, tachycardic with a rate of 112 BPM, he seems to have developed subcutaneous emphysema involving his anterior chest. He also developed a pressure injury from the Stefano ET tube Guardado on his right cheek. Ariton 's been removed and cough type is being used for ET tube Guardado. Today's labs have been reviewed, white blood cell count is 23.1, hemoglobin is 15.4, platelet count is 92, potassium is 5.5, and this was treated with combination of 1 amp of bicarbonate, 50% dextrose and regular insulin. Recheck labs are pending, his BUN is 48 creatinine is 1.45, LDH from a couple days ago was trending up and was up to 3870, and CRP was 1.4. His last pro-calcitonin from and weight 2020 was negative at 0.07. On 08/31/2020 patient seen in follow-up in the intensive care unit, he remains sedated, paralyzed and intubated on mechanical ventilator, currently on assist-control with a rate of 36, tidal volume is 390, FiO2 of 70% and PEEP of 18, this morning blood gases show pO2 of 65, pCO2 of 81, and pH of 7.23. His peak and plateau pressures have been elevated, with peak pressure of 42, plateau pressure of 39. Further adjustments have been made to his ventilator settings, and patient was placed on pressure control mode of ventilation with pressure control 22, respiratory rate 36, FiO2 of 70%, PEEP of 18, and inspiratory time of 0.70. He had a chest x-ray today showing scattered airspace infiltrates greatest at the lung bases without significant change, he is currently on Levothroid at 0.03 mics per kilo per minute, fentanyl drip is at 0.75 mics per kilo per hour, 0.9 at 75 ML per hour, Nimbex is at 1.5 mics per kilo per minute, and Diprivan and is at 30 mics per kilo per minute. He is receiving tube feedings in the form of vital HP at 41 with a goal of 41, and standard water flushes of 30 ML every 4 hours, he is in sinus mechanism, bit tachycardic in the low 100s, no fever overnight. Today's labs have been reviewed showing white blood cell count of 15.7, hemoglobin of 14.2, his d-dimer is improving and is down to 6.17 from 10.13 on yesterday's labs, patient remains on Lovenox 50 mg every 12 hours. Sodium is 145, potassium is 5.3, chloride is 111, CO2 35, BUN of 54, creatinine is 1.24, his liver enzymes improved somewhat with AST of 61, and ALT of 251, LDH is improving is down to 1763, CRP is 0.8 on today's labs. Patient continues on Decadron 6 mg IV twice daily. Patient is producing urine in the order of 60-100 ML per hour. Objective - Vital Signs Vital signs: Vital Signs Temp 98.5 F 08/31/20 12:00 Pulse 116 H 08/31/20 12:00 Resp 36 H 08/31/20 12:00 BP 104/63 08/31/20 11:00 Pulse Ox 89 L 08/31/20 11:00 Intake & Output 08/30/20 08/31/20 08/31/20 18:59 06:59 18:59 Intake Total 2145.428 2200.018 945 Output Total 695 770 595 Balance 5352.120 1268.018 350 Weight 104.5 kg 108.2 kg Intake: IV 1010 936 468 Calcium Gluconate 1 gm In 110 Sodium Chloride 0.9% 100 ml @ 100 mls/hr IVPB ONCE ONE Rx#:[id number] Sodium Chloride 0.9% 1, 900 900 450 000 ml @ 75 mls/hr IV . [id number] [facility] Rx#:[id number] pressure BAG 36 18 Intake, IV Titration 511.428 682.018 100 Amount Cisatracurium 200 mg In 53.428 163.786 Sodium Chloride 0.9% 180 ml @ 2 MCG/KG/MIN 12.672 mls/hr IV .[id number] [facility] Rx #:[id number] Norepinephrine 8 mg In 258 291.790 Sodium Chloride 0.9% 250 ml @ 0.05 MCG/KG/MIN 10. 217 mls/hr IV .Q24H [facility] Rx#:[id number] fentaNYL (PF). 1,000 mcg 100 60.607 In Sodium Chloride 0.9% 80 ml @ Per Protocol IV . Q0M [facility] Rx#:[id number] propofoL 1,000 mg In 100.000 165.835 100 Empty Bag 1 bag @ Titrate IV .Q0M [facility] Rx#: [id number] Tube Feeding 564 492 287 Other 60 90 90 Output: Urine 695 770 595 Other: Voiding Method Indwelling Catheter Indwelling Catheter Indwelling Catheter ABP, PAP, CO, CI - Last Documented Arterial Blood Pressure 120/71 - Exam GENERAL EXAM: 70-year-old white male, assist control mode of ventilation, with FiO2 of 70% and PEEP of 18, sedated, and paralyzed. Patient appears to be generally swollen on today's exam including his face and upper arms HEAD: Normocephalic/atraumatic. EYES: Normal reaction of pupils, equal size. Conjunctiva pink, sclera white. NOSE: Clear with pink turbinates. THROAT: No erythema or exudates. NECK: No masses, no JVD, no thyroid enlargement, no adenopathy. CHEST: No chest wall deformity. Symmetrical expansion. Acute emphysema involving his anterior chest. LUNGS: Equal air entry with coarse bibasilar crackles CVS: Regular rate and rhythm, normal S1 and S2, no gallops, no murmurs, no rubs ABDOMEN: Soft, nontender. No hepatosplenomegaly, normal bowel sounds, no guarding or rigidity. EXTREMITIES: No clubbing, generalized nonpitting edema no cyanosis, 2+ pulses and upper and lower extremities. MUSCULOSKELETAL: Muscle strength and tone normal. SPINE: No scoliosis or deformity SKIN: No rashes CENTRAL NERVOUS SYSTEM: Intubated, sedated and paralyzed No focal deficits, tone is normal in all 4 extremities. - Labs CBC & Chem 7: 08/31/20 03:50 08/31/20 03:50 Labs: Abnormal Lab Results - Last 24 Hours (Table) 08/30/20 08/30/20 08/31/20 Range/Units 17:40 23:27 03:50 WBC 15.7 H (3.8-10.6) k/uL RBC 4.22 L (4.30-5.90) m/uL MCV 102.2 H (80.0-100.0) fL Plt Count 66 L (150-450) k/uL Neutrophils # 14.7 H (1.3-7.7) k/uL Lymphocytes # 0.4 L (1.0-4.8) k/uL D-Dimer (<0.60) mg/L FEU ABG pH (7.35-7.45) ABG pCO2 (35-45) mmHg ABG pO2 (83-108) mmHg ABG HCO3 (21-25) mmol/L ABG Total CO2 (19-24) mmol/L ABG O2 Saturation (94-97) % Potassium (3.5-5.1) mmol/L Chloride (98-107) mmol/L Carbon Dioxide (22-30) mmol/L BUN (9-20) mg/dL Glucose (74-99) mg/dL POC Glucose (mg/dL) 174 H 151 H (75-99) mg/dL Calcium (8.4-10.2) mg/dL AST (17-59) U/L ALT (4-49) U/L Lactate Dehydrogenase (313-618) U/L Total Protein (6.3-8.2) g/dL Albumin (3.5-5.0) g/dL 08/31/20 08/31/20 08/31/20 Range/Units 03:50 03:50 05:15 WBC (3.8-10.6) k/uL RBC (4.30-5.90) m/uL MCV (80.0-100.0) fL Plt Count (150-450) k/uL Neutrophils # (1.3-7.7) k/uL Lymphocytes # (1.0-4.8) k/uL D-Dimer 6.17 H (<0.60) mg/L FEU ABG pH 7.23 L (7.35-7.45) ABG pCO2 81 H* (35-45) mmHg ABG pO2 65 L (83-108) mmHg ABG HCO3 34 H (21-25) mmol/L ABG Total CO2 37 H (19-24) mmol/L ABG O2 Saturation 92.3 L (94-97) % Potassium 5.3 H (3.5-5.1) mmol/L Chloride 111 H (98-107) mmol/L Carbon Dioxide 35 H (22-30) mmol/L BUN 54 H (9-20) mg/dL Glucose 161 H (74-99) mg/dL POC Glucose (mg/dL) (75-99) mg/dL Calcium 7.8 L (8.4-10.2) mg/dL AST 61 H (17-59) U/L ALT 251 H (4-49) U/L Lactate Dehydrogenase 1763 H (313-618) U/L Total Protein 5.2 L (6.3-8.2) g/dL Albumin 2.6 L (3.5-5.0) g/dL 08/31/20 08/31/20 Range/Units 11:28 11:54 WBC (3.8-10.6) k/uL RBC (4.30-5.90) m/uL MCV (80.0-100.0) fL Plt Count (150-450) k/uL Neutrophils # (1.3-7.7) k/uL Lymphocytes # (1.0-4.8) k/uL D-Dimer (<0.60) mg/L FEU ABG pH 7.27 L (7.35-7.45) ABG pCO2 73 H* (35-45) mmHg ABG pO2 68 L (83-108) mmHg ABG HCO3 33 H (21-25) mmol/L ABG Total CO2 35 H (19-24) mmol/L ABG O2 Saturation (94-97) % Potassium (3.5-5.1) mmol/L Chloride (98-107) mmol/L Carbon Dioxide (22-30) mmol/L BUN (9-20) mg/dL Glucose (74-99) mg/dL POC Glucose (mg/dL) 142 H (75-99) mg/dL Calcium (8.4-10.2) mg/dL AST (17-59) U/L ALT (4-49) U/L Lactate Dehydrogenase (313-618) U/L Total Protein (6.3-8.2) g/dL Albumin (3.5-5.0) g/dL Assessment and Plan Plan: Assessment: #1. Acute hypoxic respiratory failure related to acute COVID-19 pneumonia, with onset of symptoms 10 days prior to presentation, patient had outpatient positive COVID-19 test on 08/09/2020, outside the window for Remdesivir. Hypoxia progr essed and patient received Toci on 08/20/2020. Patient was transferred to the intensive care unit on 08/21/2020 and placed on BiPAP support. Patient was intubated on 08/28/2020. On 08/30/2020 patient remains sedated, paralyzed and intubated on FiO2 of 80% and PEEP of 18. On 08/31/2020 patient remains intubated, sedated and paralyzed, currently with FiO2 of 70%, and PEEP of 18, and his peak and plateau pressures have been elevated at 42 and 39 respectively, patient will be tried on pressure control mode of ventilation #2. Increased d-dimer related to COVID-19 infection, lower extremity Dopplers were negative for DVT. Patient's currently on Lovenox 50 mg twice daily #3. Neutropenia, pro-calcitonin was negative, resolved and patient now has leukocytosis and currently his white blood cell count is 23.1 #4. Elevated liver enzymes related to viral pneumonia #5. Lifetime nonsmoker #6. History of chronic bronchial asthma, mild intermittent, inactive at this time #7. Episode of chest pain on 08/23/2020, EKG without significant ST segment elevation, 2 sets of negative troponins. Echocardiogram was a suboptimal study, unable to calculate EF, calculate chamber sizes or valves Plan: We will place the patient on pressure control mode of ventilation, with pressure control 22, respiratory rate of 36, FiO2 of 70%, and PEEP of 18, inspiratory time of 0.7 ABG in 1 hour was obtained and reviewed No paralytic or sedation holiday Still requiring high PEEP and high FiO2 High peak and plateau pressures, High risk for barotrauma Continue sedation and paralytics We'll try proning Today's chest x-ray and labs reviewed Continue current dose Decadron Continue current dose Lovenox Nutritional support in the form of tube feedings Daily blood gases, labs and chest x-ray Prognosis is extremely guarded I performed a history & physical examination of the patient and discussed their management with my nurse practitioner, Magdalena Negrete. I reviewed the nurse practitioner's note and agree with the documented findings and plan of care. Lung sounds are positive for diminished breath sounds. The findings and the impression was discussed with the patient. I attest to the documentation by the nurse practitioner. Time with Patient: Greater than 30
[2020-08-31 18:07] LABS: Glucose,Whole Blood 150 mg/dL (75-99)
[2020-08-31 23:50] LABS: Glucose,Whole Blood 149 mg/dL (75-99)
[2020-09-01] MEDS: fentaNYL (PF). 1,000 MCG in SODIUM CHLORIDE 0.9% 80 ML IV SCH ×2 (00:35→12:23)
[2020-09-01 03:43] LABS: Basophils % (A) 0 %; Eosinophils % (A) 0 %; HCT 40.5 % (39.0-53.0); HGB 13.5 gm/dL (13.0-17.5); Lymphocytes # (A) 0.5 k/uL (1.0-4.8); Lymphocytes % (A) 4 %; MCH 33.9 pg (25.0-35.0); MCHC 33.2 g/dL (31.0-37.0); Macrocytosis Slight; Mean Platelet Volume 9.2; Monocytes # (A) 0.4 k/uL (0-1.0); Monocytes % (A) 3 %; Neutrophils # (A) 12.6 k/uL (1.3-7.7); Neutrophils % (A) 93 %; RBC 3.97 m/uL (4.30-5.90); RDW 13.4 % (11.5-15.5); WBC 13.7 k/uL (3.8-10.6)
[2020-09-01 03:47] LABS: Platelet Count 70 k/uL (150-450)
[2020-09-01] MEDS: CISATRACURIUM 200 MG in SODIUM CHLORIDE 0.9% 180 ML IV SCH ×2 (03:53→19:12)
[2020-09-01 04:29] VITALS: BP 118/61
[2020-09-01 04:29] LABS: Albumin 2.6 g/dL (3.5-5.0); C Reactive Protein 0.6 mg/dL (<1.0); Calcium 8.1 mg/dL (8.4-10.2); Potassium 5.2 mmol/L (3.5-5.1); Total Bilirubin 0.9 mg/dL (0.2-1.3); Total Protein 5.1 g/dL (6.3-8.2)
[2020-09-01 05:05] LABS: ABG Base Excess 9.4 mmol/L; ABG HCO3 35 mmol/L (21-25); ABG Oxygen Saturation 88.2 % (94-97); ABG PCO2 65 mmHg (35-45); ABG PH 7.34 (7.35-7.45); ABG TCO2 37 mmol/L (19-24); Allen Test Performed? Yes
[2020-09-01 05:08] LABS: ABG PO2 53 mmHg (83-108)
[2020-09-01 06:03] LABS: Glucose,Whole Blood 125 mg/dL (75-99)
[2020-09-01] MEDS: SODIUM CHLORIDE 0.9% 1,000 ML IV SCH ×2 (06:11→20:25)
[2020-09-01] MEDS: INSULIN ASPART (NovoLOG) 100 UNIT/ML VIAL SQ SCH ×3 (06:12→19:12)
--- NOTE | 2020-09-01 06:37 | XR ---
EXAMINATION TYPE: XR chest 1V portable DATE OF EXAM: 09/01/2020 COMPARISON: 08/31/2020 HISTORY: Vented patient. TECHNIQUE: Single frontal view of the chest is obtained. FINDINGS: Continued evidence of mass effect in stable position. Extensive subcutaneous emphysema along the chest wall bilaterally and base of the neck. The sinuses. Heart and mediastinum are within normal limits. No obvious pneumothorax is seen. There is an interstitial markings bases and may represent consolidation and atelectasis. IMPRESSION: Interval development of subcutaneous emphysema about the chest and neck. Increasing cons olidation in the lung bases probably representing pneumonia/atelectasis. No obvious pneumothorax. Rep eat chest x-ray is recommended in 6 to 8 hours.
[2020-09-01] MEDS: ALBUTEROL HFA INHALER INHALATION SCH ×4 (07:43→20:28)
[2020-09-01] MEDS: CHLORHEXIDINE GLUCONATE 15 ML CUP MUCOUS MEM SCH ×2 (07:45→20:24)
[2020-09-01] MEDS: ZINC SULFATE 220 MG CAP PO SCH (07:45)
[2020-09-01] MEDS: DEXAMETHASONE SOD PHOSPHATE 10 MG/ML 1 ML VIAL IV SCH ×2 (07:46→20:24)
[2020-09-01] MEDS: PANTOPRAZOLE 40 MG/10 ML VIAL IVP SCH (07:46)
[2020-09-01] MEDS: ASCORBIC ACID 500 MG TAB PO SCH (07:46)
[2020-09-01] MEDS: CHOLECALCIFEROL 25 MCG (1000 IU) TABLET PO SCH (07:46)
[2020-09-01] MEDS: ENOXAPARIN 60 MG/0.6 ML SYRINGE SQ SCH ×2 (07:46→20:24)
[2020-09-01 11:47] LABS: Glucose,Whole Blood 128 mg/dL (75-99)
--- NOTE | 2020-09-01 13:13 | P.PN ---
Subjective Progress Note Date: 09/01/20 Principal diagnosis: COVID-19 pneumonia 70-year-old white male patient who presented to the hospital on 08/15/2020 with complaints of 10 day history of loss of taste, cough, shortness of breath, fever. Patient and his have been staying with her daughter who tested positive for COVID, patient had an outpatient test for COVID-19 on 08/09/2020 and was found to be positive. Last few days he's been having increased shortness of breath, cough. Past medical history is noncontributory, other than osteoarthritis with previous history of joint replacement surgery in the right knee, patient is lifetime nonsmoker, does have history of chronic bronchial asthma, not on any maintenance inhalers on a regular basis. Chest x-ray in the emergency department shows some patchy airspace disease on the right, calcified granuloma in the right lower lobe, no pneumothorax or pleural effusion. His repeat COVID-19 PCR in the emergency room was positive, RSV and influenza screen were negative. His admission blood work showed neutropenia, and lymphopenia, white blood cell count was 2.6, and leukocyte count was 0.4, d-dimer was 0.95, potassium is 3.1, rest of the electrolytes and renal profile were unremarkable, lactic acid was 1.1, AST was 63, ALT and alk phos were within normal limits, LDH was 1283, CRP was 7.1, pro calcitonin level was negative at 0.10. Patient was satting 86% on room air, currently requiring 4 L of supplemental oxygen with a pulse ox of 91-94%, he is afebrile. Lung sounds reveal diffuse coarse crackles at bilateral bases. Patient was started on Decadron this milligram daily, and prophylactic Lovenox. he is outside the window for Remdesivir On 08/17/2020 patient seen in follow-up on medical surgical floor, he is resting in bed, appears to be in no acute distress, he still on 5 L of oxygen has pulse ox of 90-91%, he is afebrile, hemodynamically stable, he states when he walks to the bathroom he gets very lightheaded and dizzy and sometimes feel like he is going to pass out. He does get short of breath, he was instructed to call for help when ambulating to the bathroom. Sounds reveal diffuse crackles bilaterally, today's follow-up chest x-ray showing patchy airspace disease lung bases. He is trying to work on incentive spirometer. Today's labs have been reviewed, his d-dimer today is 0.55, inflammatory markers are improving, and his LDH is 609, and CRP is 3.6. An patient remains on Decadron 6 mg daily, and prophylactic dose Lovenox in addition to vitamins On 08/18/2020 patient seen in follow-up on medical surgical floor. He is currently down to 4 L of oxygen pulse ox is 93%, he states he still feels weak and wobbly when walking to the bathroom, at times he gets lightheaded, but no worsening dyspnea, no signs of any respiratory distress. Today's labs have been noted, d-dimer from yesterday is 0.55, inflammatory markers were improving, no cough, no complaints of chest discomfort, he remains on Decadron 6 blood gram d aily, and Lovenox 40 mg daily. On 08/19/2020 patient seen in follow-up on medical surgical floor, he is sitting up in the recliner, in no acute distress, is on 6 L of supplemental oxygen his pulse ox is 89-90%, no worsening dyspnea, although he does get short of breath and desat with exertion, consulted physical therapy and patient had ambulated with a walker. His ambulation ability slow shaky, no complaints of dizziness. Doing fairly well, no acute events overnight, and he is on Decadron, patient was not a candidate for Remdesivir, he is on prophylactic Lovenox, today's labs have been reviewed On 08/20/2020 patient seen in follow-up on medical surgical floor. In the last 24 hours his oxygenation has significantly deteriorated, he is currently on Airvo at 60 L and FiO2 of 92%, his pulse ox is 85-88%, his been afebrile, his temp of 101.7F, complaining of headache, he looks weak, he looks a lot more ill today, fatigued, short of breath with conversation, he has occasional cough, he was outside the window for Remdesivir, he has been on Decadron 6 mg daily, he is on prophylactic Lovenox, we'll give him a dose of Toci today On 08/21/2020 patient continued to worsen through the night, with increased work of breathing, and increased oxygenation needs, he was placed on Airvo yesterday, at 60 L in FiO2 of 93%, and he is requiring 100% nonrebreather mask on top of it, his pulse ox is only 80%, he is very tachypneic with respiratory rate in the 30s, diaphoretic, and looking fatigued. He was transferred to the intensive care unit this morning and placed on BiPAP support with pressures of 14/6 and FiO2 100%, he is actually tolerating that quite well, and seems more comfortable on it, lung sounds reveal diffuse coarse crackles at bilateral posterior bases, he is afebrile this morning, his chest x-ray today showing bilateral lower lobe infiltrates and small effusion., Yesterday his d-dimer with up to 10.10, and if it remains elevated again today at 10.19, his Lovenox dose was adjusted and he is currently on 60 mg of Lovenox every 12 hours. He remains on IV dexamethasone 6 mg daily, was given a dose of Actemra yesterday On 08/24/2020 patient seen in follow-up in the intensive care unit, he remains on BiPAP its at pressures of 14/7 and FiO2 of 90%. He seems to be tolerating BiPAP support quite well, seems to be very comfortable on that. He has remained on BiPAP continuously for 24 hours, try Airvo on him again today. Appears to be in no acute distress, on those above-mentioned settings his pulse ox is ranging between 86-91%, respiratory rate is in the mid 20s, blood pressure stable, he has been afebrile. Lung sounds reveal diminished breath sounds with some bibasilar crackles. No complaints of chest pain overnight, 2 sets of troponins were less than 0.012. Echocardiogram was a technically difficult study with suboptimal views, and the EF was not calculated, RV was not visualized, left atrium, right atrium, and all the valves were not well visualized. And as such this was a suboptimal study. No complaints of chest pain overnight, no complaints of chest pain this morning. This morning's labs have been reviewed, his d-dimer is 7.66 on today's labs, white blood cell count is 10.5, hemoglobin of 14.5, sodium is 135, the rest of electrolytes and renal profile were unremarkable, LDH is 1658, CRP is 2.8. No nausea vomiting or diarrhea, abdomen is soft, no worsening dyspnea On 08/25/2020 patient seen in follow-up in intensive care unit, yesterday he tolerated Airvo at 60 L and FiO2 of 90% in addition to 100% nonrebreather mask all day, and he was placed back on BiPAP support with pressures of 14/7 and FiO2 of 90% overnight, this morning she seen in the intensive care unit, he is resting comfortably in bed, he remains on BiPAP support and his pulse ox on above-mentioned settings is 92-95%. He denies any worsening dyspnea, he is easi ly arousable to voice, and answering simple questions, lung sounds reveal diminished breath sounds at the bases, with minimal crackles. Today's chest x- ray is pending, today's labs have been reviewed during white blood cell count of 12.4, hemoglobin of 14.6, d-dimer remains elevated at 7.86, and patient's on Lovenox at 50 mg twice daily. No complaints of chest pain. No cough, no congestion, yesterday while he was on Airvo he was able to take in some oral feedings, and had a fair appetite. She is in sinus mechanism, hemodynamically she is stable, he is on plane, sitting at a rate of 50 ML per hour. He remains on Decadron at 6 mg twice daily. His renal function is within normal limits to day with B1 of 18 creatinine 0.71, sodium was 135, and her serum electrolytes were within normal limits, 2 sets of troponins were less than 0.012, limited echocardiogram was a suboptimal study, however there was no recurrence of chest discomfort from 2 days ago, and heparin drip was discontinued, no acute ST wave changes. No vomiting or diarrhea, abdomen is soft, no complaints of abdominal pain. On 08/26/2020 patient seen in follow-up in intensive care unit, currently on BiPAP with pressures of 14/7 and FiO2 100%, and his pulse ox is 88%, yesterday he was able to tolerate Airvo and nonrebreather and come off the BiPAP for short periods of time. Today he seems more lethargic compared to yesterday, he is tachypneic, but he is achieving over 1 L and tidal volumes on the BiPAP, his respiratory rate is in the mid 30s. He opens eyes to voice, he lightly groans in response to questions, but not really providing full sentence responses. Yesterday we gave him a dose of IV Lasix, he diuresed quite well, and he is in - 3.1 L over the last 24 hours. Despite the diuresis, the patient failed to improve, today's chest x-ray still showed persistent bibasilar and right midlung peripheral opacities consistent with COVID-19. Oral intake has been poor, and at this time we are considering low rate IV fluids. Labs have been reviewed, his white blood cell count is 16.8, hemoglobin is 15.7, he is a d-dimer is 9.28, sodium is 136, the rest of electrolytes are within normal limits, his BUN is 22, creatinine is 0.82, his LDH has actually trended up, and is at 2202, and CRP 1.2. On 08/29/2020 patient seen in follow-up in the intensive care unit, he was intubated over the weekend, he is currently remains sedated and paralyzed on mechanical ventilation, on assist-control mode of ventilation with a rate of 30, tidal vital 390, FiO2 100% and PEEP of 18. This morning his blood gases showed pO2 of 80, pCO2 75, and pH of 7.22. This was done 100% FiO2. His peak pressures are 45, plateau pressure is 42. Is currently on 0.9 at 1:30 ML per hour, Levothroid is at 11 mics per minute, fentanyl drip is at 0.5 mics per kilo per hour, Diprivan and is at 50 mics per kilo per minute, and index is at 1 jacob per kilo per minute, he is receiving tube feedings in the form of vital high- protein at 10 ML per hour. He is in sinus mechanism, slightly tachycardic with a rate of 109 BPM. Patient was proned last night, he is currently supine. His chest x-ray today shows diffuse bilateral infiltrates that are stable in appearance, and possibility of pneumomediastinum could not be excluded. Today's labs have been reviewed showing white blood cell count of 24.2, hemoglobin of 15.8, sodium is 142, potassium is 5.0, chloride is 110, CO2 is 30, BUN of 38, and creatinine of 1.35. AST was 92, ALT is 290, alkaline phosphatase is 110. CRP is 1.4 On 08/30/2020 patient seen in follow-up in the intensive care unit, he remains intubated, sedated and paralyzed on mechanical ventilator, currently on assist- control mode of ventilation with a rate of 36, tidal volume is 390, FiO2 100% and PEEP of 18, this morning his blood gases were reviewed showing pO2 of 98, pCO2 of 82, pH is 7.19. His peak airway pressure is 40, his plateau is 34, this chest x-ray today has been reviewed showing diffuse airspace disease that is stable in appearance, he is currently on 0.9 normal saline at a rate of 75 ML pe r hour, Levophed is at 8 mics per minute, fentanyl drip is at 0.75, and Diprivan is at 30 mics per kilo per minute, Nimbex is at 2 mics per kilo per minute. Patient is receiving tube feedings with vital high-protein at 48 with a goal of 48 and standard water flushes with 30 ML every 4 hours, he is in sinus mechanism, tachycardic with a rate of 112 BPM, he seems to have developed subcutaneous emphysema involving his anterior chest. He also developed a pressure injury from the Stefano ET tube Guardado on his right cheek. [place] 's been removed and cough type is being used for ET tube Guardado. Today's labs have been reviewed, white blood cell count is 23.1, hemoglobin is 15.4, platelet count is 92, potassium is 5.5, and this was treated with combination of 1 amp of bicarbonate, 50% dextrose and regular insulin. Recheck labs are pending, his BUN is 48 creatinine is 1.45, LDH from a couple days ago was trending up and was up to 3870, and CRP was 1.4. His last pro-calcitonin from and weight 2020 was negative at 0.07. On 08/31/2020 patient seen in follow-up in the intensive care unit, he remains sedated, paralyzed and intubated on mechanical ventilator, currently on assist-control with a rate of 36, tidal volume is 390, FiO2 of 70% and PEEP of 18, this morning blood gases show pO2 of 65, pCO2 of 81, and pH of 7.23. His peak and plateau pressures have been elevated, with peak pressure of 42, plateau pressure of 39. Further adjustments have been made to his ventilator settings, and patient was placed on pressure control mode of ventilation with pressure control 22, respiratory rate 36, FiO2 of 70%, PEEP of 18, and inspiratory time of 0.70. He had a chest x-ray today showing scattered airspace infiltrates greatest at the lung bases without significant change, he is currently on Levothroid at 0.03 mics per kilo per minute, fentanyl drip is at 0.75 mics per kilo per hour, 0.9 at 75 ML per hour, Nimbex is at 1.5 mics per kilo per minute, and Diprivan and is at 30 mics per kilo per minute. He is receiving tube feedings in the form of vital HP at 41 with a goal of 41, and standard water flushes of 30 ML every 4 hours, he is in sinus mechanism, bit tachycardic in the low 100s, no fever overnight. Today's labs have been reviewed showing white blood cell count of 15.7, hemoglobin of 14.2, his d-dimer is improving and is down to 6.17 from 10.13 on yesterday's labs, patient remains on Lovenox 50 mg every 12 hours. Sodium is 145, potassium is 5.3, chloride is 111, CO2 35, BUN of 54, creatinine is 1.24, his liver enzymes improved somewhat with AST of 61, and ALT of 251, LDH is improving is down to 1763, CRP is 0.8 on today's labs. Patient continues on Decadron 6 mg IV twice daily. Patient is producing urine in the order of 60-100 ML per hour. On 09/01/2020 patient seen in follow-up in intensive care unit, he remains intubated, sedated and paralyzed, on pressure control mode of ventilation, with inspiratory pressure of 22, rate of 36, FiO2 of 65% PEEP of 18, and inspiratory time of 0.7. This morning his blood gases reviewed showing pO2 of 53, pCO2 of 65, and pH of 7.34. This was completed on FiO2 of 65%, his peak air pressure is 41, his plateau pressures 37. Today's chest x-ray shows interval development of subcutaneous emphysema about the chest and neck, increasing consolidation in the lung bases probably representing pneumonia or atelectasis, no obvious pneumothorax was noted. Patient is currently on 0.9 normal saline at 75 ML per hour, to prevent is at 30 mics per kilo per minute, fentanyl drip is a 0.75 mics per kilo per hour, and Nimbex infusion at 1.5 mics per kilo per minute. He is tolerating tube feedings, he is receiving vital high-protein at 41 with a goal of 41 and standard water flushes, today's labs have been reviewed, his white blood cell count is down trending, and is down to 13.7 on today's labs, his hemoglobin is 13.5, his d-dimer is also improving and is down to 4.02, serum sodium is 147, potassium is 5.2, chloride is 111, CO2 is 26, BUN of 65, creatinine is 1.15, AST is 65, ALT is 227, and alkaline phosphatase within normal limits, overall his LFTs are stable if not slightly improved. Follow-up LDH is down to 1490, improving but still elevated, and his CRP today is 0.6 within normal limits. Physical exam reveals increased subcutaneous emphysema of anterior chest, upper shoulders and bilateral upper arms. Patient did prone for 16 hours, tolerated fairly well. Doing prone positioning his pulse ox is around 91-92% on the above-mentioned settings. In supine position he usually sats at around 86-87%. Hemodynamically he has not required any vasopressors, he is in sinus mechanism, his rate is controlled, is producing urine in the order of 40- 125 ML per hour. Objective - Vital Signs Vital signs: Vital Signs Temp 97.8 F 09/01/20 12:00 Pulse 74 09/01/20 12:00 Resp 36 H 09/01/20 12:00 BP 118/61 09/01/20 08:00 Pulse Ox 86 L 09/01/20 12:00 Intake & Output 08/31/20 09/01/20 09/01/20 18:59 06:59 18:59 Intake Total 6356.354 7481.192 909.455 Output Total 1855 690 405 Balance 24.015 1436.192 504.455 Weight 110.4 kg Intake: IV 936 936 468 Sodium Chloride 0.9% 1, 900 900 450 000 ml @ 75 mls/hr IV . [id number] [facility] Rx#:[id number] pressure BAG 36 36 18 Intake, IV Titration 249.015 567.192 162.455 Amount Cisatracurium 200 mg In 199.742 Sodium Chloride 0.9% 180 ml @ 2 MCG/KG/MIN 12.672 mls/hr IV .[id number] [facility] Rx #:[id number] Norepinephrine 8 mg In 90.826 Sodium Chloride 0.9% 250 ml @ 0.05 MCG/KG/MIN 10. 217 mls/hr IV .Q24H [facility] Rx#:[id number] fentaNYL (PF). 1,000 mcg 100 76.624 90.718 In Sodium Chloride 0.9% 80 ml @ Per Protocol IV . Q0M [facility] Rx#:[id number] propofoL 1,000 mg In 149.015 200 71.737 Empty Bag 1 bag @ Titrate IV .Q0M [facility] Rx#: [id number] Tube Feeding 574 533 179 Other 120 90 100 Output: Urine 1855 690 405 Other: Voiding Method Indwelling Catheter Indwelling Catheter Indwelling Catheter ABP, PAP, CO, CI - Last Documented Arterial Blood Pressure 104/51 - Exam GENERAL EXAM: 70-year-old white male, assist control mode of ventilation, with FiO2 of 70% and PEEP of 18, sedated, and paralyzed. Patient appears to be generally swollen on today's exam including his face and upper arms HEAD: Normocephalic/atraumatic. EYES: Normal reaction of pupils, equal size. Conjunctiva pink, sclera white. NOSE: Clear with pink turbinates. Pressure injury involving the bridge of the nose, in the wound is fairly dry, and guarding to scab over THROAT: No erythema or exudates. NECK: No masses, no JVD, no thyroid enlargement, no adenopathy. CHEST: No chest wall deformity. Symmetrical expansion. Increased subcutaneous emphysema noted on today's physical exam of the anterior chest, upper shoulders, and bilateral upper arms LUNGS: Equal air entry with coarse bibasilar crackles CVS: Regular rate and rhythm, normal S1 and S2, no gallops, no murmurs, no rubs ABDOMEN: Soft, nontender. No hepatosplenomegaly, normal bowel sounds, no guarding or rigidity. EXTREMITIES: No clubbing, generalized nonpitting edema no cyanosis, 2+ pulses and upper and lower extremities. MUSCULOSKELETAL: Muscle strength and tone normal. SPINE: No scoliosis or deformity SKIN: No rashes CENTRAL NERVOUS SYSTEM: Intubated, sedated and paralyzed No focal deficits, tone is normal in all 4 extremities. - Labs CBC & Chem 7: 09/01/20 03:30 09/01/20 03:30 Labs: Abnormal Lab Results - Last 24 Hours (Table) 08/31/20 08/31/20 09/01/20 Range/Units 18:06 23:48 03:30 WBC 13.7 H (3.8-10.6) k/uL RBC 3.97 L (4.30-5.90) m/uL MCV 102.0 H (80.0-100.0) fL Plt Count 70 L (150-450) k/uL Neutrophils # 12.6 H (1.3-7.7) k/uL Lymphocytes # 0.5 L (1.0-4.8) k/uL D-Dimer (<0.60) mg/L FEU ABG pH (7.35-7.45) ABG pCO2 (35-45) mmHg ABG pO2 (83-108) mmHg ABG HCO3 (21-25) mmol/L ABG Total CO2 (19-24) mmol/L ABG O2 Saturation (94-97) % Sodium (137-145) mmol/L Potassium (3.5-5.1) mmol/L Chloride (98-107) mmol/L Carbon Dioxide (22-30) mmol/L BUN (9-20) mg/dL Glucose (74-99) mg/dL POC Glucose (mg/dL) 150 H 149 H (75-99) mg/dL Calcium (8.4-10.2) mg/dL AST (17-59) U/L ALT (4-49) U/L Lactate Dehydrogenase (313-618) U/L Total Protein (6.3-8.2) g/dL Albumin (3.5-5.0) g/dL 09/01/20 09/01/20 09/01/20 Range/Units 03:30 03:30 04:59 WBC (3.8-10.6) k/uL RBC (4.30-5.90) m/uL MCV (80.0-100.0) fL Plt Count (150-450) k/uL Neutrophils # (1.3-7.7) k/uL Lymphocytes # (1.0-4.8) k/uL D-Dimer 4.02 H (<0.60) mg/L FEU ABG pH 7.34 L (7.35-7.45) ABG pCO2 65 H (35-45) mmHg ABG pO2 53 L* (83-108) mmHg ABG HCO3 35 H (21-25) mmol/L ABG Total CO2 37 H (19-24) mmol/L ABG O2 Saturation 88.2 L (94-97) % Sodium 147 H (137-145) mmol/L Potassium 5.2 H (3.5-5.1) mmol/L Chloride 111 H (98-107) mmol/L Carbon Dioxide 36 H (22-30) mmol/L BUN 65 H (9-20) mg/dL Glucose 157 H (74-99) mg/dL POC Glucose (mg/dL) (75-99) mg/dL Calcium 8.1 L (8.4-10.2) mg/dL AST 65 H (17-59) U/L ALT 227 H (4-49) U/L Lactate Dehydrogenase 1490 H (313-618) U/L Total Protein 5.1 L (6.3-8.2) g/dL Albumin 2.6 L (3.5-5.0) g/dL 09/01/20 09/01/20 Range/Units 06:01 11:46 WBC (3.8-10.6) k/uL RBC (4.30-5.90) m/uL MCV (80.0-100.0) fL Plt Count (150-450) k/uL Neutrophils # (1.3-7.7) k/uL Lymphocytes # (1.0-4.8) k/uL D-Dimer (<0.60) mg/L FEU ABG pH (7.35-7.45) ABG pCO2 (35-45) mmHg ABG pO2 (83-108) mmHg ABG HCO3 (21-25) mmol/L ABG Total CO2 (19-24) mmol/L ABG O2 Saturation (94-97) % Sodium (137-145) mmol/L Potassium (3.5-5.1) mmol/L Chloride (98-107) mmol/L Carbon Dioxide (22-30) mmol/L BUN (9-20) mg/dL Glucose (74-99) mg/dL POC Glucose (mg/dL) 125 H 128 H (75-99) mg/dL Calcium (8.4-10.2) mg/dL AST (17-59) U/L ALT (4-49) U/L Lactate Dehydrogenase (313-618) U/L Total Protein (6.3-8.2) g/dL Albumin (3.5-5.0) g/dL Assessment and Plan Plan: Assessment: #1. Acute hypoxic respiratory failure related to acute COVID-19 pneumonia, with onset of symptoms 10 days prior to presentation, patient had outpatient positive COVID-19 test on 08/09/2020, outside the window for Remdesivir. Hypoxia progressed and patient received Toci on 08/20/2020. Patient was transferred to the intensive care unit on 08/21/2020 and placed on BiPAP support. Patient was intubated on 08/28/2020. On 08/30/2020 patient remains sedated, paralyzed and intubated on FiO2 of 80% and PEEP of 18. On 08/31/2020 patient remains intubated, sedated and paralyzed, currently with FiO2 of 70%, and PEEP of 18, and his peak and plateau pressures have been elevated at 42 and 39 respectively, patient will be tried on pressure control mode of ventilation #2. Increased d-dimer related to COVID-19 infection, lower extremity Dopplers were negative for DVT. Patient's currently on Lovenox 50 mg twice daily #3. Neutropenia, pro-calcitonin was negative, resolved and patient now has leukocytosis and currently his white blood cell count is 23.1 #4. Elevated liver enzymes related to viral pneumonia #5. Lifetime nonsmoker #6. History of chronic bronchial asthma, mild intermittent, inactive at this time #7. Episode of chest pain on 08/23/2020, EKG without significant ST segment elevation, 2 sets of negative troponins. Echocardiogram was a suboptimal study, unable to calculate EF, calculate chamber sizes or valves #8. Hypernatremia, related to free water deficit Plan: We'll continue with pressure control mode of ventilation, we will decrease inspiratory pressure down to 20, and increase I-time to 0.8 seconds, PEEP remains at 18, FiO2 is a 65 % Today chest x-ray reviewed, no obvious pneumothorax Increase subcutaneous emphysema of the anterior chest and upper arms We'll order follow-up chest x-ray if there is obvious worsening in the subcutaneous emphysema through the day or if there is a change in ventilatory dynamics or hemodynamics Continue sedation and paralytics We'll continue prone positioning, with the goal of 16-20 hours a day Continue current dose Lovenox and steroids Continue nutritional support, increase free water flushes to 200 mL every 4 hours CODE STATUS is DO NOT RESUSCITATE We will continue supportive care Prognosis is poor I performed a history & physical examination of the patient and discussed their management with my nurse practitioner, Magdalena Negrete. I reviewed the nurse practitioner's note and agree with the documented findings and plan of care. Lung sounds are positive for diminished breath sounds. The findings and the impression was discussed with the patient. I attest to the documentation by the nurse practitioner. Time with Patient: Greater than 30
--- NOTE | 2020-09-01 13:19 | P.PN ---
Subjective Progress Note Date: 09/01/20 Patient remains sedated and intubated. Blood gas with no significant improvement. Ventilator management by director of global talent. No acute events overnight reported by nursing staff. Objective - Vital Signs Vital signs: Vital Signs Temp 97.8 F 09/01/20 12:00 Pulse 74 09/01/20 12:00 Resp 36 H 09/01/20 12:00 BP 118/61 09/01/20 08:00 Pulse Ox 86 L 09/01/20 12:00 Intake & Output 08/31/20 09/01/20 09/01/20 18:59 06:59 18:59 Intake Total 3436.406 6163.192 909.455 Output Total 1855 690 405 Balance 24.015 1436.192 504.455 Weight 110.4 kg Intake: IV 936 936 468 Sodium Chloride 0.9% 1, 900 900 450 000 ml @ 75 mls/hr IV . [id number] [facility] Rx#:[id number] pressure BAG 36 36 18 Intake, IV Titration 249.015 567.192 162.455 Amount Cisatracurium 200 mg In 199.742 Sodium Chloride 0.9% 180 ml @ 2 MCG/KG/MIN 12.672 mls/hr IV .[id number] [facility] Rx #:[id number] Norepinephrine 8 mg In 90.826 Sodium Chloride 0.9% 250 ml @ 0.05 MCG/KG/MIN 10. 217 mls/hr IV .Q24H [facility] Rx#:[id number] fentaNYL (PF). 1,000 mcg 100 76.624 90.718 In Sodium Chloride 0.9% 80 ml @ Per Protocol IV . Q0M [facility] Rx#:[id number] propofoL 1,000 mg In 149.015 200 71.737 Empty Bag 1 bag @ Titrate IV .Q0M [facility] Rx#: [id number] Tube Feeding 574 533 179 Other 120 90 100 Output: Urine 1855 690 405 Other: Voiding Method Indwelling Catheter Indwelling Catheter Indwelling Catheter ABP, PAP, CO, CI - Last Documented Arterial Blood Pressure 104/51 - Exam General: The patient is sedated and intubated Eye: there is normal conjunctiva bilaterally. Neck: The neck is supple, there is no JVD. Cardiovascular: Normal S1-S2, no S3-S4, no murmurs. Respiratory: Lungs with mechanical ventilator sounds Gastrointestinal: Abdomen is soft, nontender Musculoskeletal: There is +1 pedal edema. Skin: Skin is warm and dry - Labs CBC & Chem 7: 09/01/20 03:30 09/01/20 03:30 Labs: Abnormal Lab Results - Last 24 Hours (Table) 08/31/20 08/31/20 09/01/20 Range/Units 18:06 23:48 03:30 WBC 13.7 H (3.8-10.6) k/uL RBC 3.97 L (4.30-5.90) m/uL MCV 102.0 H (80.0-100.0) fL Plt Count 70 L (150-450) k/uL Neutrophils # 12.6 H (1.3-7.7) k/uL Lymphocytes # 0.5 L (1.0-4.8) k/uL D-Dimer (<0.60) mg/L FEU ABG pH (7.35-7.45) ABG pCO2 (35-45) mmHg ABG pO2 (83-108) mmHg ABG HCO3 (21-25) mmol/L ABG Total CO2 (19-24) mmol/L ABG O2 Saturation (94-97) % Sodium (137-145) mmol/L Potassium (3.5-5.1) mmol/L Chloride (98-107) mmol/L Carbon Dioxide (22-30) mmol/L BUN (9-20) mg/dL Glucose (74-99) mg/dL POC Glucose (mg/dL) 150 H 149 H (75-99) mg/dL Calcium (8.4-10.2) mg/dL AST (17-59) U/L ALT (4-49) U/L Lactate Dehydrogenase (313-618) U/L Total Protein (6.3-8.2) g/dL Albumin (3.5-5.0) g/dL 09/01/20 09/01/20 09/01/20 Range/Units 03:30 03:30 04:59 WBC (3.8-10.6) k/uL RBC (4.30-5.90) m/uL MCV (80.0-100.0) fL Plt Count (150-450) k/uL Neutrophils # (1.3-7.7) k/uL Lymphocytes # (1.0-4.8) k/uL D-Dimer 4.02 H (<0.60) mg/L FEU ABG pH 7.34 L (7.35-7.45) ABG pCO2 65 H (35-45) mmHg ABG pO2 53 L* (83-108) mmHg ABG HCO3 35 H (21-25) mmol/L ABG Total CO2 37 H (19-24) mmol/L ABG O2 Saturation 88.2 L (94-97) % Sodium 147 H (137-145) mmol/L Potassium 5.2 H (3.5-5.1) mmol/L Chloride 111 H (98-107) mmol/L Carbon Dioxide 36 H (22-30) mmol/L BUN 65 H (9-20) mg/dL Glucose 157 H (74-99) mg/dL POC Glucose (mg/dL) (75-99) mg/dL Calcium 8.1 L (8.4-10.2) mg/dL AST 65 H (17-59) U/L ALT 227 H (4-49) U/L Lactate Dehydrogenase 1490 H (313-618) U/L Total Protein 5.1 L (6.3-8.2) g/dL Albumin 2.6 L (3.5-5.0) g/dL 09/01/20 09/01/20 Range/Units 06:01 11:46 WBC (3.8-10.6) k/uL RBC (4.30-5.90) m/uL MCV (80.0-100.0) fL Plt Count (150-450) k/uL Neutrophils # (1.3-7.7) k/uL Lymphocytes # (1.0-4.8) k/uL D-Dimer (<0.60) mg/L FEU ABG pH (7.35-7.45) ABG pCO2 (35-45) mmHg ABG pO2 (83-108) mmHg ABG HCO3 (21-25) mmol/L ABG Total CO2 (19-24) mmol/L ABG O2 Saturation (94-97) % Sodium (137-145) mmol/L Potassium (3.5-5.1) mmol/L Chloride (98-107) mmol/L Carbon Dioxide (22-30) mmol/L BUN (9-20) mg/dL Glucose (74-99) mg/dL POC Glucose (mg/dL) 125 H 128 H (75-99) mg/dL Calcium (8.4-10.2) mg/dL AST (17-59) U/L ALT (4-49) U/L Lactate Dehydrogenase (313-618) U/L Total Protein (6.3-8.2) g/dL Albumin (3.5-5.0) g/dL Assessment and Plan Assessment: Patient is a 70-year-old male with a history of asthma and obesity who initially presented to the ER with complaints of shortness of breath, nausea, and poor appetite. He had known positive COVID testing on 08/09/20. In the ER he was found be hypoxic at 86% on room air. He again was COVID-19 PCR positive. Chest x-ray demonstrated pneumonia. He was outside of the window for Remdesivir. His oxygen requirement increased throughout his hospital stay. Patient is currently admitted to the ICU for further management of his medical problems noted below COVID-19 pneumonitis Acute hypoxic and hypercapnic respiratory failure requiring intubation and mechanical ventilation on 08/28 Sepsis with septic shock requiring vasopressors and aggressive IV fluid hydration -Ventilatory managed by director of global talent - On Decadron D#18 managed by pulmonology -Normal pro calcitonin - BNP slightly elevated - Continue with vitamins - TOCI 08/20 - Lovenox increased due to D-dimer > 3 Transaminitis, mild, improving - likely related to COVID vs history of ETOH use - follow liver enzymes Asthma without exacerbation - albuterol Obesity with BMI 35.9 - structure weight loss once COVID resolved. DVT prophylaxis with subcu Lovenox CODE STATUS, patient is DO NOT RESUSCITATE. discussed by director of global talent with family members. Today, I reviewed his medication list and lab work results Continue tube feeding as directed by dietitian Overall prognosis is guarded Sedation and vent are managed by director of global talent DVT prophylaxis: Lovenox Discussed with: Patient, nursing Anticipated discharge: unknown Anticipated discharge place: pending course A total of 35 minutes was spent on the care of this complex patient more than 50% of the time was spent in counseling and care coordination.
[2020-09-01 17:14] LABS: ABG Oxygen Saturation 87.6 % (94-97); ABG PO2 71 mmHg (83-108); Allen Test Performed? Yes
[2020-09-01 17:18] LABS: ABG PH 7.05 (7.35-7.45)
[2020-09-01 17:19] LABS: ABG PCO2 >120 mmHg (35-45)
[2020-09-01] MEDS ORDERED: SODIUM BICARB 8.4% 50 ML SYR (1 MEQ/ML) IV STA (17:31)
[2020-09-01 18:27] LABS: Glucose,Whole Blood 149 mg/dL (75-99)
--- NOTE | 2020-09-01 18:45 | XR ---
EXAMINATION: XR chest 1V portable DATE AND TIME: 09/01/2020 6:04 PM CLINICAL INDICATION: PHH; decreased tv on vent TECHNIQUE: AP portable upright COMPARISON: 09/01/2020 at 5:35 AM FINDINGS: Marked subcutaneous emphysema redemonstrated. ET tube tip superimposed over the mid trachea, unchanged. NG tube superimposing the expected course o f the esophagus, but its distal aspect is not included on this radiograph. Left subclavian PICC line tip present, its tip appears unchanged. In this setting, there is prominent limitation for abnormal gas collections such as pneumothorax. How ever, there is no definite pneumothorax visualized. There is evidence of small right pleural effusion in the right costophrenic angle. There are scattered ill-defined opacities the lungs, particularly the right mid and lower lung zone a nd the left lower lung zone. There are bibasilar air bronchograms and findings are therefore suspicio us for multifocal pneumonia. Difficult to exclude pulmonary edema, particularly on the right, but the left lung appears to be nega tive for pulmonary edema, as seen. IMPRESSION: Overall similar lung inflation pattern; radiographic abnormalities as discussed.
[2020-09-01 21:03] LABS: ABG Base Excess 10.5 mmol/L; ABG HCO3 37 mmol/L (21-25); ABG Oxygen Saturation 90.4 % (94-97); ABG PH 7.29 (7.35-7.45); ABG PO2 61 mmHg (83-108); ABG TCO2 39 mmol/L (19-24); Allen Test Performed? Yes
[2020-09-01 21:05] LABS: ABG PCO2 77 mmHg (35-45)
[2020-09-01 23:34] LABS: Glucose,Whole Blood 124 mg/dL (75-99)
[2020-09-02] MEDS: fentaNYL (PF). 1,000 MCG in SODIUM CHLORIDE 0.9% 80 ML IV SCH ×2 (00:22→17:45)
[2020-09-02] MEDS: INSULIN ASPART (NovoLOG) 100 UNIT/ML VIAL SQ SCH ×4 (00:24→18:14)
[2020-09-02 03:43] LABS: Basophils % (A) 0 %; Eosinophils % (A) 0 %; HCT 38.7 % (39.0-53.0); HGB 12.8 gm/dL (13.0-17.5); Hypochromasia Slight; Lymphocytes # (A) 0.6 k/uL (1.0-4.8); Lymphocytes % (A) 4 %; MCHC 33.2 g/dL (31.0-37.0); MCV 102.5 fL (80.0-100.0); Macrocytosis Slight; Mean Platelet Volume 9.8; Monocytes # (A) 0.5 k/uL (0-1.0); Monocytes % (A) 4 %; Neutrophils # (A) 12.5 k/uL (1.3-7.7); Neutrophils % (A) 91 %; RBC 3.78 m/uL (4.30-5.90); RDW 13.6 % (11.5-15.5); WBC 13.8 k/uL (3.8-10.6)
[2020-09-02] MEDS: NOREPINEPHRINE 8 MG in SODIUM CHLORIDE 0.9% 250 ML IV SCH (03:45)
[2020-09-02 03:47] LABS: Platelet Count 74 k/uL (150-450)
[2020-09-02 04:06] LABS: Albumin 2.5 g/dL (3.5-5.0); C Reactive Protein 0.8 mg/dL (<1.0); Calcium 8.1 mg/dL (8.4-10.2); Potassium 5.5 mmol/L (3.5-5.1); Total Bilirubin 0.9 mg/dL (0.2-1.3); Total Protein 4.9 g/dL (6.3-8.2)
[2020-09-02 05:11] LABS: Glucose,Whole Blood 124 mg/dL (75-99)
[2020-09-02 05:25] LABS: ABG Base Excess 10.6 mmol/L; ABG HCO3 36 mmol/L (21-25); ABG Oxygen Saturation 89.3 % (94-97); ABG PCO2 68 mmHg (35-45); ABG PH 7.34 (7.35-7.45); ABG TCO2 39 mmol/L (19-24); Allen Test Performed? Yes
[2020-09-02 05:26] LABS: ABG PO2 57 mmHg (83-108)
--- NOTE | 2020-09-02 07:03 | XR ---
EXAMINATION TYPE: XR chest 1V portable DATE OF EXAM: 09/02/2020 COMPARISON: 09/01/2020 HISTORY: SOB, Follow Up FINDINGS: Indwelling tubes and catheters are unchanged. There is extensive subcutaneous emphysema. Sizable pneumothorax is not identified with certainty. No change in bibasilar opacities. Stable appearance of the cardio-mediastinal structures at this time. Pleural effusion unchanged. IMPRESSION: 1. Stable portable chest. Clinical correlation and follow up until resolution is recommended.
[2020-09-02] MEDS: ALBUTEROL HFA INHALER INHALATION SCH ×4 (07:40→21:55)
[2020-09-02] MEDS: DEXAMETHASONE SOD PHOSPHATE 10 MG/ML 1 ML VIAL IV SCH ×2 (09:16→20:49)
[2020-09-02] MEDS: CHLORHEXIDINE GLUCONATE 15 ML CUP MUCOUS MEM SCH ×2 (09:16→21:28)
[2020-09-02] MEDS: ENOXAPARIN 60 MG/0.6 ML SYRINGE SQ SCH (09:16)
[2020-09-02] MEDS: ASCORBIC ACID 500 MG TAB PO SCH (09:17)
[2020-09-02] MEDS: PANTOPRAZOLE 40 MG/10 ML VIAL IVP SCH (09:17)
[2020-09-02] MEDS: CHOLECALCIFEROL 25 MCG (1000 IU) TABLET PO SCH (09:17)
[2020-09-02] MEDS: ZINC SULFATE 220 MG CAP PO SCH (09:17)
[2020-09-02] MEDS: SODIUM CHLORIDE 0.9% 1,000 ML IV SCH ×2 (09:19→23:49)
[2020-09-02] MEDS ORDERED: FUROSEMIDE 10 MG/ML 4 ML VIAL IV STA (10:28)
[2020-09-02] MEDS ORDERED: LACTULOSE 20 GM/30 ML CUP PO ONE (11:33)
--- NOTE | 2020-09-02 11:43 | P.PN ---
Subjective Progress Note Date: 09/02/20 Patient remains sedated and intubated. No significant change compared to yesterday. Ventilator management by document control associate. Nurse informed me that patient did not have a bowel movement for the past few days. He is tolerating tube feedings with no high residuals. Objective - Vital Signs Vital signs: Vital Signs Temp 98.6 F 09/02/20 09:00 Pulse 78 09/02/20 10:00 Resp 36 H 09/02/20 10:00 BP 118/61 09/02/20 10:00 Pulse Ox 86 L 09/02/20 10:00 Intake & Output 09/01/20 09/02/20 09/02/20 18:59 06:59 18:59 Intake Total 7023.622 3909.846 557 Output Total 715 800 285 Balance 7379.789 8013.846 272 Weight 110.5 kg 110.5 kg Intake: IV 936 936 234 Sodium Chloride 0.9% 1, 900 900 225 000 ml @ 75 mls/hr IV . [id number] [facility] Rx#:[id number] pressure BAG 36 36 9 Intake, IV Titration 262.455 480.846 Amount Cisatracurium 200 mg In 145.57 Sodium Chloride 0.9% 180 ml @ 2 MCG/KG/MIN 12.672 mls/hr IV .[id number] [facility] Rx #:[id number] Norepinephrine 8 mg In 0 Sodium Chloride 0.9% 250 ml @ 0.05 MCG/KG/MIN 10. 217 mls/hr IV .Q24H [facility] Rx#:[id number] fentaNYL (PF). 1,000 mcg 90.718 92.128 In Sodium Chloride 0.9% 80 ml @ Per Protocol IV . Q0M [facility] Rx#:[id number] propofoL 1,000 mg In 171.737 243.148 Empty Bag 1 bag @ Titrate IV .Q0M [facility] Rx#: [id number] Tube Feeding 466 515 123 Other 300 600 200 Output: Urine 715 800 285 Other: Voiding Method Indwelling Catheter Indwelling Catheter ABP, PAP, CO, CI - Last Documented Arterial Blood Pressure 101/50 - Exam General: The patient is sedated and intubated Eye: there is normal conjunctiva bilaterally. Neck: The neck is supple, there is no JVD. Cardiovascular: Normal S1-S2, no S3-S4, no murmurs. Respiratory: Lungs with mechanical ventilator sounds Gastrointestinal: Abdomen is soft, nontender Musculoskeletal: There is +1 pedal edema. Skin: Skin is warm and dry - Labs CBC & Chem 7: 09/02/20 03:20 09/02/20 03:20 Labs: Abnormal Lab Results - Last 24 Hours (Table) 09/01/20 09/01/20 09/01/20 Range/Units 11:46 17:11 18:25 WBC (3.8-10.6) k/uL RBC (4.30-5.90) m/uL Hgb (13.0-17.5) gm/dL Hct (39.0-53.0) % MCV (80.0-100.0) fL Plt Count (150-450) k/uL Neutrophils # (1.3-7.7) k/uL Lymphocytes # (1.0-4.8) k/uL D-Dimer (<0.60) mg/L FEU ABG pH 7.05 L* (7.35-7.45) ABG pCO2 >120 H* (35-45) mmHg ABG pO2 71 L (83-108) mmHg ABG HCO3 (21-25) mmol/L ABG Total CO2 (19-24) mmol/L ABG O2 Saturation 87.6 L (94-97) % Sodium (137-145) mmol/L Potassium (3.5-5.1) mmol/L Chloride (98-107) mmol/L Carbon Dioxide (22-30) mmol/L BUN (9-20) mg/dL Glucose (74-99) mg/dL POC Glucose (mg/dL) 128 H 149 H (75-99) mg/dL Calcium (8.4-10.2) mg/dL AST (17-59) U/L ALT (4-49) U/L Lactate Dehydrogenase (313-618) U/L Total Protein (6.3-8.2) g/dL Albumin (3.5-5.0) g/dL 09/01/20 09/01/20 09/02/20 Range/Units 20:57 23:32 03:20 WBC 13.8 H (3.8-10.6) k/uL RBC 3.78 L (4.30-5.90) m/uL Hgb 12.8 L (13.0-17.5) gm/dL Hct 38.7 L (39.0-53.0) % MCV 102.5 H (80.0-100.0) fL Plt Count 74 L (150-450) k/uL Neutrophils # 12.5 H (1.3-7.7) k/uL Lymphocytes # 0.6 L (1.0-4.8) k/uL D-Dimer (<0.60) mg/L FEU ABG pH 7.29 L (7.35-7.45) ABG pCO2 77 H* (35-45) mmHg ABG pO2 61 L (83-108) mmHg ABG HCO3 37 H (21-25) mmol/L ABG Total CO2 39 H (19-24) mmol/L ABG O2 Saturation 90.4 L (94-97) % Sodium (137-145) mmol/L Potassium (3.5-5.1) mmol/L Chloride (98-107) mmol/L Carbon Dioxide (22-30) mmol/L BUN (9-20) mg/dL Glucose (74-99) mg/dL POC Glucose (mg/dL) 124 H (75-99) mg/dL Calcium (8.4-10.2) mg/dL AST (17-59) U/L ALT (4-49) U/L Lactate Dehydrogenase (313-618) U/L Total Protein (6.3-8.2) g/dL Albumin (3.5-5.0) g/dL 09/02/20 09/02/20 09/02/20 Range/Units 03:20 03:20 05:09 WBC (3.8-10.6) k/uL RBC (4.30-5.90) m/uL Hgb (13.0-17.5) gm/dL Hct (39.0-53.0) % MCV (80.0-100.0) fL Plt Count (150-450) k/uL Neutrophils # (1.3-7.7) k/uL Lymphocytes # (1.0-4.8) k/uL D-Dimer 2.72 H (<0.60) mg/L FEU ABG pH (7.35-7.45) ABG pCO2 (35-45) mmHg ABG pO2 (83-108) mmHg ABG HCO3 (21-25) mmol/L ABG Total CO2 (19-24) mmol/L ABG O2 Saturation (94-97) % Sodium 147 H (137-145) mmol/L Potassium 5.5 H (3.5-5.1) mmol/L Chloride 112 H (98-107) mmol/L Carbon Dioxide 38 H (22-30) mmol/L BUN 77 H (9-20) mg/dL Glucose 146 H (74-99) mg/dL POC Glucose (mg/dL) 124 H (75-99) mg/dL Calcium 8.1 L (8.4-10.2) mg/dL AST 83 H (17-59) U/L ALT 259 H (4-49) U/L Lactate Dehydrogenase 1394 H (313-618) U/L Total Protein 4.9 L (6.3-8.2) g/dL Albumin 2.5 L (3.5-5.0) g/dL 09/02/20 Range/Units 05:20 WBC (3.8-10.6) k/uL RBC (4.30-5.90) m/uL Hgb (13.0-17.5) gm/dL Hct (39.0-53.0) % MCV (80.0-100.0) fL Plt Count (150-450) k/uL Neutrophils # (1.3-7.7) k/uL Lymphocytes # (1.0-4.8) k/uL D-Dimer (<0.60) mg/L FEU ABG pH 7.34 L (7.35-7.45) ABG pCO2 68 H (35-45) mmHg ABG pO2 57 L* (83-108) mmHg ABG HCO3 36 H (21-25) mmol/L ABG Total CO2 39 H (19-24) mmol/L ABG O2 Saturation 89.3 L (94-97) % Sodium (137-145) mmol/L Potassium (3.5-5.1) mmol/L Chloride (98-107) mmol/L Carbon Dioxide (22-30) mmol/L BUN (9-20) mg/dL Glucose (74-99) mg/dL POC Glucose (mg/dL) (75-99) mg/dL Calcium (8.4-10.2) mg/dL AST (17-59) U/L ALT (4-49) U/L Lactate Dehydrogenase (313-618) U/L Total Protein (6.3-8.2) g/dL Albumin (3.5-5.0) g/dL Assessment and Plan Assessment: Patient is a 70-year-old male with a history of asthma and obesity who initially presented to the ER with complaints of shortness of breath, nausea, and poor ap petite. He had known positive COVID testing on 08/09/20. In the ER he was found be hypoxic at 86% on room air. He again was COVID-19 PCR positive. Chest x-ray demonstrated pneumonia. He was outside of the window for Remdesivir. His oxygen requirement increased throughout his hospital stay. Patient is currently admitted to the ICU for further management of his medical problems noted below COVID-19 pneumonitis Acute hypoxic and hypercapnic respiratory failure requiring intubation and mechanical ventilation on 08/28 Sepsis with septic shock requiring vasopressors and aggressive IV fluid hydr ation -Ventilatory managed by document control associate - On Decadron D#19 managed by pulmonology -Normal pro calcitonin - BNP slightly elevated - Continue with vitamins - TOCI 08/20 - Lovenox increased due to D-dimer > 3 Transaminitis, mild, improving - likely related to COVID vs history of ETOH use - follow liver enzymes Asthma without exacerbation - albuterol Obesity with BMI 35.9 - structure weight loss once COVID resolved. DVT prophylaxis with subcu Lovenox CODE STATUS, patient is DO NOT RESUSCITATE. discussed by document control associate with family members. Today, I reviewed his medication list and lab work results Continue tube feeding as directed by dietitian Start MiraLAX at that time 1 time dose of lactulose now Overall prognosis is guarded Sedation and vent are managed by document control associate DVT prophylaxis: Lovenox Discussed with: nursing Anticipated discharge: unknown Anticipated discharge place: pending course A total of 35 minutes was spent on the care of this complex patient more than 50% of the time was spent in counseling and care coordination.
[2020-09-02 12:14] LABS: Glucose,Whole Blood 132 mg/dL (75-99)
--- NOTE | 2020-09-02 12:49 | CDI ---
Documentation Clarification Form Date: 09/02/2020 12:38:03 PM From: Ana Cristina BurksMannSHAYLA schultz, CCDS Admit Date: 08/15/2020 01:51:00 PM Patient Name: Yifan Singer Visit Number: [id number] Discharge Date: ATTENTION: The Clinical Documentation Specialists (CDI) and [facility] Coding Staff appreciate your assistance in clarifying documentation. Please respond to the clarification below the line at the bottom and electronically sign. The CDI & [facility] Coding staff will review the response and follow-up if needed. Please note: Queries are made part of the Legal Health Record. If you have any questions, please contact the author of this message via ITS. Dr. Vikas Rosenberg: The patient presented with the following clinical indicators. Additional clarification regarding the POA status of documented Sepsis is requested. History/Risk Factors per the 08/15 H/P: Asthma, Bronchitis, Granulomatosis Disease. Clinical Indicators: Presented to the ED on 08/15 with SOB, COVID + on 08/09. Symptoms include cough, SOB, fatigue, weakness, low appetite, vomiting, fever. ED Clinical Impression: Pneumonia due to COVID 19 virus, Hypoxia. 08/15 VS: T 97.6 - 100.4, P 70 - 80, R 22 (cough, SOB), BP 113/76 - 108/79; PO 86 RA - 92 2Lnc - 94 3Lnc. BMI: 37.0 08/15 LAB: WBC 2.6, Pl Ct 117, Neut 2.0, Lymph 0.4, D Dimer 0.95, K 3.1, Glucose 127, Calcium 7.7, AST 63, LDH 1283, CRP 7.1, Albumin 3.3, Procalcitonin 0.10 COVID Positive 08/15 CXR: Correlate for Pneumonia, probable old granulomatous disease. Blood cultures: None Treatment 08/15: IV fluid NaCl 1,000 mls @ 999 mls/hr q1H, IV Zofran 4mg q8H, IV Decadron 6 mg whitney daily, po Vit C, Lovenox sq daily, INH Ventolin whitney. 08/20: IV Actemra, TPN In your professional opinion, please clarify if these findings signify one of the following conditions: [ ] Sepsis POA [X ] Sepsis, Not POA [ ] Other, please specify [ ] Unable to determine (Template Last Reviewed: May 2020) MTDD
--- NOTE | 2020-09-02 14:15 | P.PN ---
Subjective Progress Note Date: 09/02/20 Principal diagnosis: COVID-19 pneumonia 70-year-old white male patient who presented to the hospital on 08/15/2020 with complaints of 10 day history of loss of taste, cough, shortness of breath, fever. Patient and his have been staying with her daughter who tested positive for COVID, patient had an outpatient test for COVID-19 on 08/09/2020 and was found to be positive. Last few days he's been having increased shortness of breath, cough. Past medical history is noncontributory, other than osteoarthritis with previous history of joint replacement surgery in the right knee, patient is lifetime nonsmoker, does have history of chronic bronchial asthma, not on any maintenance inhalers on a regular basis. Chest x-ray in the emergency department shows some patchy airspace disease on the right, calcified granuloma in the right lower lobe, no pneumothorax or pleural effusion. His repeat COVID-19 PCR in the emergency room was positive, RSV and influenza screen were negative. His admission blood work showed neutropenia, and lymphopenia, white blood cell count was 2.6, and leukocyte count was 0.4, d-dimer was 0.95, potassium is 3.1, rest of the electrolytes and renal profile were unremarkable, lactic acid was 1.1, AST was 63, ALT and alk phos were within normal limits, LDH was 1283, CRP was 7.1, pro calcitonin level was negative at 0.10. Patient was satting 86% on room air, currently requiring 4 L of supplemental oxygen with a pulse ox of 91-94%, he is afebrile. Lung sounds reveal diffuse coarse crackles at bilateral bases. Patient was started on Decadron this milligram daily, and prophylactic Lovenox. he is outside the window for Remdesivir On 08/17/2020 patient seen in follow-up on medical surgical floor, he is resting in bed, appears to be in no acute distress, he still on 5 L of oxygen has pulse ox of 90-91%, he is afebrile, hemodynamically stable, he states when he walks to the bathroom he gets very lightheaded and dizzy and sometimes feel like he is going to pass out. He does get short of breath, he was instructed to call for help when ambulating to the bathroom. Sounds reveal diffuse crackles bilaterally, today's follow-up chest x-ray showing patchy airspace disease lung bases. He is trying to work on incentive spirometer. Today's labs have been reviewed, his d-dimer today is 0.55, inflammatory markers are improving, and his LDH is 609, and CRP is 3.6. An patient remains on Decadron 6 mg daily, and prophylactic dose Lovenox in addition to vitamins On 08/18/2020 patient seen in follow-up on medical surgical floor. He is currently down to 4 L of oxygen pulse ox is 93%, he states he still feels weak and wobbly when walking to the bathroom, at times he gets lightheaded, but no worsening dyspnea, no signs of any respiratory distress. Today's labs have been noted, d-dimer from yesterday is 0.55, inflammatory markers were improving, no cough, no complaints of chest discomfort, he remains on Decadron 6 blood gram d aily, and Lovenox 40 mg daily. On 08/19/2020 patient seen in follow-up on medical surgical floor, he is sitting up in the recliner, in no acute distress, is on 6 L of supplemental oxygen his pulse ox is 89-90%, no worsening dyspnea, although he does get short of breath and desat with exertion, consulted physical therapy and patient had ambulated with a walker. His ambulation ability slow shaky, no complaints of dizziness. Doing fairly well, no acute events overnight, and he is on Decadron, patient was not a candidate for Remdesivir, he is on prophylactic Lovenox, today's labs have been reviewed On 08/20/2020 patient seen in follow-up on medical surgical floor. In the last 24 hours his oxygenation has significantly deteriorated, he is currently on Airvo at 60 L and FiO2 of 92%, his pulse ox is 85-88%, his been afebrile, his temp of 101.7F, complaining of headache, he looks weak, he looks a lot more ill today, fatigued, short of breath with conversation, he has occasional cough, he was outside the window for Remdesivir, he has been on Decadron 6 mg daily, he is on prophylactic Lovenox, we'll give him a dose of Toci today On 08/21/2020 patient continued to worsen through the night, with increased work of breathing, and increased oxygenation needs, he was placed on Airvo yesterday, at 60 L in FiO2 of 93%, and he is requiring 100% nonrebreather mask on top of it, his pulse ox is only 80%, he is very tachypneic with respiratory rate in the 30s, diaphoretic, and looking fatigued. He was transferred to the intensive care unit this morning and placed on BiPAP support with pressures of 14/6 and FiO2 100%, he is actually tolerating that quite well, and seems more comfortable on it, lung sounds reveal diffuse coarse crackles at bilateral posterior bases, he is afebrile this morning, his chest x-ray today showing bilateral lower lobe infiltrates and small effusion., Yesterday his d-dimer with up to 10.10, and if it remains elevated again today at 10.19, his Lovenox dose was adjusted and he is currently on 60 mg of Lovenox every 12 hours. He remains on IV dexamethasone 6 mg daily, was given a dose of Actemra yesterday On 08/24/2020 patient seen in follow-up in the intensive care unit, he remains on BiPAP its at pressures of 14/7 and FiO2 of 90%. He seems to be tolerating BiPAP support quite well, seems to be very comfortable on that. He has remained on BiPAP continuously for 24 hours, try Airvo on him again today. Appears to be in no acute distress, on those above-mentioned settings his pulse ox is ranging between 86-91%, respiratory rate is in the mid 20s, blood pressure stable, he has been afebrile. Lung sounds reveal diminished breath sounds with some bibasilar crackles. No complaints of chest pain overnight, 2 sets of troponins were less than 0.012. Echocardiogram was a technically difficult study with suboptimal views, and the EF was not calculated, RV was not visualized, left atrium, right atrium, and all the valves were not well visualized. And as such this was a suboptimal study. No complaints of chest pain overnight, no complaints of chest pain this morning. This morning's labs have been reviewed, his d-dimer is 7.66 on today's labs, white blood cell count is 10.5, hemoglobin of 14.5, sodium is 135, the rest of electrolytes and renal profile were unremarkable, LDH is 1658, CRP is 2.8. No nausea vomiting or diarrhea, abdomen is soft, no worsening dyspnea On 08/25/2020 patient seen in follow-up in intensive care unit, yesterday he tolerated Airvo at 60 L and FiO2 of 90% in addition to 100% nonrebreather mask all day, and he was placed back on BiPAP support with pressures of 14/7 and FiO2 of 90% overnight, this morning she seen in the intensive care unit, he is resting comfortably in bed, he remains on BiPAP support and his pulse ox on above-mentioned settings is 92-95%. He denies any worsening dyspnea, he is easi ly arousable to voice, and answering simple questions, lung sounds reveal diminished breath sounds at the bases, with minimal crackles. Today's chest x- ray is pending, today's labs have been reviewed during white blood cell count of 12.4, hemoglobin of 14.6, d-dimer remains elevated at 7.86, and patient's on Lovenox at 50 mg twice daily. No complaints of chest pain. No cough, no congestion, yesterday while he was on Airvo he was able to take in some oral feedings, and had a fair appetite. She is in sinus mechanism, hemodynamically she is stable, he is on plane, sitting at a rate of 50 ML per hour. He remains on Decadron at 6 mg twice daily. His renal function is within normal limits to day with B1 of 18 creatinine 0.71, sodium was 135, and her serum electrolytes were within normal limits, 2 sets of troponins were less than 0.012, limited echocardiogram was a suboptimal study, however there was no recurrence of chest discomfort from 2 days ago, and heparin drip was discontinued, no acute ST wave changes. No vomiting or diarrhea, abdomen is soft, no complaints of abdominal pain. On 08/26/2020 patient seen in follow-up in intensive care unit, currently on BiPAP with pressures of 14/7 and FiO2 100%, and his pulse ox is 88%, yesterday he was able to tolerate Airvo and nonrebreather and come off the BiPAP for short periods of time. Today he seems more lethargic compared to yesterday, he is tachypneic, but he is achieving over 1 L and tidal volumes on the BiPAP, his respiratory rate is in the mid 30s. He opens eyes to voice, he lightly groans in response to questions, but not really providing full sentence responses. Yesterday we gave him a dose of IV Lasix, he diuresed quite well, and he is in - 3.1 L over the last 24 hours. Despite the diuresis, the patient failed to improve, today's chest x-ray still showed persistent bibasilar and right midlung peripheral opacities consistent with COVID-19. Oral intake has been poor, and at this time we are considering low rate IV fluids. Labs have been reviewed, his white blood cell count is 16.8, hemoglobin is 15.7, he is a d-dimer is 9.28, sodium is 136, the rest of electrolytes are within normal limits, his BUN is 22, creatinine is 0.82, his LDH has actually trended up, and is at 2202, and CRP 1.2. On 08/29/2020 patient seen in follow-up in the intensive care unit, he was intubated over the weekend, he is currently remains sedated and paralyzed on mechanical ventilation, on assist-control mode of ventilation with a rate of 30, tidal vital 390, FiO2 100% and PEEP of 18. This morning his blood gases showed pO2 of 80, pCO2 75, and pH of 7.22. This was done 100% FiO2. His peak pressures are 45, plateau pressure is 42. Is currently on 0.9 at 1:30 ML per hour, Levothroid is at 11 mics per minute, fentanyl drip is at 0.5 mics per kilo per hour, Diprivan and is at 50 mics per kilo per minute, and index is at 1 jacob per kilo per minute, he is receiving tube feedings in the form of vital high- protein at 10 ML per hour. He is in sinus mechanism, slightly tachycardic with a rate of 109 BPM. Patient was proned last night, he is currently supine. His chest x-ray today shows diffuse bilateral infiltrates that are stable in appearance, and possibility of pneumomediastinum could not be excluded. Today's labs have been reviewed showing white blood cell count of 24.2, hemoglobin of 15.8, sodium is 142, potassium is 5.0, chloride is 110, CO2 is 30, BUN of 38, and creatinine of 1.35. AST was 92, ALT is 290, alkaline phosphatase is 110. CRP is 1.4 On 08/30/2020 patient seen in follow-up in the intensive care unit, he remains intubated, sedated and paralyzed on mechanical ventilator, currently on assist- control mode of ventilation with a rate of 36, tidal volume is 390, FiO2 100% and PEEP of 18, this morning his blood gases were reviewed showing pO2 of 98, pCO2 of 82, pH is 7.19. His peak airway pressure is 40, his plateau is 34, this chest x-ray today has been reviewed showing diffuse airspace disease that is stable in appearance, he is currently on 0.9 normal saline at a rate of 75 ML pe r hour, Levophed is at 8 mics per minute, fentanyl drip is at 0.75, and Diprivan is at 30 mics per kilo per minute, Nimbex is at 2 mics per kilo per minute. Patient is receiving tube feedings with vital high-protein at 48 with a goal of 48 and standard water flushes with 30 ML every 4 hours, he is in sinus mechanism, tachycardic with a rate of 112 BPM, he seems to have developed subcutaneous emphysema involving his anterior chest. He also developed a pressure injury from the Stefano ET tube Guardado on his right cheek. [place] 's been removed and cough type is being used for ET tube Guardado. Today's labs have been reviewed, white blood cell count is 23.1, hemoglobin is 15.4, platelet count is 92, potassium is 5.5, and this was treated with combination of 1 amp of bicarbonate, 50% dextrose and regular insulin. Recheck labs are pending, his BUN is 48 creatinine is 1.45, LDH from a couple days ago was trending up and was up to 3870, and CRP was 1.4. His last pro-calcitonin from and weight 2020 was negative at 0.07. On 08/31/2020 patient seen in follow-up in the intensive care unit, he remains sedated, paralyzed and intubated on mechanical ventilator, currently on assist-control with a rate of 36, tidal volume is 390, FiO2 of 70% and PEEP of 18, this morning blood gases show pO2 of 65, pCO2 of 81, and pH of 7.23. His peak and plateau pressures have been elevated, with peak pressure of 42, plateau pressure of 39. Further adjustments have been made to his ventilator settings, and patient was placed on pressure control mode of ventilation with pressure control 22, respiratory rate 36, FiO2 of 70%, PEEP of 18, and inspiratory time of 0.70. He had a chest x-ray today showing scattered airspace infiltrates greatest at the lung bases without significant change, he is currently on Levothroid at 0.03 mics per kilo per minute, fentanyl drip is at 0.75 mics per kilo per hour, 0.9 at 75 ML per hour, Nimbex is at 1.5 mics per kilo per minute, and Diprivan and is at 30 mics per kilo per minute. He is receiving tube feedings in the form of vital HP at 41 with a goal of 41, and standard water flushes of 30 ML every 4 hours, he is in sinus mechanism, bit tachycardic in the low 100s, no fever overnight. Today's labs have been reviewed showing white blood cell count of 15.7, hemoglobin of 14.2, his d-dimer is improving and is down to 6.17 from 10.13 on yesterday's labs, patient remains on Lovenox 50 mg every 12 hours. Sodium is 145, potassium is 5.3, chloride is 111, CO2 35, BUN of 54, creatinine is 1.24, his liver enzymes improved somewhat with AST of 61, and ALT of 251, LDH is improving is down to 1763, CRP is 0.8 on today's labs. Patient continues on Decadron 6 mg IV twice daily. Patient is producing urine in the order of 60-100 ML per hour. On 09/01/2020 patient seen in follow-up in intensive care unit, he remains intubated, sedated and paralyzed, on pressure control mode of ventilation, with inspiratory pressure of 22, rate of 36, FiO2 of 65% PEEP of 18, and inspiratory time of 0.7. This morning his blood gases reviewed showing pO2 of 53, pCO2 of 65, and pH of 7.34. This was completed on FiO2 of 65%, his peak air pressure is 41, his plateau pressures 37. Today's chest x-ray shows interval development of subcutaneous emphysema about the chest and neck, increasing consolidation in the lung bases probably representing pneumonia or atelectasis, no obvious pneumothorax was noted. Patient is currently on 0.9 normal saline at 75 ML per hour, to prevent is at 30 mics per kilo per minute, fentanyl drip is a 0.75 mics per kilo per hour, and Nimbex infusion at 1.5 mics per kilo per minute. He is tolerating tube feedings, he is receiving vital high-protein at 41 with a goal of 41 and standard water flushes, today's labs have been reviewed, his white blood cell count is down trending, and is down to 13.7 on today's labs, his hemoglobin is 13.5, his d-dimer is also improving and is down to 4.02, serum sodium is 147, potassium is 5.2, chloride is 111, CO2 is 26, BUN of 65, creatinine is 1.15, AST is 65, ALT is 227, and alkaline phosphatase within normal limits, overall his LFTs are stable if not slightly improved. Follow-up LDH is down to 1490, improving but still elevated, and his CRP today is 0.6 within normal limits. Physical exam reveals increased subcutaneous emphysema of anterior chest, upper shoulders and bilateral upper arms. Patient did prone for 16 hours, tolerated fairly well. Doing prone positioning his pulse ox is around 91-92% on the above-mentioned settings. In supine position he usually sats at around 86-87%. Hemodynamically he has not required any vasopressors, he is in sinus mechanism, his rate is controlled, is producing urine in the order of 40- 125 ML per hour. On 09/02/2020 patient seen in follow-up in the intensive care unit, he remains intubated, sedated and paralyzed, on assist-control mode of ventilation with a rate of 36, tidal volume 450, FiO2 of 65% and PEEP of 18, this morning's blood gas shows pO2 57, pCO2 of 68, pH is 7.34, and this was done on FiO2 of 65% and PEEP of 18, his peak airway pressures 43, plateau pressure is 38, today's chest x-ray has been reviewed showing no change in bibasilar opacities, and sized pneumothorax was not identified with certainty. Patient continues to have subcutaneous emphysema in his chest, upper arms and shoulders. But no clear evidence of pneumothorax on the chest x-ray. Last night patient started losing a significant amount of volume and had to be switched to volume assist-control mode of ventilation related to increasing hypercapnic respiratory failure. A blood gas that was completed at that time and this was around 5:00 in the afternoon showed pO2 of 71, pCO2 of greater than 120, and pH of 7.05. Patient was placed on assist-control mode of ventilation with a rate of 36, tidal vitamins 450, FiO2 of 65% and PEEP of 18, and this morning's blood gas shows improvement in his acid base balance, and improvement in his CO2 concentration. He is currently on 0.9 normal saline at a rate of 75 ML per hour, his fentanyl infusion is 0.75 mics per kilo per hour, Diprivan and is at 30 mics per kilo per minute, Nimbex is at 1.5 mics per kilo per minute, and he is on small amount of norepinephrine at 0.02 mics per kilo per minute. He is tolerating tube feedings, and he is receiving vital high-protein at 41 with a goal of 41, and he has been receiving free water flushes of 200 ML every 4 hours for elevated sodium of 147. Today's labs have been reviewed, and his serum sodium remains exactly the same at 147, potassium is 5.5, chloride is 112, CO2 is 38, BUN of 77, creatinine is 1.14. His AST and ALT continue to be relatively stable, with AST of 83, and ALT of 259, his LDH is trending down and is currently is 1394, and CRP is 0.8. White blood cell count is 13.8, and hemoglobin is 12.8. D- dimer is improving and is down to 2.72 on today's labs. His current dose Lovenox 40 mg daily, patient also remains on Decadron 6 mg twice daily. Patient is currently in supine position, he has been tolerating prone positioning. Objective - Vital Signs Vital signs: Vital Signs Temp 98.6 F 09/02/20 09:00 Pulse 78 09/02/20 10:00 Resp 36 H 09/02/20 10:00 BP 118/61 09/02/20 10:00 Pulse Ox 86 L 09/02/20 10:00 Intake & Output 09/01/20 09/02/20 09/02/20 18:59 06:59 18:59 Intake Total 7822.930 4239.846 557 Output Total 715 800 285 Balance 4620.077 2109.846 272 Weight 110.5 kg 110.5 kg Intake: IV 936 936 234 Sodium Chloride 0.9% 1, 900 900 225 000 ml @ 75 mls/hr IV . [id number] [facility] Rx#:[id number] pressure BAG 36 36 9 Intake, IV Titration 262.455 480.846 Amount Cisatracurium 200 mg In 145.57 Sodium Chloride 0.9% 180 ml @ 2 MCG/KG/MIN 12.672 mls/hr IV .[id number] [facility] Rx #:[id number] Norepinephrine 8 mg In 0 Sodium Chloride 0.9% 250 ml @ 0.05 MCG/KG/MIN 10. 217 mls/hr IV .Q24H [facility] Rx#:[id number] fentaNYL (PF). 1,000 mcg 90.718 92.128 In Sodium Chloride 0.9% 80 ml @ Per Protocol IV . Q0M [facility] Rx#:[id number] propofoL 1,000 mg In 171.737 243.148 Empty Bag 1 bag @ Titrate IV .Q0M [facility] Rx#: [id number] Tube Feeding 466 515 123 Other 300 600 200 Output: Urine 715 800 285 Other: Voiding Method Indwelling Catheter Indwelling Catheter ABP, PAP, CO, CI - Last Documented Arterial Blood Pressure 101/50 - Exam GENERAL EXAM: 70-year-old white male, assist control mode of ventilation, with FiO2 of 65% and PEEP of 18, sedated, and paralyzed. Patient appears to be generally swollen on today's exam including his face and upper arms HEAD: Normocephalic/atraumatic. EYES: Normal reaction of pupils, equal size. Conjunctiva pink, sclera white. NOSE: Clear with pink turbinates. Pressure injury involving the bridge of the nose, in the wound is fairly dry, and guarding to scab over THROAT: No erythema or exudates. NECK: No masses, no JVD, no thyroid enlargement, no adenopathy. CHEST: No chest wall deformity. Symmetrical expansion. Increased subcutaneous emphysema noted on today's physical exam of the anterior chest, upper shoulders, and bilateral upper arms LUNGS: Equal air entry with coarse bibasilar crackles CVS: Regular rate and rhythm, normal S1 and S2, no gallops, no murmurs, no rubs ABDOMEN: Soft, nontender. No hepatosplenomegaly, normal bowel sounds, no guarding or rigidity. EXTREMITIES: No clubbing, generalized nonpitting edema no cyanosis, 2+ pulses and upper and lower extremities. MUSCULOSKELETAL: Muscle strength and tone normal. SPINE: No scoliosis or deformity SKIN: No rashes CENTRAL NERVOUS SYSTEM: Intubated, sedated and paralyzed No focal deficits, tone is normal in all 4 extremities. - Labs CBC & Chem 7: 09/02/20 03:20 09/02/20 03:20 Labs: Abnormal Lab Results - Last 24 Hours (Table) 09/01/20 09/01/20 09/01/20 Range/Units 17:11 18:25 20:57 WBC (3.8-10.6) k/uL RBC (4.30-5.90) m/uL Hgb (13.0-17.5) gm/dL Hct (39.0-53.0) % MCV (80.0-100.0) fL Plt Count (150-450) k/uL Neutrophils # (1.3-7.7) k/uL Lymphocytes # (1.0-4.8) k/uL D-Dimer (<0.60) mg/L FEU ABG pH 7.05 L* 7.29 L (7.35-7.45) ABG pCO2 >120 H* 77 H* (35-45) mmHg ABG pO2 71 L 61 L (83-108) mmHg ABG HCO3 37 H (21-25) mmol/L ABG Total CO2 39 H (19-24) mmol/L ABG O2 Saturation 87.6 L 90.4 L (94-97) % Sodium (137-145) mmol/L Potassium (3.5-5.1) mmol/L Chloride (98-107) mmol/L Carbon Dioxide (22-30) mmol/L BUN (9-20) mg/dL Glucose (74-99) mg/dL POC Glucose (mg/dL) 149 H (75-99) mg/dL Calcium (8.4-10.2) mg/dL AST (17-59) U/L ALT (4-49) U/L Lactate Dehydrogenase (313-618) U/L Total Protein (6.3-8.2) g/dL Albumin (3.5-5.0) g/dL 09/01/20 09/02/20 09/02/20 Range/Units 23:32 03:20 03:20 WBC 13.8 H (3.8-10.6) k/uL RBC 3.78 L (4.30-5.90) m/uL Hgb 12.8 L (13.0-17.5) gm/dL Hct 38.7 L (39.0-53.0) % MCV 102.5 H (80.0-100.0) fL Plt Count 74 L (150-450) k/uL Neutrophils # 12.5 H (1.3-7.7) k/uL Lymphocytes # 0.6 L (1.0-4.8) k/uL D-Dimer 2.72 H (<0.60) mg/L FEU ABG pH (7.35-7.45) ABG pCO2 (35-45) mmHg ABG pO2 (83-108) mmHg ABG HCO3 (21-25) mmol/L ABG Total CO2 (19-24) mmol/L ABG O2 Saturation (94-97) % Sodium (137-145) mmol/L Potassium (3.5-5.1) mmol/L Chloride (98-107) mmol/L Carbon Dioxide (22-30) mmol/L BUN (9-20) mg/dL Glucose (74-99) mg/dL POC Glucose (mg/dL) 124 H (75-99) mg/dL Calcium (8.4-10.2) mg/dL AST (17-59) U/L ALT (4-49) U/L Lactate Dehydrogenase (313-618) U/L Total Protein (6.3-8.2) g/dL Albumin (3.5-5.0) g/dL 09/02/20 09/02/20 09/02/20 Range/Units 03:20 05:09 05:20 WBC (3.8-10.6) k/uL RBC (4.30-5.90) m/uL Hgb (13.0-17.5) gm/dL Hct (39.0-53.0) % MCV (80.0-100.0) fL Plt Count (150-450) k/uL Neutrophils # (1.3-7.7) k/uL Lymphocytes # (1.0-4.8) k/uL D-Dimer (<0.60) mg/L FEU ABG pH 7.34 L (7.35-7.45) ABG pCO2 68 H (35-45) mmHg ABG pO2 57 L* (83-108) mmHg ABG HCO3 36 H (21-25) mmol/L ABG Total CO2 39 H (19-24) mmol/L ABG O2 Saturation 89.3 L (94-97) % Sodium 147 H (137-145) mmol/L Potassium 5.5 H (3.5-5.1) mmol/L Chloride 112 H (98-107) mmol/L Carbon Dioxide 38 H (22-30) mmol/L BUN 77 H (9-20) mg/dL Glucose 146 H (74-99) mg/dL POC Glucose (mg/dL) 124 H (75-99) mg/dL Calcium 8.1 L (8.4-10.2) mg/dL AST 83 H (17-59) U/L ALT 259 H (4-49) U/L Lactate Dehydrogenase 1394 H (313-618) U/L Total Protein 4.9 L (6.3-8.2) g/dL Albumin 2.5 L (3.5-5.0) g/dL 09/02/20 Range/Units 12:13 WBC (3.8-10.6) k/uL RBC (4.30-5.90) m/uL Hgb (13.0-17.5) gm/dL Hct (39.0-53.0) % MCV (80.0-100.0) fL Plt Count (150-450) k/uL Neutrophils # (1.3-7.7) k/uL Lymphocytes # (1.0-4.8) k/uL D-Dimer (<0.60) mg/L FEU ABG pH (7.35-7.45) ABG pCO2 (35-45) mmHg ABG pO2 (83-108) mmHg ABG HCO3 (21-25) mmol/L ABG Total CO2 (19-24) mmol/L ABG O2 Saturation (94-97) % Sodium (137-145) mmol/L Potassium (3.5-5.1) mmol/L Chloride (98-107) mmol/L Carbon Dioxide (22-30) mmol/L BUN (9-20) mg/dL Glucose (74-99) mg/dL POC Glucose (mg/dL) 132 H (75-99) mg/dL Calcium (8.4-10.2) mg/dL AST (17-59) U/L ALT (4-49) U/L Lactate Dehydrogenase (313-618) U/L Total Protein (6.3-8.2) g/dL Albumin (3.5-5.0) g/dL Assessment and Plan Plan: Assessment: #1. Acute hypoxic respiratory failure related to acute COVID-19 pneumonia, with onset of symptoms 10 days prior to presentation, patient had outpatient positive COVID-19 test on 08/09/2020, outside the window for Remdesivir. Hypoxia progressed and patient received Toci on 08/20/2020. Patient was transferred to the intensive care unit on 08/21/2020 and placed on BiPAP support. Patient was intubated on 08/28/2020. On 08/30/2020 patient remains sedated, paralyzed and intubated on FiO2 of 80% and PEEP of 18. On 08/31/2020 patient remains intubated, sedated and paralyzed, currently with F iO2 of 70%, and PEEP of 18, and his peak and plateau pressures have been elevated at 42 and 39 respectively, patient will be tried on pressure control mode of ventilation On 09/02/2020 patient remains sedated, intubated and paralyzed, currently on volume assist mode of ventilation, with a rate of 36, Tylenol level is 450, FiO2 of 65, and PEEP of 18. Peak pressures 43, plateau pressures 38. Patient had to be switched from pressure control mode of ventilation related to increasing hypercapnic respiratory failure and volume loss and leak. #2. Increased d-dimer related to COVID-19 infection, lower extremity Dopplers were negative for DVT. Patient's currently on Lovenox 50 mg twice daily #3. Neutropenia, pro-calcitonin was negative, resolved and patient now has leukocytosis and currently his white blood cell count is 23.1 #4. Elevated liver enzymes related to viral pneumonia #5. Lifetime nonsmoker #6. History of chronic bronchial asthma, mild intermittent, inactive at this ti me #7. Episode of chest pain on 08/23/2020, EKG without significant ST segment elevation, 2 sets of negative troponins. Echocardiogram was a suboptimal study, unable to calculate EF, calculate chamber sizes or valves #8. Hypernatremia, related to free water deficit Plan: Patient was switched from pressure control mode of ventilation last night, he became hypercapnic, and was losing significant amount tidal volume, currently on assist control mode of ventilation Today chest x-ray reviewed, no obvious pneumothorax Patient failed a paralytic holiday today, became significantly tachypnea, and desaturated Will be re-paralyzed Chest x-ray still shows no clear evidence of pneumothorax Subcutaneous emphysema is stable in appearance We will give the patient 1 dose of IV Lasix We'll decrease the IV fluids to 40 ML per hour We'll hold free water flushes We'll continue prone positioning, with the goal of 16-20 hours a day Continue current dose Lovenox and steroids Continue nutritional support CODE STATUS is DO NOT RESUSCITATE We will continue supportive care Prognosis is poor I performed a history & physical examination of the patient and discussed their management with my nurse practitioner, Magdalena Negrete. I reviewed the nurse practitioner's note and agree with the documented findings and plan of care. Lung sounds are positive for diminished breath sounds. The findings and the impression was discussed with the patient. I attest to the documentation by the nurse practitioner. Time with Patient: Greater than 30
[2020-09-02] MEDS: CISATRACURIUM 200 MG in SODIUM CHLORIDE 0.9% 180 ML IV SCH ×3 (15:31→19:30)
[2020-09-02 18:13] LABS: Glucose,Whole Blood 123 mg/dL (75-99)
[2020-09-02] MEDS ORDERED: ARTIFICIAL TEARS-HYPROMELLOSE DROPS 15 ML BTL BOTH EYES PRN (20:11)
[2020-09-02] MEDS: polyethylene glycoL 3350 17 GM POWD.PACK PO SCH (20:48)
[2020-09-03 00:03] LABS: Glucose,Whole Blood 117 mg/dL (75-99)
[2020-09-03] MEDS: fentaNYL (PF). 1,000 MCG in SODIUM CHLORIDE 0.9% 80 ML IV SCH ×4 (00:41→19:55)
[2020-09-03] MEDS: INSULIN ASPART (NovoLOG) 100 UNIT/ML VIAL SQ SCH ×4 (00:45→18:11)
[2020-09-03] MEDS: NOREPINEPHRINE 8 MG in SODIUM CHLORIDE 0.9% 250 ML IV SCH (04:39)
[2020-09-03 04:55] LABS: Basophils % (A) 0 %; Eosinophils # (A) 0.1 k/uL (0-0.7); Eosinophils % (A) 0 %; HCT 42.4 % (39.0-53.0); Hypochromasia Slight; Lymphocytes # (A) 0.8 k/uL (1.0-4.8); Lymphocytes % (A) 4 %; MCH 31.9 pg (25.0-35.0); MCHC 30.6 g/dL (31.0-37.0); MCV 104.3 fL (80.0-100.0); Macrocytosis Slight; Mean Platelet Volume 9.2; Monocytes # (A) 0.5 k/uL (0-1.0); Monocytes % (A) 2 %; Neutrophils # (A) 19.4 k/uL (1.3-7.7); Neutrophils % (A) 93 %; Platelet Count 107 k/uL (150-450); RBC 4.07 m/uL (4.30-5.90); RDW 14.3 % (11.5-15.5); WBC 20.9 k/uL (3.8-10.6)
[2020-09-03 05:07] LABS: Albumin 2.7 g/dL (3.5-5.0); Calcium 8.2 mg/dL (8.4-10.2); Potassium 5.3 mmol/L (3.5-5.1); Total Bilirubin 1.2 mg/dL (0.2-1.3); Total Protein 5.4 g/dL (6.3-8.2)
[2020-09-03 05:25] LABS: ABG Base Excess 12.1 mmol/L; ABG HCO3 38 mmol/L (21-25); ABG Oxygen Saturation 90.1 % (94-97); ABG PH 7.33 (7.35-7.45); ABG TCO2 40 mmol/L (19-24); Allen Test Performed? Yes
[2020-09-03 05:28] LABS: ABG PCO2 72 mmHg (35-45); ABG PO2 59 mmHg (83-108)
[2020-09-03] MEDS: ALBUTEROL HFA INHALER INHALATION SCH ×4 (07:55→21:08)
[2020-09-03] MEDS: CHLORHEXIDINE GLUCONATE 15 ML CUP MUCOUS MEM SCH ×2 (09:26→20:52)
[2020-09-03] MEDS: ENOXAPARIN 40 MG/0.4 ML SYRINGE SQ SCH (09:26)
[2020-09-03] MEDS: PANTOPRAZOLE 40 MG/10 ML VIAL IVP SCH (09:26)
[2020-09-03] MEDS: CHOLECALCIFEROL 25 MCG (1000 IU) TABLET PO SCH (09:27)
[2020-09-03] MEDS: DEXAMETHASONE SOD PHOSPHATE 10 MG/ML 1 ML VIAL IV SCH ×2 (09:27→20:51)
[2020-09-03] MEDS: ASCORBIC ACID 500 MG TAB PO SCH (09:27)
[2020-09-03] MEDS: ZINC SULFATE 220 MG CAP PO SCH (09:27)
[2020-09-03] MEDS: DEXTROSE 5% IN WATER 1,000 ML IV SCH (09:28)
--- NOTE | 2020-09-03 11:53 | P.PN ---
Subjective Progress Note Date: 09/03/20 Principal diagnosis: Acute hypoxic respiratory failure due to COVID-19 pneumonia and ARDS secondary to COVID-19 normal 70-year-old white male patient who presented to the hospital on 08/15/2020 with complaints of 10 day history of loss of taste, cough, shortness of breath, fever . Patient and his have been staying with her daughter who tested positive for COVID, patient had an outpatient test for COVID-19 on 08/09/2020 and was found to be positive. Last few days he's been having increased shortness of breath, cough. Past medical history is noncontributory, other than osteoarthritis with previous history of joint replacement surgery in the right knee, patient is lifetime nonsmoker, does have history of chronic bronchial asthma, not on any maintenance inhalers on a regular basis. Chest x-ray in the emergency department shows some patchy airspace disease on the right, calcified granuloma in the right lower lobe, no pneumothorax or pleural effusion. His repeat COVID-19 PCR in the emergency room was positive, RSV and influenza screen were negative. His admission blood work showed neutropenia, and lymphopenia, white blood cell count was 2.6, and leukocyte count was 0.4, d-dimer was 0.95, potassium is 3.1, rest of the electrolytes and renal profile were unremarkable, lactic acid was 1.1, AST was 63, ALT and alk phos were within normal limits, LDH was 1283, CRP was 7.1, pro calcitonin level was negative at 0.10. Patient was satting 86% on room air, currently requiring 4 L of supplemental oxygen with a pulse ox of 91-94%, he is afebrile. Lung sounds reveal diffuse coarse crackles at bilateral bases. Patient was started on Decadron this milligram daily, and prophylactic Lovenox. he is outside the window for Remdesivir On 08/17/2020 patient seen in follow-up on medical surgical floor, he is resting in bed, appears to be in no acute distress, he still on 5 L of oxygen has pulse ox of 90-91%, he is afebrile, hemodynamically stable, he states when he walks to the bathroom he gets very lightheaded and dizzy and sometimes feel like he is going to pass out. He does get short of breath, he was instructed to call for help when ambulating to the bathroom. Sounds reveal diffuse crackles bilaterally, today's follow-up chest x-ray showing patchy airspace disease lung bases. He is trying to work on incentive spirometer. Today's labs have been reviewed, his d-dimer today is 0.55, inflammatory markers are improving, and his LDH is 609, and CRP is 3.6. An patient remains on Decadron 6 mg daily, and prophylactic dose Lovenox in addition to vitamins On 08/18/2020 patient seen in follow-up on medical surgical floor. He is currently down to 4 L of oxygen pulse ox is 93%, he states he still feels weak and wobbly when walking to the bathroom, at times he gets lightheaded, but no worsening dyspnea, no signs of any respiratory distress. Today's labs have been noted, d-dimer from yesterday is 0.55, inflammatory markers were improving, no cough, no complaints of chest discomfort, he remains on Decadron 6 blood gram daily, and Lovenox 40 mg daily. On 08/19/2020 patient seen in follow-up on medical surgical floor, he is sitting up in the recliner, in no acute distress, is on 6 L of supplemental oxygen his pulse ox is 89-90%, no worsening dyspnea, although he does get short of breath and desat with exertion, consulted physical therapy and patient had ambulated with a walker. His ambulation ability slow shaky, no complaints of dizziness. Doing fairly well, no acute events overnight, and he is on Decadron, patient was not a candidate for Remdesivir, he is on prophylactic Lovenox, today's labs have been reviewed On 08/20/2020 patient seen in follow-up on medical surgical floor. In the last 24 hours his oxygenation has significantly deteriorated, he is currently on Airvo at 60 L and FiO2 of 92%, his pulse ox is 85-88%, his been afebrile, his temp of 101.7F, complaining of headache, he looks weak, he looks a lot more ill today, fatigued, short of breath with conversation, he has occasional cough, he was outside the window for Remdesivir, he has been on Decadron 6 mg daily, he is on prophylactic Lovenox, we'll give him a dose of Toci today On 08/21/2020 patient continued to worsen through the night, with increased work of breathing, and increased oxygenation needs, he was placed on Airvo yesterday, at 60 L in FiO2 of 93%, and he is requiring 100% nonrebreather mask on top of it, his pulse ox is only 80%, he is very tachypneic with respiratory rate in the 30s, diaphoretic, and looking fatigued. He was transferred to the intensive care unit this morning and placed on BiPAP support with pressures of 14/6 and F iO2 100%, he is actually tolerating that quite well, and seems more comfortable on it, lung sounds reveal diffuse coarse crackles at bilateral posterior bases, he is afebrile this morning, his chest x-ray today showing bilateral lower lobe infiltrates and small effusion., Yesterday his d-dimer with up to 10.10, and if it remains elevated again today at 10.19, his Lovenox dose was adjusted and he is currently on 60 mg of Lovenox every 12 hours. He remains on IV dexamethasone 6 mg daily, was given a dose of Actemra yesterday On 08/24/2020 patient seen in follow-up in the intensive care unit, he remains on BiPAP its at pressures of 14/7 and FiO2 of 90%. He seems to be tolerating BiPAP support quite well, seems to be very comfortable on that. He has remained on BiPAP continuously for 24 hours, try Airvo on him again today. Appears to be in no acute distress, on those above-mentioned settings his pulse ox is ranging between 86-91%, respiratory rate is in the mid 20s, blood pressure stable, he has been afebrile. Lung sounds reveal diminished breath sounds with some bibasilar crackles. No complaints of chest pain overnight, 2 sets of troponins were less than 0.012. Echocardiogram was a technically difficult study with suboptimal views, and the EF was not calculated, RV was not visualized, left atrium, right atrium, and all the valves were not well visualized. And as such this was a suboptimal study. No complaints of chest pain overnight, no complaints of chest pain this morning. This morning's labs have been reviewed, his d-dimer is 7.66 on today's labs, white blood cell count is 10.5, hemoglobin of 14.5, sodium is 135, the rest of electrolytes and renal profile were unremarkable, LDH is 1658, CRP is 2.8. No nausea vomiting or diarrhea, abdomen is soft, no worsening dyspnea On 08/25/2020 patient seen in follow-up in intensive care unit, yesterday he tolerated Airvo at 60 L and FiO2 of 90% in addition to 100% nonrebreather mask all day, and he was placed back on BiPAP support with pressures of 14/7 and FiO2 of 90% overnight, this morning she seen in the intensive care unit, he is resting comfortably in bed, he remains on BiPAP support and his pulse ox on a luma-mentioned settings is 92-95%. He denies any worsening dyspnea, he is easily arousable to voice, and answering simple questions, lung sounds reveal diminished breath sounds at the bases, with minimal crackles. Today's chest x- ray is pending, today's labs have been reviewed during white blood cell count of 12.4, hemoglobin of 14.6, d-dimer remains elevated at 7.86, and patient's on Lovenox at 50 mg twice daily. No complaints of chest pain. No cough, no congestion, yesterday while he was on Airvo he was able to take in some oral feedings, and had a fair appetite. She is in sinus mechanism, hemodynamically she is stable, he is on plane, sitting at a rate of 50 ML per hour. He remains on Decadron at 6 mg twice daily. His renal function is within normal limits today with B1 of 18 creatinine 0.71, sodium was 135, and her serum electrolytes were within normal limits, 2 sets of troponins were less than 0.012, limited echocardiogram was a suboptimal study, however there was no recurrence of chest discomfort from 2 days ago, and heparin drip was discontinued, no acute ST wave changes. No vomiting or diarrhea, abdomen is soft, no complaints of abdominal pain. On 08/26/2020 patient seen in follow-up in intensive care unit, currently on BiPAP with pressures of 14/7 and FiO2 100%, and his pulse ox is 88%, yesterday he was able to tolerate Airvo and nonrebreather and come off the BiPAP for short periods of time. Today he seems more lethargic compared to yesterday, he is tachypneic, but he is achieving over 1 L and tidal volumes on the BiPAP, his respiratory rate is in the mid 30s. He opens eyes to voice, he lightly groans in response to questions, but not really providing full sentence responses. Yesterday we gave him a dose of IV Lasix, he diuresed quite well, and he is in - 3.1 L over the last 24 hours. Despite the diuresis, the patient failed to improve, today's chest x-ray still showed persistent bibasilar and right midlung peripheral opacities consistent with COVID-19. Oral intake has been poor, and at this time we are considering low rate IV fluids. Labs have been reviewed, his white blood cell count is 16.8, hemoglobin is 15.7, he is a d-dimer is 9.28, sodium is 136, the rest of electrolytes are within normal limits, his BUN is 22, creatinine is 0.82, his LDH has actually trended up, and is at 2202, and CRP 1.2. On 08/29/2020 patient seen in follow-up in the intensive care unit, he was intubated over the weekend, he is currently remains sedated and paralyzed on mechanical ventilation, on assist-control mode of ventilation with a rate of 30, tidal vital 390, FiO2 100% and PEEP of 18. This morning his blood gases showed pO2 of 80, pCO2 75, and pH of 7.22. This was done 100% FiO2. His peak pressures are 45, plateau pressure is 42. Is currently on 0.9 at 1:30 ML per hour, Levothroid is at 11 mics per minute, fentanyl drip is at 0.5 mics per kilo per hour, Diprivan and is at 50 mics per kilo per minute, and index is at 1 jacob per kilo per minute, he is receiving tube feedings in the form of vital high- protein at 10 ML per hour. He is in sinus mechanism, slightly tachycardic with a rate of 109 BPM. Patient was proned last night, he is currently supine. His chest x-ray today shows diffuse bilateral infiltrates that are stable in a ppearance, and possibility of pneumomediastinum could not be excluded. Today's labs have been reviewed showing white blood cell count of 24.2, hemoglobin of 15.8, sodium is 142, potassium is 5.0, chloride is 110, CO2 is 30, BUN of 38, and creatinine of 1.35. AST was 92, ALT is 290, alkaline phosphatase is 110. CRP is 1.4 On 08/30/2020 patient seen in follow-up in the intensive care unit, he remains intubated, sedated and paralyzed on mechanical ventilator, currently on assist- control mode of ventilation with a rate of 36, tidal volume is 390, FiO2 100% and PEEP of 18, this morning his blood gases were reviewed showing pO2 of 98, pCO2 of 82, pH is 7.19. His peak airway pressure is 40, his plateau is 34, this chest x-ray today has been reviewed showing diffuse airspace disease that is s table in appearance, he is currently on 0.9 normal saline at a rate of 75 ML per hour, Levophed is at 8 mics per minute, fentanyl drip is at 0.75, and Diprivan is at 30 mics per kilo per minute, Nimbex is at 2 mics per kilo per minute. Patient is receiving tube feedings with vital high-protein at 48 with a goal of 48 and standard water flushes with 30 ML every 4 hours, he is in sinus mechanism, tachycardic with a rate of 112 BPM, he seems to have developed subcutaneous emphysema involving his anterior chest. He also developed a pressure injury from the Horner ET tube Guardado on his right cheek. Stefano 's been removed and cough type is being used for ET tube Guardado. Today's labs have been reviewed, white blood cell count is 23.1, hemoglobin is 15.4, platelet count is 92, potassium is 5.5, and this was treated with combination of 1 amp of bicarbonate, 50% dextrose and regular insulin. Recheck labs are pending, his BUN is 48 creatinine is 1.45, LDH from a couple days ago was trending up and was up to 3870, and CRP was 1.4. His last pro-calcitonin from and weight 2020 was negative at 0.07. On 08/31/2020 patient seen in follow-up in the intensive care unit, he remains sedated, paralyzed and intubated on mechanical ventilator, currently on assist- control with a rate of 36, tidal volume is 390, FiO2 of 70% and PEEP of 18, this morning blood gases show pO2 of 65, pCO2 of 81, and pH of 7.23. His peak and plateau pressures have been elevated, with peak pressure of 42, plateau pressure of 39. Further adjustments have been made to his ventilator settings, and patient was placed on pressure control mode of ventilation with pressure control 22, respiratory rate 36, FiO2 of 70%, PEEP of 18, and inspiratory time of 0.70. He had a chest x-ray today showing scattered airspace infiltrates greatest at the lung bases without significant change, he is currently on Levothroid at 0.03 mics per kilo per minute, fentanyl drip is at 0.75 mics per kilo per hour, 0.9 at 75 ML per hour, Nimbex is at 1.5 mics per kilo per minute, and Diprivan and is at 30 mics per kilo per minute. He is receiving tube feedings in the form of vital HP at 41 with a goal of 41, and standard water flushes of 30 ML every 4 hours, he is in sinus mechanism, bit tachycardic in the low 100s, no fever overnight. Today's labs have been reviewed showing white blood cell count of 15.7, hemoglobin of 14.2, his d-dimer is improving and is down to 6.17 from 10.13 on yesterday's labs, patient remains on Lovenox 50 mg every 12 hours. Sodium is 145, potassium is 5.3, chloride is 111, CO2 35, BUN of 54, creatinine is 1.24, his liver enzymes improved somewhat with AST of 61, and ALT of 251, LDH is improving is down to 1763, CRP is 0.8 on today's labs. Patient continues on Decadron 6 mg IV twice daily. Patient is producing urine in the order of 60-100 ML per hour. On 09/01/2020 patient seen in follow-up in intensive care unit, he remains intubated, sedated and paralyzed, on pressure control mode of ventilation, with inspiratory pressure of 22, rate of 36, FiO2 of 65% PEEP of 18, and inspiratory time of 0.7. This morning his blood gases reviewed showing pO2 of 53, pCO2 of 65, and pH of 7.34. This was completed on FiO2 of 65%, his peak air pressure is 41, his plateau pressures 37. Today's chest x-ray shows interval development of subcutaneous emphysema about the chest and neck, increasing consolidation in the lung bases probably representing pneumonia or atelectasis, no obvious pne umothorax was noted. Patient is currently on 0.9 normal saline at 75 ML per hour, to prevent is at 30 mics per kilo per minute, fentanyl drip is a 0.75 mics per kilo per hour, and Nimbex infusion at 1.5 mics per kilo per minute. He is tolerating tube feedings, he is receiving vital high-protein at 41 with a goal of 41 and standard water flushes, today's labs have been reviewed, his white blood cell count is down trending, and is down to 13.7 on today's labs, his hemoglobin is 13.5, his d-dimer is also improving and is down to 4.02, serum sodium is 147, potassium is 5.2, chloride is 111, CO2 is 26, BUN of 65, creatinine is 1.15, AST is 65, ALT is 227, and alkaline phosphatase within normal limits, overall his LFTs are stable if not slightly improved. Follow-up LDH is down to 1490, improving but still elevated, and his CRP today is 0.6 within normal limits. Physical exam reveals increased subcutaneous emphysema of anterior chest, upper shoulders and bilateral upper arms. Patient did prone for 16 hours, tolerated fairly well. Doing prone positioning his pulse ox is around 91-92% on the above-mentioned settings. In supine position he usually sats at around 86-87%. Hemodynamically he has not required any vasopressors, he is in sinus mechanism, his rate is controlled, is producing urine in the order of 40- 125 ML per hour. On 09/02/2020 patient seen in follow-up in the intensive care unit, he remains intubated, sedated and paralyzed, on assist-control mode of ventilation with a rate of 36, tidal volume 450, FiO2 of 65% and PEEP of 18, this morning's blood gas shows pO2 57, pCO2 of 68, pH is 7.34, and this was done on FiO2 of 65% and PEEP of 18, his peak airway pressures 43, plateau pressure is 38, today's chest x-ray has been reviewed showing no change in bibasilar opacities, and sized pneumothorax was not identified with certainty. Patient continues to have subcutaneous emphysema in his chest, upper arms and shoulders. But no clear evidence of pneumothorax on the chest x-ray. Last night patient started losing a significant amount of volume and had to be switched to volume assist-control mode of ventilation related to increasing hypercapnic respiratory failure. A blood gas that was completed at that time and this was around 5:00 in the afternoon showed pO2 of 71, pCO2 of greater than 120, and pH of 7.05. Patient was placed on assist-control mode of ventilation with a rate of 36, tidal vitamins 450, FiO2 of 65% and PEEP of 18, and this morning's blood gas shows improvement in his acid base balance, and improvement in his CO2 concentration. He is currently on 0.9 normal saline at a rate of 75 ML per hour, his fentanyl infusion is 0.75 mics per kilo per hour, Diprivan and is at 30 mics per kilo per minute, Nimbex is at 1.5 mics per kilo per minute, and he is on small amount of norepinephrine at 0.02 mics per kilo per minute. He is tolerating tube feedings, and he is receiving vital high-protein at 41 with a goal of 41, and he has been receiving free water flushes of 200 ML every 4 hours for elevated sodium of 147. Today's labs have been reviewed, and his serum sodium remains exactly the same at 147, potassium is 5.5, chloride is 112, CO2 is 38, BUN of 77, creatinine is 1.14. His AST and ALT continue to be relatively stable, with AST of 83, and ALT of 259, his LDH is trending down and is currently is 1394, and CRP is 0.8. White blood cell count is 13.8, and hemoglobin is 12.8. D- dimer is improving and is down to 2.72 on today's labs. His current dose Lovenox 40 mg daily, patient also remains on Decadron 6 mg twice daily. Patient is currently in supine position, he has been tolerating prone positioning. Patient was reevaluated today on 09/03/20, remains in the ICU, intubated and mechanically ventilated. Intermittently in prone position and he is in prone position today during my evaluation. Patient is on assist control rate of 36 volume 450 FiO2 75% PEEP of 18 ABG showed a pO2 of 59 pCO2 of 72 pH of 7.33. Continues to have a relatively high peak airway pressure and high plateau pressure in the high 30s and low 40s. Remains on fentanyl at 12.5 mcg/kg/h, Nimbex at 1 mcg/kg/m, propofol at 40 mcg/kg/m. His IV fluid today was changed from 0.9 normal saline to D5W at 100 mL/h, and free water flushes will be given via nasogastric tube. Chest x-ray continues to show bilateral infiltrates, no chest x-ray was done, because patient was in prone position. He had subcutaneous emphysema and pneumomediastinum on his radius x-rays. But no clear-cut evidence of pneumothorax. WBC count today is 20.9 hemoglobin is 13 d- dimer is 3.17 sodium is 151, BUN is 71 creatinine 1.06. Liver enzymes are borderline elevated Objective - Vital Signs Vital signs: Vital Signs Temp 98.3 F 09/03/20 09:00 Pulse 67 09/03/20 11:00 Resp 36 H 09/03/20 11:00 BP 118/61 09/03/20 07:00 Pulse Ox 91 L 09/03/20 11:00 Intake & Output 09/02/20 09/03/20 09/03/20 18:59 06:59 18:59 Intake Total 2126.456 1189.759 225 Output Total 1965 1830 455 Balance 161.456 -640.241 -230 Weight 110.5 kg 111.5 kg Intake: IV 936 516 175 Sodium Chloride 0.9% 1, 900 480 160 000 ml @ 40 mls/hr IV . Q24H [facility] Rx#:[id number] pressure BAG 36 36 15 Intake, IV Titration 438.456 520.759 50 Amount Cisatracurium 200 mg In 193.09 24.922 Sodium Chloride 0.9% 180 ml @ 2 MCG/KG/MIN 12.672 mls/hr IV .[id number] [facility] Rx #:[id number] Dextrose 5% in Water 1, 50 000 ml @ 100 mls/hr IV . Q10H [facility] Rx#:[id number] Norepinephrine 8 mg In 45.366 0 Sodium Chloride 0.9% 250 ml @ 0.05 MCG/KG/MIN 10. 217 mls/hr IV .Q24H [facility] Rx#:[id number] fentaNYL (PF). 1,000 mcg 100.000 195.837 In Sodium Chloride 0.9% 80 ml @ Per Protocol IV . Q0M [facility] Rx#:[id number] propofoL 1,000 mg In 100.000 300 Empty Bag 1 bag @ Titrate IV .Q0M [facility] Rx#: [id number] Tube Feeding 492 123 Other 260 30 Output: Urine 19640 455 Other: Voiding Method Indwelling Catheter Indwelling Catheter Indwelling Catheter ABP, PAP, CO, CI - Last Documented Arterial Blood Pressure 119/51 - Exam GENERAL EXAM: 70-year-old white male, on mechanical ventilation, presently in prone position. HEAD: Normocephalic/atraumatic. Healing abrasion noted on the right side of the face with dark discoloration of the abrasion. EYES: Normal reaction of pupils, equal size. Conjunctiva pink, sclera white. NOSE: Clear with pink turbinates. Pressure injury involving the bridge of the nose, in the wound is fairly dry, and guarding to scab over THROAT: No erythema or exudates. NECK: No masses, no JVD, no thyroid enlargement, no adenopathy. CHEST: Symmetrical expansion, subcutaneous emphysema palpable. LUNGS: Continues to have crackles at the bases. CVS: Distant S1 and S2, no S3 gallop. ABDOMEN: Soft, nontender. No hepatosplenomegaly, normal bowel sounds, no guard ing or rigidity. EXTREMITIES: No clubbing, generalized nonpitting edema no cyanosis, 2+ pulses and upper and lower extremities. MUSCULOSKELETAL: Could not assess. No deformities noted. SKIN: Right facial abrasion is noted, dark, healing. CENTRAL NERVOUS SYSTEM: Cannot assess. Patient is sedated and paralyzed. - Labs CBC & Chem 7: 09/03/20 04:40 09/03/20 04:40 Labs: Abnormal Lab Results - Last 24 Hours (Table) 09/02/20 09/02/20 09/03/20 Range/Units 12:13 18:11 00:01 WBC (3.8-10.6) k/uL RBC (4.30-5.90) m/uL MCV (80.0-100.0) fL MCHC (31.0-37.0) g/dL Plt Count (150-450) k/uL Neutrophils # (1.3-7.7) k/uL Lymphocytes # (1.0-4.8) k/uL D-Dimer (<0.60) mg/L FEU ABG pH (7.35-7.45) ABG pCO2 (35-45) mmHg ABG pO2 (83-108) mmHg ABG HCO3 (21-25) mmol/L ABG Total CO2 (19-24) mmol/L ABG O2 Saturation (94-97) % Sodium (137-145) mmol/L Potassium (3.5-5.1) mmol/L Chloride (98-107) mmol/L Carbon Dioxide (22-30) mmol/L BUN (9-20) mg/dL Glucose (74-99) mg/dL POC Glucose (mg/dL) 132 H 123 H 117 H (75-99) mg/dL Calcium (8.4-10.2) mg/dL AST (17-59) U/L ALT (4-49) U/L Total Protein (6.3-8.2) g/dL Albumin (3.5-5.0) g/dL 09/03/20 09/03/20 09/03/20 Range/Units 04:40 04:40 04:40 WBC 20.9 H (3.8-10.6) k/uL RBC 4.07 L (4.30-5.90) m/uL MCV 104.3 H (80.0-100.0) fL MCHC 30.6 L (31.0-37.0) g/dL Plt Count 107 L (150-450) k/uL Neutrophils # 19.4 H (1.3-7.7) k/uL Lymphocytes # 0.8 L (1.0-4.8) k/uL D-Dimer 3.17 H (<0.60) mg/L FEU ABG pH (7.35-7.45) ABG pCO2 (35-45) mmHg ABG pO2 (83-108) mmHg ABG HCO3 (21-25) mmol/L ABG Total CO2 (19-24) mmol/L ABG O2 Saturation (94-97) % Sodium 151 H (137-145) mmol/L Potassium 5.3 H (3.5-5.1) mmol/L Chloride 112 H (98-107) mmol/L Carbon Dioxide 39 H (22-30) mmol/L BUN 71 H (9-20) mg/dL Glucose 128 H (74-99) mg/dL POC Glucose (mg/dL) (75-99) mg/dL Calcium 8.2 L (8.4-10.2) mg/dL AST 94 H (17-59) U/L ALT 309 H (4-49) U/L Total Protein 5.4 L (6.3-8.2) g/dL Albumin 2.7 L (3.5-5.0) g/dL 09/03/20 Range/Units 05:23 WBC (3.8-10.6) k/uL RBC (4.30-5.90) m/uL MCV (80.0-100.0) fL MCHC (31.0-37.0) g/dL Plt Count (150-450) k/uL Neutrophils # (1.3-7.7) k/uL Lymphocytes # (1.0-4.8) k/uL D-Dimer (<0.60) mg/L FEU ABG pH 7.33 L (7.35-7.45) ABG pCO2 72 H* (35-45) mmHg ABG pO2 59 L* (83-108) mmHg ABG HCO3 38 H (21-25) mmol/L ABG Total CO2 40 H (19-24) mmol/L ABG O2 Saturation 90.1 L (94-97) % Sodium (137-145) mmol/L Potassium (3.5-5.1) mmol/L Chloride (98-107) mmol/L Carbon Dioxide (22-30) mmol/L BUN (9-20) mg/dL Glucose (74-99) mg/dL POC Glucose (mg/dL) (75-99) mg/dL Calcium (8.4-10.2) mg/dL AST (17-59) U/L ALT (4-49) U/L Total Protein (6.3-8.2) g/dL Albumin (3.5-5.0) g/dL Assessment and Plan Assessment: Impression: Acute hypoxic respiratory failure secondary to COVID-19 pneumonitis and underlying ARDS secondary to COVID-19 pneumonia. Elevated d-dimer and inflammatory markers secondary to COVID-19 infection, patient remains on Lovenox at 50 mg twice a day and he remains on Decadron. Elevated liver enzymes secondary to COVID-19 infection Lifetime nonsmoker. History of mild intermittent asthma. Hypernatremia secondary to free water deficit. Pneumomediastinum and subcutaneous emphysema secondary to barotrauma and COVID- 19 infection, expected Obesity with BMI of 35.9. Recommendation: Continue ventilatory support. Continue nutritional support. Hemodynamic support if necessary. Continue Lovenox at 40 mg subcu twice a day. Continue intermittent prone positions on a daily basis for at least 16 hours if possible. Titrate FiO2 according to O2 saturation. Free water to be given via orogastric tube 200 mL every 4 hours to correct his hypernatremia. Change IV fluid to D5W at 100 mL per hour. Monitor daily chest x-rays. Continue sedation and paralytics for now, patient is not ready for any form of weaning at present. Will be difficult to liberate this patient from mechanical ventilation, we will seriously consider tracheostomy and PEG tube placement next week. Continue Decadron area and Continue to monitor renal profile and liver profile on a daily basis. And monitor inflammatory markers. Prognosis remains poor and guarded. CODE STATUS remains DO NOT RESUSCITATE. Critical care time is over 30 minutes Time with Patient: Greater than 30
--- NOTE | 2020-09-03 12:15 | P.PN ---
Subjective Progress Note Date: 09/03/20 Patient is in the prone position today. He is still on the vent with a PEEP of 18. His overall condition is not improving. Objective - Vital Signs Vital signs: Vital Signs Temp 98.3 F 09/03/20 09:00 Pulse 67 09/03/20 11:00 Resp 36 H 09/03/20 11:00 BP 118/61 09/03/20 07:00 Pulse Ox 91 L 09/03/20 11:00 Intake & Output 09/02/20 09/03/20 09/03/20 18:59 06:59 18:59 Intake Total 2126.456 1189.759 225 Output Total 1964 1830 455 Balance 161.456 -640.241 -230 Weight 110.5 kg 111.5 kg Intake: IV 936 516 175 Sodium Chloride 0.9% 1, 900 480 160 000 ml @ 40 mls/hr IV . Q24H [facility] Rx#:[id number] pressure BAG 36 36 15 Intake, IV Titration 438.456 520.759 50 Amount Cisatracurium 200 mg In 193.09 24.922 Sodium Chloride 0.9% 180 ml @ 2 MCG/KG/MIN 12.672 mls/hr IV .[id number] [facility] Rx #:[id number] Dextrose 5% in Water 1, 50 000 ml @ 100 mls/hr IV . Q10H [facility] Rx#:[id number] Norepinephrine 8 mg In 45.366 0 Sodium Chloride 0.9% 250 ml @ 0.05 MCG/KG/MIN 10. 217 mls/hr IV .Q24H [facility] Rx#:[id number] fentaNYL (PF). 1,000 mcg 100.000 195.837 In Sodium Chloride 0.9% 80 ml @ Per Protocol IV . Q0M [facility] Rx#:[id number] propofoL 1,000 mg In 100.000 300 Empty Bag 1 bag @ Titrate IV .Q0M [facility] Rx#: [id number] Tube Feeding 492 123 Other 260 30 Output: Urine 19640 455 Other: Voiding Method Indwelling Catheter Indwelling Catheter Indwelling Catheter ABP, PAP, CO, CI - Last Documented Arterial Blood Pressure 119/51 - Exam General: The patient is sedated and intubated. He is in a prone position Eye: there is normal conjunctiva bilaterally. Neck: The neck is supple, there is no JVD. Cardiovascular: Normal S1-S2, no S3-S4, no murmurs. Respiratory: Lungs with mechanical ventilator sounds Gastrointestinal: Abdomen is soft, nontender Musculoskeletal: There is +1 pedal edema. Skin: Skin is warm and dry - Labs CBC & Chem 7: 09/03/20 04:40 09/03/20 04:40 Labs: Abnormal Lab Results - Last 24 Hours (Table) 09/02/20 09/02/20 09/03/20 Range/Units 12:13 18:11 00:01 WBC (3.8-10.6) k/uL RBC (4.30-5.90) m/uL MCV (80.0-100.0) fL MCHC (31.0-37.0) g/dL Plt Count (150-450) k/uL Neutrophils # (1.3-7.7) k/uL Lymphocytes # (1.0-4.8) k/uL D-Dimer (<0.60) mg/L FEU ABG pH (7.35-7.45) ABG pCO2 (35-45) mmHg ABG pO2 (83-108) mmHg ABG HCO3 (21-25) mmol/L ABG Total CO2 (19-24) mmol/L ABG O2 Saturation (94-97) % Sodium (137-145) mmol/L Potassium (3.5-5.1) mmol/L Chloride (98-107) mmol/L Carbon Dioxide (22-30) mmol/L BUN (9-20) mg/dL Glucose (74-99) mg/dL POC Glucose (mg/dL) 132 H 123 H 117 H (75-99) mg/dL Calcium (8.4-10.2) mg/dL AST (17-59) U/L ALT (4-49) U/L Total Protein (6.3-8.2) g/dL Albumin (3.5-5.0) g/dL 09/03/20 09/03/20 09/03/20 Range/Units 04:40 04:40 04:40 WBC 20.9 H (3.8-10.6) k/uL RBC 4.07 L (4.30-5.90) m/uL MCV 104.3 H (80.0-100.0) fL MCHC 30.6 L (31.0-37.0) g/dL Plt Count 107 L (150-450) k/uL Neutrophils # 19.4 H (1.3-7.7) k/uL Lymphocytes # 0.8 L (1.0-4.8) k/uL D-Dimer 3.17 H (<0.60) mg/L FEU ABG pH (7.35-7.45) ABG pCO2 (35-45) mmHg ABG pO2 (83-108) mmHg ABG HCO3 (21-25) mmol/L ABG Total CO2 (19-24) mmol/L ABG O2 Saturation (94-97) % Sodium 151 H (137-145) mmol/L Potassium 5.3 H (3.5-5.1) mmol/L Chloride 112 H (98-107) mmol/L Carbon Dioxide 39 H (22-30) mmol/L BUN 71 H (9-20) mg/dL Glucose 128 H (74-99) mg/dL POC Glucose (mg/dL) (75-99) mg/dL Calcium 8.2 L (8.4-10.2) mg/dL AST 94 H (17-59) U/L ALT 309 H (4-49) U/L Total Protein 5.4 L (6.3-8.2) g/dL Albumin 2.7 L (3.5-5.0) g/dL 09/03/20 Range/Units 05:23 WBC (3.8-10.6) k/uL RBC (4.30-5.90) m/uL MCV (80.0-100.0) fL MCHC (31.0-37.0) g/dL Plt Count (150-450) k/uL Neutrophils # (1.3-7.7) k/uL Lymphocytes # (1.0-4.8) k/uL D-Dimer (<0.60) mg/L FEU ABG pH 7.33 L (7.35-7.45) ABG pCO2 72 H* (35-45) mmHg ABG pO2 59 L* (83-108) mmHg ABG HCO3 38 H (21-25) mmol/L ABG Total CO2 40 H (19-24) mmol/L ABG O2 Saturation 90.1 L (94-97) % Sodium (137-145) mmol/L Potassium (3.5-5.1) mmol/L Chloride (98-107) mmol/L Carbon Dioxide (22-30) mmol/L BUN (9-20) mg/dL Glucose (74-99) mg/dL POC Glucose (mg/dL) (75-99) mg/dL Calcium (8.4-10.2) mg/dL AST (17-59) U/L ALT (4-49) U/L Total Protein (6.3-8.2) g/dL Albumin (3.5-5.0) g/dL Assessment and Plan Assessment: Patient is a 70-year-old male with a history of asthma and obesity who initially presented to the ER with complaints of shortness of breath, nausea, and poor appetite. He had known positive COVID testing on 08/09/20. In the ER he was found be hypoxic at 86% on room air. He again was COVID-19 PCR positive. Chest x-ray demonstrated pneumonia. He was outside of the window for Remdesivir. His oxygen requirement increased throughout his hospital stay. Patient is currently admitted to the ICU for further management of his medical problems noted below COVID-19 pneumonitis Acute hypoxic and hypercapnic respiratory failure requiring intubation and mechanical ventilation on 08/28 Sepsis with septic shock requiring vasopressors and aggressive IV fluid hydration -Ventilatory managed by coin rolling machine operator - On Decadron D#20 managed by pulmonology -Normal pro calcitonin - BNP slightly elevated - Continue with vitamins - TOCI 08/20 - Lovenox increased due to D-dimer > 3 Transaminitis, mild, improving - likely related to COVID vs history of ETOH use - follow liver enzymes Asthma without exacerbation - albuterol Obesity with BMI 35.9 - structure weight loss once COVID resolved. DVT prophylaxis with subcu Lovenox CODE STATUS, patient is DO NOT RESUSCITATE. discussed by coin rolling machine operator with family members. Today, I reviewed his medication list and lab work results Continue tube feeding as directed by dietitian Overall prognosis is guarded Sedation and vent are managed by coin rolling machine operator DVT prophylaxis: Lovenox Discussed with: nursing Anticipated discharge: unknown Anticipated discharge place: pending course A total of 35 minutes was spent on the care of this complex patient more than 50% of the time was spent in counseling and care coordination.
[2020-09-03 12:59] LABS: Glucose,Whole Blood 113 mg/dL (75-99)
--- NOTE | 2020-09-03 16:31 | XR ---
EXAMINATION TYPE: XR chest 1V portable DATE OF EXAM: 09/03/2020 COMPARISON: Yesterday HISTORY: Respiratory failure TECHNIQUE: FINDINGS: The endotracheal tube is 5.5 cm from the ben. There is nasogastric tube in the stomach. There is soft tissue air on the chest wall bilaterally. There is some patchy infiltrates and atelecta sis at both lung bases. There is left subclavian catheter with tip in the superior vena cava. No pneu mothorax. IMPRESSION: Infiltrate and atelectasis in both lower lobes without change. No obvious heart failure.
[2020-09-03 18:05] LABS: Glucose,Whole Blood 147 mg/dL (75-99)
[2020-09-03] MEDS: CISATRACURIUM 200 MG in SODIUM CHLORIDE 0.9% 180 ML IV SCH (19:56)
[2020-09-03] MEDS: polyethylene glycoL 3350 17 GM POWD.PACK PO SCH (20:52)
[2020-09-04 00:07] LABS: Glucose,Whole Blood 106 mg/dL (75-99)
[2020-09-04] MEDS: INSULIN ASPART (NovoLOG) 100 UNIT/ML VIAL SQ SCH ×4 (00:56→18:20)
[2020-09-04] MEDS: fentaNYL (PF). 1,000 MCG in SODIUM CHLORIDE 0.9% 80 ML IV SCH ×2 (02:40→21:33)
[2020-09-04] MEDS: NOREPINEPHRINE 8 MG in SODIUM CHLORIDE 0.9% 250 ML IV SCH (04:00)
[2020-09-04 05:06] LABS: ALT 270 U/L (4-49); AST 91 U/L (17-59); African American GFR (CKD) >90 (>60 ml/min/1.73 sqM); Albumin 2.5 g/dL (3.5-5.0); Alkaline Phosphatase 119 U/L (38-126); Anion Gap -2 mmol/L; Blood Urea Nitrogen 63 mg/dL (9-20); Calcium 8.1 mg/dL (8.4-10.2); Carbon Dioxide 38 mmol/L (22-30); Chloride 107 mmol/L (98-107); Glucose 113 mg/dL (74-99); Non-African American GFR(CKD) 81 (>60 ml/min/1.73 sqM); Potassium 4.4 mmol/L (3.5-5.1); Sodium 143 mmol/L (137-145); Total Bilirubin 1.1 mg/dL (0.2-1.3); Total Protein 4.9 g/dL (6.3-8.2)
[2020-09-04 05:43] LABS: Basophils % (A) 0 %; Eosinophils # (A) 0.2 k/uL (0-0.7); Eosinophils % (A) 1 %; HCT 39.2 % (39.0-53.0); HGB 12.2 gm/dL (13.0-17.5); Hypochromasia Slight; Lymphocytes # (A) 0.9 k/uL (1.0-4.8); Lymphocytes % (A) 5 %; MCH 32.2 pg (25.0-35.0); MCV 103.7 fL (80.0-100.0); Macrocytosis Slight; Mean Platelet Volume 10.3; Monocytes # (A) 0.3 k/uL (0-1.0); Monocytes % (A) 2 %; Neutrophils # (A) 15.1 k/uL (1.3-7.7); Neutrophils % (A) 91 %; RBC 3.78 m/uL (4.30-5.90); RDW 14.1 % (11.5-15.5); WBC 16.5 k/uL (3.8-10.6)
[2020-09-04 05:54] LABS: ABG Base Excess 10.4 mmol/L; ABG HCO3 36 mmol/L (21-25); ABG Oxygen Saturation 90.7 % (94-97); ABG PCO2 70 mmHg (35-45); ABG PH 7.33 (7.35-7.45); ABG PO2 62 mmHg (83-108); ABG TCO2 39 mmol/L (19-24); Allen Test Performed? Yes
[2020-09-04] MEDS: DEXTROSE 5% IN WATER 1,000 ML IV SCH ×3 (06:43→11:51)
[2020-09-04 06:48] LABS: Anisocytosis (M) Present; Large Platelets Present; Polychromasia Present
[2020-09-04 06:49] LABS: Platelet Count 93 k/uL (150-450)
--- NOTE | 2020-09-04 07:16 | XR ---
EXAMINATION TYPE: XR chest 1V portable DATE OF EXAM: 09/04/2020 COMPARISON: 09/04/2019 HISTORY: ET tube placement TECHNIQUE: Single frontal view of the chest is obtained. FINDINGS: ET and NG tube stable. Subcutaneous emphysema persists stable. Bilateral interstitial and alveolar infiltrates unchanged. Heart size stable. Biapical pleural thickening. No Max. IMPRESSION: Diffuse alveolar and interstitial infiltrate stable unchanged from prior exam.
[2020-09-04] MEDS: ALBUTEROL HFA INHALER INHALATION SCH ×4 (07:38→20:35)
[2020-09-04] MEDS: CHOLECALCIFEROL 25 MCG (1000 IU) TABLET PO SCH (09:10)
[2020-09-04] MEDS: CHLORHEXIDINE GLUCONATE 15 ML CUP MUCOUS MEM SCH ×2 (09:10→21:17)
[2020-09-04] MEDS: ASCORBIC ACID 500 MG TAB PO SCH (09:10)
[2020-09-04] MEDS: DEXAMETHASONE SOD PHOSPHATE 10 MG/ML 1 ML VIAL IV SCH ×2 (09:10→21:16)
[2020-09-04] MEDS: ZINC SULFATE 220 MG CAP PO SCH (09:10)
[2020-09-04] MEDS: ENOXAPARIN 40 MG/0.4 ML SYRINGE SQ SCH (09:10)
[2020-09-04] MEDS: PANTOPRAZOLE 40 MG/10 ML VIAL IVP SCH (09:11)
[2020-09-04 11:41] LABS: Glucose,Whole Blood 137 mg/dL (75-99)
--- NOTE | 2020-09-04 14:22 | P.PN ---
Subjective Progress Note Date: 09/04/20 Principal diagnosis: Acute hypoxic respiratory failure due to COVID-19 pneumonia and ARDS secondary to COVID-19 normal 70-year-old white male patient who presented to the hospital on 08/15/2020 with complaints of 10 day history of loss of taste, cough, shortness of breath, fever . Patient and his have been staying with her daughter who tested positive for COVID, patient had an outpatient test for COVID-19 on 08/09/2020 and was found to be positive. Last few days he's been having increased shortness of breath, cough. Past medical history is noncontributory, other than osteoarthritis with previous history of joint replacement surgery in the right knee, patient is lifetime nonsmoker, does have history of chronic bronchial asthma, not on any maintenance inhalers on a regular basis. Chest x-ray in the emergency department shows some patchy airspace disease on the right, calcified granuloma in the right lower lobe, no pneumothorax or pleural effusion. His repeat COVID-19 PCR in the emergency room was positive, RSV and influenza screen were negative. His admission blood work showed neutropenia, and lymphopenia, white blood cell count was 2.6, and leukocyte count was 0.4, d-dimer was 0.95, potassium is 3.1, rest of the electrolytes and renal profile were unremarkable, lactic acid was 1.1, AST was 63, ALT and alk phos were within normal limits, LDH was 1283, CRP was 7.1, pro calcitonin level was negative at 0.10. Patient was satting 86% on room air, currently requiring 4 L of supplemental oxygen with a pulse ox of 91-94%, he is afebrile. Lung sounds reveal diffuse coarse crackles at bilateral bases. Patient was started on Decadron this milligram daily, and prophylactic Lovenox. he is outside the window for Remdesivir On 08/17/2020 patient seen in follow-up on medical surgical floor, he is resting in bed, appears to be in no acute distress, he still on 5 L of oxygen has pulse ox of 90-91%, he is afebrile, hemodynamically stable, he states when he walks to the bathroom he gets very lightheaded and dizzy and sometimes feel like he is going to pass out. He does get short of breath, he was instructed to call for help when ambulating to the bathroom. Sounds reveal diffuse crackles bilaterally, today's follow-up chest x-ray showing patchy airspace disease lung bases. He is trying to work on incentive spirometer. Today's labs have been reviewed, his d-dimer today is 0.55, inflammatory markers are improving, and his LDH is 609, and CRP is 3.6. An patient remains on Decadron 6 mg daily, and prophylactic dose Lovenox in addition to vitamins On 08/18/2020 patient seen in follow-up on medical surgical floor. He is currently down to 4 L of oxygen pulse ox is 93%, he states he still feels weak and wobbly when walking to the bathroom, at times he gets lightheaded, but no worsening dyspnea, no signs of any respiratory distress. Today's labs have been noted, d-dimer from yesterday is 0.55, inflammatory markers were improving, no cough, no complaints of chest discomfort, he remains on Decadron 6 blood gram daily, and Lovenox 40 mg daily. On 08/19/2020 patient seen in follow-up on medical surgical floor, he is sitting up in the recliner, in no acute distress, is on 6 L of supplemental oxygen his pulse ox is 89-90%, no worsening dyspnea, although he does get short of breath and desat with exertion, consulted physical therapy and patient had ambulated with a walker. His ambulation ability slow shaky, no complaints of dizziness. Doing fairly well, no acute events overnight, and he is on Decadron, patient was not a candidate for Remdesivir, he is on prophylactic Lovenox, today's labs have been reviewed On 08/20/2020 patient seen in follow-up on medical surgical floor. In the last 24 hours his oxygenation has significantly deteriorated, he is currently on Airvo at 60 L and FiO2 of 92%, his pulse ox is 85-88%, his been afebrile, his temp of 101.7F, complaining of headache, he looks weak, he looks a lot more ill today, fatigued, short of breath with conversation, he has occasional cough, he was outside the window for Remdesivir, he has been on Decadron 6 mg daily, he is on prophylactic Lovenox, we'll give him a dose of Toci today On 08/21/2020 patient continued to worsen through the night, with increased work of breathing, and increased oxygenation needs, he was placed on Airvo yesterday, at 60 L in FiO2 of 93%, and he is requiring 100% nonrebreather mask on top of it, his pulse ox is only 80%, he is very tachypneic with respiratory rate in the 30s, diaphoretic, and looking fatigued. He was transferred to the intensive care unit this morning and placed on BiPAP support with pressures of 14/6 and F iO2 100%, he is actually tolerating that quite well, and seems more comfortable on it, lung sounds reveal diffuse coarse crackles at bilateral posterior bases, he is afebrile this morning, his chest x-ray today showing bilateral lower lobe infiltrates and small effusion., Yesterday his d-dimer with up to 10.10, and if it remains elevated again today at 10.19, his Lovenox dose was adjusted and he is currently on 60 mg of Lovenox every 12 hours. He remains on IV dexamethasone 6 mg daily, was given a dose of Actemra yesterday On 08/24/2020 patient seen in follow-up in the intensive care unit, he remains on BiPAP its at pressures of 14/7 and FiO2 of 90%. He seems to be tolerating BiPAP support quite well, seems to be very comfortable on that. He has remained on BiPAP continuously for 24 hours, try Airvo on him again today. Appears to be in no acute distress, on those above-mentioned settings his pulse ox is ranging between 86-91%, respiratory rate is in the mid 20s, blood pressure stable, he has been afebrile. Lung sounds reveal diminished breath sounds with some bibasilar crackles. No complaints of chest pain overnight, 2 sets of troponins were less than 0.012. Echocardiogram was a technically difficult study with suboptimal views, and the EF was not calculated, RV was not visualized, left atrium, right atrium, and all the valves were not well visualized. And as such this was a suboptimal study. No complaints of chest pain overnight, no complaints of chest pain this morning. This morning's labs have been reviewed, his d-dimer is 7.66 on today's labs, white blood cell count is 10.5, hemoglobin of 14.5, sodium is 135, the rest of electrolytes and renal profile were unremarkable, LDH is 1658, CRP is 2.8. No nausea vomiting or diarrhea, abdomen is soft, no worsening dyspnea On 08/25/2020 patient seen in follow-up in intensive care unit, yesterday he tolerated Airvo at 60 L and FiO2 of 90% in addition to 100% nonrebreather mask all day, and he was placed back on BiPAP support with pressures of 14/7 and FiO2 of 90% overnight, this morning she seen in the intensive care unit, he is resting comfortably in bed, he remains on BiPAP support and his pulse ox on a luma-mentioned settings is 92-95%. He denies any worsening dyspnea, he is easily arousable to voice, and answering simple questions, lung sounds reveal diminished breath sounds at the bases, with minimal crackles. Today's chest x- ray is pending, today's labs have been reviewed during white blood cell count of 12.4, hemoglobin of 14.6, d-dimer remains elevated at 7.86, and patient's on Lovenox at 50 mg twice daily. No complaints of chest pain. No cough, no congestion, yesterday while he was on Airvo he was able to take in some oral feedings, and had a fair appetite. She is in sinus mechanism, hemodynamically she is stable, he is on plane, sitting at a rate of 50 ML per hour. He remains on Decadron at 6 mg twice daily. His renal function is within normal limits today with B1 of 18 creatinine 0.71, sodium was 135, and her serum electrolytes were within normal limits, 2 sets of troponins were less than 0.012, limited echocardiogram was a suboptimal study, however there was no recurrence of chest discomfort from 2 days ago, and heparin drip was discontinued, no acute ST wave changes. No vomiting or diarrhea, abdomen is soft, no complaints of abdominal pain. On 08/26/2020 patient seen in follow-up in intensive care unit, currently on BiPAP with pressures of 14/7 and FiO2 100%, and his pulse ox is 88%, yesterday he was able to tolerate Airvo and nonrebreather and come off the BiPAP for short periods of time. Today he seems more lethargic compared to yesterday, he is tachypneic, but he is achieving over 1 L and tidal volumes on the BiPAP, his respiratory rate is in the mid 30s. He opens eyes to voice, he lightly groans in response to questions, but not really providing full sentence responses. Yesterday we gave him a dose of IV Lasix, he diuresed quite well, and he is in - 3.1 L over the last 24 hours. Despite the diuresis, the patient failed to improve, today's chest x-ray still showed persistent bibasilar and right midlung peripheral opacities consistent with COVID-19. Oral intake has been poor, and at this time we are considering low rate IV fluids. Labs have been reviewed, his white blood cell count is 16.8, hemoglobin is 15.7, he is a d-dimer is 9.28, sodium is 136, the rest of electrolytes are within normal limits, his BUN is 22, creatinine is 0.82, his LDH has actually trended up, and is at 2202, and CRP 1.2. On 08/29/2020 patient seen in follow-up in the intensive care unit, he was intubated over the weekend, he is currently remains sedated and paralyzed on mechanical ventilation, on assist-control mode of ventilation with a rate of 30, tidal vital 390, FiO2 100% and PEEP of 18. This morning his blood gases showed pO2 of 80, pCO2 75, and pH of 7.22. This was done 100% FiO2. His peak pressures are 45, plateau pressure is 42. Is currently on 0.9 at 1:30 ML per hour, Levothroid is at 11 mics per minute, fentanyl drip is at 0.5 mics per kilo per hour, Diprivan and is at 50 mics per kilo per minute, and index is at 1 jacob per kilo per minute, he is receiving tube feedings in the form of vital high- protein at 10 ML per hour. He is in sinus mechanism, slightly tachycardic with a rate of 109 BPM. Patient was proned last night, he is currently supine. His chest x-ray today shows diffuse bilateral infiltrates that are stable in a ppearance, and possibility of pneumomediastinum could not be excluded. Today's labs have been reviewed showing white blood cell count of 24.2, hemoglobin of 15.8, sodium is 142, potassium is 5.0, chloride is 110, CO2 is 30, BUN of 38, and creatinine of 1.35. AST was 92, ALT is 290, alkaline phosphatase is 110. CRP is 1.4 On 08/30/2020 patient seen in follow-up in the intensive care unit, he remains intubated, sedated and paralyzed on mechanical ventilator, currently on assist- control mode of ventilation with a rate of 36, tidal volume is 390, FiO2 100% and PEEP of 18, this morning his blood gases were reviewed showing pO2 of 98, pCO2 of 82, pH is 7.19. His peak airway pressure is 40, his plateau is 34, this chest x-ray today has been reviewed showing diffuse airspace disease that is s table in appearance, he is currently on 0.9 normal saline at a rate of 75 ML per hour, Levophed is at 8 mics per minute, fentanyl drip is at 0.75, and Diprivan is at 30 mics per kilo per minute, Nimbex is at 2 mics per kilo per minute. Patient is receiving tube feedings with vital high-protein at 48 with a goal of 48 and standard water flushes with 30 ML every 4 hours, he is in sinus mechanism, tachycardic with a rate of 112 BPM, he seems to have developed subcutaneous emphysema involving his anterior chest. He also developed a pressure injury from the [place] ET tube Guardado on his right cheek. [place] 's been removed and cough type is being used for ET tube Guardado. Today's labs have been reviewed, white blood cell count is 23.1, hemoglobin is 15.4, platelet count is 92, potassium is 5.5, and this was treated with combination of 1 amp of bicarbonate, 50% dextrose and regular insulin. Recheck labs are pending, his BUN is 48 creatinine is 1.45, LDH from a couple days ago was trending up and was up to 3870, and CRP was 1.4. His last pro-calcitonin from and weight 2020 was negative at 0.07. On 08/31/2020 patient seen in follow-up in the intensive care unit, he remains sedated, paralyzed and intubated on mechanical ventilator, currently on assist- control with a rate of 36, tidal volume is 390, FiO2 of 70% and PEEP of 18, this morning blood gases show pO2 of 65, pCO2 of 81, and pH of 7.23. His peak and plateau pressures have been elevated, with peak pressure of 42, plateau pressure of 39. Further adjustments have been made to his ventilator settings, and patient was placed on pressure control mode of ventilation with pressure control 22, respiratory rate 36, FiO2 of 70%, PEEP of 18, and inspiratory time of 0.70. He had a chest x-ray today showing scattered airspace infiltrates greatest at the lung bases without significant change, he is currently on Levothroid at 0.03 mics per kilo per minute, fentanyl drip is at 0.75 mics per kilo per hour, 0.9 at 75 ML per hour, Nimbex is at 1.5 mics per kilo per minute, and Diprivan and is at 30 mics per kilo per minute. He is receiving tube feedings in the form of vital HP at 41 with a goal of 41, and standard water flushes of 30 ML every 4 hours, he is in sinus mechanism, bit tachycardic in the low 100s, no fever overnight. Today's labs have been reviewed showing white blood cell count of 15.7, hemoglobin of 14.2, his d-dimer is improving and is down to 6.17 from 10.13 on yesterday's labs, patient remains on Lovenox 50 mg every 12 hours. Sodium is 145, potassium is 5.3, chloride is 111, CO2 35, BUN of 54, creatinine is 1.24, his liver enzymes improved somewhat with AST of 61, and ALT of 251, LDH is improving is down to 1763, CRP is 0.8 on today's labs. Patient continues on Decadron 6 mg IV twice daily. Patient is producing urine in the order of 60-100 ML per hour. On 09/01/2020 patient seen in follow-up in intensive care unit, he remains intubated, sedated and paralyzed, on pressure control mode of ventilation, with inspiratory pressure of 22, rate of 36, FiO2 of 65% PEEP of 18, and inspiratory time of 0.7. This morning his blood gases reviewed showing pO2 of 53, pCO2 of 65, and pH of 7.34. This was completed on FiO2 of 65%, his peak air pressure is 41, his plateau pressures 37. Today's chest x-ray shows interval development of subcutaneous emphysema about the chest and neck, increasing consolidation in the lung bases probably representing pneumonia or atelectasis, no obvious pne umothorax was noted. Patient is currently on 0.9 normal saline at 75 ML per hour, to prevent is at 30 mics per kilo per minute, fentanyl drip is a 0.75 mics per kilo per hour, and Nimbex infusion at 1.5 mics per kilo per minute. He is tolerating tube feedings, he is receiving vital high-protein at 41 with a goal of 41 and standard water flushes, today's labs have been reviewed, his white blood cell count is down trending, and is down to 13.7 on today's labs, his hemoglobin is 13.5, his d-dimer is also improving and is down to 4.02, serum sodium is 147, potassium is 5.2, chloride is 111, CO2 is 26, BUN of 65, creatinine is 1.15, AST is 65, ALT is 227, and alkaline phosphatase within normal limits, overall his LFTs are stable if not slightly improved. Follow-up LDH is down to 1490, improving but still elevated, and his CRP today is 0.6 within normal limits. Physical exam reveals increased subcutaneous emphysema of anterior chest, upper shoulders and bilateral upper arms. Patient did prone for 16 hours, tolerated fairly well. Doing prone positioning his pulse ox is around 91-92% on the above-mentioned settings. In supine position he usually sats at around 86-87%. Hemodynamically he has not required any vasopressors, he is in sinus mechanism, his rate is controlled, is producing urine in the order of 40- 125 ML per hour. On 09/02/2020 patient seen in follow-up in the intensive care unit, he remains intubated, sedated and paralyzed, on assist-control mode of ventilation with a rate of 36, tidal volume 450, FiO2 of 65% and PEEP of 18, this morning's blood gas shows pO2 57, pCO2 of 68, pH is 7.34, and this was done on FiO2 of 65% and PEEP of 18, his peak airway pressures 43, plateau pressure is 38, today's chest x-ray has been reviewed showing no change in bibasilar opacities, and sized pneumothorax was not identified with certainty. Patient continues to have subcutaneous emphysema in his chest, upper arms and shoulders. But no clear evidence of pneumothorax on the chest x-ray. Last night patient started losing a significant amount of volume and had to be switched to volume assist-control mode of ventilation related to increasing hypercapnic respiratory failure. A blood gas that was completed at that time and this was around 5:00 in the afternoon showed pO2 of 71, pCO2 of greater than 120, and pH of 7.05. Patient was placed on assist-control mode of ventilation with a rate of 36, tidal vitamins 450, FiO2 of 65% and PEEP of 18, and this morning's blood gas shows improvement in his acid base balance, and improvement in his CO2 concentration. He is currently on 0.9 normal saline at a rate of 75 ML per hour, his fentanyl infusion is 0.75 mics per kilo per hour, Diprivan and is at 30 mics per kilo per minute, Nimbex is at 1.5 mics per kilo per minute, and he is on small amount of norepinephrine at 0.02 mics per kilo per minute. He is tolerating tube feedings, and he is receiving vital high-protein at 41 with a goal of 41, and he has been receiving free water flushes of 200 ML every 4 hours for elevated sodium of 147. Today's labs have been reviewed, and his serum sodium remains exactly the same at 147, potassium is 5.5, chloride is 112, CO2 is 38, BUN of 77, creatinine is 1.14. His AST and ALT continue to be relatively stable, with AST of 83, and ALT of 259, his LDH is trending down and is currently is 1394, and CRP is 0.8. White blood cell count is 13.8, and hemoglobin is 12.8. D- dimer is improving and is down to 2.72 on today's labs. His current dose Lovenox 40 mg daily, patient also remains on Decadron 6 mg twice daily. Patient is currently in supine position, he has been tolerating prone positioning. Patient was reevaluated today on 09/03/20, remains in the ICU, intubated and mechanically ventilated. Intermittently in prone position and he is in prone position today during my evaluation. Patient is on assist control rate of 36 volume 450 FiO2 75% PEEP of 18 ABG showed a pO2 of 59 pCO2 of 72 pH of 7.33. Continues to have a relatively high peak airway pressure and high plateau pressure in the high 30s and low 40s. Remains on fentanyl at 12.5 mcg/kg/h, Nimbex at 1 mcg/kg/m, propofol at 40 mcg/kg/m. His IV fluid today was changed from 0.9 normal saline to D5W at 100 mL/h, and free water flushes will be given via nasogastric tube. Chest x-ray continues to show bilateral infiltrates, no chest x-ray was done, because patient was in prone position. He had subcutaneous emphysema and pneumomediastinum on his radius x-rays. But no clear-cut evidence of pneumothorax. WBC count today is 20.9 hemoglobin is 13 d- dimer is 3.17 sodium is 151, BUN is 71 creatinine 1.06. Liver enzymes are borderline elevated Reevaluated today on 09/04/2020, patient remains in the ICU, intubated and mechanically ventilated. Patient is on assist control rate of 36, tidal volume is 450 FiO2 75% PEEP of 8. Patient did not tolerate prone position well yesterday, hence no proning will be done today. We'll keep the patient supine. Patient is on multiple drips including Nimbex at 1 mcg/kg/m, fentanyl at 1.0 mcg/kg/h propofol at 40 mcg/kg/m, patient is on vital hp at 41 mL per hour. Continues to receive 3 water flushes and his IV fluid at D5W at 100 mL per hour. ABG today showed a pO2 of 62 pCO2 of 70 pH of 7.33. Chest x-ray is basically the same continues to show bilateral interstitial infiltrates, and the subc utaneous emphysema seems to be resolving. No evidence of pneumothorax. Sodium is coming down, it is 143 today. CBC is relatively normal, however WBC count is elevated at 16.5 hemoglobin is 12 d-dimer is 3.77. No inflammatory markers were done today, we will order these for tomorrow. Electrolytes are normalizing. BUN is 63 creatinine 0.97 Objective - Vital Signs Vital signs: Vital Signs Temp 98.0 F 09/04/20 12:00 Pulse 64 09/04/20 13:00 Resp 36 H 09/04/20 13:00 BP 118/61 09/04/20 12:00 Pulse Ox 95 09/04/20 13:00 Intake & Output 09/03/20 09/04/20 09/04/20 18:59 06:59 18:59 Intake Total 3102.040 8556.594 842 Output Total 990 785 340 Balance 124.010 470.594 502 Weight 112 kg Intake: IV 336 276 138 Sodium Chloride 0.9% 1, 300 240 120 000 ml @ 40 mls/hr IV . Q24H [facility] Rx#:[id number] pressure BAG 36 36 18 Intake, IV Titration 414.010 625.594 100 Amount Cisatracurium 200 mg In 154.81 Sodium Chloride 0.9% 180 ml @ 2 MCG/KG/MIN 12.672 mls/hr IV .[id number] [facility] Rx #:[id number] Dextrose 5% in Water 1, 50 000 ml @ 100 mls/hr IV . Q10H [facility] Rx#:[id number] Norepinephrine 8 mg In 75.831 Sodium Chloride 0.9% 250 ml @ 0.05 MCG/KG/MIN 10. 217 mls/hr IV .Q24H [facility] Rx#:[id number] fentaNYL (PF). 1,000 mcg 99.425 200 In Sodium Chloride 0.9% 80 ml @ Per Protocol IV . Q0M [facility] Rx#:[id number] propofoL 1,000 mg In 188.754 270.784 100 Empty Bag 1 bag @ Titrate IV .Q0M [facility] Rx#: [id number] Tube Feeding 164 264 204 Other 200 90 400 Output: Urine 990 785 340 Other: Voiding Method Indwelling Catheter Indwelling Catheter Indwelling Catheter ABP, PAP, CO, CI - Last Documented Arterial Blood Pressure 109/54 - Exam GENERAL EXAM: 70-year-old white male, on mechanical ventilation, presently in supine position HEAD: Normocephalic/atraumatic. Healing abrasion noted on the right side of the face with dark discoloration of the abrasion. EYES: Normal reaction of pupils, equal size. Conjunctiva pink, sclera white. NOSE: Clear with pink turbinates. Pressure injury involving the bridge of the nose, in the wound is fairly dry, scabbing noted. THROAT: No erythema or exudates. NECK: No masses, no JVD, no thyroid enlargement, no adenopathy. CHEST: Symmetrical expansion, subcutaneous emphysema palpable. LUNGS: Continues to have crackles at the bases. CVS: Distant S1 and S2, no S3 gallop. ABDOMEN: Soft, nontender. No hepatosplenomegaly, normal bowel sounds, no guarding or rigidity. EXTREMITIES: No clubbing, generalized nonpitting edema no cyanosis, 2+ pulses and upper and lower extremities. MUSCULOSKELETAL: Could not assess. No deformities noted. SKIN: Right facial abrasion is noted, dark, healing. CENTRAL NERVOUS SYSTEM: Cannot assess. Patient is sedated and paralyzed. - Labs CBC & Chem 7: 09/04/20 04:15 09/04/20 04:15 Labs: Abnormal Lab Results - Last 24 Hours (Table) 09/03/20 09/04/20 09/04/20 Range/Units 18:04 00:06 04:15 WBC 16.5 H (3.8-10.6) k/uL RBC 3.78 L (4.30-5.90) m/uL Hgb 12.2 L (13.0-17.5) gm/dL MCV 103.7 H (80.0-100.0) fL Plt Count 93 L (150-450) k/uL Neutrophils # 15.1 H (1.3-7.7) k/uL Lymphocytes # 0.9 L (1.0-4.8) k/uL D-Dimer (<0.60) mg/L FEU ABG pH (7.35-7.45) ABG pCO2 (35-45) mmHg ABG pO2 (83-108) mmHg ABG HCO3 (21-25) mmol/L ABG Total CO2 (19-24) mmol/L ABG O2 Saturation (94-97) % Carbon Dioxide (22-30) mmol/L BUN (9-20) mg/dL Glucose (74-99) mg/dL POC Glucose (mg/dL) 147 H 106 H (75-99) mg/dL Calcium (8.4-10.2) mg/dL AST (17-59) U/L ALT (4-49) U/L Total Protein (6.3-8.2) g/dL Albumin (3.5-5.0) g/dL 09/04/20 09/04/20 09/04/20 Range/Units 04:15 04:15 05:50 WBC (3.8-10.6) k/uL RBC (4.30-5.90) m/uL Hgb (13.0-17.5) gm/dL MCV (80.0-100.0) fL Plt Count (150-450) k/uL Neutrophils # (1.3-7.7) k/uL Lymphocytes # (1.0-4.8) k/uL D-Dimer 3.77 H (<0.60) mg/L FEU ABG pH 7.33 L (7.35-7.45) ABG pCO2 70 H (35-45) mmHg ABG pO2 62 L (83-108) mmHg ABG HCO3 36 H (21-25) mmol/L ABG Total CO2 39 H (19-24) mmol/L ABG O2 Saturation 90.7 L (94-97) % Carbon Dioxide 38 H (22-30) mmol/L BUN 63 H (9-20) mg/dL Glucose 113 H (74-99) mg/dL POC Glucose (mg/dL) (75-99) mg/dL Calcium 8.1 L (8.4-10.2) mg/dL AST 91 H (17-59) U/L ALT 270 H (4-49) U/L Total Protein 4.9 L (6.3-8.2) g/dL Albumin 2.5 L (3.5-5.0) g/dL 09/04/20 Range/Units 11:39 WBC (3.8-10.6) k/uL RBC (4.30-5.90) m/uL Hgb (13.0-17.5) gm/dL MCV (80.0-100.0) fL Plt Count (150-450) k/uL Neutrophils # (1.3-7.7) k/uL Lymphocytes # (1.0-4.8) k/uL D-Dimer (<0.60) mg/L FEU ABG pH (7.35-7.45) ABG pCO2 (35-45) mmHg ABG pO2 (83-108) mmHg ABG HCO3 (21-25) mmol/L ABG Total CO2 (19-24) mmol/L ABG O2 Saturation (94-97) % Carbon Dioxide (22-30) mmol/L BUN (9-20) mg/dL Glucose (74-99) mg/dL POC Glucose (mg/dL) 137 H (75-99) mg/dL Calcium (8.4-10.2) mg/dL AST (17-59) U/L ALT (4-49) U/L Total Protein (6.3-8.2) g/dL Albumin (3.5-5.0) g/dL Assessment and Plan Assessment: Impression: Acute hypoxic respiratory failure secondary to COVID-19 pneumonitis and underlying ARDS secondary to COVID-19 pneumonia. Elevated d-dimer and inflammatory markers secondary to COVID-19 infection, patient remains on Lovenox at 40 mg subcu daily on Decadron. 6 mg IV push twice a day. Elevated liver enzymes secondary to COVID-19 infection Lifetime nonsmoker. History of mild intermittent asthma. Hypernatremia secondary to free water deficit. Pneumomediastinum and subcutaneous emphysema secondary to barotrauma and COVID- 19 infection, expected resolved today. Obesity with BMI of 35.9. Recommendation: Continue ventilatory support. Continue nutritional support. No more prone positions for now since the patient did not tolerate. Hemodynamic support if necessary. Continue Lovenox at 40 mg subcu daily Titrate FiO2 according to O2 saturation. Free water to be continued via orogastric tube monitor electrolytes. Continue IV fluid at D5W 100 mL per hour Monitor daily chest x-rays. Continue sedation and paralytics for now, patient is not ready for any form of weaning at present. Continue to monitor renal profile and liver profile on a daily basis. And monitor inflammatory markers. Prognosis remains poor and guarded. CODE STATUS remains DO NOT RESUSCITATE. I discussed his condition today with his daughter Iman, and updated on his dad's condition, and I suggested that we continue present supportive care measures for the next few days, and if no improvement whatsoever, we will readdress his condition with her and decide whether to go to comfort care measures or to proceed with tracheostomy and PEG tube placement. The daughter seems to be more inclined towards comfort care measures if his condition seems to be the same or worse. CODE STATUS remains DO NOT RESUSCITATE. Critical care time is over 30 minutes Time with Patient: Greater than 30
[2020-09-04] MEDS ORDERED: LACTULOSE 20 GM/30 ML CUP PO ONE (14:36)
--- NOTE | 2020-09-04 15:02 | P.PN ---
Subjective Progress Note Date: 09/04/20 No significant change in the overall clinical status. Unable to come down on vent settings. Family members updated by liquid waste treatment plant operator today. Nursing staff informed me that patient did not have a bowel movement as of yet. His abdomen is soft with no high residuals. He has been having tube feeds stopped for 16 hours at the time when he is prone position. Objective - Vital Signs Vital signs: Vital Signs Temp 98.0 F 09/04/20 12:00 Pulse 64 09/04/20 13:00 Resp 36 H 09/04/20 13:00 BP 118/61 09/04/20 12:00 Pulse Ox 95 09/04/20 13:00 Intake & Output 09/03/20 09/04/20 09/04/20 18:59 06:59 18:59 Intake Total 1310.211 7485.594 842 Output Total 990 785 340 Balance 124.010 470.594 502 Weight 112 kg Intake: IV 336 276 138 Sodium Chloride 0.9% 1, 300 240 120 000 ml @ 40 mls/hr IV . Q24H [facility] Rx#:[id number] pressure BAG 36 36 18 Intake, IV Titration 414.010 625.594 100 Amount Cisatracurium 200 mg In 154.81 Sodium Chloride 0.9% 180 ml @ 2 MCG/KG/MIN 12.672 mls/hr IV .[id number] [facility] Rx #:[id number] Dextrose 5% in Water 1, 50 000 ml @ 100 mls/hr IV . Q10H [facility] Rx#:[id number] Norepinephrine 8 mg In 75.831 Sodium Chloride 0.9% 250 ml @ 0.05 MCG/KG/MIN 10. 217 mls/hr IV .Q24H [facility] Rx#:[id number] fentaNYL (PF). 1,000 mcg 99.425 200 In Sodium Chloride 0.9% 80 ml @ Per Protocol IV . Q0M [facility] Rx#:[id number] propofoL 1,000 mg In 188.754 270.784 100 Empty Bag 1 bag @ Titrate IV .Q0M [facility] Rx#: [id number] Tube Feeding 164 264 204 Other 200 90 400 Output: Urine 990 785 340 Other: Voiding Method Indwelling Catheter Indwelling Catheter Indwelling Catheter ABP, PAP, CO, CI - Last Documented Arterial Blood Pressure 109/54 - Exam General: The patient is sedated and intubated. Eye: there is normal conjunctiva bilaterally. Neck: The neck is supple, there is no JVD. Cardiovascular: Normal S1-S2, no S3-S4, no murmurs. Respiratory: Lungs with mechanical ventilator sounds Gastrointestinal: Abdomen is soft, nontender Musculoskeletal: There is +1 pedal edema. Skin: Skin is warm and dry - Labs CBC & Chem 7: 09/04/20 04:15 09/04/20 04:15 Labs: Abnormal Lab Results - Last 24 Hours (Table) 09/03/20 09/04/20 09/04/20 Range/Units 18:04 00:06 04:15 WBC 16.5 H (3.8-10.6) k/uL RBC 3.78 L (4.30-5.90) m/uL Hgb 12.2 L (13.0-17.5) gm/dL MCV 103.7 H (80.0-100.0) fL Plt Count 93 L (150-450) k/uL Neutrophils # 15.1 H (1.3-7.7) k/uL Lymphocytes # 0.9 L (1.0-4.8) k/uL D-Dimer (<0.60) mg/L FEU ABG pH (7.35-7.45) ABG pCO2 (35-45) mmHg ABG pO2 (83-108) mmHg ABG HCO3 (21-25) mmol/L ABG Total CO2 (19-24) mmol/L ABG O2 Saturation (94-97) % Carbon Dioxide (22-30) mmol/L BUN (9-20) mg/dL Glucose (74-99) mg/dL POC Glucose (mg/dL) 147 H 106 H (75-99) mg/dL Calcium (8.4-10.2) mg/dL AST (17-59) U/L ALT (4-49) U/L Total Protein (6.3-8.2) g/dL Albumin (3.5-5.0) g/dL 09/04/20 09/04/20 09/04/20 Range/Units 04:15 04:15 05:50 WBC (3.8-10.6) k/uL RBC (4.30-5.90) m/uL Hgb (13.0-17.5) gm/dL MCV (80.0-100.0) fL Plt Count (150-450) k/uL Neutrophils # (1.3-7.7) k/uL Lymphocytes # (1.0-4.8) k/uL D-Dimer 3.77 H (<0.60) mg/L FEU ABG pH 7.33 L (7.35-7.45) ABG pCO2 70 H (35-45) mmHg ABG pO2 62 L (83-108) mmHg ABG HCO3 36 H (21-25) mmol/L ABG Total CO2 39 H (19-24) mmol/L ABG O2 Saturation 90.7 L (94-97) % Carbon Dioxide 38 H (22-30) mmol/L BUN 63 H (9-20) mg/dL Glucose 113 H (74-99) mg/dL POC Glucose (mg/dL) (75-99) mg/dL Calcium 8.1 L (8.4-10.2) mg/dL AST 91 H (17-59) U/L ALT 270 H (4-49) U/L Total Protein 4.9 L (6.3-8.2) g/dL Albumin 2.5 L (3.5-5.0) g/dL 09/04/20 Range/Units 11:39 WBC (3.8-10.6) k/uL RBC (4.30-5.90) m/uL Hgb (13.0-17.5) gm/dL MCV (80.0-100.0) fL Plt Count (150-450) k/uL Neutrophils # (1.3-7.7) k/uL Lymphocytes # (1.0-4.8) k/uL D-Dimer (<0.60) mg/L FEU ABG pH (7.35-7.45) ABG pCO2 (35-45) mmHg ABG pO2 (83-108) mmHg ABG HCO3 (21-25) mmol/L ABG Total CO2 (19-24) mmol/L ABG O2 Saturation (94-97) % Carbon Dioxide (22-30) mmol/L BUN (9-20) mg/dL Glucose (74-99) mg/dL POC Glucose (mg/dL) 137 H (75-99) mg/dL Calcium (8.4-10.2) mg/dL AST (17-59) U/L ALT (4-49) U/L Total Protein (6.3-8.2) g/dL Albumin (3.5-5.0) g/dL Assessment and Plan Assessment: Patient is a 70-year-old male with a history of asthma and obesity who initially presented to the ER with complaints of shortness of breath, nausea, and poor appetite. He had known positive COVID testing on 08/09/20. In the ER he was found be hypoxic at 86% on room air. He again was COVID-19 PCR positive. Chest x-ray demonstrated pneumonia. He was outside of the window for Remdesivir. His oxygen requirement increased throughout his hospital stay. Patient is currently admitted to the ICU for further management of his medical problems noted below COVID-19 pneumonitis Acute hypoxic and hypercapnic respiratory failure requiring intubation and mechanical ventilation on 08/28 Sepsis with septic shock requiring vasopressors and aggressive IV fluid hydration -Ventilatory managed by liquid waste treatment plant operator - On Decadron D#21 managed by pulmonology -Normal pro calcitonin - BNP slightly elevated - Continue with vitamins - TOCI 08/20 - Lovenox increased due to D-dimer > 3 Transaminitis, mild, improving - likely related to COVID vs history of ETOH use - follow liver enzymes Asthma without exacerbation - albuterol Obesity with BMI 35.9 - structure weight loss once COVID resolved. DVT prophylaxis with subcu Lovenox CODE STATUS, patient is DO NOT RESUSCITATE. discussed by liquid waste treatment plant operator with family members. Today, I reviewed his medication list and lab work results Continue tube feeding as directed by dietitian 1 time lactulose ordered. Overall prognosis is guarded Sedation and vent are managed by liquid waste treatment plant operator DVT prophylaxis: Lovenox Discussed with: nursing Anticipated discharge: unknown Anticipated discharge place: pending course A total of 35 minutes was spent on the care of this complex patient more than 50% of the time was spent in counseling and care coordination.
[2020-09-04 18:15] LABS: Glucose,Whole Blood 118 mg/dL (75-99)
[2020-09-04] MEDS: CISATRACURIUM 200 MG in SODIUM CHLORIDE 0.9% 180 ML IV SCH (18:58)
[2020-09-04] MEDS: polyethylene glycoL 3350 17 GM POWD.PACK PO SCH (21:17)
[2020-09-04 23:53] LABS: Glucose,Whole Blood 116 mg/dL (75-99)
[2020-09-05] MEDS: INSULIN ASPART (NovoLOG) 100 UNIT/ML VIAL SQ SCH ×4 (00:56→18:17)
[2020-09-05] MEDS: DEXTROSE 5% IN WATER 1,000 ML IV SCH ×3 (04:16→21:47)
[2020-09-05 04:21] LABS: Basophils % (A) 0 %; Eosinophils # (A) 0.1 k/uL (0-0.7); Eosinophils % (A) 1 %; HCT 35.6 % (39.0-53.0); HGB 11.7 gm/dL (13.0-17.5); Lymphocytes # (A) 0.4 k/uL (1.0-4.8); Lymphocytes % (A) 2 %; MCH 33.8 pg (25.0-35.0); MCHC 32.9 g/dL (31.0-37.0); MCV 102.8 fL (80.0-100.0); Macrocytosis Slight; Mean Platelet Volume 9.7; Monocytes # (A) 0.4 k/uL (0-1.0); Monocytes % (A) 3 %; Neutrophils # (A) 14.7 k/uL (1.3-7.7); Neutrophils % (A) 94 %; RBC 3.46 m/uL (4.30-5.90); WBC 15.6 k/uL (3.8-10.6)
[2020-09-05 04:28] LABS: Platelet Count 91 k/uL (150-450)
[2020-09-05 04:39] LABS: ALT 244 U/L (4-49); AST 83 U/L (17-59); African American GFR (CKD) >90 (>60 ml/min/1.73 sqM); Albumin 2.5 g/dL (3.5-5.0); Alkaline Phosphatase 134 U/L (38-126); Anion Gap 1 mmol/L; Blood Urea Nitrogen 59 mg/dL (9-20); Carbon Dioxide 36 mmol/L (22-30); Chloride 102 mmol/L (98-107); Glucose 154 mg/dL (74-99); Non-African American GFR(CKD) 83 (>60 ml/min/1.73 sqM); Potassium 5.2 mmol/L (3.5-5.1); Sodium 139 mmol/L (137-145); Total Bilirubin 1.3 mg/dL (0.2-1.3); Total Protein 4.9 g/dL (6.3-8.2)
[2020-09-05 05:27] LABS: ABG Base Excess 9.5 mmol/L; ABG HCO3 36 mmol/L (21-25); ABG Oxygen Saturation 93.8 % (94-97); ABG PH 7.31 (7.35-7.45); ABG PO2 71 mmHg (83-108); ABG TCO2 38 mmol/L (19-24); Allen Test Performed? Yes
[2020-09-05 05:30] LABS: ABG PCO2 71 mmHg (35-45)
[2020-09-05] MEDS: fentaNYL (PF). 1,000 MCG in SODIUM CHLORIDE 0.9% 80 ML IV SCH ×2 (06:23→12:37)
[2020-09-05] MEDS: NOREPINEPHRINE 8 MG in SODIUM CHLORIDE 0.9% 250 ML IV SCH (06:24)
[2020-09-05] MEDS: CISATRACURIUM 200 MG in SODIUM CHLORIDE 0.9% 180 ML IV SCH ×3 (06:24→21:43)
[2020-09-05] MEDS: ALBUTEROL HFA INHALER INHALATION SCH ×4 (07:53→20:21)
--- NOTE | 2020-09-05 08:44 | XR ---
EXAMINATION TYPE: XR chest 1V portable DATE OF EXAM: 09/05/2020 COMPARISON: Chest x-ray 09/04/2020 HISTORY: Intubated TECHNIQUE: Single frontal view of the chest is obtained. FINDINGS: Endotracheal tube, NG tube are overlying appropriate positions. Subcutaneous emphysema not ed over the neck. There are overlying leads. Bilateral airspace disease is present. There is no evide nt pneumothorax. There is persistent bibasilar increased attenuation, difficult to exclude effusion. Possible calcified granuloma at the right lung base. Cardiac mediastinal silhouette shows a similar a ppearance. There is a left-sided PICC line, distal tip overlies the innominate vein on the left. IMPRESSION: Findings are similar to prior exam. Findings consistent with patient's history of Covid pneumonia, differential includes edema, ARDS
[2020-09-05] MEDS: ENOXAPARIN 40 MG/0.4 ML SYRINGE SQ SCH (09:34)
[2020-09-05] MEDS: PANTOPRAZOLE 40 MG/10 ML VIAL IVP SCH (09:34)
[2020-09-05] MEDS: ASCORBIC ACID 500 MG TAB PO SCH (09:34)
[2020-09-05] MEDS: CHOLECALCIFEROL 25 MCG (1000 IU) TABLET PO SCH (09:35)
[2020-09-05] MEDS: ZINC SULFATE 220 MG CAP PO SCH (09:35)
[2020-09-05] MEDS: DEXAMETHASONE SOD PHOSPHATE 10 MG/ML 1 ML VIAL IV SCH ×2 (09:35→21:34)
[2020-09-05] MEDS: CHLORHEXIDINE GLUCONATE 15 ML CUP MUCOUS MEM SCH ×2 (09:35→21:43)
--- NOTE | 2020-09-05 10:14 | P.PN ---
Subjective Progress Note Date: 09/05/20 No significant change in the overall clinical status. Nursing staff informed me that the supervisor epoxy fabrication with Dr. dhillon today about possible trach and PEG Objective - Vital Signs Vital signs: Vital Signs Temp 97.5 F L 09/05/20 04:00 Pulse 72 09/05/20 07:00 Resp 18 09/05/20 07:00 BP 118/61 09/04/20 12:00 Pulse Ox 92 L 09/05/20 07:00 Intake & Output 09/04/20 09/05/20 09/05/20 18:59 06:59 18:59 Intake Total 1771.939 957.875 9235 Output Total 625 720 40 Balance 1146.939 221.441 1151 Weight 116 kg Intake: IV 222 19 0651 Dextrose 5% in Water 1, 1200 000 ml @ 100 mls/hr IV . Q10H [facility] Rx#:[id number] Sodium Chloride 0.9% 1, 240 20 000 ml @ 40 mls/hr IV . Q24H [facility] Rx#:[id number] pressure BAG 36 36 3 Intake, IV Titration 445.939 299.246 Amount Cisatracurium 200 mg In 145.939 Sodium Chloride 0.9% 180 ml @ 2 MCG/KG/MIN 12.672 mls/hr IV .[id number] [facility] Rx #:[id number] Norepinephrine 8 mg In 99.246 Sodium Chloride 0.9% 250 ml @ 0.05 MCG/KG/MIN 10. 217 mls/hr IV .Q24H [facility] Rx#:[id number] fentaNYL (PF). 1,000 mcg 100 100 In Sodium Chloride 0.9% 80 ml @ Per Protocol IV . Q0M [facility] Rx#:[id number] propofoL 1,000 mg In 200 100 Empty Bag 1 bag @ Titrate IV .Q0M [facility] Rx#: [id number] Tube Feeding 450 492 Other 600 90 Output: Urine 625 720 40 Other: Voiding Method Indwelling Catheter Indwelling Catheter ABP, PAP, CO, CI - Last Documented Arterial Blood Pressure 108/43 - Exam General: The patient is sedated and intubated. Eye: there is normal conjunctiva bilaterally. Neck: The neck is supple, there is no JVD. Cardiovascular: Normal S1-S2, no S3-S4, no murmurs. Respiratory: Lungs with mechanical ventilator sounds Gastrointestinal: Abdomen is soft, nontender Musculoskeletal: There is +1 pedal edema. Skin: Skin is warm and dry - Labs CBC & Chem 7: 09/05/20 04:00 09/05/20 04:00 Labs: Abnormal Lab Results - Last 24 Hours (Table) 09/04/20 09/04/20 09/04/20 Range/Units 11:39 18:14 23:51 WBC (3.8-10.6) k/uL RBC (4.30-5.90) m/uL Hgb (13.0-17.5) gm/dL Hct (39.0-53.0) % MCV (80.0-100.0) fL Plt Count (150-450) k/uL Neutrophils # (1.3-7.7) k/uL Lymphocytes # (1.0-4.8) k/uL D-Dimer (<0.60) mg/L FEU ABG pH (7.35-7.45) ABG pCO2 (35-45) mmHg ABG pO2 (83-108) mmHg ABG HCO3 (21-25) mmol/L ABG Total CO2 (19-24) mmol/L ABG O2 Saturation (94-97) % Potassium (3.5-5.1) mmol/L Carbon Dioxide (22-30) mmol/L BUN (9-20) mg/dL Glucose (74-99) mg/dL POC Glucose (mg/dL) 137 H 118 H 116 H (75-99) mg/dL Calcium (8.4-10.2) mg/dL AST (17-59) U/L ALT (4-49) U/L Alkaline Phosphatase (38-126) U/L Total Protein (6.3-8.2) g/dL Albumin (3.5-5.0) g/dL 09/05/20 09/05/20 09/05/20 Range/Units 04:00 04:00 04:00 WBC 15.6 H (3.8-10.6) k/uL RBC 3.46 L (4.30-5.90) m/uL Hgb 11.7 L (13.0-17.5) gm/dL Hct 35.6 L (39.0-53.0) % MCV 102.8 H (80.0-100.0) fL Plt Count 91 L (150-450) k/uL Neutrophils # 14.7 H (1.3-7.7) k/uL Lymphocytes # 0.4 L (1.0-4.8) k/uL D-Dimer 4.20 H (<0.60) mg/L FEU ABG pH (7.35-7.45) ABG pCO2 (35-45) mmHg ABG pO2 (83-108) mmHg ABG HCO3 (21-25) mmol/L ABG Total CO2 (19-24) mmol/L ABG O2 Saturation (94-97) % Potassium 5.2 H (3.5-5.1) mmol/L Carbon Dioxide 36 H (22-30) mmol/L BUN 59 H (9-20) mg/dL Glucose 154 H (74-99) mg/dL POC Glucose (mg/dL) (75-99) mg/dL Calcium 8.0 L (8.4-10.2) mg/dL AST 83 H (17-59) U/L ALT 244 H (4-49) U/L Alkaline Phosphatase 134 H (38-126) U/L Total Protein 4.9 L (6.3-8.2) g/dL Albumin 2.5 L (3.5-5.0) g/dL / Range/Units 05:25 WBC (3.8-10.6) k/uL RBC (4.30-5.90) m/uL Hgb (13.0-17.5) gm/dL Hct (39.0-53.0) % MCV (80.0-100.0) fL Plt Count (150-450) k/uL Neutrophils # (1.3-7.7) k/uL Lymphocytes # (1.0-4.8) k/uL D-Dimer (<0.60) mg/L FEU ABG pH 7.31 L (7.35-7.45) ABG pCO2 71 H* (35-45) mmHg ABG pO2 71 L (83-108) mmHg ABG HCO3 36 H (21-25) mmol/L ABG Total CO2 38 H (19-24) mmol/L ABG O2 Saturation 93.8 L (94-97) % Potassium (3.5-5.1) mmol/L Carbon Dioxide (22-30) mmol/L BUN (9-20) mg/dL Glucose (74-99) mg/dL POC Glucose (mg/dL) (75-99) mg/dL Calcium (8.4-10.2) mg/dL AST (17-59) U/L ALT (4-49) U/L Alkaline Phosphatase (38-126) U/L Total Protein (6.3-8.2) g/dL Albumin (3.5-5.0) g/dL Assessment and Plan Assessment: Patient is a 70-year-old male with a history of asthma and obesity who initially presented to the ER with complaints of shortness of breath, nausea, and poor appetite. He had known positive COVID testing on 08/09/20. In the ER he was found be hypoxic at 86% on room air. He again was COVID-19 PCR positive. Chest x-ray demonstrated pneumonia. He was outside of the window for Remdesivir. His oxygen requirement increased throughout his hospital stay. Patient is currently admitted to the ICU for further management of his medical problems noted below COVID-19 pneumonitis Acute hypoxic and hypercapnic respiratory failure requiring intubation and mechanical ventilation on 08/28 Sepsis with septic shock requiring vasopressors and aggressive IV fluid hydration -Ventilatory managed by supervisor epoxy fabrication - On Decadron D#22 managed by pulmonology -Normal pro calcitonin - BNP slightly elevated - Continue with vitamins - TOCI 08/20 - Lovenox increased due to D-dimer > 3 Transaminitis, mild, improving -Improved significantly Obesity with BMI 35.9 - structure weight loss once COVID resolved. DVT prophylaxis with subcu Lovenox CODE STATUS, patient is DO NOT RESUSCITATE. discussed by supervisor epoxy fabrication with family members. Today, I reviewed his medication list and lab work results Continue tube feeding as directed by dietitian Overall prognosis is guarded Sedation and vent are managed by supervisor epoxy fabrication DVT prophylaxis: Lovenox Discussed with: nursing Anticipated discharge: unknown Anticipated discharge place: pending course A total of 35 minutes was spent on the care of this complex patient more than 50% of the time was spent in counseling and care coordination.
[2020-09-05 11:35] LABS: Glucose,Whole Blood 123 mg/dL (75-99)
--- NOTE | 2020-09-05 11:52 | P.PN ---
Subjective Progress Note Date: 09/05/20 Principal diagnosis: COVID-19 pneumonia 70-year-old white male patient who presented to the hospital on 08/15/2020 with complaints of 10 day history of loss of taste, cough, shortness of breath, fever. Patient and his have been staying with her daughter who tested positive for COVID, patient had an outpatient test for COVID-19 on 08/09/2020 and was found to be positive. Last few days he's been having increased shortness of breath, cough. Past medical history is noncontributory, other than osteoarthritis with previous history of joint replacement surgery in the right knee, patient is lifetime nonsmoker, does have history of chronic bronchial asthma, not on any maintenance inhalers on a regular basis. Chest x-ray in the emergency department shows some patchy airspace disease on the right, calcified granuloma in the right lower lobe, no pneumothorax or pleural effusion. His repeat COVID-19 PCR in the emergency room was positive, RSV and influenza screen were negative. His admission blood work showed neutropenia, and lymphopenia, white blood cell count was 2.6, and leukocyte count was 0.4, d-dimer was 0.95, potassium is 3.1, rest of the electrolytes and renal profile were unremarkable, lactic acid was 1.1, AST was 63, ALT and alk phos were within normal limits, LDH was 1283, CRP was 7.1, pro calcitonin level was negative at 0.10. Patient was satting 86% on room air, currently requiring 4 L of supplemental oxygen with a pulse ox of 91-94%, he is afebrile. Lung sounds reveal diffuse coarse crackles at bilateral bases. Patient was started on Decadron this milligram daily, and prophylactic Lovenox. he is outside the window for Remdesivir On 08/17/2020 patient seen in follow-up on medical surgical floor, he is resting in bed, appears to be in no acute distress, he still on 5 L of oxygen has pulse ox of 90-91%, he is afebrile, hemodynamically stable, he states when he walks to the bathroom he gets very lightheaded and dizzy and sometimes feel like he is going to pass out. He does get short of breath, he was instructed to call for help when ambulating to the bathroom. Sounds reveal diffuse crackles bilaterally, today's follow-up chest x-ray showing patchy airspace disease lung bases. He is trying to work on incentive spirometer. Today's labs have been reviewed, his d-dimer today is 0.55, inflammatory markers are improving, and his LDH is 609, and CRP is 3.6. An patient remains on Decadron 6 mg daily, and prophylactic dose Lovenox in addition to vitamins On 08/18/2020 patient seen in follow-up on medical surgical floor. He is currently down to 4 L of oxygen pulse ox is 93%, he states he still feels weak and wobbly when walking to the bathroom, at times he gets lightheaded, but no worsening dyspnea, no signs of any respiratory distress. Today's labs have been noted, d-dimer from yesterday is 0.55, inflammatory markers were improving, no cough, no complaints of chest discomfort, he remains on Decadron 6 blood gram d aily, and Lovenox 40 mg daily. On 08/19/2020 patient seen in follow-up on medical surgical floor, he is sitting up in the recliner, in no acute distress, is on 6 L of supplemental oxygen his pulse ox is 89-90%, no worsening dyspnea, although he does get short of breath and desat with exertion, consulted physical therapy and patient had ambulated with a walker. His ambulation ability slow shaky, no complaints of dizziness. Doing fairly well, no acute events overnight, and he is on Decadron, patient was not a candidate for Remdesivir, he is on prophylactic Lovenox, today's labs have been reviewed On 08/20/2020 patient seen in follow-up on medical surgical floor. In the last 24 hours his oxygenation has significantly deteriorated, he is currently on Airvo at 60 L and FiO2 of 92%, his pulse ox is 85-88%, his been afebrile, his temp of 101.7F, complaining of headache, he looks weak, he looks a lot more ill today, fatigued, short of breath with conversation, he has occasional cough, he was outside the window for Remdesivir, he has been on Decadron 6 mg daily, he is on prophylactic Lovenox, we'll give him a dose of Toci today On 08/21/2020 patient continued to worsen through the night, with increased work of breathing, and increased oxygenation needs, he was placed on Airvo yesterday, at 60 L in FiO2 of 93%, and he is requiring 100% nonrebreather mask on top of it, his pulse ox is only 80%, he is very tachypneic with respiratory rate in the 30s, diaphoretic, and looking fatigued. He was transferred to the intensive care unit this morning and placed on BiPAP support with pressures of 14/6 and FiO2 100%, he is actually tolerating that quite well, and seems more comfortable on it, lung sounds reveal diffuse coarse crackles at bilateral posterior bases, he is afebrile this morning, his chest x-ray today showing bilateral lower lobe infiltrates and small effusion., Yesterday his d-dimer with up to 10.10, and if it remains elevated again today at 10.19, his Lovenox dose was adjusted and he is currently on 60 mg of Lovenox every 12 hours. He remains on IV dexamethasone 6 mg daily, was given a dose of Actemra yesterday On 08/24/2020 patient seen in follow-up in the intensive care unit, he remains on BiPAP its at pressures of 14/7 and FiO2 of 90%. He seems to be tolerating BiPAP support quite well, seems to be very comfortable on that. He has remained on BiPAP continuously for 24 hours, try Airvo on him again today. Appears to be in no acute distress, on those above-mentioned settings his pulse ox is ranging between 86-91%, respiratory rate is in the mid 20s, blood pressure stable, he has been afebrile. Lung sounds reveal diminished breath sounds with some bibasilar crackles. No complaints of chest pain overnight, 2 sets of troponins were less than 0.012. Echocardiogram was a technically difficult study with suboptimal views, and the EF was not calculated, RV was not visualized, left atrium, right atrium, and all the valves were not well visualized. And as such this was a suboptimal study. No complaints of chest pain overnight, no complaints of chest pain this morning. This morning's labs have been reviewed, his d-dimer is 7.66 on today's labs, white blood cell count is 10.5, hemoglobin of 14.5, sodium is 135, the rest of electrolytes and renal profile were unremarkable, LDH is 1658, CRP is 2.8. No nausea vomiting or diarrhea, abdomen is soft, no worsening dyspnea On 08/25/2020 patient seen in follow-up in intensive care unit, yesterday he tolerated Airvo at 60 L and FiO2 of 90% in addition to 100% nonrebreather mask all day, and he was placed back on BiPAP support with pressures of 14/7 and FiO2 of 90% overnight, this morning she seen in the intensive care unit, he is resting comfortably in bed, he remains on BiPAP support and his pulse ox on above-mentioned settings is 92-95%. He denies any worsening dyspnea, he is easi ly arousable to voice, and answering simple questions, lung sounds reveal diminished breath sounds at the bases, with minimal crackles. Today's chest x- ray is pending, today's labs have been reviewed during white blood cell count of 12.4, hemoglobin of 14.6, d-dimer remains elevated at 7.86, and patient's on Lovenox at 50 mg twice daily. No complaints of chest pain. No cough, no congestion, yesterday while he was on Airvo he was able to take in some oral feedings, and had a fair appetite. She is in sinus mechanism, hemodynamically she is stable, he is on plane, sitting at a rate of 50 ML per hour. He remains on Decadron at 6 mg twice daily. His renal function is within normal limits to day with B1 of 18 creatinine 0.71, sodium was 135, and her serum electrolytes were within normal limits, 2 sets of troponins were less than 0.012, limited echocardiogram was a suboptimal study, however there was no recurrence of chest discomfort from 2 days ago, and heparin drip was discontinued, no acute ST wave changes. No vomiting or diarrhea, abdomen is soft, no complaints of abdominal pain. On 08/26/2020 patient seen in follow-up in intensive care unit, currently on BiPAP with pressures of 14/7 and FiO2 100%, and his pulse ox is 88%, yesterday he was able to tolerate Airvo and nonrebreather and come off the BiPAP for short periods of time. Today he seems more lethargic compared to yesterday, he is tachypneic, but he is achieving over 1 L and tidal volumes on the BiPAP, his respiratory rate is in the mid 30s. He opens eyes to voice, he lightly groans in response to questions, but not really providing full sentence responses. Yesterday we gave him a dose of IV Lasix, he diuresed quite well, and he is in - 3.1 L over the last 24 hours. Despite the diuresis, the patient failed to improve, today's chest x-ray still showed persistent bibasilar and right midlung peripheral opacities consistent with COVID-19. Oral intake has been poor, and at this time we are considering low rate IV fluids. Labs have been reviewed, his white blood cell count is 16.8, hemoglobin is 15.7, he is a d-dimer is 9.28, sodium is 136, the rest of electrolytes are within normal limits, his BUN is 22, creatinine is 0.82, his LDH has actually trended up, and is at 2202, and CRP 1.2. On 08/29/2020 patient seen in follow-up in the intensive care unit, he was intubated over the weekend, he is currently remains sedated and paralyzed on mechanical ventilation, on assist-control mode of ventilation with a rate of 30, tidal vital 390, FiO2 100% and PEEP of 18. This morning his blood gases showed pO2 of 80, pCO2 75, and pH of 7.22. This was done 100% FiO2. His peak pressures are 45, plateau pressure is 42. Is currently on 0.9 at 1:30 ML per hour, Levothroid is at 11 mics per minute, fentanyl drip is at 0.5 mics per kilo per hour, Diprivan and is at 50 mics per kilo per minute, and index is at 1 jacob per kilo per minute, he is receiving tube feedings in the form of vital high- protein at 10 ML per hour. He is in sinus mechanism, slightly tachycardic with a rate of 109 BPM. Patient was proned last night, he is currently supine. His chest x-ray today shows diffuse bilateral infiltrates that are stable in appearance, and possibility of pneumomediastinum could not be excluded. Today's labs have been reviewed showing white blood cell count of 24.2, hemoglobin of 15.8, sodium is 142, potassium is 5.0, chloride is 110, CO2 is 30, BUN of 38, and creatinine of 1.35. AST was 92, ALT is 290, alkaline phosphatase is 110. CRP is 1.4 On 08/30/2020 patient seen in follow-up in the intensive care unit, he remains intubated, sedated and paralyzed on mechanical ventilator, currently on assist- control mode of ventilation with a rate of 36, tidal volume is 390, FiO2 100% and PEEP of 18, this morning his blood gases were reviewed showing pO2 of 98, pCO2 of 82, pH is 7.19. His peak airway pressure is 40, his plateau is 34, this chest x-ray today has been reviewed showing diffuse airspace disease that is stable in appearance, he is currently on 0.9 normal saline at a rate of 75 ML pe r hour, Levophed is at 8 mics per minute, fentanyl drip is at 0.75, and Diprivan is at 30 mics per kilo per minute, Nimbex is at 2 mics per kilo per minute. Patient is receiving tube feedings with vital high-protein at 48 with a goal of 48 and standard water flushes with 30 ML every 4 hours, he is in sinus mechanism, tachycardic with a rate of 112 BPM, he seems to have developed subcutaneous emphysema involving his anterior chest. He also developed a pressure injury from the Stefano ET tube Guardado on his right cheek. [place] 's been removed and cough type is being used for ET tube Guardado. Today's labs have been reviewed, white blood cell count is 23.1, hemoglobin is 15.4, platelet count is 92, potassium is 5.5, and this was treated with combination of 1 amp of bicarbonate, 50% dextrose and regular insulin. Recheck labs are pending, his BUN is 48 creatinine is 1.45, LDH from a couple days ago was trending up and was up to 3870, and CRP was 1.4. His last pro-calcitonin from and weight 2020 was negative at 0.07. On 08/31/2020 patient seen in follow-up in the intensive care unit, he remains sedated, paralyzed and intubated on mechanical ventilator, currently on assist-control with a rate of 36, tidal volume is 390, FiO2 of 70% and PEEP of 18, this morning blood gases show pO2 of 65, pCO2 of 81, and pH of 7.23. His peak and plateau pressures have been elevated, with peak pressure of 42, plateau pressure of 39. Further adjustments have been made to his ventilator settings, and patient was placed on pressure control mode of ventilation with pressure control 22, respiratory rate 36, FiO2 of 70%, PEEP of 18, and inspiratory time of 0.70. He had a chest x-ray today showing scattered airspace infiltrates greatest at the lung bases without significant change, he is currently on Levothroid at 0.03 mics per kilo per minute, fentanyl drip is at 0.75 mics per kilo per hour, 0.9 at 75 ML per hour, Nimbex is at 1.5 mics per kilo per minute, and Diprivan and is at 30 mics per kilo per minute. He is receiving tube feedings in the form of vital HP at 41 with a goal of 41, and standard water flushes of 30 ML every 4 hours, he is in sinus mechanism, bit tachycardic in the low 100s, no fever overnight. Today's labs have been reviewed showing white blood cell count of 15.7, hemoglobin of 14.2, his d-dimer is improving and is down to 6.17 from 10.13 on yesterday's labs, patient remains on Lovenox 50 mg every 12 hours. Sodium is 145, potassium is 5.3, chloride is 111, CO2 35, BUN of 54, creatinine is 1.24, his liver enzymes improved somewhat with AST of 61, and ALT of 251, LDH is improving is down to 1763, CRP is 0.8 on today's labs. Patient continues on Decadron 6 mg IV twice daily. Patient is producing urine in the order of 60-100 ML per hour. On 09/01/2020 patient seen in follow-up in intensive care unit, he remains intubated, sedated and paralyzed, on pressure control mode of ventilation, with inspiratory pressure of 22, rate of 36, FiO2 of 65% PEEP of 18, and inspiratory time of 0.7. This morning his blood gases reviewed showing pO2 of 53, pCO2 of 65, and pH of 7.34. This was completed on FiO2 of 65%, his peak air pressure is 41, his plateau pressures 37. Today's chest x-ray shows interval development of subcutaneous emphysema about the chest and neck, increasing consolidation in the lung bases probably representing pneumonia or atelectasis, no obvious pneumothorax was noted. Patient is currently on 0.9 normal saline at 75 ML per hour, to prevent is at 30 mics per kilo per minute, fentanyl drip is a 0.75 mics per kilo per hour, and Nimbex infusion at 1.5 mics per kilo per minute. He is tolerating tube feedings, he is receiving vital high-protein at 41 with a goal of 41 and standard water flushes, today's labs have been reviewed, his white blood cell count is down trending, and is down to 13.7 on today's labs, his hemoglobin is 13.5, his d-dimer is also improving and is down to 4.02, serum sodium is 147, potassium is 5.2, chloride is 111, CO2 is 26, BUN of 65, creatinine is 1.15, AST is 65, ALT is 227, and alkaline phosphatase within normal limits, overall his LFTs are stable if not slightly improved. Follow-up LDH is down to 1490, improving but still elevated, and his CRP today is 0.6 within normal limits. Physical exam reveals increased subcutaneous emphysema of anterior chest, upper shoulders and bilateral upper arms. Patient did prone for 16 hours, tolerated fairly well. Doing prone positioning his pulse ox is around 91-92% on the above-mentioned settings. In supine position he usually sats at around 86-87%. Hemodynamically he has not required any vasopressors, he is in sinus mechanism, his rate is controlled, is producing urine in the order of 40- 125 ML per hour. On 09/02/2020 patient seen in follow-up in the intensive care unit, he remains intubated, sedated and paralyzed, on assist-control mode of ventilation with a rate of 36, tidal volume 450, FiO2 of 65% and PEEP of 18, this morning's blood gas shows pO2 57, pCO2 of 68, pH is 7.34, and this was done on FiO2 of 65% and PEEP of 18, his peak airway pressures 43, plateau pressure is 38, today's chest x-ray has been reviewed showing no change in bibasilar opacities, and sized pneumothorax was not identified with certainty. Patient continues to have subcutaneous emphysema in his chest, upper arms and shoulders. But no clear evidence of pneumothorax on the chest x-ray. Last night patient started losing a significant amount of volume and had to be switched to volume assist-control mode of ventilation related to increasing hypercapnic respiratory failure. A blood gas that was completed at that time and this was around 5:00 in the afternoon showed pO2 of 71, pCO2 of greater than 120, and pH of 7.05. Patient was placed on assist-control mode of ventilation with a rate of 36, tidal volume 450, FiO2 of 65% and PEEP of 18, and this morning's blood gas shows improvement in his acid base balance, and improvement in his CO2 concentration. He is currently on 0.9 normal saline at a rate of 75 ML per hour, his fentanyl infusion is 0.75 mics per kilo per hour, Diprivan and is at 30 mics per kilo per minute, Nimbex is at 1.5 mics per kilo per minute, and he is on small amount of norepinephrine at 0.02 mics per kilo per minute. He is tolerating tube feedings, and he is receiving vital high-protein at 41 with a goal of 41, and he has been receiving free water flushes of 200 ML every 4 hours for elevated sodium of 147. Today's labs have been reviewed, and his serum sodium remains exactly the same at 147, potassium is 5.5, chloride is 112, CO2 is 38, BUN of 77, creatinine is 1.14. His AST and ALT continue to be relatively stable, with AST of 83, and ALT of 259, his LDH is trending down and is currently is 1394, and CRP is 0.8. White blood cell count is 13.8, and hemoglobin is 12.8. D- dimer is improving and is down to 2.72 on today's labs. His current dose Lovenox 40 mg daily, patient also remains on Decadron 6 mg twice daily. Patient is currently in supine position, he has been tolerating prone positioning. On 09/05/2020 patient seen in follow-up in the intensive care unit, he remains intubated, sedated, paralyzed on assist-control mode of ventilation with a rate of 36, tidal volume 450, FiO2 75% and PEEP of 18, this morning blood gases reviewed showing pO2 of 71, pCO2 of 71 and pH of 7.31, he is currently on 0.9 normal saline at a rate of 10 ML per hour, norepinephrine is at 6 mics per minute, Nimbex is at 1 jacob per kilo per minute, Diprivan is a 40 mics per kilo per minute, fentanyl drip is at 1 jacob per kilo per hour, and patient is on nutritional support in the form of vital HP at a rate of 41 with a goal of 41 and standard water flushes. Today's chest x-ray has been reviewed showing f indings consistent with patient's history of COVID pneumonia. Subcutaneous emphysema seems to have improved in appearance compared today's ago. Today's labs have been reviewed showing white blood cell, 15.6, hemoglobin of 11.7, platelet count is 91, d-dimer today is 4.20, sodium is 139, potassium is 5.2, CO2 is 36, BUN is 59, creatinine 0.94, ALT is 244, AST is 83, liver enzymes slightly improved, alk phos is 135. Patient has been tolerating prone positioning. But overall still requiring high PEEP and total requiring high FiO2. She remains on Lovenox at 40 mg daily, and he remains on dexamethasone 6 mg twice daily. Is d-dimer remains elevated over 4.2. We will adjust his Lovenox after tracheostomy and PEG tube placement in the next couple days Objective - Vital Signs Vital signs: Vital Signs Temp 98.2 F 09/05/20 08:00 Pulse 75 09/05/20 11:00 Resp 36 H 09/05/20 11:00 BP 118/61 09/05/20 11:00 Pulse Ox 92 L 09/05/20 11:00 Intake & Output 09/04/20 09/05/20 09/05/20 18:59 06:59 18:59 Intake Total 1771.939 723.128 6432 Output Total 625 720 385 Balance 1146.939 677.734 3915 Weight 116 kg Intake: IV 967 07 0369 Dextrose 5% in Water 1, 1600 000 ml @ 100 mls/hr IV . Q10H [facility] Rx#:[id number] Sodium Chloride 0.9% 1, 240 20 000 ml @ 40 mls/hr IV . Q24H [facility] Rx#:[id number] pressure BAG 36 36 15 Intake, IV Titration 445.939 299.246 Amount Cisatracurium 200 mg In 145.939 Sodium Chloride 0.9% 180 ml @ 2 MCG/KG/MIN 12.672 mls/hr IV .[id number] [facility] Rx #:[id number] Norepinephrine 8 mg In 99.246 Sodium Chloride 0.9% 250 ml @ 0.05 MCG/KG/MIN 10. 217 mls/hr IV .Q24H [facility] Rx#:[id number] fentaNYL (PF). 1,000 mcg 100 100 In Sodium Chloride 0.9% 80 ml @ Per Protocol IV . Q0M [facility] Rx#:[id number] propofoL 1,000 mg In 200 100 Empty Bag 1 bag @ Titrate IV .Q0M [facility] Rx#: [id number] Tube Feeding 450 492 164 Other 600 90 200 Output: Urine 625 720 385 Other: Voiding Method Indwelling Catheter Indwelling Catheter Indwelling Catheter ABP, PAP, CO, CI - Last Documented Arterial Blood Pressure 107/47 - Exam GENERAL EXAM: 70-year-old white male, assist control mode of ventilation, with FiO2 of 75% and PEEP of 18, sedated, and paralyzed. Patient appears to be generally swollen on today's exam including his face and upper arms HEAD: Normocephalic/atraumatic. EYES: Normal reaction of pupils, equal size. Conjunctiva pink, sclera white. NOSE: Clear with pink turbinates. Pressure injury involving the bridge of the nose, in the wound is fairly dry, and guarding to scab over THROAT: No erythema or exudates. NECK: No masses, no JVD, no thyroid enlargement, no adenopathy. CHEST: No chest wall deformity. Symmetrical expansion. Increased subcutaneous emphysema noted on today's physical exam of the anterior chest, upper shoulders, and bilateral upper arms LUNGS: Equal air entry with coarse bibasilar crackles CVS: Regular rate and rhythm, normal S1 and S2, no gallops, no murmurs, no rubs ABDOMEN: Soft, nontender. No hepatosplenomegaly, normal bowel sounds, no guarding or rigidity. EXTREMITIES: No clubbing, generalized nonpitting edema no cyanosis, 2+ pulses and upper and lower extremities. MUSCULOSKELETAL: Muscle strength and tone normal. SPINE: No scoliosis or deformity SKIN: No rashes CENTRAL NERVOUS SYSTEM: Intubated, sedated and paralyzed No focal deficits, tone is normal in all 4 extremities. - Labs CBC & Chem 7: 09/05/20 04:00 09/05/20 04:00 Labs: Abnormal Lab Results - Last 24 Hours (Table) 09/04/20 09/04/20 09/05/20 Range/Units 18:14 23:51 04:00 WBC 15.6 H (3.8-10.6) k/uL RBC 3.46 L (4.30-5.90) m/uL Hgb 11.7 L (13.0-17.5) gm/dL Hct 35.6 L (39.0-53.0) % MCV 102.8 H (80.0-100.0) fL Plt Count 91 L (150-450) k/uL Neutrophils # 14.7 H (1.3-7.7) k/uL Lymphocytes # 0.4 L (1.0-4.8) k/uL D-Dimer (<0.60) mg/L FEU ABG pH (7.35-7.45) ABG pCO2 (35-45) mmHg ABG pO2 (83-108) mmHg ABG HCO3 (21-25) mmol/L ABG Total CO2 (19-24) mmol/L ABG O2 Saturation (94-97) % Potassium (3.5-5.1) mmol/L Carbon Dioxide (22-30) mmol/L BUN (9-20) mg/dL Glucose (74-99) mg/dL POC Glucose (mg/dL) 118 H 116 H (75-99) mg/dL Calcium (8.4-10.2) mg/dL AST (17-59) U/L ALT (4-49) U/L Alkaline Phosphatase (38-126) U/L Total Protein (6.3-8.2) g/dL Albumin (3.5-5.0) g/dL 09/05/20 09/05/20 09/05/20 Range/Units 04:00 04:00 05:25 WBC (3.8-10.6) k/uL RBC (4.30-5.90) m/uL Hgb (13.0-17.5) gm/dL Hct (39.0-53.0) % MCV (80.0-100.0) fL Plt Count (150-450) k/uL Neutrophils # (1.3-7.7) k/uL Lymphocytes # (1.0-4.8) k/uL D-Dimer 4.20 H (<0.60) mg/L FEU ABG pH 7.31 L (7.35-7.45) ABG pCO2 71 H* (35-45) mmHg ABG pO2 71 L (83-108) mmHg ABG HCO3 36 H (21-25) mmol/L ABG Total CO2 38 H (19-24) mmol/L ABG O2 Saturation 93.8 L (94-97) % Potassium 5.2 H (3.5-5.1) mmol/L Carbon Dioxide 36 H (22-30) mmol/L BUN 59 H (9-20) mg/dL Glucose 154 H (74-99) mg/dL POC Glucose (mg/dL) (75-99) mg/dL Calcium 8.0 L (8.4-10.2) mg/dL AST 83 H (17-59) U/L ALT 244 H (4-49) U/L Alkaline Phosphatase 134 H (38-126) U/L Total Protein 4.9 L (6.3-8.2) g/dL Albumin 2.5 L (3.5-5.0) g/dL 09/05/20 Range/Units 11:34 WBC (3.8-10.6) k/uL RBC (4.30-5.90) m/uL Hgb (13.0-17.5) gm/dL Hct (39.0-53.0) % MCV (80.0-100.0) fL Plt Count (150-450) k/uL Neutrophils # (1.3-7.7) k/uL Lymphocytes # (1.0-4.8) k/uL D-Dimer (<0.60) mg/L FEU ABG pH (7.35-7.45) ABG pCO2 (35-45) mmHg ABG pO2 (83-108) mmHg ABG HCO3 (21-25) mmol/L ABG Total CO2 (19-24) mmol/L ABG O2 Saturation (94-97) % Potassium (3.5-5.1) mmol/L Carbon Dioxide (22-30) mmol/L BUN (9-20) mg/dL Glucose (74-99) mg/dL POC Glucose (mg/dL) 123 H (75-99) mg/dL Calcium (8.4-10.2) mg/dL AST (17-59) U/L ALT (4-49) U/L Alkaline Phosphatase (38-126) U/L Total Protein (6.3-8.2) g/dL Albumin (3.5-5.0) g/dL Assessment and Plan Plan: Assessment: #1. Acute hypoxic respiratory failure related to acute COVID-19 pneumonia, with onset of symptoms 10 days prior to presentation, patient had outpatient positive COVID-19 test on 08/09/2020, outside the window for Remdesivir. Hypoxia progressed and patient received Toci on 08/20/2020. Patient was transferred to the intensive care unit on 08/21/2020 and placed on BiPAP support. Patient was intubated on 08/28/2020. On 08/30/2020 patient remains sedated, paralyzed and intubated on FiO2 of 80% and PEEP of 18. On 08/31/2020 patient remains intubated, sedated and paralyzed, currently with FiO2 of 70%, and PEEP of 18, and his peak and plateau pressures have been elevated at 42 and 39 respectively, patient will be tried on pressure control mode of ventilation On 09/02/2020 patient remains sedated, intubated and paralyzed, currently on volume assist mode of ventilation, with a rate of 36, Tylenol level is 450, FiO2 of 65, and PEEP of 18. Peak pressures 43, plateau pressures 38. Patient had to be switched from pressure control mode of ventilation related to increasing hypercapnic respiratory failure and volume loss and leak. On 09/05/2020 patient still remains intubated, sedated and paralyzed, on assist- control mode of ventilation with the FiO2 of 75% and PEEP of 18 #2. Increased d-dimer related to COVID-19 infection, lower extremity Dopplers were negative for DVT. Patient's currently on Lovenox 40 mg daily #3. Neutropenia, pro-calcitonin was negative, resolved and patient now has leukocytosis and currently his white blood cell count is 23.1 #4. Elevated liver enzymes related to viral pneumonia #5. Lifetime nonsmoker #6. History of chronic bronchial asthma, mild intermittent, inactive at this time #7. Episode of chest pain on 08/23/2020, EKG without significant ST segment elevation, 2 sets of negative troponins. Echocardiogram was a suboptimal study, unable to calculate EF, calculate chamber sizes or valves #8. Hypernatremia, related to free water deficit, resolved #9. Obesity, with BMI of 35.9 kg/m Plan: Today's labs, chest x-ray and blood gases reviewed Continue same vent settings, volume assist control mode of ventilation, currently FiO2 of 75% and PEEP of 18 Not ready for sedation and paralytic holiday We need to clarify with the family if they would like us to proceed with tracheostomy and PEG tube placement If family agreeable consult general surgery for trach and PEG Continue current dose Decadron, we will adjust Lovenox once we know if patient will have a surgical procedure in the next 24 hours Continue nutritional support Continue supportive treatment Overall prognosis is poor CODE STATUS is DO NOT RESUSCITATE I performed a history & physical examination of the patient and discussed their management with my nurse practitioner, Magdalena Negrete. I reviewed the nurse practitioner's note and agree with the documented findings and plan of care. Lung sounds are positive for diminished breath sounds. The findings and the impression was discussed with the patient. I attest to the documentation by the nurse practitioner. Time with Patient: Greater than 30
[2020-09-05 18:14] LABS: Glucose,Whole Blood 141 mg/dL (75-99)
[2020-09-05] MEDS: polyethylene glycoL 3350 17 GM POWD.PACK PO SCH (21:44)
[2020-09-05 23:32] LABS: Glucose,Whole Blood 109 mg/dL (75-99)
[2020-09-06] MEDS: fentaNYL (PF). 1,000 MCG in SODIUM CHLORIDE 0.9% 80 ML IV SCH ×2 (01:32→20:23)
[2020-09-06 05:02] LABS: ABG HCO3 35 mmol/L (21-25); ABG Oxygen Saturation 88.8 % (94-97); ABG TCO2 38 mmol/L (19-24); Allen Test Performed? Yes
[2020-09-06 05:06] LABS: ABG PCO2 72 mmHg (35-45); ABG PO2 58 mmHg (83-108)
[2020-09-06 05:19] LABS: Basophils % (A) 0 %; Eosinophils # (A) 0.1 k/uL (0-0.7); Eosinophils % (A) 1 %; HCT 32.7 % (39.0-53.0); Lymphocytes # (A) 0.3 k/uL (1.0-4.8); Lymphocytes % (A) 2 %; MCH 34.4 pg (25.0-35.0); MCHC 33.6 g/dL (31.0-37.0); MCV 102.2 fL (80.0-100.0); Macrocytosis Slight; Mean Platelet Volume 9.2; Monocytes # (A) 0.3 k/uL (0-1.0); Monocytes % (A) 3 %; Neutrophils % (A) 94 %; WBC 11.8 k/uL (3.8-10.6)
[2020-09-06] MEDS: INSULIN ASPART (NovoLOG) 100 UNIT/ML VIAL SQ SCH ×4 (05:33→18:21)
[2020-09-06] MEDS: NOREPINEPHRINE 8 MG in SODIUM CHLORIDE 0.9% 250 ML IV SCH (05:35)
[2020-09-06 05:39] LABS: ALT 218 U/L (4-49); AST 92 U/L (17-59); African American GFR (CKD) >90 (>60 ml/min/1.73 sqM); Albumin 2.5 g/dL (3.5-5.0); Alkaline Phosphatase 131 U/L (38-126); Anion Gap -1 mmol/L; Blood Urea Nitrogen 53 mg/dL (9-20); Calcium 8.1 mg/dL (8.4-10.2); Carbon Dioxide 35 mmol/L (22-30); Chloride 100 mmol/L (98-107); Glucose 131 mg/dL (74-99); Magnesium 2.4 mg/dL (1.6-2.3); Non-African American GFR(CKD) >90 (>60 ml/min/1.73 sqM); Phosphorus 4.1 mg/dL (2.5-4.5); Sodium 134 mmol/L (137-145); Total Bilirubin 1.2 mg/dL (0.2-1.3); Total Protein 5.1 g/dL (6.3-8.2)
[2020-09-06 05:50] LABS: Glucose,Whole Blood 129 mg/dL (75-99)
[2020-09-06 06:13] LABS: Platelet Count 87 k/uL (150-450)
[2020-09-06] MEDS: ALBUTEROL HFA INHALER INHALATION SCH ×4 (07:42→19:40)
[2020-09-06] MEDS: DEXTROSE 5% IN WATER 1,000 ML IV SCH ×2 (09:32→18:21)
[2020-09-06] MEDS: ZINC SULFATE 220 MG CAP PO SCH (09:38)
[2020-09-06] MEDS: CHOLECALCIFEROL 25 MCG (1000 IU) TABLET PO SCH (09:38)
[2020-09-06] MEDS: ASCORBIC ACID 500 MG TAB PO SCH (09:38)
[2020-09-06] MEDS: PANTOPRAZOLE 40 MG/10 ML VIAL IVP SCH (09:39)
[2020-09-06] MEDS: CHLORHEXIDINE GLUCONATE 15 ML CUP MUCOUS MEM SCH ×2 (09:39→22:23)
[2020-09-06] MEDS: DEXAMETHASONE SOD PHOSPHATE 10 MG/ML 1 ML VIAL IV SCH ×2 (09:39→22:23)
--- NOTE | 2020-09-06 09:49 | P.PN ---
Subjective Progress Note Date: 09/06/20 No significant change in the overall clinical status. Nursing staff informed me that the plastic manager spoke to family regarding trach and PEG. Gen. surgery consulted. Also nursing staff informed me that last documented bowel movement was on the ninth. Patient has been receiving MiraLAX and received multiple doses of lactulose with no Michelle movement. His abdomen is soft and there is no high residual on the tube feeding. Objective - Vital Signs Vital signs: Vital Signs Temp 98 F 09/06/20 04:00 Pulse 84 09/06/20 09:00 Resp 36 H 09/06/20 09:00 BP 118/61 09/06/20 05:00 Pulse Ox 89 L 09/06/20 09:00 Intake & Output 09/05/20 09/06/20 09/06/20 18:59 06:59 18:59 Intake Total 3908.806 2312.798 789.696 Output Total 905 1055 125 Balance 3003.806 1257.798 664.696 Weight 116 kg 118.4 kg Intake: IV 2336 1030 309 Dextrose 5% in Water 1, 2300 1000 300 000 ml @ 100 mls/hr IV . Q10H [facility] Rx#:[id number] pressure BAG 36 30 9 Intake, IV Titration 521.806 272.798 157.696 Amount Cisatracurium 200 mg In 143.827 25.661 Sodium Chloride 0.9% 180 ml @ 2 MCG/KG/MIN 12.672 mls/hr IV .[id number] [facility] Rx #:[id number] Norepinephrine 8 mg In 82.142 47.137 Sodium Chloride 0.9% 250 ml @ 0.05 MCG/KG/MIN 10. 217 mls/hr IV .Q24H [facility] Rx#:[id number] fentaNYL (PF). 1,000 mcg 95.837 100 In Sodium Chloride 0.9% 80 ml @ Per Protocol IV . Q0M [facility] Rx#:[id number] propofoL 1,000 mg In 200 100 157.696 Empty Bag 1 bag @ Titrate IV .Q0M [facility] Rx#: [id number] Tube Feeding 451 410 123 Other 600 600 200 Output: Urine 905 1055 125 Other: Voiding Method Indwelling Catheter Indwelling Catheter ABP, PAP, CO, CI - Last Documented Arterial Blood Pressure 99/43 - Exam General: The patient is sedated and intubated. Eye: there is normal conjunctiva bilaterally. Neck: The neck is supple, there is no JVD. Cardiovascular: Normal S1-S2, no S3-S4, no murmurs. Respiratory: Lungs with mechanical ventilator sounds Gastrointestinal: Abdomen is soft, nontender Musculoskeletal: There is +1 pedal edema. Skin: Skin is warm and dry - Labs CBC & Chem 7: 09/06/20 04:13 09/06/20 04:13 Labs: Abnormal Lab Results - Last 24 Hours (Table) 09/05/20 09/05/20 09/05/20 Range/Units 11:34 18:13 23:30 WBC (3.8-10.6) k/uL RBC (4.30-5.90) m/uL Hgb (13.0-17.5) gm/dL Hct (39.0-53.0) % MCV (80.0-100.0) fL Plt Count (150-450) k/uL Neutrophils # (1.3-7.7) k/uL Lymphocytes # (1.0-4.8) k/uL ABG pH (7.35-7.45) ABG pCO2 (35-45) mmHg ABG pO2 (83-108) mmHg ABG HCO3 (21-25) mmol/L ABG Total CO2 (19-24) mmol/L ABG O2 Saturation (94-97) % Sodium (137-145) mmol/L Carbon Dioxide (22-30) mmol/L BUN (9-20) mg/dL Glucose (74-99) mg/dL POC Glucose (mg/dL) 123 H 141 H 109 H (75-99) mg/dL Calcium (8.4-10.2) mg/dL Magnesium (1.6-2.3) mg/dL AST (17-59) U/L ALT (4-49) U/L Alkaline Phosphatase (38-126) U/L Total Protein (6.3-8.2) g/dL Albumin (3.5-5.0) g/dL 09/06/20 09/06/20 09/06/20 Range/Units 04:13 04:13 04:58 WBC 11.8 H (3.8-10.6) k/uL RBC 3.20 L (4.30-5.90) m/uL Hgb 11.0 L (13.0-17.5) gm/dL Hct 32.7 L (39.0-53.0) % MCV 102.2 H (80.0-100.0) fL Plt Count 87 L (150-450) k/uL Neutrophils # 11.0 H (1.3-7.7) k/uL Lymphocytes # 0.3 L (1.0-4.8) k/uL ABG pH 7.30 L (7.35-7.45) ABG pCO2 72 H* (35-45) mmHg ABG pO2 58 L* (83-108) mmHg ABG HCO3 35 H (21-25) mmol/L ABG Total CO2 38 H (19-24) mmol/L ABG O2 Saturation 88.8 L (94-97) % Sodium 134 L (137-145) mmol/L Carbon Dioxide 35 H (22-30) mmol/L BUN 53 H (9-20) mg/dL Glucose 131 H (74-99) mg/dL POC Glucose (mg/dL) (75-99) mg/dL Calcium 8.1 L (8.4-10.2) mg/dL Magnesium 2.4 H (1.6-2.3) mg/dL AST 92 H (17-59) U/L ALT 218 H (4-49) U/L Alkaline Phosphatase 131 H (38-126) U/L Total Protein 5.1 L (6.3-8.2) g/dL Albumin 2.5 L (3.5-5.0) g/dL 09/06/20 Range/Units 05:49 WBC (3.8-10.6) k/uL RBC (4.30-5.90) m/uL Hgb (13.0-17.5) gm/dL Hct (39.0-53.0) % MCV (80.0-100.0) fL Plt Count (150-450) k/uL Neutrophils # (1.3-7.7) k/uL Lymphocytes # (1.0-4.8) k/uL ABG pH (7.35-7.45) ABG pCO2 (35-45) mmHg ABG pO2 (83-108) mmHg ABG HCO3 (21-25) mmol/L ABG Total CO2 (19-24) mmol/L ABG O2 Saturation (94-97) % Sodium (137-145) mmol/L Carbon Dioxide (22-30) mmol/L BUN (9-20) mg/dL Glucose (74-99) mg/dL POC Glucose (mg/dL) 129 H (75-99) mg/dL Calcium (8.4-10.2) mg/dL Magnesium (1.6-2.3) mg/dL AST (17-59) U/L ALT (4-49) U/L Alkaline Phosphatase (38-126) U/L Total Protein (6.3-8.2) g/dL Albumin (3.5-5.0) g/dL Assessment and Plan Assessment: Patient is a 70-year-old male with a history of asthma and obesity who initially presented to the ER with complaints of shortness of breath, nausea, and poor appetite. He had known positive COVID testing on 08/09/20. In the ER he was found be hypoxic at 86% on room air. He again was COVID-19 PCR positive. Chest x-ray demonstrated pneumonia. He was outside of the window for Remdesivir. His oxygen requirement increased throughout his hospital stay. Patient is currently admitted to the ICU for further management of his medical problems noted below COVID-19 pneumonitis Acute hypoxic and hypercapnic respiratory failure requiring intubation and mechanical ventilation on 08/28 Sepsis with septic shock requiring vasopressors and aggressive IV fluid hydration -Ventilatory managed by plastic manager - On Decadron D#23 managed by pulmonology -Normal pro calcitonin - BNP slightly elevated - Continue with vitamins - TOCI 08/20 - Lovenox increased due to D-dimer > 3 Transaminitis, mild, improving -Improved significantly Obesity with BMI 35.9 - structure weight loss once COVID resolved. DVT prophylaxis with subcu Lovenox CODE STATUS, patient is DO NOT RESUSCITATE. discussed by plastic manager with family members. Today, I reviewed his medication list and lab work results Continue tube feeding as directed by dietitian Overall prognosis is guarded Sedation and vent are managed by plastic manager We will order a soapsuds enema for today Awaiting general surgery evaluation and family to consent for trach and PEG DVT prophylaxis: Lovenox Discussed with: nursing Anticipated discharge: unknown Anticipated discharge place: pending course A total of 35 minutes was spent on the care of this complex patient more than 50% of the time was spent in counseling and care coordination.
--- NOTE | 2020-09-06 09:52 | XR ---
EXAMINATION TYPE: XR chest 1V portable DATE OF EXAM: 09/06/2020 COMPARISON: Prior chest x-ray 09/05/2020 HISTORY: Covid pneumonia TECHNIQUE: frontal view of the chest is obtained on 2 images. FINDINGS: Endotracheal tube, orogastric tube are overlying appropriate positions, there are overlyin g leads. There is left-sided PICC line which is stable. Bilateral airspace disease, prominence inters titium again noted. Cardiac mediastinal silhouette is stable. IMPRESSION: Similar findings, correlate for pneumonia, edema, ARDS
[2020-09-06] MEDS: ENOXAPARIN 40 MG/0.4 ML SYRINGE SQ SCH (10:07)
--- NOTE | 2020-09-06 10:41 | P.PN ---
Subjective Progress Note Date: 09/06/20 Principal diagnosis: COVID-19 pneumonia 70-year-old white male patient who presented to the hospital on 08/15/2020 with complaints of 10 day history of loss of taste, cough, shortness of breath, fever. Patient and his have been staying with her daughter who tested positive for COVID, patient had an outpatient test for COVID-19 on 08/09/2020 and was found to be positive. Last few days he's been having increased shortness of breath, cough. Past medical history is noncontributory, other than osteoarthritis with previous history of joint replacement surgery in the right knee, patient is lifetime nonsmoker, does have history of chronic bronchial asthma, not on any maintenance inhalers on a regular basis. Chest x-ray in the emergency department shows some patchy airspace disease on the right, calcified granuloma in the right lower lobe, no pneumothorax or pleural effusion. His repeat COVID-19 PCR in the emergency room was positive, RSV and influenza screen were negative. His admission blood work showed neutropenia, and lymphopenia, white blood cell count was 2.6, and leukocyte count was 0.4, d-dimer was 0.95, potassium is 3.1, rest of the electrolytes and renal profile were unremarkable, lactic acid was 1.1, AST was 63, ALT and alk phos were within normal limits, LDH was 1283, CRP was 7.1, pro calcitonin level was negative at 0.10. Patient was satting 86% on room air, currently requiring 4 L of supplemental oxygen with a pulse ox of 91-94%, he is afebrile. Lung sounds reveal diffuse coarse crackles at bilateral bases. Patient was started on Decadron this milligram daily, and prophylactic Lovenox. he is outside the window for Remdesivir On 08/17/2020 patient seen in follow-up on medical surgical floor, he is resting in bed, appears to be in no acute distress, he still on 5 L of oxygen has pulse ox of 90-91%, he is afebrile, hemodynamically stable, he states when he walks to the bathroom he gets very lightheaded and dizzy and sometimes feel like he is going to pass out. He does get short of breath, he was instructed to call for help when ambulating to the bathroom. Sounds reveal diffuse crackles bilaterally, today's follow-up chest x-ray showing patchy airspace disease lung bases. He is trying to work on incentive spirometer. Today's labs have been reviewed, his d-dimer today is 0.55, inflammatory markers are improving, and his LDH is 609, and CRP is 3.6. An patient remains on Decadron 6 mg daily, and prophylactic dose Lovenox in addition to vitamins On 08/18/2020 patient seen in follow-up on medical surgical floor. He is currently down to 4 L of oxygen pulse ox is 93%, he states he still feels weak and wobbly when walking to the bathroom, at times he gets lightheaded, but no worsening dyspnea, no signs of any respiratory distress. Today's labs have been noted, d-dimer from yesterday is 0.55, inflammatory markers were improving, no cough, no complaints of chest discomfort, he remains on Decadron 6 blood gram d aily, and Lovenox 40 mg daily. On 08/19/2020 patient seen in follow-up on medical surgical floor, he is sitting up in the recliner, in no acute distress, is on 6 L of supplemental oxygen his pulse ox is 89-90%, no worsening dyspnea, although he does get short of breath and desat with exertion, consulted physical therapy and patient had ambulated with a walker. His ambulation ability slow shaky, no complaints of dizziness. Doing fairly well, no acute events overnight, and he is on Decadron, patient was not a candidate for Remdesivir, he is on prophylactic Lovenox, today's labs have been reviewed On 08/20/2020 patient seen in follow-up on medical surgical floor. In the last 24 hours his oxygenation has significantly deteriorated, he is currently on Airvo at 60 L and FiO2 of 92%, his pulse ox is 85-88%, his been afebrile, his temp of 101.7F, complaining of headache, he looks weak, he looks a lot more ill today, fatigued, short of breath with conversation, he has occasional cough, he was outside the window for Remdesivir, he has been on Decadron 6 mg daily, he is on prophylactic Lovenox, we'll give him a dose of Toci today On 08/21/2020 patient continued to worsen through the night, with increased work of breathing, and increased oxygenation needs, he was placed on Airvo yesterday, at 60 L in FiO2 of 93%, and he is requiring 100% nonrebreather mask on top of it, his pulse ox is only 80%, he is very tachypneic with respiratory rate in the 30s, diaphoretic, and looking fatigued. He was transferred to the intensive care unit this morning and placed on BiPAP support with pressures of 14/6 and FiO2 100%, he is actually tolerating that quite well, and seems more comfortable on it, lung sounds reveal diffuse coarse crackles at bilateral posterior bases, he is afebrile this morning, his chest x-ray today showing bilateral lower lobe infiltrates and small effusion., Yesterday his d-dimer with up to 10.10, and if it remains elevated again today at 10.19, his Lovenox dose was adjusted and he is currently on 60 mg of Lovenox every 12 hours. He remains on IV dexamethasone 6 mg daily, was given a dose of Actemra yesterday On 08/24/2020 patient seen in follow-up in the intensive care unit, he remains on BiPAP its at pressures of 14/7 and FiO2 of 90%. He seems to be tolerating BiPAP support quite well, seems to be very comfortable on that. He has remained on BiPAP continuously for 24 hours, try Airvo on him again today. Appears to be in no acute distress, on those above-mentioned settings his pulse ox is ranging between 86-91%, respiratory rate is in the mid 20s, blood pressure stable, he has been afebrile. Lung sounds reveal diminished breath sounds with some bibasilar crackles. No complaints of chest pain overnight, 2 sets of troponins were less than 0.012. Echocardiogram was a technically difficult study with suboptimal views, and the EF was not calculated, RV was not visualized, left atrium, right atrium, and all the valves were not well visualized. And as such this was a suboptimal study. No complaints of chest pain overnight, no complaints of chest pain this morning. This morning's labs have been reviewed, his d-dimer is 7.66 on today's labs, white blood cell count is 10.5, hemoglobin of 14.5, sodium is 135, the rest of electrolytes and renal profile were unremarkable, LDH is 1658, CRP is 2.8. No nausea vomiting or diarrhea, abdomen is soft, no worsening dyspnea On 08/25/2020 patient seen in follow-up in intensive care unit, yesterday he tolerated Airvo at 60 L and FiO2 of 90% in addition to 100% nonrebreather mask all day, and he was placed back on BiPAP support with pressures of 14/7 and FiO2 of 90% overnight, this morning she seen in the intensive care unit, he is resting comfortably in bed, he remains on BiPAP support and his pulse ox on above-mentioned settings is 92-95%. He denies any worsening dyspnea, he is easi ly arousable to voice, and answering simple questions, lung sounds reveal diminished breath sounds at the bases, with minimal crackles. Today's chest x- ray is pending, today's labs have been reviewed during white blood cell count of 12.4, hemoglobin of 14.6, d-dimer remains elevated at 7.86, and patient's on Lovenox at 50 mg twice daily. No complaints of chest pain. No cough, no congestion, yesterday while he was on Airvo he was able to take in some oral feedings, and had a fair appetite. She is in sinus mechanism, hemodynamically she is stable, he is on plane, sitting at a rate of 50 ML per hour. He remains on Decadron at 6 mg twice daily. His renal function is within normal limits to day with B1 of 18 creatinine 0.71, sodium was 135, and her serum electrolytes were within normal limits, 2 sets of troponins were less than 0.012, limited echocardiogram was a suboptimal study, however there was no recurrence of chest discomfort from 2 days ago, and heparin drip was discontinued, no acute ST wave changes. No vomiting or diarrhea, abdomen is soft, no complaints of abdominal pain. On 08/26/2020 patient seen in follow-up in intensive care unit, currently on BiPAP with pressures of 14/7 and FiO2 100%, and his pulse ox is 88%, yesterday he was able to tolerate Airvo and nonrebreather and come off the BiPAP for short periods of time. Today he seems more lethargic compared to yesterday, he is tachypneic, but he is achieving over 1 L and tidal volumes on the BiPAP, his respiratory rate is in the mid 30s. He opens eyes to voice, he lightly groans in response to questions, but not really providing full sentence responses. Yesterday we gave him a dose of IV Lasix, he diuresed quite well, and he is in - 3.1 L over the last 24 hours. Despite the diuresis, the patient failed to improve, today's chest x-ray still showed persistent bibasilar and right midlung peripheral opacities consistent with COVID-19. Oral intake has been poor, and at this time we are considering low rate IV fluids. Labs have been reviewed, his white blood cell count is 16.8, hemoglobin is 15.7, he is a d-dimer is 9.28, sodium is 136, the rest of electrolytes are within normal limits, his BUN is 22, creatinine is 0.82, his LDH has actually trended up, and is at 2202, and CRP 1.2. On 08/29/2020 patient seen in follow-up in the intensive care unit, he was intubated over the weekend, he is currently remains sedated and paralyzed on mechanical ventilation, on assist-control mode of ventilation with a rate of 30, tidal vital 390, FiO2 100% and PEEP of 18. This morning his blood gases showed pO2 of 80, pCO2 75, and pH of 7.22. This was done 100% FiO2. His peak pressures are 45, plateau pressure is 42. Is currently on 0.9 at 1:30 ML per hour, Levothroid is at 11 mics per minute, fentanyl drip is at 0.5 mics per kilo per hour, Diprivan and is at 50 mics per kilo per minute, and index is at 1 jacob per kilo per minute, he is receiving tube feedings in the form of vital high- protein at 10 ML per hour. He is in sinus mechanism, slightly tachycardic with a rate of 109 BPM. Patient was proned last night, he is currently supine. His chest x-ray today shows diffuse bilateral infiltrates that are stable in appearance, and possibility of pneumomediastinum could not be excluded. Today's labs have been reviewed showing white blood cell count of 24.2, hemoglobin of 15.8, sodium is 142, potassium is 5.0, chloride is 110, CO2 is 30, BUN of 38, and creatinine of 1.35. AST was 92, ALT is 290, alkaline phosphatase is 110. CRP is 1.4 On 08/30/2020 patient seen in follow-up in the intensive care unit, he remains intubated, sedated and paralyzed on mechanical ventilator, currently on assist- control mode of ventilation with a rate of 36, tidal volume is 390, FiO2 100% and PEEP of 18, this morning his blood gases were reviewed showing pO2 of 98, pCO2 of 82, pH is 7.19. His peak airway pressure is 40, his plateau is 34, this chest x-ray today has been reviewed showing diffuse airspace disease that is stable in appearance, he is currently on 0.9 normal saline at a rate of 75 ML pe r hour, Levophed is at 8 mics per minute, fentanyl drip is at 0.75, and Diprivan is at 30 mics per kilo per minute, Nimbex is at 2 mics per kilo per minute. Patient is receiving tube feedings with vital high-protein at 48 with a goal of 48 and standard water flushes with 30 ML every 4 hours, he is in sinus mechanism, tachycardic with a rate of 112 BPM, he seems to have developed subcutaneous emphysema involving his anterior chest. He also developed a pressure injury from the Stefano ET tube Guardado on his right cheek. [place] 's been removed and cough type is being used for ET tube Guardado. Today's labs have been reviewed, white blood cell count is 23.1, hemoglobin is 15.4, platelet count is 92, potassium is 5.5, and this was treated with combination of 1 amp of bicarbonate, 50% dextrose and regular insulin. Recheck labs are pending, his BUN is 48 creatinine is 1.45, LDH from a couple days ago was trending up and was up to 3870, and CRP was 1.4. His last pro-calcitonin from and weight 2020 was negative at 0.07. On 08/31/2020 patient seen in follow-up in the intensive care unit, he remains sedated, paralyzed and intubated on mechanical ventilator, currently on assist-control with a rate of 36, tidal volume is 390, FiO2 of 70% and PEEP of 18, this morning blood gases show pO2 of 65, pCO2 of 81, and pH of 7.23. His peak and plateau pressures have been elevated, with peak pressure of 42, plateau pressure of 39. Further adjustments have been made to his ventilator settings, and patient was placed on pressure control mode of ventilation with pressure control 22, respiratory rate 36, FiO2 of 70%, PEEP of 18, and inspiratory time of 0.70. He had a chest x-ray today showing scattered airspace infiltrates greatest at the lung bases without significant change, he is currently on Levothroid at 0.03 mics per kilo per minute, fentanyl drip is at 0.75 mics per kilo per hour, 0.9 at 75 ML per hour, Nimbex is at 1.5 mics per kilo per minute, and Diprivan and is at 30 mics per kilo per minute. He is receiving tube feedings in the form of vital HP at 41 with a goal of 41, and standard water flushes of 30 ML every 4 hours, he is in sinus mechanism, bit tachycardic in the low 100s, no fever overnight. Today's labs have been reviewed showing white blood cell count of 15.7, hemoglobin of 14.2, his d-dimer is improving and is down to 6.17 from 10.13 on yesterday's labs, patient remains on Lovenox 50 mg every 12 hours. Sodium is 145, potassium is 5.3, chloride is 111, CO2 35, BUN of 54, creatinine is 1.24, his liver enzymes improved somewhat with AST of 61, and ALT of 251, LDH is improving is down to 1763, CRP is 0.8 on today's labs. Patient continues on Decadron 6 mg IV twice daily. Patient is producing urine in the order of 60-100 ML per hour. On 09/01/2020 patient seen in follow-up in intensive care unit, he remains intubated, sedated and paralyzed, on pressure control mode of ventilation, with inspiratory pressure of 22, rate of 36, FiO2 of 65% PEEP of 18, and inspiratory time of 0.7. This morning his blood gases reviewed showing pO2 of 53, pCO2 of 65, and pH of 7.34. This was completed on FiO2 of 65%, his peak air pressure is 41, his plateau pressures 37. Today's chest x-ray shows interval development of subcutaneous emphysema about the chest and neck, increasing consolidation in the lung bases probably representing pneumonia or atelectasis, no obvious pneumothorax was noted. Patient is currently on 0.9 normal saline at 75 ML per hour, to prevent is at 30 mics per kilo per minute, fentanyl drip is a 0.75 mics per kilo per hour, and Nimbex infusion at 1.5 mics per kilo per minute. He is tolerating tube feedings, he is receiving vital high-protein at 41 with a goal of 41 and standard water flushes, today's labs have been reviewed, his white blood cell count is down trending, and is down to 13.7 on today's labs, his hemoglobin is 13.5, his d-dimer is also improving and is down to 4.02, serum sodium is 147, potassium is 5.2, chloride is 111, CO2 is 26, BUN of 65, creatinine is 1.15, AST is 65, ALT is 227, and alkaline phosphatase within normal limits, overall his LFTs are stable if not slightly improved. Follow-up LDH is down to 1490, improving but still elevated, and his CRP today is 0.6 within normal limits. Physical exam reveals increased subcutaneous emphysema of anterior chest, upper shoulders and bilateral upper arms. Patient did prone for 16 hours, tolerated fairly well. Doing prone positioning his pulse ox is around 91-92% on the above-mentioned settings. In supine position he usually sats at around 86-87%. Hemodynamically he has not required any vasopressors, he is in sinus mechanism, his rate is controlled, is producing urine in the order of 40- 125 ML per hour. On 09/02/2020 patient seen in follow-up in the intensive care unit, he remains intubated, sedated and paralyzed, on assist-control mode of ventilation with a rate of 36, tidal volume 450, FiO2 of 65% and PEEP of 18, this morning's blood gas shows pO2 57, pCO2 of 68, pH is 7.34, and this was done on FiO2 of 65% and PEEP of 18, his peak airway pressures 43, plateau pressure is 38, today's chest x-ray has been reviewed showing no change in bibasilar opacities, and sized pneumothorax was not identified with certainty. Patient continues to have subcutaneous emphysema in his chest, upper arms and shoulders. But no clear evidence of pneumothorax on the chest x-ray. Last night patient started losing a significant amount of volume and had to be switched to volume assist-control mode of ventilation related to increasing hypercapnic respiratory failure. A blood gas that was completed at that time and this was around 5:00 in the afternoon showed pO2 of 71, pCO2 of greater than 120, and pH of 7.05. Patient was placed on assist-control mode of ventilation with a rate of 36, tidal volume 450, FiO2 of 65% and PEEP of 18, and this morning's blood gas shows improvement in his acid base balance, and improvement in his CO2 concentration. He is currently on 0.9 normal saline at a rate of 75 ML per hour, his fentanyl infusion is 0.75 mics per kilo per hour, Diprivan and is at 30 mics per kilo per minute, Nimbex is at 1.5 mics per kilo per minute, and he is on small amount of norepinephrine at 0.02 mics per kilo per minute. He is tolerating tube feedings, and he is receiving vital high-protein at 41 with a goal of 41, and he has been receiving free water flushes of 200 ML every 4 hours for elevated sodium of 147. Today's labs have been reviewed, and his serum sodium remains exactly the same at 147, potassium is 5.5, chloride is 112, CO2 is 38, BUN of 77, creatinine is 1.14. His AST and ALT continue to be relatively stable, with AST of 83, and ALT of 259, his LDH is trending down and is currently is 1394, and CRP is 0.8. White blood cell count is 13.8, and hemoglobin is 12.8. D- dimer is improving and is down to 2.72 on today's labs. His current dose Lovenox 40 mg daily, patient also remains on Decadron 6 mg twice daily. Patient is currently in supine position, he has been tolerating prone positioning. On 09/05/2020 patient seen in follow-up in the intensive care unit, he remains intubated, sedated, paralyzed on assist-control mode of ventilation with a rate of 36, tidal volume 450, FiO2 75% and PEEP of 18, this morning blood gases reviewed showing pO2 of 71, pCO2 of 71 and pH of 7.31, he is currently on 0.9 normal saline at a rate of 10 ML per hour, norepinephrine is at 6 mics per minute, Nimbex is at 1 jacob per kilo per minute, Diprivan is a 40 mics per kilo per minute, fentanyl drip is at 1 jacob per kilo per hour, and patient is on nutritional support in the form of vital HP at a rate of 41 with a goal of 41 and standard water flushes. Today's chest x-ray has been reviewed showing f indings consistent with patient's history of COVID pneumonia. Subcutaneous emphysema seems to have improved in appearance compared today's ago. Today's labs have been reviewed showing white blood cell, 15.6, hemoglobin of 11.7, platelet count is 91, d-dimer today is 4.20, sodium is 139, potassium is 5.2, CO2 is 36, BUN is 59, creatinine 0.94, ALT is 244, AST is 83, liver enzymes slightly improved, alk phos is 135. Patient has been tolerating prone positioning. But overall still requiring high PEEP and total requiring high FiO2. She remains on Lovenox at 40 mg daily, and he remains on dexamethasone 6 mg twice daily. Is d-dimer remains elevated over 4.2. We will adjust his Lovenox after tracheostomy and PEG tube placement in the next couple days On 09/06/2020 patient seen in follow-up in the intensive care unit, patient remains intubated, sedated and paralyzed, currently on assist-control mode of ventilation with a rate of 36, tidal volume of 450, FiO2 of 75% and PEEP of 18, this morning blood gas shows pO2 of 58, pCO2 of 72, and pH of 7.3. Today's chest x-ray shows bilateral airspace disease, prominent interstitium, ARDS. Patient is currently on D5W at 100 ML per hour, Nimbex is 1 jacob per kilo per minute, Diprivan is a 40 mics per kilo per minute, fentanyl drip is at 1 jacob per kilo per hour, and even that is at 2 mics per minute. He is tolerating tube feedings and is currently on vital high-protein at 41 with a goal of 41, and 200 mL of free water flushes every 4 hours. These labs have been reviewed, showing white blood cell count of 11.8, hemoglobin of 11, platelet count is 87, sodium 134, potassium is 5.0, chloride is 100, CO2 is 25, BUN of 53, creatinine is 0.84, LFTs are relatively stable, with AST at 92, ALT of 218, and alk phos of 131. Yesterday patient's was updated by the nursing staff on patient's progress and the decision for tracheostomy and PEG tube placement if family wants to continue with medical treatment. Patient's daughter seemed inclined to proceed with tracheostomy and PEG tube placement and based on that we will place a consult to Gen. surgery today for possibility of trach and PEG tube placement possibly today or in the next couple of days, pending on surgical availability Objective - Vital Signs Vital signs: Vital Signs Temp 98 F 09/06/20 04:00 Pulse 79 09/06/20 10:00 Resp 36 H 09/06/20 10:00 BP 118/61 09/06/20 05:00 Pulse Ox 87 L 09/06/20 10:00 Intake & Output 09/05/20 09/06/20 09/06/20 18:59 06:59 18:59 Intake Total 3908.806 2312.798 1077.696 Output Total 905 1055 250 Balance 3003.806 1257.798 827.696 Weight 116 kg 118.4 kg Intake: IV 2336 1030 515 Dextrose 5% in Water 1, 2300 1000 500 000 ml @ 100 mls/hr IV . Q10H [facility] Rx#:[id number] pressure BAG 36 30 15 Intake, IV Titration 521.806 272.798 157.696 Amount Cisatracurium 200 mg In 143.827 25.661 Sodium Chloride 0.9% 180 ml @ 2 MCG/KG/MIN 12.672 mls/hr IV .[id number] [facility] Rx #:[id number] Norepinephrine 8 mg In 82.142 47.137 Sodium Chloride 0.9% 250 ml @ 0.05 MCG/KG/MIN 10. 217 mls/hr IV .Q24H [facility] Rx#:[id number] fentaNYL (PF). 1,000 mcg 95.837 100 In Sodium Chloride 0.9% 80 ml @ Per Protocol IV . Q0M [facility] Rx#:[id number] propofoL 1,000 mg In 200 100 157.696 Empty Bag 1 bag @ Titrate IV .Q0M [facility] Rx#: [id number] Tube Feeding 451 410 205 Other 600 600 200 Output: Urine 905 1055 250 Other: Voiding Method Indwelling Catheter Indwelling Catheter ABP, PAP, CO, CI - Last Documented Arterial Blood Pressure 106/50 - Exam GENERAL EXAM: 70-year-old white male, assist control mode of ventilation, with FiO2 of 75% and PEEP of 18, sedated, and paralyzed. Patient appears to be generally swollen on today's exam including his face and upper arms HEAD: Normocephalic/atraumatic. EYES: Normal reaction of pupils, equal size. Conjunctiva pink, sclera white. NOSE: Clear with pink turbinates. Pressure injury involving the bridge of the n ose, in the wound is fairly dry, and guarding to scab over THROAT: No erythema or exudates. NECK: No masses, no JVD, no thyroid enlargement, no adenopathy. CHEST: No chest wall deformity. Symmetrical expansion. Increased subcutaneous emphysema noted on today's physical exam of the anterior chest, upper shoulders, and bilateral upper arms LUNGS: Equal air entry with coarse bibasilar crackles CVS: Regular rate and rhythm, normal S1 and S2, no gallops, no murmurs, no rubs ABDOMEN: Soft, nontender. No hepatosplenomegaly, normal bowel sounds, no guarding or rigidity. EXTREMITIES: No clubbing, generalized nonpitting edema no cyanosis, 2+ pulses and upper and lower extremities. MUSCULOSKELETAL: Muscle strength and tone normal. SPINE: No scoliosis or deformity SKIN: No rashes CENTRAL NERVOUS SYSTEM: Intubated, sedated and paralyzed No focal deficits, tone is normal in all 4 extremities. - Labs CBC & Chem 7: 09/06/20 04:13 09/06/20 04:13 Labs: Abnormal Lab Results - Last 24 Hours (Table) 09/05/20 09/05/20 09/05/20 Range/Units 11:34 18:13 23:30 WBC (3.8-10.6) k/uL RBC (4.30-5.90) m/uL Hgb (13.0-17.5) gm/dL Hct (39.0-53.0) % MCV (80.0-100.0) fL Plt Count (150-450) k/uL Neutrophils # (1.3-7.7) k/uL Lymphocytes # (1.0-4.8) k/uL ABG pH (7.35-7.45) ABG pCO2 (35-45) mmHg ABG pO2 (83-108) mmHg ABG HCO3 (21-25) mmol/L ABG Total CO2 (19-24) mmol/L ABG O2 Saturation (94-97) % Sodium (137-145) mmol/L Carbon Dioxide (22-30) mmol/L BUN (9-20) mg/dL Glucose (74-99) mg/dL POC Glucose (mg/dL) 123 H 141 H 109 H (75-99) mg/dL Calcium (8.4-10.2) mg/dL Magnesium (1.6-2.3) mg/dL AST (17-59) U/L ALT (4-49) U/L Alkaline Phosphatase (38-126) U/L Total Protein (6.3-8.2) g/dL Albumin (3.5-5.0) g/dL 09/06/20 09/06/20 09/06/20 Range/Units 04:13 04:13 04:58 WBC 11.8 H (3.8-10.6) k/uL RBC 3.20 L (4.30-5.90) m/uL Hgb 11.0 L (13.0-17.5) gm/dL Hct 32.7 L (39.0-53.0) % MCV 102.2 H (80.0-100.0) fL Plt Count 87 L (150-450) k/uL Neutrophils # 11.0 H (1.3-7.7) k/uL Lymphocytes # 0.3 L (1.0-4.8) k/uL ABG pH 7.30 L (7.35-7.45) ABG pCO2 72 H* (35-45) mmHg ABG pO2 58 L* (83-108) mmHg ABG HCO3 35 H (21-25) mmol/L ABG Total CO2 38 H (19-24) mmol/L ABG O2 Saturation 88.8 L (94-97) % Sodium 134 L (137-145) mmol/L Carbon Dioxide 35 H (22-30) mmol/L BUN 53 H (9-20) mg/dL Glucose 131 H (74-99) mg/dL POC Glucose (mg/dL) (75-99) mg/dL Calcium 8.1 L (8.4-10.2) mg/dL Magnesium 2.4 H (1.6-2.3) mg/dL AST 92 H (17-59) U/L ALT 218 H (4-49) U/L Alkaline Phosphatase 131 H (38-126) U/L Total Protein 5.1 L (6.3-8.2) g/dL Albumin 2.5 L (3.5-5.0) g/dL 09/06/20 Range/Units 05:49 WBC (3.8-10.6) k/uL RBC (4.30-5.90) m/uL Hgb (13.0-17.5) gm/dL Hct (39.0-53.0) % MCV (80.0-100.0) fL Plt Count (150-450) k/uL Neutrophils # (1.3-7.7) k/uL Lymphocytes # (1.0-4.8) k/uL ABG pH (7.35-7.45) ABG pCO2 (35-45) mmHg ABG pO2 (83-108) mmHg ABG HCO3 (21-25) mmol/L ABG Total CO2 (19-24) mmol/L ABG O2 Saturation (94-97) % Sodium (137-145) mmol/L Carbon Dioxide (22-30) mmol/L BUN (9-20) mg/dL Glucose (74-99) mg/dL POC Glucose (mg/dL) 129 H (75-99) mg/dL Calcium (8.4-10.2) mg/dL Magnesium (1.6-2.3) mg/dL AST (17-59) U/L ALT (4-49) U/L Alkaline Phosphatase (38-126) U/L Total Protein (6.3-8.2) g/dL Albumin (3.5-5.0) g/dL Assessment and Plan Plan: Assessment: #1. Acute hypoxic respiratory failure related to acute COVID-19 pneumonia, with onset of symptoms 10 days prior to presentation, patient had outpatient positive COVID-19 test on 08/09/2020, outside the window for Remdesivir. Hypoxia progressed and patient received Toci on 08/20/2020. Patient was transferred to the intensive care unit on 08/21/2020 and placed on BiPAP support. Patient was intubated on 08/28/2020. On 08/30/2020 patient remains sedated, paralyzed and intubated on FiO2 of 80% and PEEP of 18. On 08/31/2020 patient remains intubated, sedated and paralyzed, currently with FiO2 of 70%, and PEEP of 18, and his peak and plateau pressures have been elevated at 42 and 39 respectively, patient will be tried on pressure control mode of ventilation On 09/02/2020 patient remains sedated, intubated and paralyzed, currently on volume assist mode of ventilation, with a rate of 36, Tylenol level is 450, FiO2 of 65, and PEEP of 18. Peak pressures 43, plateau pressures 38. Patient had to be switched from pressure control mode of ventilation related to increasing hypercapnic respiratory failure and volume loss and leak. On 09/05/2020 patient still remains intubated, sedated and paralyzed, on assist- control mode of ventilation with the FiO2 of 75% and PEEP of 18 On 09/06/2020 patient remains intubated, sedated and paralyzed, on FiO2 of 75% and PEEP of 18 #2. Increased d-dimer related to COVID-19 infection, lower extremity Dopplers were negative for DVT. Patient's currently on Lovenox 40 mg daily #3. Neutropenia, pro-calcitonin was negative, resolved and patient now has leukocytosis and currently his white blood cell count is 23.1 #4. Elevated liver enzymes related to viral pneumonia #5. Lifetime nonsmoker #6. History of chronic bronchial asthma, mild intermittent, inactive at this time #7. Episode of chest pain on 08/23/2020, EKG without significant ST segment elevation, 2 sets of negative troponins. Echocardiogram was a suboptimal study, unable to calculate EF, calculate chamber sizes or valves #8. Hypernatremia, related to free water deficit, resolved #9. Obesity, with BMI of 35.9 kg/m Plan: Today's labs, chest x-ray and blood gases reviewed Continue same vent settings, no room to make any adjustments Not ready for sedation and paralytic holiday Patient's family was updated by the nursing staff on patient's condition yesterday and seemed inclined to proceed with tracheostomy and PEG tube placement We'll proceed with a consultation to Gen. surgery for trach and PEG, and consent will need to be obtained from the patient's family Continue current dose Decadron, we will adjust Lovenox once we know if patient will have a surgical procedure in the next 24 hours Continue nutritional support Continue supportive treatment Overall prognosis is poor CODE STATUS is DO NOT RESUSCITATE I performed a history & physical examination of the patient and discussed their management with my nurse practitioner, Magdalena Negrete. I reviewed the nurse practitioner's note and agree with the documented findings and plan of care. Lung sounds are positive for diminished breath sounds. The findings and the impression was discussed with the patient. I attest to the documentation by the nurse practitioner. Time with Patient: Greater than 30
[2020-09-06 11:41] LABS: Glucose,Whole Blood 133 mg/dL (75-99)
[2020-09-06 17:27] LABS: Glucose,Whole Blood 124 mg/dL (75-99)
[2020-09-06] MEDS: polyethylene glycoL 3350 17 GM POWD.PACK PO SCH (22:24)
[2020-09-06 23:26] LABS: Glucose,Whole Blood 120 mg/dL (75-99)
[2020-09-07] MEDS: INSULIN ASPART (NovoLOG) 100 UNIT/ML VIAL SQ SCH ×4 (00:54→18:56)
[2020-09-07 03:32] LABS: Basophils % (A) 0 %; Eosinophils # (A) 0.1 k/uL (0-0.7); Eosinophils % (A) 1 %; HCT 35.5 % (39.0-53.0); HGB 11.1 gm/dL (13.0-17.5); Lymphocytes # (A) 0.4 k/uL (1.0-4.8); Lymphocytes % (A) 3 %; MCH 32.4 pg (25.0-35.0); MCHC 31.4 g/dL (31.0-37.0); MCV 103.2 fL (80.0-100.0); Macrocytosis Slight; Mean Platelet Volume 9.2; Monocytes # (A) 0.3 k/uL (0-1.0); Monocytes % (A) 3 %; Neutrophils # (A) 12.2 k/uL (1.3-7.7); Neutrophils % (A) 93 %; RBC 3.44 m/uL (4.30-5.90); RDW 14.7 % (11.5-15.5); WBC 13.1 k/uL (3.8-10.6)
[2020-09-07 03:33] LABS: Platelet Count 90 k/uL (150-450)
[2020-09-07 04:06] LABS: African American GFR (CKD) >90 (>60 ml/min/1.73 sqM); Anion Gap 2 mmol/L; Blood Urea Nitrogen 52 mg/dL (9-20); Carbon Dioxide 35 mmol/L (22-30); Chloride 97 mmol/L (98-107); Glucose 140 mg/dL (74-99); Magnesium 2.4 mg/dL (1.6-2.3); Non-African American GFR(CKD) 86 (>60 ml/min/1.73 sqM); Phosphorus 4.2 mg/dL (2.5-4.5); Potassium 5.4 mmol/L (3.5-5.1); Sodium 134 mmol/L (137-145)
[2020-09-07] MEDS: fentaNYL (PF). 1,000 MCG in SODIUM CHLORIDE 0.9% 80 ML IV SCH ×3 (04:47→23:41)
[2020-09-07 05:25] LABS: ABG Base Excess 7.7 mmol/L; ABG HCO3 35 mmol/L (21-25); ABG Oxygen Saturation 90.1 % (94-97); ABG PH 7.28 (7.35-7.45); ABG PO2 61 mmHg (83-108); ABG TCO2 37 mmol/L (19-24); Allen Test Performed? Yes
[2020-09-07 05:34] LABS: ABG PCO2 74 mmHg (35-45)
[2020-09-07] MEDS: DEXTROSE 5% IN WATER 1,000 ML IV SCH ×3 (06:04→23:42)
[2020-09-07 06:26] LABS: Glucose,Whole Blood 136 mg/dL (75-99)
[2020-09-07] MEDS: CISATRACURIUM 200 MG in SODIUM CHLORIDE 0.9% 180 ML IV SCH ×2 (07:55→23:44)
--- NOTE | 2020-09-07 07:56 | P.GSCN ---
History of Present Illness Consult date: 09/06/20 History of present illness: CHIEF COMPLAINT: COVID-19 pneumonia HISTORY OF PRESENT ILLNESS: This is a 70-year-old male who was hospitalized for respiratory failure secondary to COVID-19 pneumonia. He remains intubated and sedated. He is on high PEEP 18. He was intubated on 08/28/2020. Surgical consult was placed for tracheostomy and PEG tube placement. PAST MEDICAL HISTORY: See list. PAST SURGICAL HISTORY: See list. MEDICATIONS: See list. ALLERGIES: See list. SOCIAL HISTORY: No illicit drug use. REVIEW OF SYSTEMS: Unable to obtain patient is intubated and sedated PHYSICAL EXAM: VITAL SIGNS: Reviewed GENERAL: Well-developed in no acute distress. HEENT: No sclera icterus. Extraocular movements grossly intact. Moist buccal mucosa. Head is atraumatic, normocephalic. No nasal drainage. ABDOMEN: Soft. Nondistended. Nontender NEUROLOGIC: Intubated and sedated LABORATORY DATA: WBC 11.8 hemoglobin 11 platelets 87 Sodium 134 potassium is 5 creatinine 0.84 Albumin 2.5 IMAGING: ASSESSMENT: 1. Acute hypoxic respiratory failure secondary to COVID-19 pneumonia 2. Severe protein calorie malnutrition PLAN: -Patient is scheduled for tracheostomy and PEG tube placement on 09/07/[address] Berry -Placed to feedings on hold Thank you for this consultation Physician [employer] Handler note has been reviewed by physician. Signing provider agrees with the documented findings, assessment, and plan of care. Past Medical History Additional Past Medical History / Comment(s): covid + History of Any Multi-Drug Resistant Organisms: None Reported Past Surgical History: Back Surgery, Joint Replacement Additional Past Surgical History / Comment(s): rt knee Past Anesthesia/Blood Transfusion Reactions: No Reported Reaction Past Psychological History: No Psychological Hx Reported Smoking Status: Never smoker Past Alcohol Use History: Rare Past Drug Use History: None Reported - Past Family History Father History Unknown: Yes Medications and Allergies Home Medications Medication Instructions Recorded Confirmed Type Multivitamins, Thera [Multivitamin 1 tab PO DAILY 08/15/20 08/15/20 History (formulary)] Allergies Allergy/AdvReac Type Severity Reaction Status Date / Time Penicillins Allergy Swelling Verified 08/15/20 12:15 codeine AdvReac Nausea & Verified 08/15/20 12:15 Vomiting Surgical - Exam Vital Signs Temp Pulse Resp BP Pulse Ox 97.9 F 80 22 113/76 86 L 08/15/20 11:19 08/15/20 11:19 08/15/20 11:19 08/15/20 11:19 08/15/20 11:19 Results - Labs 09/07/20 02:56 09/07/20 02:56 Abnormal Lab Results - Last 24 Hours (Table) 09/06/20 09/06/20 09/06/20 Range/Units 11:40 17:25 23:25 WBC (3.8-10.6) k/uL RBC (4.30-5.90) m/uL Hgb (13.0-17.5) gm/dL Hct (39.0-53.0) % MCV (80.0-100.0) fL Plt Count (150-450) k/uL Neutrophils # (1.3-7.7) k/uL Lymphocytes # (1.0-4.8) k/uL ABG pH (7.35-7.45) ABG pCO2 (35-45) mmHg ABG pO2 (83-108) mmHg ABG HCO3 (21-25) mmol/L ABG Total CO2 (19-24) mmol/L ABG O2 Saturation (94-97) % Sodium (137-145) mmol/L Potassium (3.5-5.1) mmol/L Chloride (98-107) mmol/L Carbon Dioxide (22-30) mmol/L BUN (9-20) mg/dL Glucose (74-99) mg/dL POC Glucose (mg/dL) 133 H 124 H 120 H (75-99) mg/dL Calcium (8.4-10.2) mg/dL Magnesium (1.6-2.3) mg/dL 09/07/20 09/07/20 09/07/20 Range/Units 02:56 02:56 05:20 WBC 13.1 H (3.8-10.6) k/uL RBC 3.44 L (4.30-5.90) m/uL Hgb 11.1 L (13.0-17.5) gm/dL Hct 35.5 L (39.0-53.0) % MCV 103.2 H (80.0-100.0) fL Plt Count 90 L (150-450) k/uL Neutrophils # 12.2 H (1.3-7.7) k/uL Lymphocytes # 0.4 L (1.0-4.8) k/uL ABG pH 7.28 L (7.35-7.45) ABG pCO2 74 H* (35-45) mmHg ABG pO2 61 L (83-108) mmHg ABG HCO3 35 H (21-25) mmol/L ABG Total CO2 37 H (19-24) mmol/L ABG O2 Saturation 90.1 L (94-97) % Sodium 134 L (137-145) mmol/L Potassium 5.4 H (3.5-5.1) mmol/L Chloride 97 L (98-107) mmol/L Carbon Dioxide 35 H (22-30) mmol/L BUN 52 H (9-20) mg/dL Glucose 140 H (74-99) mg/dL POC Glucose (mg/dL) (75-99) mg/dL Calcium 8.0 L (8.4-10.2) mg/dL Magnesium 2.4 H (1.6-2.3) mg/dL 09/07/20 Range/Units 06:24 WBC (3.8-10.6) k/uL RBC (4.30-5.90) m/uL Hgb (13.0-17.5) gm/dL Hct (39.0-53.0) % MCV (80.0-100.0) fL Plt Count (150-450) k/uL Neutrophils # (1.3-7.7) k/uL Lymphocytes # (1.0-4.8) k/uL ABG pH (7.35-7.45) ABG pCO2 (35-45) mmHg ABG pO2 (83-108) mmHg ABG HCO3 (21-25) mmol/L ABG Total CO2 (19-24) mmol/L ABG O2 Saturation (94-97) % Sodium (137-145) mmol/L Potassium (3.5-5.1) mmol/L Chloride (98-107) mmol/L Carbon Dioxide (22-30) mmol/L BUN (9-20) mg/dL Glucose (74-99) mg/dL POC Glucose (mg/dL) 136 H (75-99) mg/dL Calcium (8.4-10.2) mg/dL Magnesium (1.6-2.3) mg/dL Diabetes panel 09/07/20 Range/Units 02:56 Sodium 134 L (137-145) mmol/L Potassium 5.4 H (3.5-5.1) mmol/L Chloride 97 L (98-107) mmol/L Carbon Dioxide 35 H (22-30) mmol/L BUN 52 H (9-20) mg/dL Creatinine 0.91 (0.66-1.25) mg/dL Glucose 140 H (74-99) mg/dL Calcium 8.0 L (8.4-10.2) mg/dL Calcium panel 09/07/20 Range/Units 02:56 Calcium 8.0 L (8.4-10.2) mg/dL Phosphorus 4.2 (2.5-4.5) mg/dL Pituitary panel 09/07/20 Range/Units 02:56 Sodium 134 L (137-145) mmol/L Potassium 5.4 H (3.5-5.1) mmol/L Chloride 97 L (98-107) mmol/L Carbon Dioxide 35 H (22-30) mmol/L BUN 52 H (9-20) mg/dL Creatinine 0.91 (0.66-1.25) mg/dL Glucose 140 H (74-99) mg/dL Calcium 8.0 L (8.4-10.2) mg/dL Adrenal panel 09/07/20 Range/Units 02:56 Sodium 134 L (137-145) mmol/L Potassium 5.4 H (3.5-5.1) mmol/L Chloride 97 L (98-107) mmol/L Carbon Dioxide 35 H (22-30) mmol/L BUN 52 H (9-20) mg/dL Creatinine 0.91 (0.66-1.25) mg/dL Glucose 140 H (74-99) mg/dL Calcium 8.0 L (8.4-10.2) mg/dL
[2020-09-07] MEDS: NOREPINEPHRINE 8 MG in SODIUM CHLORIDE 0.9% 250 ML IV SCH (08:17)
[2020-09-07] MEDS: ENOXAPARIN 40 MG/0.4 ML SYRINGE SQ SCH (08:19)
[2020-09-07] MEDS: CHOLECALCIFEROL 25 MCG (1000 IU) TABLET PO SCH (08:30)
[2020-09-07] MEDS: PANTOPRAZOLE 40 MG/10 ML VIAL IVP SCH (08:30)
[2020-09-07] MEDS: CHLORHEXIDINE GLUCONATE 15 ML CUP MUCOUS MEM SCH ×2 (08:30→21:59)
[2020-09-07] MEDS: ZINC SULFATE 220 MG CAP PO SCH (08:30)
[2020-09-07] MEDS: DEXAMETHASONE SOD PHOSPHATE 10 MG/ML 1 ML VIAL IV SCH ×2 (08:30→21:59)
[2020-09-07] MEDS: ASCORBIC ACID 500 MG TAB PO SCH (08:30)
[2020-09-07] MEDS: ALBUTEROL HFA INHALER INHALATION SCH ×4 (08:36→20:49)
--- NOTE | 2020-09-07 09:47 | P.PN ---
Subjective Progress Note Date: 09/07/20 Principal diagnosis: COVID-19 pneumonia 70-year-old white male patient who presented to the hospital on 08/15/2020 with complaints of 10 day history of loss of taste, cough, shortness of breath, fever. Patient and his have been staying with her daughter who tested positive for COVID, patient had an outpatient test for COVID-19 on 08/09/2020 and was found to be positive. Last few days he's been having increased shortness of breath, cough. Past medical history is noncontributory, other than osteoarthritis with previous history of joint replacement surgery in the right knee, patient is lifetime nonsmoker, does have history of chronic bronchial asthma, not on any maintenance inhalers on a regular basis. Chest x-ray in the emergency department shows some patchy airspace disease on the right, calcified granuloma in the right lower lobe, no pneumothorax or pleural effusion. His repeat COVID-19 PCR in the emergency room was positive, RSV and influenza screen were negative. His admission blood work showed neutropenia, and lymphopenia, white blood cell count was 2.6, and leukocyte count was 0.4, d-dimer was 0.95, potassium is 3.1, rest of the electrolytes and renal profile were unremarkable, lactic acid was 1.1, AST was 63, ALT and alk phos were within normal limits, LDH was 1283, CRP was 7.1, pro calcitonin level was negative at 0.10. Patient was satting 86% on room air, currently requiring 4 L of supplemental oxygen with a pulse ox of 91-94%, he is afebrile. Lung sounds reveal diffuse coarse crackles at bilateral bases. Patient was started on Decadron this milligram daily, and prophylactic Lovenox. he is outside the window for Remdesivir On 08/17/2020 patient seen in follow-up on medical surgical floor, he is resting in bed, appears to be in no acute distress, he still on 5 L of oxygen has pulse ox of 90-91%, he is afebrile, hemodynamically stable, he states when he walks to the bathroom he gets very lightheaded and dizzy and sometimes feel like he is going to pass out. He does get short of breath, he was instructed to call for help when ambulating to the bathroom. Sounds reveal diffuse crackles bilaterally, today's follow-up chest x-ray showing patchy airspace disease lung bases. He is trying to work on incentive spirometer. Today's labs have been reviewed, his d-dimer today is 0.55, inflammatory markers are improving, and his LDH is 609, and CRP is 3.6. An patient remains on Decadron 6 mg daily, and prophylactic dose Lovenox in addition to vitamins On 08/18/2020 patient seen in follow-up on medical surgical floor. He is currently down to 4 L of oxygen pulse ox is 93%, he states he still feels weak and wobbly when walking to the bathroom, at times he gets lightheaded, but no worsening dyspnea, no signs of any respiratory distress. Today's labs have been noted, d-dimer from yesterday is 0.55, inflammatory markers were improving, no cough, no complaints of chest discomfort, he remains on Decadron 6 blood gram d aily, and Lovenox 40 mg daily. On 08/19/2020 patient seen in follow-up on medical surgical floor, he is sitting up in the recliner, in no acute distress, is on 6 L of supplemental oxygen his pulse ox is 89-90%, no worsening dyspnea, although he does get short of breath and desat with exertion, consulted physical therapy and patient had ambulated with a walker. His ambulation ability slow shaky, no complaints of dizziness. Doing fairly well, no acute events overnight, and he is on Decadron, patient was not a candidate for Remdesivir, he is on prophylactic Lovenox, today's labs have been reviewed On 08/20/2020 patient seen in follow-up on medical surgical floor. In the last 24 hours his oxygenation has significantly deteriorated, he is currently on Airvo at 60 L and FiO2 of 92%, his pulse ox is 85-88%, his been afebrile, his temp of 101.7F, complaining of headache, he looks weak, he looks a lot more ill today, fatigued, short of breath with conversation, he has occasional cough, he was outside the window for Remdesivir, he has been on Decadron 6 mg daily, he is on prophylactic Lovenox, we'll give him a dose of Toci today On 08/21/2020 patient continued to worsen through the night, with increased work of breathing, and increased oxygenation needs, he was placed on Airvo yesterday, at 60 L in FiO2 of 93%, and he is requiring 100% nonrebreather mask on top of it, his pulse ox is only 80%, he is very tachypneic with respiratory rate in the 30s, diaphoretic, and looking fatigued. He was transferred to the intensive care unit this morning and placed on BiPAP support with pressures of 14/6 and FiO2 100%, he is actually tolerating that quite well, and seems more comfortable on it, lung sounds reveal diffuse coarse crackles at bilateral posterior bases, he is afebrile this morning, his chest x-ray today showing bilateral lower lobe infiltrates and small effusion., Yesterday his d-dimer with up to 10.10, and if it remains elevated again today at 10.19, his Lovenox dose was adjusted and he is currently on 60 mg of Lovenox every 12 hours. He remains on IV dexamethasone 6 mg daily, was given a dose of Actemra yesterday On 08/24/2020 patient seen in follow-up in the intensive care unit, he remains on BiPAP its at pressures of 14/7 and FiO2 of 90%. He seems to be tolerating BiPAP support quite well, seems to be very comfortable on that. He has remained on BiPAP continuously for 24 hours, try Airvo on him again today. Appears to be in no acute distress, on those above-mentioned settings his pulse ox is ranging between 86-91%, respiratory rate is in the mid 20s, blood pressure stable, he has been afebrile. Lung sounds reveal diminished breath sounds with some bibasilar crackles. No complaints of chest pain overnight, 2 sets of troponins were less than 0.012. Echocardiogram was a technically difficult study with suboptimal views, and the EF was not calculated, RV was not visualized, left atrium, right atrium, and all the valves were not well visualized. And as such this was a suboptimal study. No complaints of chest pain overnight, no complaints of chest pain this morning. This morning's labs have been reviewed, his d-dimer is 7.66 on today's labs, white blood cell count is 10.5, hemoglobin of 14.5, sodium is 135, the rest of electrolytes and renal profile were unremarkable, LDH is 1658, CRP is 2.8. No nausea vomiting or diarrhea, abdomen is soft, no worsening dyspnea On 08/25/2020 patient seen in follow-up in intensive care unit, yesterday he tolerated Airvo at 60 L and FiO2 of 90% in addition to 100% nonrebreather mask all day, and he was placed back on BiPAP support with pressures of 14/7 and FiO2 of 90% overnight, this morning she seen in the intensive care unit, he is resting comfortably in bed, he remains on BiPAP support and his pulse ox on above-mentioned settings is 92-95%. He denies any worsening dyspnea, he is easi ly arousable to voice, and answering simple questions, lung sounds reveal diminished breath sounds at the bases, with minimal crackles. Today's chest x- ray is pending, today's labs have been reviewed during white blood cell count of 12.4, hemoglobin of 14.6, d-dimer remains elevated at 7.86, and patient's on Lovenox at 50 mg twice daily. No complaints of chest pain. No cough, no congestion, yesterday while he was on Airvo he was able to take in some oral feedings, and had a fair appetite. She is in sinus mechanism, hemodynamically she is stable, he is on plane, sitting at a rate of 50 ML per hour. He remains on Decadron at 6 mg twice daily. His renal function is within normal limits to day with B1 of 18 creatinine 0.71, sodium was 135, and her serum electrolytes were within normal limits, 2 sets of troponins were less than 0.012, limited echocardiogram was a suboptimal study, however there was no recurrence of chest discomfort from 2 days ago, and heparin drip was discontinued, no acute ST wave changes. No vomiting or diarrhea, abdomen is soft, no complaints of abdominal pain. On 08/26/2020 patient seen in follow-up in intensive care unit, currently on BiPAP with pressures of 14/7 and FiO2 100%, and his pulse ox is 88%, yesterday he was able to tolerate Airvo and nonrebreather and come off the BiPAP for short periods of time. Today he seems more lethargic compared to yesterday, he is tachypneic, but he is achieving over 1 L and tidal volumes on the BiPAP, his respiratory rate is in the mid 30s. He opens eyes to voice, he lightly groans in response to questions, but not really providing full sentence responses. Yesterday we gave him a dose of IV Lasix, he diuresed quite well, and he is in - 3.1 L over the last 24 hours. Despite the diuresis, the patient failed to improve, today's chest x-ray still showed persistent bibasilar and right midlung peripheral opacities consistent with COVID-19. Oral intake has been poor, and at this time we are considering low rate IV fluids. Labs have been reviewed, his white blood cell count is 16.8, hemoglobin is 15.7, he is a d-dimer is 9.28, sodium is 136, the rest of electrolytes are within normal limits, his BUN is 22, creatinine is 0.82, his LDH has actually trended up, and is at 2202, and CRP 1.2. On 08/29/2020 patient seen in follow-up in the intensive care unit, he was intubated over the weekend, he is currently remains sedated and paralyzed on mechanical ventilation, on assist-control mode of ventilation with a rate of 30, tidal vital 390, FiO2 100% and PEEP of 18. This morning his blood gases showed pO2 of 80, pCO2 75, and pH of 7.22. This was done 100% FiO2. His peak pressures are 45, plateau pressure is 42. Is currently on 0.9 at 1:30 ML per hour, Levothroid is at 11 mics per minute, fentanyl drip is at 0.5 mics per kilo per hour, Diprivan and is at 50 mics per kilo per minute, and index is at 1 jacob per kilo per minute, he is receiving tube feedings in the form of vital high- protein at 10 ML per hour. He is in sinus mechanism, slightly tachycardic with a rate of 109 BPM. Patient was proned last night, he is currently supine. His chest x-ray today shows diffuse bilateral infiltrates that are stable in appearance, and possibility of pneumomediastinum could not be excluded. Today's labs have been reviewed showing white blood cell count of 24.2, hemoglobin of 15.8, sodium is 142, potassium is 5.0, chloride is 110, CO2 is 30, BUN of 38, and creatinine of 1.35. AST was 92, ALT is 290, alkaline phosphatase is 110. CRP is 1.4 On 08/30/2020 patient seen in follow-up in the intensive care unit, he remains intubated, sedated and paralyzed on mechanical ventilator, currently on assist- control mode of ventilation with a rate of 36, tidal volume is 390, FiO2 100% and PEEP of 18, this morning his blood gases were reviewed showing pO2 of 98, pCO2 of 82, pH is 7.19. His peak airway pressure is 40, his plateau is 34, this chest x-ray today has been reviewed showing diffuse airspace disease that is stable in appearance, he is currently on 0.9 normal saline at a rate of 75 ML pe r hour, Levophed is at 8 mics per minute, fentanyl drip is at 0.75, and Diprivan is at 30 mics per kilo per minute, Nimbex is at 2 mics per kilo per minute. Patient is receiving tube feedings with vital high-protein at 48 with a goal of 48 and standard water flushes with 30 ML every 4 hours, he is in sinus mechanism, tachycardic with a rate of 112 BPM, he seems to have developed subcutaneous emphysema involving his anterior chest. He also developed a pressure injury from the Stefano ET tube Guardado on his right cheek. [place] 's been removed and cough type is being used for ET tube Guardado. Today's labs have been reviewed, white blood cell count is 23.1, hemoglobin is 15.4, platelet count is 92, potassium is 5.5, and this was treated with combination of 1 amp of bicarbonate, 50% dextrose and regular insulin. Recheck labs are pending, his BUN is 48 creatinine is 1.45, LDH from a couple days ago was trending up and was up to 3870, and CRP was 1.4. His last pro-calcitonin from and weight 2020 was negative at 0.07. On 08/31/2020 patient seen in follow-up in the intensive care unit, he remains sedated, paralyzed and intubated on mechanical ventilator, currently on assist-control with a rate of 36, tidal volume is 390, FiO2 of 70% and PEEP of 18, this morning blood gases show pO2 of 65, pCO2 of 81, and pH of 7.23. His peak and plateau pressures have been elevated, with peak pressure of 42, plateau pressure of 39. Further adjustments have been made to his ventilator settings, and patient was placed on pressure control mode of ventilation with pressure control 22, respiratory rate 36, FiO2 of 70%, PEEP of 18, and inspiratory time of 0.70. He had a chest x-ray today showing scattered airspace infiltrates greatest at the lung bases without significant change, he is currently on Levothroid at 0.03 mics per kilo per minute, fentanyl drip is at 0.75 mics per kilo per hour, 0.9 at 75 ML per hour, Nimbex is at 1.5 mics per kilo per minute, and Diprivan and is at 30 mics per kilo per minute. He is receiving tube feedings in the form of vital HP at 41 with a goal of 41, and standard water flushes of 30 ML every 4 hours, he is in sinus mechanism, bit tachycardic in the low 100s, no fever overnight. Today's labs have been reviewed showing white blood cell count of 15.7, hemoglobin of 14.2, his d-dimer is improving and is down to 6.17 from 10.13 on yesterday's labs, patient remains on Lovenox 50 mg every 12 hours. Sodium is 145, potassium is 5.3, chloride is 111, CO2 35, BUN of 54, creatinine is 1.24, his liver enzymes improved somewhat with AST of 61, and ALT of 251, LDH is improving is down to 1763, CRP is 0.8 on today's labs. Patient continues on Decadron 6 mg IV twice daily. Patient is producing urine in the order of 60-100 ML per hour. On 09/01/2020 patient seen in follow-up in intensive care unit, he remains intubated, sedated and paralyzed, on pressure control mode of ventilation, with inspiratory pressure of 22, rate of 36, FiO2 of 65% PEEP of 18, and inspiratory time of 0.7. This morning his blood gases reviewed showing pO2 of 53, pCO2 of 65, and pH of 7.34. This was completed on FiO2 of 65%, his peak air pressure is 41, his plateau pressures 37. Today's chest x-ray shows interval development of subcutaneous emphysema about the chest and neck, increasing consolidation in the lung bases probably representing pneumonia or atelectasis, no obvious pneumothorax was noted. Patient is currently on 0.9 normal saline at 75 ML per hour, to prevent is at 30 mics per kilo per minute, fentanyl drip is a 0.75 mics per kilo per hour, and Nimbex infusion at 1.5 mics per kilo per minute. He is tolerating tube feedings, he is receiving vital high-protein at 41 with a goal of 41 and standard water flushes, today's labs have been reviewed, his white blood cell count is down trending, and is down to 13.7 on today's labs, his hemoglobin is 13.5, his d-dimer is also improving and is down to 4.02, serum sodium is 147, potassium is 5.2, chloride is 111, CO2 is 26, BUN of 65, creatinine is 1.15, AST is 65, ALT is 227, and alkaline phosphatase within normal limits, overall his LFTs are stable if not slightly improved. Follow-up LDH is down to 1490, improving but still elevated, and his CRP today is 0.6 within normal limits. Physical exam reveals increased subcutaneous emphysema of anterior chest, upper shoulders and bilateral upper arms. Patient did prone for 16 hours, tolerated fairly well. Doing prone positioning his pulse ox is around 91-92% on the above-mentioned settings. In supine position he usually sats at around 86-87%. Hemodynamically he has not required any vasopressors, he is in sinus mechanism, his rate is controlled, is producing urine in the order of 40- 125 ML per hour. On 09/02/2020 patient seen in follow-up in the intensive care unit, he remains intubated, sedated and paralyzed, on assist-control mode of ventilation with a rate of 36, tidal volume 450, FiO2 of 65% and PEEP of 18, this morning's blood gas shows pO2 57, pCO2 of 68, pH is 7.34, and this was done on FiO2 of 65% and PEEP of 18, his peak airway pressures 43, plateau pressure is 38, today's chest x-ray has been reviewed showing no change in bibasilar opacities, and sized pneumothorax was not identified with certainty. Patient continues to have subcutaneous emphysema in his chest, upper arms and shoulders. But no clear evidence of pneumothorax on the chest x-ray. Last night patient started losing a significant amount of volume and had to be switched to volume assist-control mode of ventilation related to increasing hypercapnic respiratory failure. A blood gas that was completed at that time and this was around 5:00 in the afternoon showed pO2 of 71, pCO2 of greater than 120, and pH of 7.05. Patient was placed on assist-control mode of ventilation with a rate of 36, tidal volume 450, FiO2 of 65% and PEEP of 18, and this morning's blood gas shows improvement in his acid base balance, and improvement in his CO2 concentration. He is currently on 0.9 normal saline at a rate of 75 ML per hour, his fentanyl infusion is 0.75 mics per kilo per hour, Diprivan and is at 30 mics per kilo per minute, Nimbex is at 1.5 mics per kilo per minute, and he is on small amount of norepinephrine at 0.02 mics per kilo per minute. He is tolerating tube feedings, and he is receiving vital high-protein at 41 with a goal of 41, and he has been receiving free water flushes of 200 ML every 4 hours for elevated sodium of 147. Today's labs have been reviewed, and his serum sodium remains exactly the same at 147, potassium is 5.5, chloride is 112, CO2 is 38, BUN of 77, creatinine is 1.14. His AST and ALT continue to be relatively stable, with AST of 83, and ALT of 259, his LDH is trending down and is currently is 1394, and CRP is 0.8. White blood cell count is 13.8, and hemoglobin is 12.8. D- dimer is improving and is down to 2.72 on today's labs. His current dose Lovenox 40 mg daily, patient also remains on Decadron 6 mg twice daily. Patient is currently in supine position, he has been tolerating prone positioning. On 09/05/2020 patient seen in follow-up in the intensive care unit, he remains intubated, sedated, paralyzed on assist-control mode of ventilation with a rate of 36, tidal volume 450, FiO2 75% and PEEP of 18, this morning blood gases reviewed showing pO2 of 71, pCO2 of 71 and pH of 7.31, he is currently on 0.9 normal saline at a rate of 10 ML per hour, norepinephrine is at 6 mics per minute, Nimbex is at 1 jacob per kilo per minute, Diprivan is a 40 mics per kilo per minute, fentanyl drip is at 1 jacob per kilo per hour, and patient is on nutritional support in the form of vital HP at a rate of 41 with a goal of 41 and standard water flushes. Today's chest x-ray has been reviewed showing f indings consistent with patient's history of COVID pneumonia. Subcutaneous emphysema seems to have improved in appearance compared today's ago. Today's labs have been reviewed showing white blood cell, 15.6, hemoglobin of 11.7, platelet count is 91, d-dimer today is 4.20, sodium is 139, potassium is 5.2, CO2 is 36, BUN is 59, creatinine 0.94, ALT is 244, AST is 83, liver enzymes slightly improved, alk phos is 135. Patient has been tolerating prone positioning. But overall still requiring high PEEP and total requiring high FiO2. She remains on Lovenox at 40 mg daily, and he remains on dexamethasone 6 mg twice daily. Is d-dimer remains elevated over 4.2. We will adjust his Lovenox after tracheostomy and PEG tube placement in the next couple days On 09/06/2020 patient seen in follow-up in the intensive care unit, patient remains intubated, sedated and paralyzed, currently on assist-control mode of ventilation with a rate of 36, tidal volume of 450, FiO2 of 75% and PEEP of 18, this morning blood gas shows pO2 of 58, pCO2 of 72, and pH of 7.3. Today's chest x-ray shows bilateral airspace disease, prominent interstitium, ARDS. Patient is currently on D5W at 100 ML per hour, Nimbex is 1 jacob per kilo per minute, Diprivan is a 40 mics per kilo per minute, fentanyl drip is at 1 jacob per kilo per hour, and even that is at 2 mics per minute. He is tolerating tube feedings and is currently on vital high-protein at 41 with a goal of 41, and 200 mL of free water flushes every 4 hours. These labs have been reviewed, showing white blood cell count of 11.8, hemoglobin of 11, platelet count is 87, sodium 134, potassium is 5.0, chloride is 100, CO2 is 25, BUN of 53, creatinine is 0.84, LFTs are relatively stable, with AST at 92, ALT of 218, and alk phos of 131. Yesterday patient's was updated by the nursing staff on patient's progress and the decision for tracheostomy and PEG tube placement if family wants to continue with medical treatment. Patient's daughter seemed inclined to proceed with tracheostomy and PEG tube placement and based on that we will place a consult to Gen. surgery today for possibility of trach and PEG tube placement possibly today or in the next couple of days, pending on surgical availability On 09/07/2020 patient seen in follow-up in intensive care unit, he remains intubated, sedated and paralyzed, currently on assist-control mode of ventila tion with a rate of 36, tacrolimus 450, FiO2 of 75% and PEEP of 18. Today's chest x-ray has been reviewed showing bilateral airspace disease, and prominent interstitium, without significant change. Currently patient is on D5W at 100 ML per hour, Levophed is at 7 mics per minute, to prevent is a 40 mics per kilo per minute, fentanyl drip is at 1.1 mics per kilo per hour, and Nimbex is at 2 mics per kilo per minute. Patient's tube feedings are on hold for tracheostomy and PEG tube placement today. Today's labs have been reviewed showing white blood cell count of 13.1, hemoglobin 11.1, sodium is 134, potassium is 5.4, chloride is 97, CO2 35, B1 and 52 creatinine 0.91. Patient continues on Decadron 6 mg twice daily, on the prophylactic dose Lovenox 40 mg daily. Patient's family consented to tracheostomy and PEG tube placement, the surgical procedure scheduled for this afternoon Objective - Vital Signs Vital signs: Vital Signs Temp 98.1 F 09/07/20 04:00 Pulse 76 09/07/20 07:00 Resp 40 H 09/07/20 07:00 BP 118/61 09/06/20 21:00 Pulse Ox 88 L 09/07/20 07:00 Intake & Output 09/06/20 09/07/20 09/07/20 18:59 06:59 18:59 Intake Total 2535.841 1971 187.123 Output Total 905 1095 250 Balance 1630.841 876 -62.877 Weight 123 kg Intake: IV 1339 1236 103 Dextrose 5% in Water 1, 1300 1200 100 000 ml @ 100 mls/hr IV . Q10H [facility] Rx#:[id number] pressure BAG 39 36 3 Intake, IV Titration 403.841 500 84.123 Amount Cisatracurium 200 mg In 200 Sodium Chloride 0.9% 180 ml @ 2 MCG/KG/MIN 12.672 mls/hr IV .[id number] [facility] Rx #:[id number] Norepinephrine 8 mg In 46.145 Sodium Chloride 0.9% 250 ml @ 0.05 MCG/KG/MIN 10. 217 mls/hr IV .Q24H [facility] Rx#:[id number] fentaNYL (PF). 1,000 mcg 100 100 In Sodium Chloride 0.9% 80 ml @ Per Protocol IV . Q0M [facility] Rx#:[id number] propofoL 1,000 mg In 257.696 200 84.123 Empty Bag 1 bag @ Titrate IV .Q0M [facility] Rx#: [id number] Tube Feeding 533 205 Other 260 30 Output: Urine 905 1095 250 Other: Voiding Method Indwelling Catheter Indwelling Catheter ABP, PAP, CO, CI - Last Documented Arterial Blood Pressure 98/46 - Exam GENERAL EXAM: 70-year-old white male, assist control mode of ventilation, with FiO2 of 75% and PEEP of 18, sedated, and paralyzed. Patient appears to be generally swollen on today's exam including his face and upper arms HEAD: Normocephalic/atraumatic. EYES: Normal reaction of pupils, equal size. Conjunctiva pink, sclera white. NOSE: Clear with pink turbinates. Pressure injury involving the bridge of the n ose, in the wound is fairly dry, and guarding to scab over THROAT: No erythema or exudates. NECK: No masses, no JVD, no thyroid enlargement, no adenopathy. CHEST: No chest wall deformity. Symmetrical expansion. Increased subcutaneous emphysema noted on today's physical exam of the anterior chest, upper shoulders, and bilateral upper arms LUNGS: Equal air entry with coarse bibasilar crackles CVS: Regular rate and rhythm, normal S1 and S2, no gallops, no murmurs, no rubs ABDOMEN: Soft, nontender. No hepatosplenomegaly, normal bowel sounds, no guarding or rigidity. EXTREMITIES: No clubbing, generalized nonpitting edema no cyanosis, 2+ pulses and upper and lower extremities. MUSCULOSKELETAL: Muscle strength and tone normal. SPINE: No scoliosis or deformity SKIN: No rashes CENTRAL NERVOUS SYSTEM: Intubated, sedated and paralyzed No focal deficits, tone is normal in all 4 extremities. - Labs CBC & Chem 7: 09/07/20 02:56 09/07/20 02:56 Labs: Abnormal Lab Results - Last 24 Hours (Table) 09/06/20 09/06/20 09/06/20 Range/Units 11:40 17:25 23:25 WBC (3.8-10.6) k/uL RBC (4.30-5.90) m/uL Hgb (13.0-17.5) gm/dL Hct (39.0-53.0) % MCV (80.0-100.0) fL Plt Count (150-450) k/uL Neutrophils # (1.3-7.7) k/uL Lymphocytes # (1.0-4.8) k/uL ABG pH (7.35-7.45) ABG pCO2 (35-45) mmHg ABG pO2 (83-108) mmHg ABG HCO3 (21-25) mmol/L ABG Total CO2 (19-24) mmol/L ABG O2 Saturation (94-97) % Sodium (137-145) mmol/L Potassium (3.5-5.1) mmol/L Chloride (98-107) mmol/L Carbon Dioxide (22-30) mmol/L BUN (9-20) mg/dL Glucose (74-99) mg/dL POC Glucose (mg/dL) 133 H 124 H 120 H (75-99) mg/dL Calcium (8.4-10.2) mg/dL Magnesium (1.6-2.3) mg/dL 09/07/20 09/07/20 09/07/20 Range/Units 02:56 02:56 05:20 WBC 13.1 H (3.8-10.6) k/uL RBC 3.44 L (4.30-5.90) m/uL Hgb 11.1 L (13.0-17.5) gm/dL Hct 35.5 L (39.0-53.0) % MCV 103.2 H (80.0-100.0) fL Plt Count 90 L (150-450) k/uL Neutrophils # 12.2 H (1.3-7.7) k/uL Lymphocytes # 0.4 L (1.0-4.8) k/uL ABG pH 7.28 L (7.35-7.45) ABG pCO2 74 H* (35-45) mmHg ABG pO2 61 L (83-108) mmHg ABG HCO3 35 H (21-25) mmol/L ABG Total CO2 37 H (19-24) mmol/L ABG O2 Saturation 90.1 L (94-97) % Sodium 134 L (137-145) mmol/L Potassium 5.4 H (3.5-5.1) mmol/L Chloride 97 L (98-107) mmol/L Carbon Dioxide 35 H (22-30) mmol/L BUN 52 H (9-20) mg/dL Glucose 140 H (74-99) mg/dL POC Glucose (mg/dL) (75-99) mg/dL Calcium 8.0 L (8.4-10.2) mg/dL Magnesium 2.4 H (1.6-2.3) mg/dL 09/07/20 Range/Units 06:24 WBC (3.8-10.6) k/uL RBC (4.30-5.90) m/uL Hgb (13.0-17.5) gm/dL Hct (39.0-53.0) % MCV (80.0-100.0) fL Plt Count (150-450) k/uL Neutrophils # (1.3-7.7) k/uL Lymphocytes # (1.0-4.8) k/uL ABG pH (7.35-7.45) ABG pCO2 (35-45) mmHg ABG pO2 (83-108) mmHg ABG HCO3 (21-25) mmol/L ABG Total CO2 (19-24) mmol/L ABG O2 Saturation (94-97) % Sodium (137-145) mmol/L Potassium (3.5-5.1) mmol/L Chloride (98-107) mmol/L Carbon Dioxide (22-30) mmol/L BUN (9-20) mg/dL Glucose (74-99) mg/dL POC Glucose (mg/dL) 136 H (75-99) mg/dL Calcium (8.4-10.2) mg/dL Magnesium (1.6-2.3) mg/dL Assessment and Plan Plan: Assessment: #1. Acute hypoxic respiratory failure related to acute COVID-19 pneumonia, with onset of symptoms 10 days prior to presentation, patient had outpatient positive COVID-19 test on 08/09/2020, outside the window for Remdesivir. Hypoxia progressed and patient received Toci on 08/20/2020. Patient was transferred to the intensive care unit on 08/21/2020 and placed on BiPAP support. Patient was intubated on 08/28/2020. On 08/30/2020 patient remains sedated, paralyzed and intubated on FiO2 of 80% and PEEP of 18. On 08/31/2020 patient remains intubated, sedated and paralyzed, currently with FiO2 of 70%, and PEEP of 18, and his peak and plateau pressures have been elevated at 42 and 39 respectively, patient will be tried on pressure control mode of ventilation On 09/02/2020 patient remains sedated, intubated and paralyzed, currently on volume assist mode of ventilation, with a rate of 36, Tylenol level is 450, FiO2 of 65, and PEEP of 18. Peak pressures 43, plateau pressures 38. Patient had to be switched from pressure control mode of ventilation related to increasing hypercapnic respiratory failure and volume loss and leak. On 09/05/2020 patient still remains intubated, sedated and paralyzed, on assist- control mode of ventilation with the FiO2 of 75% and PEEP of 18 On 09/06/2020 patient remains intubated, sedated and paralyzed, on FiO2 of 75% and PEEP of 18 On 09/07/2020 is scheduled for tracheostomy and PEG tube placement #2. Increased d-dimer related to COVID-19 infection, lower extremity Dopplers were negative for DVT. Patient's currently on Lovenox 40 mg daily #3. Neutropenia, pro-calcitonin was negative, resolved and patient now has leukocytosis and currently his white blood cell count is 23.1 #4. Elevated liver enzymes related to viral pneumonia #5. Lifetime nonsmoker #6. History of chronic bronchial asthma, mild intermittent, inactive at this time #7. Episode of chest pain on 08/23/2020, EKG without significant ST segment elevation, 2 sets of negative troponins. Echocardiogram was a suboptimal study, unable to calculate EF, calculate chamber sizes or valves #8. Hypernatremia, related to free water deficit, resolved #9. Obesity, with BMI of 35.9 kg/m Plan: Today's labs, chest x-ray and blood gases reviewed Continue same vent settings, no room to make any adjustments Not ready for sedation and paralytic holiday Continue current dose Decadron, and Lovenox tube feedings are on hold Tracheostomy and PEG tube placement today Follow-up d-dimer, basic labs chest x-ray in the morning We'll resume nutritional support in the next 24 hours Continue supportive treatment Overall prognosis is guarded CODE STATUS is DO NOT RESUSCITATE I performed a history & physical examination of the patient and discussed their management with my nurse practitioner, Magdalena Negrete. I reviewed the nurse practitioner's note and agree with the documented findings and plan of care. Lung sounds are positive for diminished breath sounds. The findings and the impression was discussed with the patient. I attest to the documentation by the nurse practitioner. Time with Patient: Greater than 30
--- NOTE | 2020-09-07 10:20 | XR ---
EXAMINATION TYPE: XR chest 1V portable DATE OF EXAM: 09/07/2020 COMPARISON: 09/06/2020 HISTORY: Covid TECHNIQUE: Single frontal view of the chest is obtained. FINDINGS: Multiple overlying leads. Endotracheal tube is above the ben. Enteric catheter courses t owards the stomach. Left subclavian line with its tip at the SVC. Heart size enlarged. Edema. Atheros clerotic aorta. Patchy perihilar and bibasilar airspace opacity suggestive of pneumonia, edema, or AR DS. Moderate right pleural effusion. The left lateral costophrenic angle is not entirely visualized. No pneumothorax. Findings are similar to prior exam. IMPRESSION: 1. Findings similar to prior exam. Patchy airspace opacities may represent pneumonia, edema, or ARDS. The left costophrenic angle is not entirely visualized.
--- NOTE | 2020-09-07 11:33 | P.CONS ---
History of Present Illness - Reason for Consult Consult date: 09/07/20 wound care - History of Present Illness This is a 70-year-old patient being seen in ICU for pressure injuries to the face. Patient was on a BiPAP machine and developed a pressure ulcer to the bridge of the nose. During Proning patient developed a pressure ulcer to the right cheek. The ulcerations have eschar's to them. Patient at this time is intubated. The eschar's are removed and the pressure ulcers are a stage II pressure ulcers with fat layer exposure. Sangious drainage noted. Slough and nonviable tissue noted to wound base with eschar. Minimal granulation seen. Review of systems: Unable to obtain due to intubation Physical exam: General Appearance: Alert, cooperative, no distress, appears stated age. Skin: See HPI all other Skin color, texture, tugor normal, no rashes or lesions. Neurologic: Alert oriented x3 Assessment: 1. Stage II pressure ulcer to bridge of nose with fat layer exposure 2. Stage II pressure ulcer to right cheek face with fat layer exposure Plan: 1. The ulcerations were scored and some of the eschar cap was removed utilizing forceps and scalpel. Apply Santyl, saline moistened gauze, dry gauze, secure with paper tape change daily. Patient will benefit from continued wound care treatment. Thank you for the consultation any questions please contact the wound care center DNP note has been reviewed and discussed with Dr. Watkins and the impression and plan of care has been directed as dictated. Past Medical History Additional Past Medical History / Comment(s): covid + History of Any Multi-Drug Resistant Organisms: None Reported Past Surgical History: Back Surgery, Joint Replacement Additional Past Surgical History / Comment(s): rt knee Past Anesthesia/Blood Transfusion Reactions: No Reported Reaction Past Psychological History: No Psychological Hx Reported Smoking Status: Never smoker Past Alcohol Use History: Rare Past Drug Use History: None Reported - Past Family History Father History Unknown: Yes Medications and Allergies Home Medications Medication Instructions Recorded Confirmed Type Multivitamins, Thera [Multivitamin 1 tab PO DAILY 08/15/20 08/15/20 History (formulary)] Allergies Allergy/AdvReac Type Severity Reaction Status Date / Time Penicillins Allergy Swelling Verified 08/15/20 12:15 codeine AdvReac Nausea & Verified 08/15/20 12:15 Vomiting Physical Exam Vitals: Vital Signs Temp Pulse Resp BP Pulse Ox 09/07/20 11:00 76 36 H 89 L 09/07/20 10:00 74 36 H 89 L 09/07/20 09:00 75 36 H 93 L 09/07/20 08:00 98.2 F 64 36 H 90 L 09/07/20 07:00 76 40 H 88 L 09/07/20 06:00 78 30 H 90 L 09/07/20 05:00 83 41 H 87 L 09/07/20 04:00 98.1 F 74 18 84 L 09/07/20 03:00 84 19 89 L 09/07/20 02:00 80 16 87 L 09/07/20 01:00 78 26 H 85 L 09/07/20 00:00 98.1 F 72 26 H 85 L 09/06/20 23:00 79 38 H 90 L 09/06/20 22:00 78 39 H 88 L 09/06/20 21:10 75 38 H 87 L 09/06/20 21:00 76 35 H 118/61 87 L 09/06/20 20:00 98.1 F 77 7 L 118/61 96 09/06/20 19:00 73 36 H 118/61 89 L 09/06/20 18:00 74 30 H 89 L 09/06/20 17:00 72 30 H 87 L 09/06/20 16:00 98.0 F 74 30 H 87 L 09/06/20 15:00 73 36 H 90 L 09/06/20 14:00 71 36 H 88 L 09/06/20 13:00 75 30 H 87 L 09/06/20 12:00 78 36 H 87 L Intake and Output 09/06/20 09/07/20 09/07/20 22:59 06:59 14:59 Intake Total 3970.718 2904 783.007 Output Total 018 040 6179 Balance 671.597 535 -391.993 Intake: IV 824 824 515 Dextrose 5% in Water 1, 800 800 500 000 ml @ 100 mls/hr IV . Q10H [facility] Rx#:[id number] pressure BAG 24 24 15 Intake, IV Titration 104.597 400 268.007 Amount Cisatracurium 200 mg In 200 0.528 Sodium Chloride 0.9% 180 ml @ 2 MCG/KG/MIN 12.672 mls/hr IV .[id number] [facility] Rx #:[id number] Norepinephrine 8 mg In 4.597 110.007 Sodium Chloride 0.9% 250 ml @ 0.05 MCG/KG/MIN 10. 217 mls/hr IV .Q24H [facility] Rx#:[id number] fentaNYL (PF). 1,000 mcg 100 In Sodium Chloride 0.9% 80 ml @ Per Protocol IV . Q0M [facility] Rx#:[id number] propofoL 1,000 mg In 100 100 157.472 Empty Bag 1 bag @ Titrate IV .Q0M [facility] Rx#: [id number] Tube Feeding 328 41 Other 60 Output: Urine 536 984 3285 Other: Voiding Method Indwelling Catheter Indwelling Catheter Indwelling Catheter Weight 123 kg ABP, PAP, CO, CI - Last 8 Hours Arterial Blood Pressure 139/53 Arterial Blood Pressure 104/46 Arterial Blood Pressure 111/48 Arterial Blood Pressure 137/54 Arterial Blood Pressure 98/46 Arterial Blood Pressure 120/50 Arterial Blood Pressure 95/43 Arterial Blood Pressure 128/49 Results CBC & Chem 7: 09/07/20 02:56 09/07/20 02:56 Labs: Abnormal Lab Results - Last 24 Hours (Table) 09/06/20 09/06/20 09/06/20 Range/Units 11:40 17:25 23:25 WBC (3.8-10.6) k/uL RBC (4.30-5.90) m/uL Hgb (13.0-17.5) gm/dL Hct (39.0-53.0) % MCV (80.0-100.0) fL Plt Count (150-450) k/uL Neutrophils # (1.3-7.7) k/uL Lymphocytes # (1.0-4.8) k/uL ABG pH (7.35-7.45) ABG pCO2 (35-45) mmHg ABG pO2 (83-108) mmHg ABG HCO3 (21-25) mmol/L ABG Total CO2 (19-24) mmol/L ABG O2 Saturation (94-97) % Sodium (137-145) mmol/L Potassium (3.5-5.1) mmol/L Chloride (98-107) mmol/L Carbon Dioxide (22-30) mmol/L BUN (9-20) mg/dL Glucose (74-99) mg/dL POC Glucose (mg/dL) 133 H 124 H 120 H (75-99) mg/dL Calcium (8.4-10.2) mg/dL Magnesium (1.6-2.3) mg/dL 09/07/20 09/07/20 09/07/20 Range/Units 02:56 02:56 05:20 WBC 13.1 H (3.8-10.6) k/uL RBC 3.44 L (4.30-5.90) m/uL Hgb 11.1 L (13.0-17.5) gm/dL Hct 35.5 L (39.0-53.0) % MCV 103.2 H (80.0-100.0) fL Plt Count 90 L (150-450) k/uL Neutrophils # 12.2 H (1.3-7.7) k/uL Lymphocytes # 0.4 L (1.0-4.8) k/uL ABG pH 7.28 L (7.35-7.45) ABG pCO2 74 H* (35-45) mmHg ABG pO2 61 L (83-108) mmHg ABG HCO3 35 H (21-25) mmol/L ABG Total CO2 37 H (19-24) mmol/L ABG O2 Saturation 90.1 L (94-97) % Sodium 134 L (137-145) mmol/L Potassium 5.4 H (3.5-5.1) mmol/L Chloride 97 L (98-107) mmol/L Carbon Dioxide 35 H (22-30) mmol/L BUN 52 H (9-20) mg/dL Glucose 140 H (74-99) mg/dL POC Glucose (mg/dL) (75-99) mg/dL Calcium 8.0 L (8.4-10.2) mg/dL Magnesium 2.4 H (1.6-2.3) mg/dL 09/07/20 Range/Units 06:24 WBC (3.8-10.6) k/uL RBC (4.30-5.90) m/uL Hgb (13.0-17.5) gm/dL Hct (39.0-53.0) % MCV (80.0-100.0) fL Plt Count (150-450) k/uL Neutrophils # (1.3-7.7) k/uL Lymphocytes # (1.0-4.8) k/uL ABG pH (7.35-7.45) ABG pCO2 (35-45) mmHg ABG pO2 (83-108) mmHg ABG HCO3 (21-25) mmol/L ABG Total CO2 (19-24) mmol/L ABG O2 Saturation (94-97) % Sodium (137-145) mmol/L Potassium (3.5-5.1) mmol/L Chloride (98-107) mmol/L Carbon Dioxide (22-30) mmol/L BUN (9-20) mg/dL Glucose (74-99) mg/dL POC Glucose (mg/dL) 136 H (75-99) mg/dL Calcium (8.4-10.2) mg/dL Magnesium (1.6-2.3) mg/dL Assessment and Plan (1) Pressure ulcer of other site, stage 2 Current Visit: Yes Status: Acute Code(s): L89.892 - PRESSURE ULCER OF OTHER SITE, STAGE 2 SNOMED Code(s): 717663901
[2020-09-07 11:59] LABS: Glucose,Whole Blood 112 mg/dL (75-99)
[2020-09-07] MEDS: COLLAGENASE 250 UNIT/GM OINTMENT 30 GM TUBE TOPICAL SCH (12:05)
[2020-09-07] MEDS ORDERED: PROPOFOL 10 MG/ML 20 ML VIAL IV ONE (14:44)
[2020-09-07] MEDS ORDERED: ROCURONIUM 10 MG/ML (5 ML VIAL) IV ONE (14:44)
[2020-09-07] MEDS ORDERED: fentaNYL (PF) 50 MCG/ML 2 ML AMP ONE (14:44)
[2020-09-07] MEDS ORDERED: MIDAZOLAM 2 MG/2 ML VIAL ONE (14:44)
--- NOTE | 2020-09-07 15:58 | P.OP ---
Date of Procedure: 09/07/20 Preoperative Diagnosis: respiratory failure Malnutrition Postoperative Diagnosis: Rerespiratory failure Malnutrition Procedure(s) Performed: tracheostomy PEG tube placement Anesthesia: MULUGETA Surgeon: Jovani Berry Estimated Blood Loss (ml): 5 Pathology: none sent Condition: stable Disposition: PACU Description of Procedure: mThe patient's placed on the bed in the supine position. The patient received general anesthesia. The neck was prepped and draped in usual sterile fashion. A standard transverse skin incision was made approximately 2 cm above the sternal notch. Using electrocautery the subcutaneous tissues were divided. The platysma was divided. A Wheatlander retractor was placed in the wound. Next the strap muscles were divided in the midline. Another weatlander retractor was placed the wound. The pretracheal fat was then divided with left cautery. The trachea was exposed. At this point the [employer] advance the and the tracheal tube into the right mainstem bronchus. The balloon was inflated. A tracheotomy was then performed between the second and third tracheal rings. The perivascular tissues a gracilis the trachea. The endotracheal tube was brought back under direct vision. And then the #8 Portex tracheostomy tube was placed into the trachea. End-tidal CO2 was confirmed. The patient had been connected to the ventilator. The patient was ventilated satisfactory. The skin incision site was then closed with 3-0 nylon after the retractors were withdrawn. An umbilical tie was used to secure the tracheostomy tube. Next the gastroscope placed oropharynx passed in the esophagus and stomach. There is no evidence of any outlet obstruction. Stomach was insufflated with air. The light reflux seen the anterior abdominal wall. The abdomen was prepped and draped usual fashion. The skin was incised. And the needles placed and stomach under direct visualization. The needle was snared. And the wires placed through the needle and the wire was snared and brought the oropharynx. The PEG tube was placed over top the wire brought down to the stomach. The PEG tube was secured. At the 3 cm eryn. The one-piece bolster was used. Patient tolerated procedure well.
--- NOTE | 2020-09-07 16:32 | P.PN ---
Subjective Progress Note Date: 09/07/20 (delayed charting seen at 0945) Principal diagnosis: shortness of breath Patient is a 70-year-old male with a history of asthma and obesity who initially presented to the ER with complaints of shortness of breath, nausea, and poor appetite. He had known positive COVID testing on 08/09/20. In the ER he was found be hypoxic at 86% on room air. Labs were remarkable for LDH 1283, CRP 7.1, procalcitonin 0.1. He again was PCR positive. Chest x-ray demonstrated pneumonia. He was admitted and started on zinc, vitamin D, vitamin C, and Decadron. He was outside of the window for Remdesivir. Pulm was consulted who agreed with current plan of care. He was progressing well and then on 08/19 his oxygenation worsening ad he was placed on airvo. He was given toci on 08/20. On the morning of 08/21 he was requiring Airvo and 100% non rebreather and was transferred to the ICU and placed on BiPap. He suddenly desatted on the morning of 08/23 and had to be transitioned from AIRVO to BiPap, He was having acute chest pain, left sided without radiation. EKG did not show any signs of acute ischemia. He was able to be weaned back to airflow by the morning of 08/24, but required being replace on BiPap on 08/25. He was started on TPN for nutritional support. He required intubation on the evening of 08/28 due to worsening hypoxia. He required paralytics. . On 09/02 he was transitioned form volume controlled to pressure controlled ventilation due to worsening hypercapnia. He developed subcutaneous emphysema and pneumonmediastinum on chest x-ray, which slowy improved. He was not making progess and plans were for trach adn Peg. General: Ill-appearing, no distress, appears at stated age Derm: warm, dry, large 6 cm area of necrosis on right face, necrosis on nasal bridge Head: normocephalic, symmetric Eyes: no lid leision, pupil pin point, anicteric sclera Mouth: no lip lesion, mucus membranes dry Cardiovascular: S1S2 reg, no murmur, positive posterior tibial pulse bilateral, Lungs: Course breath sounds bilateral, no accessory muscle use, on vent Abdominal: soft, nontender to palpation, no guarding, no appreciable organomegaly Ext: no gross muscle atrophy, diffuse anasarca , no contractures COVID-19 pneumonitis, acute hypoxic respiratory failure intubated on 08/28, septic shock, pneumomedistinum - Continue with Decadron D#24 - Continue with vitamins - TOCI 08/20 - Lovenox increased due to D-dimer > 3 - pulm recs: intubated, sedated, paralyized Constipation -soapsuds enema 09/06 -bowel regiment -likely due to prolonged paralytics use Necrotic face wounds - consult wound care Toxic metabolic encephalopathy due to above - treatment as above Transaminitis, improving - likely related to COVID vs ETOH use - follow liver enzymes Asthma without exacerbation - albuterol Obesity with BMI 35.9 - structured weight loss once COVID resolved. Leukocytosis, improving - suspect reactive to steroids Chest pain, resolved Prognosis guarded. DVT prophylaxis: Lovenox Discussed with: Patient, nursing Anticipated discharge: unknown Anticipated discharge place: pending course A total of 35 minutes was spent on the care of this complex patient more than 50% of the time was spent in counseling and care coordination. Objective - Vital Signs Vital signs: Vital Signs Temp 98.2 F 09/07/20 12:00 Pulse 67 09/07/20 15:00 Resp 36 H 09/07/20 15:00 BP 118/61 09/06/20 21:00 Pulse Ox 92 L 09/07/20 15:00 Intake & Output 09/06/20 09/07/20 09/07/20 18:59 06:59 18:59 Intake Total 2535.841 1971 1400.029 Output Total 905 1095 1660 Balance 1630.841 876 -259.971 Weight 123 kg 123 kg Intake: IV 1339 1236 927 Dextrose 5% in Water 1, 1300 1200 900 000 ml @ 100 mls/hr IV . Q10H [facility] Rx#:[id number] pressure BAG 39 36 27 Intake, IV Titration 403.841 500 473.029 Amount Cisatracurium 200 mg In 200 0.528 Sodium Chloride 0.9% 180 ml @ 2 MCG/KG/MIN 12.672 mls/hr IV .[id number] [facility] Rx #:[id number] Norepinephrine 8 mg In 46.145 116.137 Sodium Chloride 0.9% 250 ml @ 0.05 MCG/KG/MIN 10. 217 mls/hr IV .Q24H [facility] Rx#:[id number] fentaNYL (PF). 1,000 mcg 100 100 100 In Sodium Chloride 0.9% 80 ml @ Per Protocol IV . Q0M [facility] Rx#:[id number] propofoL 1,000 mg In 257.696 200 256.364 Empty Bag 1 bag @ Titrate IV .Q0M [facility] Rx#: [id number] Tube Feeding 533 205 Other 260 30 Output: Urine 905 1095 1650 Estimated Blood Loss 10 Other: Voiding Method Indwelling Catheter Indwelling Catheter Indwelling Catheter ABP, PAP, CO, CI - Last Documented Arterial Blood Pressure 149/65 - Labs CBC & Chem 7: 09/07/20 02:56 09/07/20 02:56 Labs: Abnormal Lab Results - Last 24 Hours (Table) 09/06/20 09/06/20 09/07/20 Range/Units 17:25 23:25 02:56 WBC 13.1 H (3.8-10.6) k/uL RBC 3.44 L (4.30-5.90) m/uL Hgb 11.1 L (13.0-17.5) gm/dL Hct 35.5 L (39.0-53.0) % MCV 103.2 H (80.0-100.0) fL Plt Count 90 L (150-450) k/uL Neutrophils # 12.2 H (1.3-7.7) k/uL Lymphocytes # 0.4 L (1.0-4.8) k/uL ABG pH (7.35-7.45) ABG pCO2 (35-45) mmHg ABG pO2 (83-108) mmHg ABG HCO3 (21-25) mmol/L ABG Total CO2 (19-24) mmol/L ABG O2 Saturation (94-97) % Sodium (137-145) mmol/L Potassium (3.5-5.1) mmol/L Chloride (98-107) mmol/L Carbon Dioxide (22-30) mmol/L BUN (9-20) mg/dL Glucose (74-99) mg/dL POC Glucose (mg/dL) 124 H 120 H (75-99) mg/dL Calcium (8.4-10.2) mg/dL Magnesium (1.6-2.3) mg/dL 09/07/20 09/07/20 09/07/20 Range/Units 02:56 05:20 06:24 WBC (3.8-10.6) k/uL RBC (4.30-5.90) m/uL Hgb (13.0-17.5) gm/dL Hct (39.0-53.0) % MCV (80.0-100.0) fL Plt Count (150-450) k/uL Neutrophils # (1.3-7.7) k/uL Lymphocytes # (1.0-4.8) k/uL ABG pH 7.28 L (7.35-7.45) ABG pCO2 74 H* (35-45) mmHg ABG pO2 61 L (83-108) mmHg ABG HCO3 35 H (21-25) mmol/L ABG Total CO2 37 H (19-24) mmol/L ABG O2 Saturation 90.1 L (94-97) % Sodium 134 L (137-145) mmol/L Potassium 5.4 H (3.5-5.1) mmol/L Chloride 97 L (98-107) mmol/L Carbon Dioxide 35 H (22-30) mmol/L BUN 52 H (9-20) mg/dL Glucose 140 H (74-99) mg/dL POC Glucose (mg/dL) 136 H (75-99) mg/dL Calcium 8.0 L (8.4-10.2) mg/dL Magnesium 2.4 H (1.6-2.3) mg/dL 09/07/20 Range/Units 11:57 WBC (3.8-10.6) k/uL RBC (4.30-5.90) m/uL Hgb (13.0-17.5) gm/dL Hct (39.0-53.0) % MCV (80.0-100.0) fL Plt Count (150-450) k/uL Neutrophils # (1.3-7.7) k/uL Lymphocytes # (1.0-4.8) k/uL ABG pH (7.35-7.45) ABG pCO2 (35-45) mmHg ABG pO2 (83-108) mmHg ABG HCO3 (21-25) mmol/L ABG Total CO2 (19-24) mmol/L ABG O2 Saturation (94-97) % Sodium (137-145) mmol/L Potassium (3.5-5.1) mmol/L Chloride (98-107) mmol/L Carbon Dioxide (22-30) mmol/L BUN (9-20) mg/dL Glucose (74-99) mg/dL POC Glucose (mg/dL) 112 H (75-99) mg/dL Calcium (8.4-10.2) mg/dL Magnesium (1.6-2.3) mg/dL
[2020-09-07 17:52] LABS: Glucose,Whole Blood 112 mg/dL (75-99)
[2020-09-07] MEDS: polyethylene glycoL 3350 17 GM POWD.PACK PO SCH (21:59)
[2020-09-08 01:27] LABS: Glucose,Whole Blood 99 mg/dL (75-99)
[2020-09-08] MEDS: INSULIN ASPART (NovoLOG) 100 UNIT/ML VIAL SQ SCH ×4 (02:11→18:44)
[2020-09-08 04:57] LABS: Glucose,Whole Blood 137 mg/dL (75-99)
[2020-09-08 05:07] LABS: HCT 29.7 % (39.0-53.0); MCH 34.1 pg (25.0-35.0); MCHC 33.7 g/dL (31.0-37.0); MCV 101.3 fL (80.0-100.0); Macrocytosis Slight; Mean Platelet Volume 9.6; Platelet Count 93 k/uL (150-450); RBC 2.93 m/uL (4.30-5.90); RDW 14.4 % (11.5-15.5); WBC 12.1 k/uL (3.8-10.6)
[2020-09-08 05:26] LABS: ALT 144 U/L (4-49); AST 59 U/L (17-59); African American GFR (CKD) >90 (>60 ml/min/1.73 sqM); Albumin 2.1 g/dL (3.5-5.0); Alkaline Phosphatase 145 U/L (38-126); Anion Gap 1 mmol/L; Blood Urea Nitrogen 40 mg/dL (9-20); Calcium 7.9 mg/dL (8.4-10.2); Carbon Dioxide 35 mmol/L (22-30); Chloride 97 mmol/L (98-107); Glucose 125 mg/dL (74-99); LDH 1040 U/L (313-618); Non-African American GFR(CKD) >90 (>60 ml/min/1.73 sqM); Potassium 5.3 mmol/L (3.5-5.1); Sodium 133 mmol/L (137-145); Total Bilirubin 1.3 mg/dL (0.2-1.3); Total Protein 4.7 g/dL (6.3-8.2)
[2020-09-08 05:40] LABS: ABG Base Excess 10.2 mmol/L; ABG HCO3 35 mmol/L (21-25); ABG Oxygen Saturation 88.2 % (94-97); ABG PCO2 61 mmHg (35-45); ABG PH 7.37 (7.35-7.45); ABG TCO2 37 mmol/L (19-24); Allen Test Performed? Yes
[2020-09-08 05:48] LABS: ABG PO2 54 mmHg (83-108)
[2020-09-08] MEDS: ALBUTEROL HFA INHALER INHALATION SCH ×4 (07:55→19:16)
[2020-09-08] MEDS: ASCORBIC ACID 500 MG TAB PO SCH (08:32)
[2020-09-08] MEDS: CHLORHEXIDINE GLUCONATE 15 ML CUP MUCOUS MEM SCH ×2 (08:32→20:13)
[2020-09-08] MEDS: PANTOPRAZOLE 40 MG/10 ML VIAL IVP SCH (08:32)
[2020-09-08] MEDS: ZINC SULFATE 220 MG CAP PO SCH (08:32)
[2020-09-08] MEDS: CHOLECALCIFEROL 25 MCG (1000 IU) TABLET PO SCH (08:32)
[2020-09-08] MEDS: ENOXAPARIN 40 MG/0.4 ML SYRINGE SQ SCH (08:33)
[2020-09-08] MEDS: DEXAMETHASONE SOD PHOSPHATE 10 MG/ML 1 ML VIAL IV SCH ×2 (08:33→20:14)
--- NOTE | 2020-09-08 09:46 | XR ---
EXAMINATION TYPE: XR chest 1V portable DATE OF EXAM: 09/08/2020 COMPARISON: Chest x-ray 09/07/2020 HISTORY: Covid, tracheostomy tube placement TECHNIQUE: Single frontal view of the chest is obtained. FINDINGS: There is been interval removal of the endotracheal tube and orogastric tube, placement of tracheostomy tube which is overlying the tracheal air column. There is no evident pneumothorax. Left- sided PICC line is again seen. Bilateral airspace disease is present. Bilateral increased attenuation present at the lung bases, the heart is stable. There are overlying artifacts, left costophrenic ang le is not entirely included on the exam. IMPRESSION: Interval tracheostomy tube placement, correlate for pneumonia, edema, ARDS
--- NOTE | 2020-09-08 09:57 | P.PN ---
Subjective Progress Note Date: 09/08/20 Principal diagnosis: COVID-19 pneumonia 70-year-old white male patient who presented to the hospital on 08/15/2020 with complaints of 10 day history of loss of taste, cough, shortness of breath, fever. Patient and his have been staying with her daughter who tested positive for COVID, patient had an outpatient test for COVID-19 on 08/09/2020 and was found to be positive. Last few days he's been having increased shortness of breath, cough. Past medical history is noncontributory, other than osteoarthritis with previous history of joint replacement surgery in the right knee, patient is lifetime nonsmoker, does have history of chronic bronchial asthma, not on any maintenance inhalers on a regular basis. Chest x-ray in the emergency department shows some patchy airspace disease on the right, calcified granuloma in the right lower lobe, no pneumothorax or pleural effusion. His repeat COVID-19 PCR in the emergency room was positive, RSV and influenza screen were negative. His admission blood work showed neutropenia, and lymphopenia, white blood cell count was 2.6, and leukocyte count was 0.4, d-dimer was 0.95, potassium is 3.1, rest of the electrolytes and renal profile were unremarkable, lactic acid was 1.1, AST was 63, ALT and alk phos were within normal limits, LDH was 1283, CRP was 7.1, pro calcitonin level was negative at 0.10. Patient was satting 86% on room air, currently requiring 4 L of supplemental oxygen with a pulse ox of 91-94%, he is afebrile. Lung sounds reveal diffuse coarse crackles at bilateral bases. Patient was started on Decadron this milligram daily, and prophylactic Lovenox. he is outside the window for Remdesivir On 08/17/2020 patient seen in follow-up on medical surgical floor, he is resting in bed, appears to be in no acute distress, he still on 5 L of oxygen has pulse ox of 90-91%, he is afebrile, hemodynamically stable, he states when he walks to the bathroom he gets very lightheaded and dizzy and sometimes feel like he is going to pass out. He does get short of breath, he was instructed to call for help when ambulating to the bathroom. Sounds reveal diffuse crackles bilaterally, today's follow-up chest x-ray showing patchy airspace disease lung bases. He is trying to work on incentive spirometer. Today's labs have been reviewed, his d-dimer today is 0.55, inflammatory markers are improving, and his LDH is 609, and CRP is 3.6. An patient remains on Decadron 6 mg daily, and prophylactic dose Lovenox in addition to vitamins On 08/18/2020 patient seen in follow-up on medical surgical floor. He is currently down to 4 L of oxygen pulse ox is 93%, he states he still feels weak and wobbly when walking to the bathroom, at times he gets lightheaded, but no worsening dyspnea, no signs of any respiratory distress. Today's labs have been noted, d-dimer from yesterday is 0.55, inflammatory markers were improving, no cough, no complaints of chest discomfort, he remains on Decadron 6 blood gram d aily, and Lovenox 40 mg daily. On 08/19/2020 patient seen in follow-up on medical surgical floor, he is sitting up in the recliner, in no acute distress, is on 6 L of supplemental oxygen his pulse ox is 89-90%, no worsening dyspnea, although he does get short of breath and desat with exertion, consulted physical therapy and patient had ambulated with a walker. His ambulation ability slow shaky, no complaints of dizziness. Doing fairly well, no acute events overnight, and he is on Decadron, patient was not a candidate for Remdesivir, he is on prophylactic Lovenox, today's labs have been reviewed On 08/20/2020 patient seen in follow-up on medical surgical floor. In the last 24 hours his oxygenation has significantly deteriorated, he is currently on Airvo at 60 L and FiO2 of 92%, his pulse ox is 85-88%, his been afebrile, his temp of 101.7F, complaining of headache, he looks weak, he looks a lot more ill today, fatigued, short of breath with conversation, he has occasional cough, he was outside the window for Remdesivir, he has been on Decadron 6 mg daily, he is on prophylactic Lovenox, we'll give him a dose of Toci today On 08/21/2020 patient continued to worsen through the night, with increased work of breathing, and increased oxygenation needs, he was placed on Airvo yesterday, at 60 L in FiO2 of 93%, and he is requiring 100% nonrebreather mask on top of it, his pulse ox is only 80%, he is very tachypneic with respiratory rate in the 30s, diaphoretic, and looking fatigued. He was transferred to the intensive care unit this morning and placed on BiPAP support with pressures of 14/6 and FiO2 100%, he is actually tolerating that quite well, and seems more comfortable on it, lung sounds reveal diffuse coarse crackles at bilateral posterior bases, he is afebrile this morning, his chest x-ray today showing bilateral lower lobe infiltrates and small effusion., Yesterday his d-dimer with up to 10.10, and if it remains elevated again today at 10.19, his Lovenox dose was adjusted and he is currently on 60 mg of Lovenox every 12 hours. He remains on IV dexamethasone 6 mg daily, was given a dose of Actemra yesterday On 08/24/2020 patient seen in follow-up in the intensive care unit, he remains on BiPAP its at pressures of 14/7 and FiO2 of 90%. He seems to be tolerating BiPAP support quite well, seems to be very comfortable on that. He has remained on BiPAP continuously for 24 hours, try Airvo on him again today. Appears to be in no acute distress, on those above-mentioned settings his pulse ox is ranging between 86-91%, respiratory rate is in the mid 20s, blood pressure stable, he has been afebrile. Lung sounds reveal diminished breath sounds with some bibasilar crackles. No complaints of chest pain overnight, 2 sets of troponins were less than 0.012. Echocardiogram was a technically difficult study with suboptimal views, and the EF was not calculated, RV was not visualized, left atrium, right atrium, and all the valves were not well visualized. And as such this was a suboptimal study. No complaints of chest pain overnight, no complaints of chest pain this morning. This morning's labs have been reviewed, his d-dimer is 7.66 on today's labs, white blood cell count is 10.5, hemoglobin of 14.5, sodium is 135, the rest of electrolytes and renal profile were unremarkable, LDH is 1658, CRP is 2.8. No nausea vomiting or diarrhea, abdomen is soft, no worsening dyspnea On 08/25/2020 patient seen in follow-up in intensive care unit, yesterday he tolerated Airvo at 60 L and FiO2 of 90% in addition to 100% nonrebreather mask all day, and he was placed back on BiPAP support with pressures of 14/7 and FiO2 of 90% overnight, this morning she seen in the intensive care unit, he is resting comfortably in bed, he remains on BiPAP support and his pulse ox on above-mentioned settings is 92-95%. He denies any worsening dyspnea, he is easi ly arousable to voice, and answering simple questions, lung sounds reveal diminished breath sounds at the bases, with minimal crackles. Today's chest x- ray is pending, today's labs have been reviewed during white blood cell count of 12.4, hemoglobin of 14.6, d-dimer remains elevated at 7.86, and patient's on Lovenox at 50 mg twice daily. No complaints of chest pain. No cough, no congestion, yesterday while he was on Airvo he was able to take in some oral feedings, and had a fair appetite. She is in sinus mechanism, hemodynamically she is stable, he is on plane, sitting at a rate of 50 ML per hour. He remains on Decadron at 6 mg twice daily. His renal function is within normal limits to day with B1 of 18 creatinine 0.71, sodium was 135, and her serum electrolytes were within normal limits, 2 sets of troponins were less than 0.012, limited echocardiogram was a suboptimal study, however there was no recurrence of chest discomfort from 2 days ago, and heparin drip was discontinued, no acute ST wave changes. No vomiting or diarrhea, abdomen is soft, no complaints of abdominal pain. On 08/26/2020 patient seen in follow-up in intensive care unit, currently on BiPAP with pressures of 14/7 and FiO2 100%, and his pulse ox is 88%, yesterday he was able to tolerate Airvo and nonrebreather and come off the BiPAP for short periods of time. Today he seems more lethargic compared to yesterday, he is tachypneic, but he is achieving over 1 L and tidal volumes on the BiPAP, his respiratory rate is in the mid 30s. He opens eyes to voice, he lightly groans in response to questions, but not really providing full sentence responses. Yesterday we gave him a dose of IV Lasix, he diuresed quite well, and he is in - 3.1 L over the last 24 hours. Despite the diuresis, the patient failed to improve, today's chest x-ray still showed persistent bibasilar and right midlung peripheral opacities consistent with COVID-19. Oral intake has been poor, and at this time we are considering low rate IV fluids. Labs have been reviewed, his white blood cell count is 16.8, hemoglobin is 15.7, he is a d-dimer is 9.28, sodium is 136, the rest of electrolytes are within normal limits, his BUN is 22, creatinine is 0.82, his LDH has actually trended up, and is at 2202, and CRP 1.2. On 08/29/2020 patient seen in follow-up in the intensive care unit, he was intubated over the weekend, he is currently remains sedated and paralyzed on mechanical ventilation, on assist-control mode of ventilation with a rate of 30, tidal vital 390, FiO2 100% and PEEP of 18. This morning his blood gases showed pO2 of 80, pCO2 75, and pH of 7.22. This was done 100% FiO2. His peak pressures are 45, plateau pressure is 42. Is currently on 0.9 at 1:30 ML per hour, Levothroid is at 11 mics per minute, fentanyl drip is at 0.5 mics per kilo per hour, Diprivan and is at 50 mics per kilo per minute, and index is at 1 jacob per kilo per minute, he is receiving tube feedings in the form of vital high- protein at 10 ML per hour. He is in sinus mechanism, slightly tachycardic with a rate of 109 BPM. Patient was proned last night, he is currently supine. His chest x-ray today shows diffuse bilateral infiltrates that are stable in appearance, and possibility of pneumomediastinum could not be excluded. Today's labs have been reviewed showing white blood cell count of 24.2, hemoglobin of 15.8, sodium is 142, potassium is 5.0, chloride is 110, CO2 is 30, BUN of 38, and creatinine of 1.35. AST was 92, ALT is 290, alkaline phosphatase is 110. CRP is 1.4 On 08/30/2020 patient seen in follow-up in the intensive care unit, he remains intubated, sedated and paralyzed on mechanical ventilator, currently on assist- control mode of ventilation with a rate of 36, tidal volume is 390, FiO2 100% and PEEP of 18, this morning his blood gases were reviewed showing pO2 of 98, pCO2 of 82, pH is 7.19. His peak airway pressure is 40, his plateau is 34, this chest x-ray today has been reviewed showing diffuse airspace disease that is stable in appearance, he is currently on 0.9 normal saline at a rate of 75 ML pe r hour, Levophed is at 8 mics per minute, fentanyl drip is at 0.75, and Diprivan is at 30 mics per kilo per minute, Nimbex is at 2 mics per kilo per minute. Patient is receiving tube feedings with vital high-protein at 48 with a goal of 48 and standard water flushes with 30 ML every 4 hours, he is in sinus mechanism, tachycardic with a rate of 112 BPM, he seems to have developed subcutaneous emphysema involving his anterior chest. He also developed a pressure injury from the Stefano ET tube Guardado on his right cheek. Cutler 's been removed and cough type is being used for ET tube Guardado. Today's labs have been reviewed, white blood cell count is 23.1, hemoglobin is 15.4, platelet count is 92, potassium is 5.5, and this was treated with combination of 1 amp of bicarbonate, 50% dextrose and regular insulin. Recheck labs are pending, his BUN is 48 creatinine is 1.45, LDH from a couple days ago was trending up and was up to 3870, and CRP was 1.4. His last pro-calcitonin from and weight 2020 was negative at 0.07. On 08/31/2020 patient seen in follow-up in the intensive care unit, he remains sedated, paralyzed and intubated on mechanical ventilator, currently on assist-control with a rate of 36, tidal volume is 390, FiO2 of 70% and PEEP of 18, this morning blood gases show pO2 of 65, pCO2 of 81, and pH of 7.23. His peak and plateau pressures have been elevated, with peak pressure of 42, plateau pressure of 39. Further adjustments have been made to his ventilator settings, and patient was placed on pressure control mode of ventilation with pressure control 22, respiratory rate 36, FiO2 of 70%, PEEP of 18, and inspiratory time of 0.70. He had a chest x-ray today showing scattered airspace infiltrates greatest at the lung bases without significant change, he is currently on Levothroid at 0.03 mics per kilo per minute, fentanyl drip is at 0.75 mics per kilo per hour, 0.9 at 75 ML per hour, Nimbex is at 1.5 mics per kilo per minute, and Diprivan and is at 30 mics per kilo per minute. He is receiving tube feedings in the form of vital HP at 41 with a goal of 41, and standard water flushes of 30 ML every 4 hours, he is in sinus mechanism, bit tachycardic in the low 100s, no fever overnight. Today's labs have been reviewed showing white blood cell count of 15.7, hemoglobin of 14.2, his d-dimer is improving and is down to 6.17 from 10.13 on yesterday's labs, patient remains on Lovenox 50 mg every 12 hours. Sodium is 145, potassium is 5.3, chloride is 111, CO2 35, BUN of 54, creatinine is 1.24, his liver enzymes improved somewhat with AST of 61, and ALT of 251, LDH is improving is down to 1763, CRP is 0.8 on today's labs. Patient continues on Decadron 6 mg IV twice daily. Patient is producing urine in the order of 60-100 ML per hour. On 09/01/2020 patient seen in follow-up in intensive care unit, he remains intubated, sedated and paralyzed, on pressure control mode of ventilation, with inspiratory pressure of 22, rate of 36, FiO2 of 65% PEEP of 18, and inspiratory time of 0.7. This morning his blood gases reviewed showing pO2 of 53, pCO2 of 65, and pH of 7.34. This was completed on FiO2 of 65%, his peak air pressure is 41, his plateau pressures 37. Today's chest x-ray shows interval development of subcutaneous emphysema about the chest and neck, increasing consolidation in the lung bases probably representing pneumonia or atelectasis, no obvious pneumothorax was noted. Patient is currently on 0.9 normal saline at 75 ML per hour, to prevent is at 30 mics per kilo per minute, fentanyl drip is a 0.75 mics per kilo per hour, and Nimbex infusion at 1.5 mics per kilo per minute. He is tolerating tube feedings, he is receiving vital high-protein at 41 with a goal of 41 and standard water flushes, today's labs have been reviewed, his white blood cell count is down trending, and is down to 13.7 on today's labs, his hemoglobin is 13.5, his d-dimer is also improving and is down to 4.02, serum sodium is 147, potassium is 5.2, chloride is 111, CO2 is 26, BUN of 65, creatinine is 1.15, AST is 65, ALT is 227, and alkaline phosphatase within normal limits, overall his LFTs are stable if not slightly improved. Follow-up LDH is down to 1490, improving but still elevated, and his CRP today is 0.6 within normal limits. Physical exam reveals increased subcutaneous emphysema of anterior chest, upper shoulders and bilateral upper arms. Patient did prone for 16 hours, tolerated fairly well. Doing prone positioning his pulse ox is around 91-92% on the above-mentioned settings. In supine position he usually sats at around 86-87%. Hemodynamically he has not required any vasopressors, he is in sinus mechanism, his rate is controlled, is producing urine in the order of 40- 125 ML per hour. On 09/02/2020 patient seen in follow-up in the intensive care unit, he remains intubated, sedated and paralyzed, on assist-control mode of ventilation with a rate of 36, tidal volume 450, FiO2 of 65% and PEEP of 18, this morning's blood gas shows pO2 57, pCO2 of 68, pH is 7.34, and this was done on FiO2 of 65% and PEEP of 18, his peak airway pressures 43, plateau pressure is 38, today's chest x-ray has been reviewed showing no change in bibasilar opacities, and sized pneumothorax was not identified with certainty. Patient continues to have subcutaneous emphysema in his chest, upper arms and shoulders. But no clear evidence of pneumothorax on the chest x-ray. Last night patient started losing a significant amount of volume and had to be switched to volume assist-control mode of ventilation related to increasing hypercapnic respiratory failure. A blood gas that was completed at that time and this was around 5:00 in the afternoon showed pO2 of 71, pCO2 of greater than 120, and pH of 7.05. Patient was placed on assist-control mode of ventilation with a rate of 36, tidal volume 450, FiO2 of 65% and PEEP of 18, and this morning's blood gas shows improvement in his acid base balance, and improvement in his CO2 concentration. He is currently on 0.9 normal saline at a rate of 75 ML per hour, his fentanyl infusion is 0.75 mics per kilo per hour, Diprivan and is at 30 mics per kilo per minute, Nimbex is at 1.5 mics per kilo per minute, and he is on small amount of norepinephrine at 0.02 mics per kilo per minute. He is tolerating tube feedings, and he is receiving vital high-protein at 41 with a goal of 41, and he has been receiving free water flushes of 200 ML every 4 hours for elevated sodium of 147. Today's labs have been reviewed, and his serum sodium remains exactly the same at 147, potassium is 5.5, chloride is 112, CO2 is 38, BUN of 77, creatinine is 1.14. His AST and ALT continue to be relatively stable, with AST of 83, and ALT of 259, his LDH is trending down and is currently is 1394, and CRP is 0.8. White blood cell count is 13.8, and hemoglobin is 12.8. D- dimer is improving and is down to 2.72 on today's labs. His current dose Lovenox 40 mg daily, patient also remains on Decadron 6 mg twice daily. Patient is currently in supine position, he has been tolerating prone positioning. On 09/05/2020 patient seen in follow-up in the intensive care unit, he remains intubated, sedated, paralyzed on assist-control mode of ventilation with a rate of 36, tidal volume 450, FiO2 75% and PEEP of 18, this morning blood gases reviewed showing pO2 of 71, pCO2 of 71 and pH of 7.31, he is currently on 0.9 normal saline at a rate of 10 ML per hour, norepinephrine is at 6 mics per minute, Nimbex is at 1 jacob per kilo per minute, Diprivan is a 40 mics per kilo per minute, fentanyl drip is at 1 jacob per kilo per hour, and patient is on nutritional support in the form of vital HP at a rate of 41 with a goal of 41 and standard water flushes. Today's chest x-ray has been reviewed showing f indings consistent with patient's history of COVID pneumonia. Subcutaneous emphysema seems to have improved in appearance compared today's ago. Today's labs have been reviewed showing white blood cell, 15.6, hemoglobin of 11.7, platelet count is 91, d-dimer today is 4.20, sodium is 139, potassium is 5.2, CO2 is 36, BUN is 59, creatinine 0.94, ALT is 244, AST is 83, liver enzymes slightly improved, alk phos is 135. Patient has been tolerating prone positioning. But overall still requiring high PEEP and total requiring high FiO2. She remains on Lovenox at 40 mg daily, and he remains on dexamethasone 6 mg twice daily. Is d-dimer remains elevated over 4.2. We will adjust his Lovenox after tracheostomy and PEG tube placement in the next couple days On 09/06/2020 patient seen in follow-up in the intensive care unit, patient remains intubated, sedated and paralyzed, currently on assist-control mode of ventilation with a rate of 36, tidal volume of 450, FiO2 of 75% and PEEP of 18, this morning blood gas shows pO2 of 58, pCO2 of 72, and pH of 7.3. Today's chest x-ray shows bilateral airspace disease, prominent interstitium, ARDS. Patient is currently on D5W at 100 ML per hour, Nimbex is 1 jacob per kilo per minute, Diprivan is a 40 mics per kilo per minute, fentanyl drip is at 1 jacob per kilo per hour, and even that is at 2 mics per minute. He is tolerating tube feedings and is currently on vital high-protein at 41 with a goal of 41, and 200 mL of free water flushes every 4 hours. These labs have been reviewed, showing white blood cell count of 11.8, hemoglobin of 11, platelet count is 87, sodium 134, potassium is 5.0, chloride is 100, CO2 is 25, BUN of 53, creatinine is 0.84, LFTs are relatively stable, with AST at 92, ALT of 218, and alk phos of 131. Yesterday patient's was updated by the nursing staff on patient's progress and the decision for tracheostomy and PEG tube placement if family wants to continue with medical treatment. Patient's daughter seemed inclined to proceed with tracheostomy and PEG tube placement and based on that we will place a consult to Gen. surgery today for possibility of trach and PEG tube placement possibly today or in the next couple of days, pending on surgical availability On 09/07/2020 patient seen in follow-up in intensive care unit, he remains intubated, sedated and paralyzed, currently on assist-control mode of ventila tion with a rate of 36, tidal volume 450, FiO2 of 75% and PEEP of 18. Today's chest x-ray has been reviewed showing bilateral airspace disease, and prominent interstitium, without significant change. Currently patient is on D5W at 100 ML per hour, Levophed is at 7 mics per minute, to prevent is a 40 mics per kilo per minute, fentanyl drip is at 1.1 mics per kilo per hour, and Nimbex is at 2 mics per kilo per minute. Patient's tube feedings are on hold for tracheostomy and PEG tube placement today. Today's labs have been reviewed showing white blood cell count of 13.1, hemoglobin 11.1, sodium is 134, potassium is 5.4, chloride is 97, CO2 35, B1 and 52 creatinine 0.91. Patient continues on Decadron 6 mg twice daily, on the prophylactic dose Lovenox 40 mg daily. Patient's family consented to tracheostomy and PEG tube placement, the surgical procedure scheduled for this afternoon. On 09/08/2020 patient seen in follow-up in intensive care unit, he remains intubated, sedated and paralyzed. On assist-control mode of ventilation with a rate of 36, tidal volume 450, FiO2 of 75% and PEEP of 20. Today's blood gas shows pO2 of 54, pCO2 of 61 and pH of 7.37 this was done on FiO2 of 75%. Today's chest x-ray has been reviewed showing bilateral airspace disease, and prominent interstitium, without significant change. Patient is status post tracheostomy and PEG tube placement on 09/07/2020. Patient is currently on D5W at 100 ML per hour, Nimbex is at 2 mics per kilo per minute, fentanyl drip is at 1 jacob per kilo per hour, Diprivan is a 40 mics per kilo per minute, levo fed is currently at 1 jacob per minute. Patient will have his tube feedings restarted later on today. Today's labs have been reviewed showing white blood cell count of 12.1, hemoglobin of 10, d-dimer is up to 8.21, sodium is 133, potassium is 5.3, chloride is 97, CO2 35, B1 is 40, creatinine 0.83, AST is 59, ALT is 144, and alkaline phosphatase is 145, LDH is down trending is down to 1040. Patient is currently on Lovenox 40 mg daily which we'll adjust today, patient has been in positive fluid balance for the last several days, overall he is 15 kg positive since admission. We'll try to diurese and hopefully improve his oxygenation. Objective - Vital Signs Vital signs: Vital Signs Temp 98.9 F 09/08/20 04:00 Pulse 74 09/08/20 08:00 Resp 36 H 09/08/20 08:00 BP 118/61 09/08/20 01:00 Pulse Ox 91 L 09/08/20 08:00 Intake & Output 09/07/20 09/08/20 09/08/20 18:59 06:59 18:59 Intake Total 0121.385 3377.012 Output Total 1960 1225 Balance -141.843 734.012 Weight 123 kg 123.2 kg Intake: IV 1236 1339 Dextrose 5% in Water 1, 1200 1300 000 ml @ 100 mls/hr IV . Q10H [facility] Rx#:[id number] pressure BAG 36 39 Intake, IV Titration 582.157 620.012 Amount Cisatracurium 200 mg In 0.528 199.373 Sodium Chloride 0.9% 180 ml @ 2 MCG/KG/MIN 12.672 mls/hr IV .[id number] [facility] Rx #:[id number] Norepinephrine 8 mg In 125.265 20.639 Sodium Chloride 0.9% 250 ml @ 0.05 MCG/KG/MIN 10. 217 mls/hr IV .Q24H [facility] Rx#:[id number] fentaNYL (PF). 1,000 mcg 100 100 In Sodium Chloride 0.9% 80 ml @ Per Protocol IV . Q0M [facility] Rx#:[id number] propofoL 1,000 mg In 356.364 300 Empty Bag 1 bag @ Titrate IV .Q0M [facility] Rx#: [id number] Output: Urine 1950 1225 Estimated Blood Loss 10 Other: Voiding Method Indwelling Catheter Indwelling Catheter ABP, PAP, CO, CI - Last Documented Arterial Blood Pressure 103/47 - Exam GENERAL EXAM: 70-year-old white male, trached to the ventilator on assist control mode of ventilation, with FiO2 of 75% and PEEP of 20, sedated, and paralyzed. HEAD: Normocephalic/atraumatic. EYES: Normal reaction of pupils, equal size. Conjunctiva pink, sclera white. NOSE: Clear with pink turbinates. Pressure injury involving the bridge of the nose, in the wound is fairly dry, and guarding to scab over THROAT: No erythema or exudates. NECK: No masses, no JVD, no thyroid enlargement, no adenopathy. Midline tracheostomy, and patient trached to the vent CHEST: No chest wall deformity. Symmetrical expansion. Increased subcutaneous emphysema noted on today's physical exam of the anterior chest, upper shoulders, and bilateral upper arms LUNGS: Equal air entry with coarse bibasilar crackles CVS: Regular rate and rhythm, normal S1 and S2, no gallops, no murmurs, no rubs ABDOMEN: Soft, nontender. No hepatosplenomegaly, normal bowel sounds, no guarding or rigidity. Left upper quadrant PEG tube in place EXTREMITIES: No clubbing, generalized nonpitting edema no cyanosis, 2+ pulses and upper and lower extremities. MUSCULOSKELETAL: Muscle strength and tone normal. SPINE: No scoliosis or deformity SKIN: No rashes CENTRAL NERVOUS SYSTEM: Intubated, sedated and paralyzed No focal deficits, tone is normal in all 4 extremities. - Labs CBC & Chem 7: 09/08/20 04:50 09/08/20 04:50 Labs: Abnormal Lab Results - Last 24 Hours (Table) 09/07/20 09/07/20 09/08/20 Range/Units 11:57 17:52 04:50 WBC 12.1 H (3.8-10.6) k/uL RBC 2.93 L (4.30-5.90) m/uL Hgb 10.0 L (13.0-17.5) gm/dL Hct 29.7 L (39.0-53.0) % MCV 101.3 H (80.0-100.0) fL Plt Count 93 L (150-450) k/uL D-Dimer (<0.60) mg/L FEU ABG pCO2 (35-45) mmHg ABG pO2 (83-108) mmHg ABG HCO3 (21-25) mmol/L ABG Total CO2 (19-24) mmol/L ABG O2 Saturation (94-97) % Sodium (137-145) mmol/L Potassium (3.5-5.1) mmol/L Chloride (98-107) mmol/L Carbon Dioxide (22-30) mmol/L BUN (9-20) mg/dL Glucose (74-99) mg/dL POC Glucose (mg/dL) 112 H 112 H (75-99) mg/dL Calcium (8.4-10.2) mg/dL ALT (4-49) U/L Alkaline Phosphatase (38-126) U/L Lactate Dehydrogenase (313-618) U/L Total Protein (6.3-8.2) g/dL Albumin (3.5-5.0) g/dL 09/08/20 09/08/20 09/08/20 Range/Units 04:50 04:50 04:55 WBC (3.8-10.6) k/uL RBC (4.30-5.90) m/uL Hgb (13.0-17.5) gm/dL Hct (39.0-53.0) % MCV (80.0-100.0) fL Plt Count (150-450) k/uL D-Dimer 8.21 H (<0.60) mg/L FEU ABG pCO2 (35-45) mmHg ABG pO2 (83-108) mmHg ABG HCO3 (21-25) mmol/L ABG Total CO2 (19-24) mmol/L ABG O2 Saturation (94-97) % Sodium 133 L (137-145) mmol/L Potassium 5.3 H (3.5-5.1) mmol/L Chloride 97 L (98-107) mmol/L Carbon Dioxide 35 H (22-30) mmol/L BUN 40 H (9-20) mg/dL Glucose 125 H (74-99) mg/dL POC Glucose (mg/dL) 137 H (75-99) mg/dL Calcium 7.9 L (8.4-10.2) mg/dL ALT 144 H (4-49) U/L Alkaline Phosphatase 145 H (38-126) U/L Lactate Dehydrogenase 1040 H (313-618) U/L Total Protein 4.7 L (6.3-8.2) g/dL Albumin 2.1 L (3.5-5.0) g/dL 09/08/20 Range/Units 05:25 WBC (3.8-10.6) k/uL RBC (4.30-5.90) m/uL Hgb (13.0-17.5) gm/dL Hct (39.0-53.0) % MCV (80.0-100.0) fL Plt Count (150-450) k/uL D-Dimer (<0.60) mg/L FEU ABG pCO2 61 H (35-45) mmHg ABG pO2 54 L* (83-108) mmHg ABG HCO3 35 H (21-25) mmol/L ABG Total CO2 37 H (19-24) mmol/L ABG O2 Saturation 88.2 L (94-97) % Sodium (137-145) mmol/L Potassium (3.5-5.1) mmol/L Chloride (98-107) mmol/L Carbon Dioxide (22-30) mmol/L BUN (9-20) mg/dL Glucose (74-99) mg/dL POC Glucose (mg/dL) (75-99) mg/dL Calcium (8.4-10.2) mg/dL ALT (4-49) U/L Alkaline Phosphatase (38-126) U/L Lactate Dehydrogenase (313-618) U/L Total Protein (6.3-8.2) g/dL Albumin (3.5-5.0) g/dL Assessment and Plan Plan: Assessment: #1. Acute hypoxic respiratory failure related to acute COVID-19 pneumonia, with onset of symptoms 10 days prior to presentation, patient had outpatient positive COVID-19 test on 08/09/2020, outside the window for Remdesivir. Hypoxia progressed and patient received Toci on 08/20/2020. Patient was transferred to the intensive care unit on 08/21/2020 and placed on BiPAP support. Patient was intubated on 08/28/2020. On 08/30/2020 patient remains sedated, paralyzed and intubated on FiO2 of 80% and PEEP of 18. On 08/31/2020 patient remains intubated, sedated and paralyzed, currently with FiO2 of 70%, and PEEP of 18, and his peak and plateau pressures have been elevated at 42 and 39 respectively, patient will be tried on pressure control mode of ventilation On 09/02/2020 patient remains sedated, intubated and paralyzed, currently on volume assist mode of ventilation, with a rate of 36, Tylenol level is 450, FiO2 of 65, and PEEP of 18. Peak pressures 43, plateau pressures 38. Patient had to be switched from pressure control mode of ventilation related to increasing hypercapnic respiratory failure and volume loss and leak. On 09/05/2020 patient still remains intubated, sedated and paralyzed, on assist-control mode of ventilation with the FiO2 of 75% and PEEP of 18 On 09/06/2020 patient remains intubated, sedated and paralyzed, on FiO2 of 75% and PEEP of 18 On 09/07/2020 is scheduled for tracheostomy and PEG tube placement #2. Increased d-dimer related to COVID-19 infection, lower extremity Dopplers were negative for DVT. Patient's currently on Lovenox 40 mg daily #3. Neutropenia, pro-calcitonin was negative, resolved and patient now has leukocytosis and currently his white blood cell count is 23.1 #4. Elevated liver enzymes related to viral pneumonia #5. Lifetime nonsmoker #6. History of chronic bronchial asthma, mild intermittent, inactive at this time #7. Episode of chest pain on 08/23/2020, EKG without significant ST segment elevation, 2 sets of negative troponins. Echocardiogram was a suboptimal study, unable to calculate EF, calculate chamber sizes or valves #8. Hypernatremia, related to free water deficit, resolved #9. Obesity, with BMI of 35.9 kg/m Plan: Today's labs, chest x-ray and blood gases reviewed Continue same vent settings, currently on FiO2 of 75% and PEEP of 20 We'll add Lasix 40 mg every 12 hours Discontinue D5W Not ready for sedation and paralytic holiday Continue current dose Decadron, increase Lovenox to 60 mg twice daily Anticipate restarting tube feedings later on today Follow-up d-dimer, basic labs chest x-ray in the morning We'll resume nutritional support in the next 24 hours Continue supportive treatment Overall prognosis is guarded CODE STATUS is DO NOT RESUSCITATE I performed a history & physical examination of the patient and discussed their management with my nurse practitioner, Magdalena Negrete. I reviewed the nurse practitioner's note and agree with the documented findings and plan of care. Lung sounds are positive for diminished breath sounds. The findings and the impression was discussed with the patient. I attest to the documentation by the nurse practitioner. Time with Patient: Greater than 30
[2020-09-08] MEDS: fentaNYL (PF). 1,000 MCG in SODIUM CHLORIDE 0.9% 80 ML IV SCH ×2 (10:12→20:13)
[2020-09-08] MEDS: FUROSEMIDE 10 MG/ML 4 ML VIAL IV SCH ×2 (10:14→20:16)
[2020-09-08] MEDS: COLLAGENASE 250 UNIT/GM OINTMENT 30 GM TUBE TOPICAL SCH (10:29)
[2020-09-08 11:44] LABS: Glucose,Whole Blood 103 mg/dL (75-99)
--- NOTE | 2020-09-08 13:46 | P.PN ---
Subjective Progress Note Date: 09/08/20 CHIEF COMPLAINT: COVID-19 pneumonia HISTORY OF PRESENT ILLNESS: Patient remains in the ICU. He was admitted to the hospital with respiratory failure due to COVID-19 pneumonia. He is status post tracheostomy and PEG tube placement yesterday with Dr. curry. Patient remains intubated and sedated. He is on a PEEP of 20. Critical care service is adding IV Lasix. Afebrile. WBC 12.1 Patient seen and examined with Dr. curry PHYSICAL EXAM: VITAL SIGNS: Reviewed. GENERAL: Well-developed in no acute distress. HEENT: No sclera icterus. Extraocular movements grossly intact. Moist buccal mucosa. Head is atraumatic, normocephalic. Tracheostomy site clean dry and intact ABDOMEN: Soft. Nondistended. Nontender. PEG tube site clean dry and intact NEUROLOGIC: Intubated and sedated ASSESSMENT: 1. Acute hypoxic respiratory failure secondary to COVID-19 pneumonia 2. Severe protein calorie malnutrition PLAN: -Okay to start tube feedings today -Continue ICU management -Continue supportive care Physician Paint Mixer note has been reviewed by physician. Signing provider agrees with the documented findings, assessment, and plan of care. Objective - Vital Signs Vital signs: Vital Signs Temp 97.4 F L 09/08/20 12:00 Pulse 75 09/08/20 13:00 Resp 36 H 09/08/20 13:00 BP 118/61 09/08/20 01:00 Pulse Ox 91 L 09/08/20 13:00 Intake & Output 09/07/20 09/08/20 09/08/20 18:59 06:59 18:59 Intake Total 2852.450 9561.012 258 Output Total 1960 1225 1525 Balance -141.843 834.012 -1267 Weight 123 kg 123.2 kg Intake: IV 1236 1339 258 0.9NS 40 Dextrose 5% in Water 1, 1200 1300 200 000 ml @ 100 mls/hr IV . Q10H [facility] Rx#:[id number] pressure BAG 36 39 18 Intake, IV Titration 582.157 720.012 Amount Cisatracurium 200 mg In 0.528 199.373 Sodium Chloride 0.9% 180 ml @ 2 MCG/KG/MIN 12.672 mls/hr IV .[id number] [facility] Rx #:[id number] Norepinephrine 8 mg In 125.265 20.639 Sodium Chloride 0.9% 250 ml @ 0.05 MCG/KG/MIN 10. 217 mls/hr IV .Q24H [facility] Rx#:[id number] fentaNYL (PF). 1,000 mcg 100 200 In Sodium Chloride 0.9% 80 ml @ Per Protocol IV . Q0M [facility] Rx#:[id number] propofoL 1,000 mg In 356.364 300 Empty Bag 1 bag @ Titrate IV .Q0M [facility] Rx#: [id number] Output: Urine 1950 1225 1525 Estimated Blood Loss 10 Other: Voiding Method Indwelling Catheter Indwelling Catheter Indwelling Catheter ABP, PAP, CO, CI - Last Documented Arterial Blood Pressure 99/58 - Labs CBC & Chem 7: 09/08/20 04:50 09/08/20 04:50 Labs: Abnormal Lab Results - Last 24 Hours (Table) 09/07/20 09/08/20 09/08/20 Range/Units 17:52 04:50 04:50 WBC 12.1 H (3.8-10.6) k/uL RBC 2.93 L (4.30-5.90) m/uL Hgb 10.0 L (13.0-17.5) gm/dL Hct 29.7 L (39.0-53.0) % MCV 101.3 H (80.0-100.0) fL Plt Count 93 L (150-450) k/uL D-Dimer 8.21 H (<0.60) mg/L FEU ABG pCO2 (35-45) mmHg ABG pO2 (83-108) mmHg ABG HCO3 (21-25) mmol/L ABG Total CO2 (19-24) mmol/L ABG O2 Saturation (94-97) % Sodium (137-145) mmol/L Potassium (3.5-5.1) mmol/L Chloride (98-107) mmol/L Carbon Dioxide (22-30) mmol/L BUN (9-20) mg/dL Glucose (74-99) mg/dL POC Glucose (mg/dL) 112 H (75-99) mg/dL Calcium (8.4-10.2) mg/dL ALT (4-49) U/L Alkaline Phosphatase (38-126) U/L Lactate Dehydrogenase (313-618) U/L Total Protein (6.3-8.2) g/dL Albumin (3.5-5.0) g/dL 09/08/20 09/08/20 09/08/20 Range/Units 04:50 04:55 05:25 WBC (3.8-10.6) k/uL RBC (4.30-5.90) m/uL Hgb (13.0-17.5) gm/dL Hct (39.0-53.0) % MCV (80.0-100.0) fL Plt Count (150-450) k/uL D-Dimer (<0.60) mg/L FEU ABG pCO2 61 H (35-45) mmHg ABG pO2 54 L* (83-108) mmHg ABG HCO3 35 H (21-25) mmol/L ABG Total CO2 37 H (19-24) mmol/L ABG O2 Saturation 88.2 L (94-97) % Sodium 133 L (137-145) mmol/L Potassium 5.3 H (3.5-5.1) mmol/L Chloride 97 L (98-107) mmol/L Carbon Dioxide 35 H (22-30) mmol/L BUN 40 H (9-20) mg/dL Glucose 125 H (74-99) mg/dL POC Glucose (mg/dL) 137 H (75-99) mg/dL Calcium 7.9 L (8.4-10.2) mg/dL ALT 144 H (4-49) U/L Alkaline Phosphatase 145 H (38-126) U/L Lactate Dehydrogenase 1040 H (313-618) U/L Total Protein 4.7 L (6.3-8.2) g/dL Albumin 2.1 L (3.5-5.0) g/dL 09/08/20 Range/Units 11:43 WBC (3.8-10.6) k/uL RBC (4.30-5.90) m/uL Hgb (13.0-17.5) gm/dL Hct (39.0-53.0) % MCV (80.0-100.0) fL Plt Count (150-450) k/uL D-Dimer (<0.60) mg/L FEU ABG pCO2 (35-45) mmHg ABG pO2 (83-108) mmHg ABG HCO3 (21-25) mmol/L ABG Total CO2 (19-24) mmol/L ABG O2 Saturation (94-97) % Sodium (137-145) mmol/L Potassium (3.5-5.1) mmol/L Chloride (98-107) mmol/L Carbon Dioxide (22-30) mmol/L BUN (9-20) mg/dL Glucose (74-99) mg/dL POC Glucose (mg/dL) 103 H (75-99) mg/dL Calcium (8.4-10.2) mg/dL ALT (4-49) U/L Alkaline Phosphatase (38-126) U/L Lactate Dehydrogenase (313-618) U/L Total Protein (6.3-8.2) g/dL Albumin (3.5-5.0) g/dL
--- NOTE | 2020-09-08 13:50 | XR ---
EXAMINATION TYPE: XR chest 1V portable DATE OF EXAM: 09/08/2020 COMPARISON: Chest x-ray 09/08/2020 at earlier time HISTORY: Abnormal physical exam, diminished left lung sounds TECHNIQUE: Single frontal view of the chest is obtained. FINDINGS: There is interval collapse of the left lung. There may be some mediastinal shift, patient is rotated however. IMPRESSION: Tension pneumothorax on the left A Red level critical message alert has been initiated for Dave Molina via the [employer] Results System on 09/08/2020 1:47 PM. This message alert has been sent to Dave Molina via the preferences provided by the clinician for the receipt of Radiology Critical Findings. Message ID [id number].
--- NOTE | 2020-09-08 14:37 | XR ---
EXAMINATION TYPE: XR chest 1V portable DATE OF EXAM: 09/08/2020 COMPARISON: 09/08/2020 HISTORY: SOB, Follow Up FINDINGS: Endotracheal tube is unchanged in position. Left basilar chest tube is in place with small residual p neumothorax noted estimated at less than 10%. Left-sided PICC line in place. Diffuse bilateral inters titial and airspace infiltrates with small effusions. Stable appearance of the cardio-mediastinal str uctures at this time. IMPRESSION: 1. Markedly improved left-sided pneumothorax with small approximately 10% residual remaining. Left ba silar chest tube. Bilateral infiltrates as discussed.
--- NOTE | 2020-09-08 15:04 | P.PN ---
Subjective Progress Note Date: 09/08/20 (delayed charting seen at 1015) Principal diagnosis: shortness of breath Patient is a 70-year-old male with a history of asthma and obesity who initially presented to the ER with complaints of shortness of breath, nausea, and poor appetite. He had known positive COVID testing on 08/09/20. In the ER he was found be hypoxic at 86% on room air. Labs were remarkable for LDH 1283, CRP 7.1, procalcitonin 0.1. He again was PCR positive. Chest x-ray demonstrated pneumonia. He was admitted and started on zinc, vitamin D, vitamin C, and Decadron. He was outside of the window for Remdesivir. Pulm was consulted who agreed with current plan of care. He was progressing well and then on 08/19 his oxygenation worsening ad he was placed on airvo. He was given toci on 08/20. On the morning of 08/21 he was requiring Airvo and 100% non rebreather and was transferred to the ICU and placed on BiPap. He suddenly desatted on the morning of 08/23 and had to be transitioned from AIRVO to BiPap, He was having acute chest pain, left sided without radiation. EKG did not show any signs of acute ischemia. He was able to be weaned back to airflow by the morning of 08/24, but required being replace on BiPap on 08/25. He was started on TPN for nutritional support. He required intubation on the evening of 08/28 due to worsening hypoxia. He required paralytics. . On 09/02 he was transitioned form volume controlled to pressure controlled ventilation due to worsening hypercapnia. He developed subcutaneous emphysema and pneumonmediastinum on chest x-ray, which slowy improved. He was not making progress and trach and peg placed 09/07. Patient seen and examined at bedside. Sedated and paralyzed on vent. General: Ill-appearing, no distress, appears at stated age Derm: warm, dry, [address] on right check and nasal bridge. Head: normocephalic, symmetric Eyes: no lid leision, pupil pin point, anicteric sclera Mouth: no lip lesion, mucus membranes dry Cardiovascular: S1S2 reg, no murmur, positive posterior tibial pulse bilateral, Lungs: Course breath sounds bilateral, no accessory muscle use, on vent Abdominal: soft, nontender to palpation, no guarding, no appreciable organomegaly Ext: no gross muscle atrophy, diffuse anasarca , no contractures COVID-19 pneumonitis, acute hypoxic respiratory failure intubated on 08/28, septic shock, pneumomedistinum - Continue with Decadron D#24 - Continue with vitamins - TOCI 08/20 - Lovenox increased due to D-dimer > 3 - pulm recs: intubated, sedated, paralyized - lasix Constipation -soapsuds enema 09/06 -bowel regiment -likely due to prolonged paralytics use Necrotic face wounds - consult wound care Toxic metabolic encephalopathy due to above - treatment as above Transaminitis, improving - likely related to COVID vs ETOH use - follow liver enzymes Asthma without exacerbation - albuterol Obesity with BMI 35.9 - structured weight loss once COVID resolved. Leukocytosis, improving - suspect reactive to steroids Chest pain, resolved Prognosis guarded. DVT prophylaxis: Lovenox Discussed with: Patient, nursing Anticipated discharge: unknown Anticipated discharge place: pending course A total of 35 minutes was spent on the care of this complex patient more than 50% of the time was spent in counseling and care coordination. Objective - Vital Signs Vital signs: Vital Signs Temp 97.4 F L 09/08/20 12:00 Pulse 99 09/08/20 14:20 Resp 36 H 09/08/20 14:20 BP 118/61 09/08/20 01:00 Pulse Ox 92 L 09/08/20 14:20 Intake & Output 09/07/20 09/08/20 09/08/20 18:59 06:59 18:59 Intake Total 5817.161 4886.012 271 Output Total 1960 1225 1795 Balance -141.843 834.012 -1524 Weight 123 kg 123.2 kg Intake: IV 1236 1339 271 0.9NS 50 Dextrose 5% in Water 1, 1200 1300 200 000 ml @ 100 mls/hr IV . Q10H [facility] Rx#:[id number] pressure BAG 36 39 21 Intake, IV Titration 582.157 720.012 Amount Cisatracurium 200 mg In 0.528 199.373 Sodium Chloride 0.9% 180 ml @ 2 MCG/KG/MIN 12.672 mls/hr IV .[id number] [facility] Rx #:[id number] Norepinephrine 8 mg In 125.265 20.639 Sodium Chloride 0.9% 250 ml @ 0.05 MCG/KG/MIN 10. 217 mls/hr IV .Q24H [facility] Rx#:[id number] fentaNYL (PF). 1,000 mcg 100 200 In Sodium Chloride 0.9% 80 ml @ Per Protocol IV . Q0M [facility] Rx#:[id number] propofoL 1,000 mg In 356.364 300 Empty Bag 1 bag @ Titrate IV .Q0M [facility] Rx#: [id number] Output: Chest Tube Drainage 220 Chest Tube Left Lateral 220 Chest Urine 1950 1225 1575 Estimated Blood Loss 10 Other: Voiding Method Indwelling Catheter Indwelling Catheter Indwelling Catheter ABP, PAP, CO, CI - Last Documented Arterial Blood Pressure 110/52 - Labs CBC & Chem 7: 09/08/20 04:50 09/08/20 04:50 Labs: Abnormal Lab Results - Last 24 Hours (Table) 09/07/20 09/08/20 09/08/20 Range/Units 17:52 04:50 04:50 WBC 12.1 H (3.8-10.6) k/uL RBC 2.93 L (4.30-5.90) m/uL Hgb 10.0 L (13.0-17.5) gm/dL Hct 29.7 L (39.0-53.0) % MCV 101.3 H (80.0-100.0) fL Plt Count 93 L (150-450) k/uL D-Dimer 8.21 H (<0.60) mg/L FEU ABG pCO2 (35-45) mmHg ABG pO2 (83-108) mmHg ABG HCO3 (21-25) mmol/L ABG Total CO2 (19-24) mmol/L ABG O2 Saturation (94-97) % Sodium (137-145) mmol/L Potassium (3.5-5.1) mmol/L Chloride (98-107) mmol/L Carbon Dioxide (22-30) mmol/L BUN (9-20) mg/dL Glucose (74-99) mg/dL POC Glucose (mg/dL) 112 H (75-99) mg/dL Calcium (8.4-10.2) mg/dL ALT (4-49) U/L Alkaline Phosphatase (38-126) U/L Lactate Dehydrogenase (313-618) U/L Total Protein (6.3-8.2) g/dL Albumin (3.5-5.0) g/dL 09/08/20 09/08/20 09/08/20 Range/Units 04:50 04:55 05:25 WBC (3.8-10.6) k/uL RBC (4.30-5.90) m/uL Hgb (13.0-17.5) gm/dL Hct (39.0-53.0) % MCV (80.0-100.0) fL Plt Count (150-450) k/uL D-Dimer (<0.60) mg/L FEU ABG pCO2 61 H (35-45) mmHg ABG pO2 54 L* (83-108) mmHg ABG HCO3 35 H (21-25) mmol/L ABG Total CO2 37 H (19-24) mmol/L ABG O2 Saturation 88.2 L (94-97) % Sodium 133 L (137-145) mmol/L Potassium 5.3 H (3.5-5.1) mmol/L Chloride 97 L (98-107) mmol/L Carbon Dioxide 35 H (22-30) mmol/L BUN 40 H (9-20) mg/dL Glucose 125 H (74-99) mg/dL POC Glucose (mg/dL) 137 H (75-99) mg/dL Calcium 7.9 L (8.4-10.2) mg/dL ALT 144 H (4-49) U/L Alkaline Phosphatase 145 H (38-126) U/L Lactate Dehydrogenase 1040 H (313-618) U/L Total Protein 4.7 L (6.3-8.2) g/dL Albumin 2.1 L (3.5-5.0) g/dL 09/08/20 Range/Units 11:43 WBC (3.8-10.6) k/uL RBC (4.30-5.90) m/uL Hgb (13.0-17.5) gm/dL Hct (39.0-53.0) % MCV (80.0-100.0) fL Plt Count (150-450) k/uL D-Dimer (<0.60) mg/L FEU ABG pCO2 (35-45) mmHg ABG pO2 (83-108) mmHg ABG HCO3 (21-25) mmol/L ABG Total CO2 (19-24) mmol/L ABG O2 Saturation (94-97) % Sodium (137-145) mmol/L Potassium (3.5-5.1) mmol/L Chloride (98-107) mmol/L Carbon Dioxide (22-30) mmol/L BUN (9-20) mg/dL Glucose (74-99) mg/dL POC Glucose (mg/dL) 103 H (75-99) mg/dL Calcium (8.4-10.2) mg/dL ALT (4-49) U/L Alkaline Phosphatase (38-126) U/L Lactate Dehydrogenase (313-618) U/L Total Protein (6.3-8.2) g/dL Albumin (3.5-5.0) g/dL
[2020-09-08] MEDS: NOREPINEPHRINE 8 MG in SODIUM CHLORIDE 0.9% 250 ML IV SCH (15:20)
--- NOTE | 2020-09-08 15:23 | P.GSCN ---
History of Present Illness Consult date: 09/08/20 Reason for Consult: Large left pneumothorax Requesting physician: Dave Molina History of present illness: This is a 70-year-old gentleman who was hospitalized for respiratory failure secondary to COVID 19 pneumonia. He has a past medical history significant for chronic bronchial asthma, osteoarthritis with history of right knee replacement and is a lifetime nonsmoker. During his hospitalization due to his respiratory failure has undergone a tracheostomy procedure and PEG tube placement. Currently he is on mechanical ventilator support with oxygen saturations 91%. According to the patient's nurse today, the patient started to have a decrease in his oxygen saturation in the 50s, peak pressures were in the 50s and he became tachycardic on the bedside monitor with heart rate in the 120's. Subsequently a chest x-ray was completed which demonstrated a left-sided tension pneumothorax. A consult was placed to Dr. Linda Lomax from cardiothoracic surgery for further evaluation and treatment recommendations including a placement of a left-sided chest tube. Review of Systems A 14 point review of systems was unable to be obtained at this time due to the patient being sedated, and midline trach with mechanical ventilator support. Past Medical History Past Medical History: Asthma, Osteoarthritis (OA) Additional Past Medical History / Comment(s): covid 19+ History of Any Multi-Drug Resistant Organisms: None Reported Past Surgical History: Back Surgery, Joint Replacement Additional Past Surgical History / Comment(s): rt knee Past Anesthesia/Blood Transfusion Reactions: No Reported Reaction Past Psychological History: No Psychological Hx Reported Smoking Status: Never smoker Past Alcohol Use History: Rare Past Drug Use History: None Reported - Past Family History Father History Unknown: Yes Medications and Allergies Home Medications Medication Instructions Recorded Confirmed Type Multivitamins, Thera [Multivitamin 1 tab PO DAILY 08/15/20 08/15/20 History (formulary)] Allergies Allergy/AdvReac Type Severity Reaction Status Date / Time Penicillins Allergy Swelling Verified 08/15/20 12:15 codeine AdvReac Nausea & Verified 08/15/20 12:15 Vomiting Surgical - Exam Vital Signs Temp Pulse Resp BP Pulse Ox 97.9 F 80 22 113/76 86 L 08/15/20 11:19 08/15/20 11:19 08/15/20 11:19 08/15/20 11:19 08/15/20 11:19 CONSTITUTIONAL: Laying in bed in the intensive care unit. Tracheostomy tube is midline and intact, currently on mechanical ventilator support. Sedated and paralyzed. HEENT: Neck is supple, no JVD, no lymphadenopathy. Tracheostomy tube is midline and intact. Pupils are normal reaction of pupils, no scleral icterus. RESPIRATORY: Lungs sounds essentially clear throughout, diminished to his bilateral bases. Respirations are symmetrical and nonlabored, with mechanical ventilator support. CARDIOVASCULAR: Regular rhythm and rate. S1 and S2 present, negative for S3, gallop or murmur. Sequential compression devices in place to his bilateral lower extremities. GASTROINTESTINAL: Abdomen soft, and nondistended. Hypoactive bowel sounds present 4 quadrants. Left upper quadrant abdominal PEG tube in place. GENITOURINARY: Gallo present draining clear, yellow urine. INTEGUMENTARY: Skin is warm and dry with evidence of good perfusion. Stage II pressure ulcer to the bridge of his nose and to his right cheek. Dressing to these 2 areas are clean and dry. NEUROLOGIC: Unable to fully assess at this time as the patient is sedated on propofol and is paralyzed on Nimbex. [id number] per nursing staff. MUSKULOSKELETAL: Unable to fully assess at this time as the patient is sedated on propofol and is paralyzed on Nimbex. PSYCHIATRIC: Unable to fully assess at this time as the patient is sedated on propofol and is paralyzed on Nimbex. INVASIVE LINES AND TUBES: left pleural chest tube present and connected to low continuous wall suction, continuous air leak is present. Draining thin serosanguineous drainage. Results - Labs 09/08/20 04:50 09/08/20 04:50 Abnormal Lab Results - Last 24 Hours (Table) 09/07/20 09/08/20 09/08/20 Range/Units 17:52 04:50 04:50 WBC 12.1 H (3.8-10.6) k/uL RBC 2.93 L (4.30-5.90) m/uL Hgb 10.0 L (13.0-17.5) gm/dL Hct 29.7 L (39.0-53.0) % MCV 101.3 H (80.0-100.0) fL Plt Count 93 L (150-450) k/uL D-Dimer 8.21 H (<0.60) mg/L FEU ABG pCO2 (35-45) mmHg ABG pO2 (83-108) mmHg ABG HCO3 (21-25) mmol/L ABG Total CO2 (19-24) mmol/L ABG O2 Saturation (94-97) % Sodium (137-145) mmol/L Potassium (3.5-5.1) mmol/L Chloride (98-107) mmol/L Carbon Dioxide (22-30) mmol/L BUN (9-20) mg/dL Glucose (74-99) mg/dL POC Glucose (mg/dL) 112 H (75-99) mg/dL Calcium (8.4-10.2) mg/dL ALT (4-49) U/L Alkaline Phosphatase (38-126) U/L Lactate Dehydrogenase (313-618) U/L Total Protein (6.3-8.2) g/dL Albumin (3.5-5.0) g/dL 09/08/20 09/08/20 09/08/20 Range/Units 04:50 04:55 05:25 WBC (3.8-10.6) k/uL RBC (4.30-5.90) m/uL Hgb (13.0-17.5) gm/dL Hct (39.0-53.0) % MCV (80.0-100.0) fL Plt Count (150-450) k/uL D-Dimer (<0.60) mg/L FEU ABG pCO2 61 H (35-45) mmHg ABG pO2 54 L* (83-108) mmHg ABG HCO3 35 H (21-25) mmol/L ABG Total CO2 37 H (19-24) mmol/L ABG O2 Saturation 88.2 L (94-97) % Sodium 133 L (137-145) mmol/L Potassium 5.3 H (3.5-5.1) mmol/L Chloride 97 L (98-107) mmol/L Carbon Dioxide 35 H (22-30) mmol/L BUN 40 H (9-20) mg/dL Glucose 125 H (74-99) mg/dL POC Glucose (mg/dL) 137 H (75-99) mg/dL Calcium 7.9 L (8.4-10.2) mg/dL ALT 144 H (4-49) U/L Alkaline Phosphatase 145 H (38-126) U/L Lactate Dehydrogenase 1040 H (313-618) U/L Total Protein 4.7 L (6.3-8.2) g/dL Albumin 2.1 L (3.5-5.0) g/dL 09/08/20 Range/Units 11:43 WBC (3.8-10.6) k/uL RBC (4.30-5.90) m/uL Hgb (13.0-17.5) gm/dL Hct (39.0-53.0) % MCV (80.0-100.0) fL Plt Count (150-450) k/uL D-Dimer (<0.60) mg/L FEU ABG pCO2 (35-45) mmHg ABG pO2 (83-108) mmHg ABG HCO3 (21-25) mmol/L ABG Total CO2 (19-24) mmol/L ABG O2 Saturation (94-97) % Sodium (137-145) mmol/L Potassium (3.5-5.1) mmol/L Chloride (98-107) mmol/L Carbon Dioxide (22-30) mmol/L BUN (9-20) mg/dL Glucose (74-99) mg/dL POC Glucose (mg/dL) 103 H (75-99) mg/dL Calcium (8.4-10.2) mg/dL ALT (4-49) U/L Alkaline Phosphatase (38-126) U/L Lactate Dehydrogenase (313-618) U/L Total Protein (6.3-8.2) g/dL Albumin (3.5-5.0) g/dL Diabetes panel 09/08/20 Range/Units 04:50 Sodium 133 L (137-145) mmol/L Potassium 5.3 H (3.5-5.1) mmol/L Chloride 97 L (98-107) mmol/L Carbon Dioxide 35 H (22-30) mmol/L BUN 40 H (9-20) mg/dL Creatinine 0.83 (0.66-1.25) mg/dL Glucose 125 H (74-99) mg/dL Calcium 7.9 L (8.4-10.2) mg/dL AST 59 (17-59) U/L ALT 144 H (4-49) U/L Alkaline Phosphatase 145 H (38-126) U/L Total Protein 4.7 L (6.3-8.2) g/dL Albumin 2.1 L (3.5-5.0) g/dL Calcium panel 09/08/20 Range/Units 04:50 Calcium 7.9 L (8.4-10.2) mg/dL Albumin 2.1 L (3.5-5.0) g/dL Pituitary panel 09/08/20 Range/Units 04:50 Sodium 133 L (137-145) mmol/L Potassium 5.3 H (3.5-5.1) mmol/L Chloride 97 L (98-107) mmol/L Carbon Dioxide 35 H (22-30) mmol/L BUN 40 H (9-20) mg/dL Creatinine 0.83 (0.66-1.25) mg/dL Glucose 125 H (74-99) mg/dL Calcium 7.9 L (8.4-10.2) mg/dL Adrenal panel 09/08/20 Range/Units 04:50 Sodium 133 L (137-145) mmol/L Potassium 5.3 H (3.5-5.1) mmol/L Chloride 97 L (98-107) mmol/L Carbon Dioxide 35 H (22-30) mmol/L BUN 40 H (9-20) mg/dL Creatinine 0.83 (0.66-1.25) mg/dL Glucose 125 H (74-99) mg/dL Calcium 7.9 L (8.4-10.2) mg/dL Total Bilirubin 1.3 (0.2-1.3) mg/dL AST 59 (17-59) U/L ALT 144 H (4-49) U/L Alkaline Phosphatase 145 H (38-126) U/L Total Protein 4.7 L (6.3-8.2) g/dL Albumin 2.1 L (3.5-5.0) g/dL - Imaging Chest x-ray: report reviewed, image reviewed Assessment and Plan Assessment: 1. Left-sided tension pneumothorax, status post left-sided chest tube placement by Dr. Lomax 2. Acute hypoxic respiratory failure related to COVID 19 pneumonia, status post tracheostomy tube placement 3. History of chronic bronchial asthma 4. Lifetime nonsmoker 5. Obesity with a BMI of 41.3 kg/m Plan: The patient was seen and examined by Dr. Linda Lomax from cardiothoracic surgery. His chart and diagnostics were reviewed. Due to the patient's left sided tension pneumothorax a left-sided chest tube was placed. A repeat chest x-ray was obtained which shows a markedly improved left-sided pneumothorax with small approximately 10% residual remaining. Keep left pleural chest tube to low continuous wall suction -20 cm H2O. Record accurate I's and O's. Pulmon nabil/critical care management per Dr. Molina's recommendations. Medical management and other comorbidities per primary care service. More recommendations to follow based on patient's clinical course. Continue to monitor daily chest x-rays for air leak resolution and pneumothorax resolution. Thank you Dr. Molina for this consult and we look forward to following with you in the care of this patient. Time with Patient: Greater than 30
[2020-09-08 15:36] LABS: ABG HCO3 35 mmol/L (21-25); ABG PH 7.25 (7.35-7.45); ABG PO2 63 mmHg (83-108); ABG TCO2 38 mmol/L (19-24)
[2020-09-08 15:40] LABS: ABG PCO2 80 mmHg (35-45)
[2020-09-08 15:41] LABS: Allen Test Performed? no
[2020-09-08] MEDS: CISATRACURIUM 200 MG in SODIUM CHLORIDE 0.9% 180 ML IV SCH (16:12)
[2020-09-08 18:35] LABS: Glucose,Whole Blood 102 mg/dL (75-99)
[2020-09-08] MEDS: polyethylene glycoL 3350 17 GM POWD.PACK PO SCH (20:14)
[2020-09-08] MEDS ORDERED: ENOXAPARIN 60 MG/0.6 ML SYRINGE SQ SCH (21:00)
[2020-09-08 22:56] VITALS: TEMP 97.9
[2020-09-09 00:52] LABS: Glucose,Whole Blood 111 mg/dL (75-99)
[2020-09-09] MEDS: CISATRACURIUM 200 MG in SODIUM CHLORIDE 0.9% 180 ML IV SCH ×2 (00:52→03:36)
[2020-09-09] MEDS: INSULIN ASPART (NovoLOG) 100 UNIT/ML VIAL SQ SCH ×2 (00:52→06:07)
[2020-09-09 02:19] VITALS: RESP 36
[2020-09-09] MEDS: fentaNYL (PF). 1,000 MCG in SODIUM CHLORIDE 0.9% 80 ML IV SCH (03:34)
[2020-09-09] MEDS: NOREPINEPHRINE 8 MG in SODIUM CHLORIDE 0.9% 250 ML IV SCH (04:04)
--- NOTE | 2020-09-09 04:35 | OP ---
OPERATIVE REPORT DATE OF THE PROCEDURE: 09/08/2020. SURGEON: Dr. Linda Lomax. PREPROCEDURE DIAGNOSIS: Covid 19 infection, tension left-sided pneumothorax. POSTOPERATIVE DIAGNOSIS: Covid 19 infection, tension left-sided pneumothorax. PROCEDURE PERFORMED: Emergent insertion of a 32-[place]izen [place] left-sided chest tube. INDICATION: We were called emergently to assess Mr. Singer with an x-ray showing left pneumothorax with mediastinal shift and severe desaturation and somewhat hypertension. Consent was obtained by the nurse from the daughter. DESCRIPTION OF PROCEDURE: The patient intubated and sedated already. The left chest was expeditiously prepped and draped using ChloraPrep. A 1 cm incision was made around the 5th intercostal space mid axillary line and blunt dissection carried into the intercostal space with immediate gush of air. Subsequently, a 32-Citizen [place] chest tube was advanced gently into the pleural cavity and connected to a Pleur-Evac with evidence of a massive air leak. The chest tube was anchored to the skin with a large Ethibond suture. Proper dressing was applied. Chest x-ray showed full expansion of the left lung. Patient tolerated procedure well. MMODL / IJN: [id number] /
[2020-09-09 04:54] LABS: ABG Base Excess 7.2 mmol/L; ABG HCO3 35 mmol/L (21-25); ABG Oxygen Saturation 88.1 % (94-97); ABG PH 7.22 (7.35-7.45); ABG PO2 61 mmHg (83-108); ABG TCO2 38 mmol/L (19-24)
[2020-09-09 05:11] LABS: HCT 34.6 % (39.0-53.0); HGB 11.4 gm/dL (13.0-17.5); Hypochromasia Slight; MCH 33.9 pg (25.0-35.0); MCHC 32.9 g/dL (31.0-37.0); MCV 102.9 fL (80.0-100.0); Macrocytosis Slight; Mean Platelet Volume 9.1; RBC 3.36 m/uL (4.30-5.90); RDW 14.8 % (11.5-15.5); WBC 20.2 k/uL (3.8-10.6)
[2020-09-09 05:14] LABS: ABG PCO2 85 mmHg (35-45); Allen Test Performed? no
[2020-09-09 05:15] LABS: Platelet Count 171 k/uL (150-450)
[2020-09-09 05:22] LABS: ALT 157 U/L (4-49); AST 71 U/L (17-59); African American GFR (CKD) >90 (>60 ml/min/1.73 sqM); Albumin 2.7 g/dL (3.5-5.0); Alkaline Phosphatase 196 U/L (38-126); Anion Gap 3 mmol/L; Blood Urea Nitrogen 48 mg/dL (9-20); Calcium 7.9 mg/dL (8.4-10.2); Carbon Dioxide 35 mmol/L (22-30); Chloride 98 mmol/L (98-107); Glucose 123 mg/dL (74-99); LDH 1084 U/L (313-618); Non-African American GFR(CKD) 84 (>60 ml/min/1.73 sqM); Potassium 5.6 mmol/L (3.5-5.1); Sodium 136 mmol/L (137-145); Total Protein 5.7 g/dL (6.3-8.2)
--- NOTE | 2020-09-09 06:32 | XR ---
EXAM: XR Chest, 1 View CLINICAL HISTORY: ITS.REASON XR Reason: covid TECHNIQUE: Frontal view of the chest. COMPARISON: CXR September 08, 2020. FINDINGS/IMPRESSION: Interval development of a large left pneumothorax, despite indwelling chest tube. Correlate for repositioning. Follow-up CXR recommended. Otherwise, stable exam. <MYCVCSECTION> Communications: 09/09/20 06:52 Call Doctor Regarding Other, called Corazon Askew NP on 09/09 06:52 (-04:00)
[2020-09-09 07:06] VITALS: PULSE 98
[2020-09-09] MEDS: ALBUTEROL HFA INHALER INHALATION SCH (07:18)
--- NOTE | 2020-09-09 08:22 | P.PN ---
Subjective Progress Note Date: 09/09/20 Principal diagnosis: This is a 70-year-old gentleman who was hospitalized for respiratory failure secondary to COVID 19 pneumonia. He is a past medical history significant for chronic bronchial asthma, osteoarthritis with history of right knee replacement and is a lifetime nonsmoker. Status post day #1 left sided chest tube placement by Dr. Lomax for left-sided tension pneumothorax. The patient was seen in follow-up today 09/09/2020 at his bedside in the intensive care unit. Currently the patient is laying in bed, remains with midline trach and mechanical ventilator support. Remains sedated on propofol drip and is on Nimbex for paralytic. The findings on his chest x-ray this morning shows an interval development of a large left pneumothorax despite indwelling chest tube. According to the patient's nurse from the asbestos abatement technician, he has spoken with the family and wish to make their family member comfort care, with no further chest tubes being placed. Left pleural chest tube remains in place to low continuous wall suction -20 cm H2O. Continuous air leak is present and 500 mL of thin serosanguineous drainage in 24 hours. He remains on norepinephrine drip for blood pressure support. Mechanical ventilator settings are assist control 36, TV 450, FiO2 75% and a PEEP of 20. Oxygen saturations 93% on current mechanical ventilator settings. Objective - Vital Signs Vital signs: Vital Signs Temp 97.9 F 09/09/20 04:00 Pulse 98 09/09/20 07:00 Resp 36 H 09/09/20 07:00 BP 118/61 09/08/20 01:00 Pulse Ox 95 09/09/20 07:00 Intake & Output 09/08/20 09/09/20 09/09/20 18:59 06:59 18:59 Intake Total 820.501 5440.897 33 Output Total 2215 988 50 Balance -1423.719 44.897 -17 Weight 124.5 kg Intake: IV 336 143 13 0.9NS 100 110 10 Dextrose 5% in Water 1, 200 000 ml @ 100 mls/hr IV . Q10H [facility] Rx#:[id number] pressure BAG 36 33 3 Intake, IV Titration 435.281 619.897 Amount Cisatracurium 200 mg In 200 144.461 Sodium Chloride 0.9% 180 ml @ 2 MCG/KG/MIN 12.672 mls/hr IV .[id number] [facility] Rx #:[id number] Norepinephrine 8 mg In 35.281 75.436 Sodium Chloride 0.9% 250 ml @ 0.05 MCG/KG/MIN 10. 217 mls/hr IV .Q24H [facility] Rx#:[id number] fentaNYL (PF). 1,000 mcg 100 100 In Sodium Chloride 0.9% 80 ml @ Per Protocol IV . Q0M [facility] Rx#:[id number] propofoL 1,000 mg In 100 300 Empty Bag 1 bag @ Titrate IV .Q0M [facility] Rx#: [id number] Tube Feeding 20 150 20 Other 120 Output: Chest Tube Drainage 370 150 Chest Tube Left Lateral 370 150 Chest Urine 1845 838 50 Other: Voiding Method Indwelling Catheter Indwelling Catheter ABP, PAP, CO, CI - Last Documented Arterial Blood Pressure 92/50 - Exam CONSTITUTIONAL: Laying in bed in the intensive care unit. Tracheostomy tube is midline and intact, currently on mechanical ventilator support. Sedated and paralyzed. HEENT: Neck is supple, no JVD, no lymphadenopathy. Tracheostomy tube is midline and intact. Pupils are normal reaction of pupils, no scleral icterus. RESPIRATORY: Lungs sounds with coarse rhonchi throughout, diminished to his left lobes. Respirations are symmetrical and nonlabored, with mechanical ventilator support. CARDIOVASCULAR: Regular rhythm and rate. S1 and S2 present, negative for S3, gallop or murmur. Sequential compression devices in place to his bilateral lower extremities. GASTROINTESTINAL: Abdomen soft, and nondistended. Hypoactive bowel sounds present 4 quadrants. Left upper quadrant abdominal PEG tube in place. GENITOURINARY: Gallo present draining clear, zoey urine. INTEGUMENTARY: Skin is warm and dry with evidence of good perfusion. Stage II pressure ulcer to the bridge of his nose and to his right cheek. Dressing to these 2 areas are clean and dry. NEUROLOGIC: Unable to fully assess at this time as the patient is sedated on propofol and is paralyzed on Nimbex. [id number] per nursing staff. MUSKULOSKELETAL: Unable to fully assess at this time as the patient is sedated on propofol and is paralyzed on Nimbex. PSYCHIATRIC: Unable to fully assess at this time as the patient is sedated on propofol and is paralyzed on Nimbex. INVASIVE LINES AND TUBES: left pleural chest tube present and connected to low continuous wall suction, continuous air leak is present. Draining thin serosanguineous drainage. - Labs CBC & Chem 7: 09/09/20 05:00 09/09/20 05:00 Labs: Abnormal Lab Results - Last 24 Hours (Table) 09/08/20 09/08/20 09/08/20 Range/Units 11:43 15:34 18:34 WBC (3.8-10.6) k/uL RBC (4.30-5.90) m/uL Hgb (13.0-17.5) gm/dL Hct (39.0-53.0) % MCV (80.0-100.0) fL D-Dimer (<0.60) mg/L FEU ABG pH 7.25 L (7.35-7.45) ABG pCO2 80 H* (35-45) mmHg ABG pO2 63 L (83-108) mmHg ABG HCO3 35 H (21-25) mmol/L ABG Total CO2 38 H (19-24) mmol/L ABG O2 Saturation 89.0 L (94-97) % Sodium (137-145) mmol/L Potassium (3.5-5.1) mmol/L Carbon Dioxide (22-30) mmol/L BUN (9-20) mg/dL Glucose (74-99) mg/dL POC Glucose (mg/dL) 103 H 102 H (75-99) mg/dL Calcium (8.4-10.2) mg/dL Total Bilirubin (0.2-1.3) mg/dL AST (17-59) U/L ALT (4-49) U/L Alkaline Phosphatase (38-126) U/L Lactate Dehydrogenase (313-618) U/L Total Protein (6.3-8.2) g/dL Albumin (3.5-5.0) g/dL 09/09/20 09/09/20 09/09/20 Range/Units 00:50 04:53 05:00 WBC 20.2 H (3.8-10.6) k/uL RBC 3.36 L (4.30-5.90) m/uL Hgb 11.4 L (13.0-17.5) gm/dL Hct 34.6 L (39.0-53.0) % MCV 102.9 H (80.0-100.0) fL D-Dimer (<0.60) mg/L FEU ABG pH 7.22 L (7.35-7.45) ABG pCO2 85 H* (35-45) mmHg ABG pO2 61 L (83-108) mmHg ABG HCO3 35 H (21-25) mmol/L ABG Total CO2 38 H (19-24) mmol/L ABG O2 Saturation 88.1 L (94-97) % Sodium (137-145) mmol/L Potassium (3.5-5.1) mmol/L Carbon Dioxide (22-30) mmol/L BUN (9-20) mg/dL Glucose (74-99) mg/dL POC Glucose (mg/dL) 111 H (75-99) mg/dL Calcium (8.4-10.2) mg/dL Total Bilirubin (0.2-1.3) mg/dL AST (17-59) U/L ALT (4-49) U/L Alkaline Phosphatase (38-126) U/L Lactate Dehydrogenase (313-618) U/L Total Protein (6.3-8.2) g/dL Albumin (3.5-5.0) g/dL 09/09/20 09/09/20 Range/Units 05:00 05:00 WBC (3.8-10.6) k/uL RBC (4.30-5.90) m/uL Hgb (13.0-17.5) gm/dL Hct (39.0-53.0) % MCV (80.0-100.0) fL D-Dimer 2.86 H (<0.60) mg/L FEU ABG pH (7.35-7.45) ABG pCO2 (35-45) mmHg ABG pO2 (83-108) mmHg ABG HCO3 (21-25) mmol/L ABG Total CO2 (19-24) mmol/L ABG O2 Saturation (94-97) % Sodium 136 L (137-145) mmol/L Potassium 5.6 H (3.5-5.1) mmol/L Carbon Dioxide 35 H (22-30) mmol/L BUN 48 H (9-20) mg/dL Glucose 123 H (74-99) mg/dL POC Glucose (mg/dL) (75-99) mg/dL Calcium 7.9 L (8.4-10.2) mg/dL Total Bilirubin 2.0 H (0.2-1.3) mg/dL AST 71 H (17-59) U/L ALT 157 H (4-49) U/L Alkaline Phosphatase 196 H (38-126) U/L Lactate Dehydrogenase 1084 H (313-618) U/L Total Protein 5.7 L (6.3-8.2) g/dL Albumin 2.7 L (3.5-5.0) g/dL Assessment and Plan Assessment: 1. Left-sided tension pneumothorax, status post left-sided chest tube placement by Dr. Lomax 2. Acute hypoxic respiratory failure related to COVID 19 pneumonia, status post tracheostomy tube placement 3. History of chronic bronchial asthma 4. Lifetime nonsmoker 5. Obesity with a BMI of 41.3 kg/m Plan: 1. Keep left pleural chest tube to low continuous wall suction -20 cm H2O. Monitor for fairly resolution. 2. Comfort care management per pulmonary/critical care medicine. 3. We will continue to follow the patient on an as-needed basis. Time with Patient: Less than 30
[2020-09-09] MEDS ORDERED: ONDANSETRON 4 MG/2 ML VIAL IVP PRN (09:09)
[2020-09-09] MEDS ORDERED: LORazepam 2 MG/ML INJ IV PRN (09:09)
[2020-09-09] MEDS ORDERED: MORPHINE SULFATE 2 MG/ML SYRINGE IV PRN (09:09)
[2020-09-09] MEDS ORDERED: SCOPOLAMINE 1.5MG/72HR PATCH TRANSDERM SCH (09:15)
[2020-09-09] MEDS ORDERED: MORPHINE SULFATE (100 MG/2 ML) 100 MG in SODIUM CHLORIDE 0.9% 100 ML IV SCH (09:15)
[2020-09-09] MEDS: MORPHINE SULFATE 4 MG/ML SYRINGE IV PRN ×2 (10:26→10:50)
--- NOTE | 2020-09-09 11:37 | P.PN ---
Subjective Progress Note Date: 09/09/20 CHIEF COMPLAINT: COVID-19 pneumonia HISTORY OF PRESENT ILLNESS: Patient remains in the ICU. He was admitted to the hospital with respiratory failure due to COVID-19 pneumonia. He is status post tracheostomy and PEG tube placement yesterday with Dr. curry. Patient has been started on his tube feeds. Patient developed a tension left-sided pneumothorax and required chest tube to be placed. Chest x-ray from this morning had shown interval development of a large left pneumothorax despite chest tube placement. Afebrile. WBC increased to 20.2. Patient's family has decided to proceed with comfort care Patient seen and examined with Dr. curry PHYSICAL EXAM: VITAL SIGNS: Reviewed. GENERAL: Well-developed in no acute distress. HEENT: No sclera icterus. Extraocular movements grossly intact. Moist buccal mucosa. Head is atraumatic, normocephalic. Tracheostomy site clean dry and intact ABDOMEN: Soft. Nondistended. Nontender. PEG tube site clean dry and intact NEUROLOGIC: Intubated and sedated ASSESSMENT: 1. Acute hypoxic respiratory failure secondary to COVID-19 pneumonia 2. Severe protein calorie malnutrition PLAN: -Patient is being placed on comfort care Physician Heavy Machinery Operator note has been reviewed by physician. Signing provider agrees with the documented findings, assessment, and plan of care. Objective - Vital Signs Vital signs: Vital Signs Temp 97.9 F 09/09/20 04:00 Pulse 98 09/09/20 07:00 Resp 36 H 09/09/20 07:00 BP 118/61 09/08/20 01:00 Pulse Ox 95 09/09/20 07:00 Intake & Output 09/08/20 09/09/20 09/09/20 18:59 06:59 18:59 Intake Total 720.575 9401.897 33 Output Total 2215 988 50 Balance -1423.719 44.897 -17 Weight 124.5 kg Intake: IV 336 143 13 0.9NS 100 110 10 Dextrose 5% in Water 1, 200 000 ml @ 100 mls/hr IV . Q10H [facility] Rx#:[id number] pressure BAG 36 33 3 Intake, IV Titration 435.281 619.897 Amount Cisatracurium 200 mg In 200 144.461 Sodium Chloride 0.9% 180 ml @ 2 MCG/KG/MIN 12.672 mls/hr IV .[id number] [facility] Rx #:[id number] Norepinephrine 8 mg In 35.281 75.436 Sodium Chloride 0.9% 250 ml @ 0.05 MCG/KG/MIN 10. 217 mls/hr IV .Q24H [facility] Rx#:[id number] fentaNYL (PF). 1,000 mcg 100 100 In Sodium Chloride 0.9% 80 ml @ Per Protocol IV . Q0M [facility] Rx#:[id number] propofoL 1,000 mg In 100 300 Empty Bag 1 bag @ Titrate IV .Q0M [facility] Rx#: [id number] Tube Feeding 20 150 20 Other 120 Output: Chest Tube Drainage 370 150 Chest Tube Left Lateral 370 150 Chest Urine 1845 838 50 Other: Voiding Method Indwelling Catheter Indwelling Catheter ABP, PAP, CO, CI - Last Documented Arterial Blood Pressure 92/50 - Labs CBC & Chem 7: 09/09/20 05:00 09/09/20 05:00 Labs: Abnormal Lab Results - Last 24 Hours (Table) 09/08/20 09/08/20 09/08/20 Range/Units 11:43 15:34 18:34 WBC (3.8-10.6) k/uL RBC (4.30-5.90) m/uL Hgb (13.0-17.5) gm/dL Hct (39.0-53.0) % MCV (80.0-100.0) fL D-Dimer (<0.60) mg/L FEU ABG pH 7.25 L (7.35-7.45) ABG pCO2 80 H* (35-45) mmHg ABG pO2 63 L (83-108) mmHg ABG HCO3 35 H (21-25) mmol/L ABG Total CO2 38 H (19-24) mmol/L ABG O2 Saturation 89.0 L (94-97) % Sodium (137-145) mmol/L Potassium (3.5-5.1) mmol/L Carbon Dioxide (22-30) mmol/L BUN (9-20) mg/dL Glucose (74-99) mg/dL POC Glucose (mg/dL) 103 H 102 H (75-99) mg/dL Calcium (8.4-10.2) mg/dL Total Bilirubin (0.2-1.3) mg/dL AST (17-59) U/L ALT (4-49) U/L Alkaline Phosphatase (38-126) U/L Lactate Dehydrogenase (313-618) U/L Total Protein (6.3-8.2) g/dL Albumin (3.5-5.0) g/dL 09/09/20 09/09/20 09/09/20 Range/Units 00:50 04:53 05:00 WBC 20.2 H (3.8-10.6) k/uL RBC 3.36 L (4.30-5.90) m/uL Hgb 11.4 L (13.0-17.5) gm/dL Hct 34.6 L (39.0-53.0) % MCV 102.9 H (80.0-100.0) fL D-Dimer (<0.60) mg/L FEU ABG pH 7.22 L (7.35-7.45) ABG pCO2 85 H* (35-45) mmHg ABG pO2 61 L (83-108) mmHg ABG HCO3 35 H (21-25) mmol/L ABG Total CO2 38 H (19-24) mmol/L ABG O2 Saturation 88.1 L (94-97) % Sodium (137-145) mmol/L Potassium (3.5-5.1) mmol/L Carbon Dioxide (22-30) mmol/L BUN (9-20) mg/dL Glucose (74-99) mg/dL POC Glucose (mg/dL) 111 H (75-99) mg/dL Calcium (8.4-10.2) mg/dL Total Bilirubin (0.2-1.3) mg/dL AST (17-59) U/L ALT (4-49) U/L Alkaline Phosphatase (38-126) U/L Lactate Dehydrogenase (313-618) U/L Total Protein (6.3-8.2) g/dL Albumin (3.5-5.0) g/dL 09/09/20 09/09/20 Range/Units 05:00 05:00 WBC (3.8-10.6) k/uL RBC (4.30-5.90) m/uL Hgb (13.0-17.5) gm/dL Hct (39.0-53.0) % MCV (80.0-100.0) fL D-Dimer 2.86 H (<0.60) mg/L FEU ABG pH (7.35-7.45) ABG pCO2 (35-45) mmHg ABG pO2 (83-108) mmHg ABG HCO3 (21-25) mmol/L ABG Total CO2 (19-24) mmol/L ABG O2 Saturation (94-97) % Sodium 136 L (137-145) mmol/L Potassium 5.6 H (3.5-5.1) mmol/L Carbon Dioxide 35 H (22-30) mmol/L BUN 48 H (9-20) mg/dL Glucose 123 H (74-99) mg/dL POC Glucose (mg/dL) (75-99) mg/dL Calcium 7.9 L (8.4-10.2) mg/dL Total Bilirubin 2.0 H (0.2-1.3) mg/dL AST 71 H (17-59) U/L ALT 157 H (4-49) U/L Alkaline Phosphatase 196 H (38-126) U/L Lactate Dehydrogenase 1084 H (313-618) U/L Total Protein 5.7 L (6.3-8.2) g/dL Albumin 2.7 L (3.5-5.0) g/dL
[2020-09-09 12:13] VITALS: BMI 41.7
--- NOTE | 2020-09-09 18:29 | P.DS ---
Providers Date of admission: 08/15/20 13:51 Expected date of discharge: 09/09/20 Attending physician: Vikas Rosenberg Consults: 08/15/20 13:59 Consult Physician Urgent Consulting Provider: Dave Molina Consult Reason/Comments: Covid pneumonia, hypoxia Do you want consulting provider notified?: Yes 09/06/20 08:23 Consult Physician Routine Consulting Provider: Jovani Berry Consult Reason/Comments: trach and peg Do you want consulting provider notified?: Yes 09/08/20 13:54 Consult Physician Routine Consulting Provider: Linda Lomax Consult Reason/Comments: large left pneumothorax Do you want consulting provider notified?: Yes Primary care physician: Physician Nonstaff Hospital Course: COVID-19 pneumonitis, acute hypoxic respiratory failure intubated on 08/28, septic shock, pneumomedistinum Tension Pneumothorax s/p chest tube Patient was admitted with Covid pneumonitis with septic shock warranting intubation on 08/28, trach/PEG tube placement on 09/07. He was treated with Decadron as well as TOCI as well as Lovenox. However, patient's hospital course was further complicated by tension pneumothorax warranting chest tube placement. Despite chest tube, patient had recurrence of pneumothorax and family had opted to transition patient to comfort care. Unfortunately patient had due to complicated Covid 19 on 09/09. Plan - Discharge Summary Discharge Rx Participant: No New Discharge Prescriptions: No Action Multivitamins, Thera [Multivitamin (formulary)] 1 tab PO DAILY Discharge Medication List Multivitamins, Thera [Multivitamin (formulary)] 1 tab PO DAILY 08/15/20 [History] Follow up Appointment(s)/Referral(s): Nonstaff,Physician [Primary Care Provider] - 1-2 days Patient Instructions/Handouts: Coronavirus Disease 2019 (COVID-19) Discharge Disposition: - Preliminary Cause of Preliminary Cause of : COVID 19 complications
== END 2020-09-09 14:07 | disposition expired | DRG 4 ==
LOC: EC 11:15 → 4SSUR 13:51 → 2SICU 08-21 08:15
PROVIDERS: ADMIT Internal Medicine; ATTEND Internal Medicine
PROC: 5A0945A Assistance with Respiratory Ventilation, 24-96 Consecutive Hours, High Flow/Velocity Cannula (ICD-10-PCS; 2020-08-18)
PROC: XW033H5 Introduction of Tocilizumab into Peripheral Vein, Percutaneous Approach, New Technology Group 5 (ICD-10-PCS; 2020-08-20)
PROC: 5A09557 Assistance with Respiratory Ventilation, Greater than 96 Consecutive Hours, Continuous Positive Airway Pressure (ICD-10-PCS; 2020-08-21)
PROC: 02HV33Z Insertion of Infusion Device into Superior Vena Cava, Percutaneous Approach (ICD-10-PCS; 2020-08-26)
PROC: 3E0436Z Introduction of Nutritional Substance into Central Vein, Percutaneous Approach (ICD-10-PCS; 2020-08-26)
PROC: 5A1955Z Respiratory Ventilation, Greater than 96 Consecutive Hours (ICD-10-PCS; 2020-08-28)
PROC: 0D9670Z Drainage of Stomach with Drainage Device, Via Natural or Artificial Opening (ICD-10-PCS; 2020-08-28)
PROC: 3E033XZ Introduction of Vasopressor into Peripheral Vein, Percutaneous Approach (ICD-10-PCS; 2020-08-28)
PROC: 4A133J1 Monitoring of Arterial Pulse, Peripheral, Percutaneous Approach (ICD-10-PCS; 2020-08-28)
PROC: 4A133B1 Monitoring of Arterial Pressure, Peripheral, Percutaneous Approach (ICD-10-PCS; 2020-08-28)
PROC: 03HY32Z Insertion of Monitoring Device into Upper Artery, Percutaneous Approach (ICD-10-PCS; 2020-08-28)
PROC: 3E0G76Z Introduction of Nutritional Substance into Upper GI, Via Natural or Artificial Opening (ICD-10-PCS; 2020-08-28)
PROC: 0DH63UZ Insertion of Feeding Device into Stomach, Percutaneous Approach (ICD-10-PCS; principal; 2020-09-07 14:20)
PROC: 0B110F4 Bypass Trachea to Cutaneous with Tracheostomy Device, Open Approach (ICD-10-PCS; principal; 2020-09-07 14:20)
PROC: 0W9B30Z Drainage of Left Pleural Cavity with Drainage Device, Percutaneous Approach (ICD-10-PCS; 2020-09-08)
PROC: 3E0G76Z Introduction of Nutritional Substance into Upper GI, Via Natural or Artificial Opening (ICD-10-PCS; 2020-09-08)
DX: U07.1 COVID-19 (principal); J95.811 Postprocedural pneumothorax; A41.89 Other specified sepsis; R65.21 Severe sepsis with septic shock; J12.82 Pneumonia due to coronavirus disease 2019; E43 Unspecified severe protein-calorie malnutrition; G92 Toxic encephalopathy; J80 Acute respiratory distress syndrome; J94.8 Other specified pleural conditions; E87.0 Hyperosmolality and hypernatremia; A08.39 Other viral enteritis; Z68.41 Body mass index [BMI] 40.0-44.9, adult; J95.859 Other complication of respirator [ventilator]; J98.2 Interstitial emphysema; E66.9 Obesity, unspecified; L89.812 Pressure ulcer of head, stage 2; J42 Unspecified chronic bronchitis; Z66 Do not resuscitate; Z51.5 Encounter for palliative care; D72.810 Lymphocytopenia; E87.6 Hypokalemia; J45.20 Mild intermittent asthma, uncomplicated; I10 Essential (primary) hypertension; K59.00 Constipation, unspecified; M19.90 Unspecified osteoarthritis, unspecified site; L92.9 Granulomatous disorder of the skin and subcutaneous tissue, unspecified; R74.01 Elevation of levels of liver transaminase levels; Z79.899 Other long term (current) drug therapy; Z96.651 Presence of right artificial knee joint; Z98.890 Other specified postprocedural states; Z71.3 Dietary counseling and surveillance; Z88.5 Allergy status to narcotic agent; Z88.0 Allergy status to penicillin
CPT/HCPCS: 36415; 36573; 36600; 43246; 71045; 80048; 80053; 82330; 82550; 82805; 83605; 83615; 83735; 83880; 84100; 84132; 84145; 84478; 84484; 85025; 85027; 85379; 85610; 85730; 86140; 87636; 93005; 93308; 93970; 94002; 94003; 94640; 94660; 94760; 96360; 99285